=== PATIENT | female | born 1960 | race Caucasian/White ===

== ENCOUNTER 2017-04-18 10:52 | Inpatient (IN) ==
--- NOTE | 2017-04-18 11:11 | Emergency Department Note ---
Disposition Clinical Impression: Septic shock, CAP (community acquired pneumonia), Lactic acidosis Disposition: Admitted As Inpatient Condition: Fair Referrals: Neelam Zhao MD [Primary Care Provider] - Forms: ED Satisfaction Letter Time of Disposition: 14:08 SOB HPI - General Chief Complaint: ED Shortness of Breath/Dyspnea Stated Complaint: ZAIRE Time Seen by Provider: 04/18/17 10:55 Source: patient Mode of arrival: ambulatory Limitations: no limitations Nursing Notes Reviewed: Yes Vital Signs Reviewed: Yes - History of Present Illness Patient presents to the ED with the chief complaint of shortness of breath. Patient reports symptoms onset 2 days ago. She has a history of emphysema and asthma, but is only on nightly oxygen. She reports for the last 2 days, she has required oxygen. Much full-time. She went to urgent care last night and had a chest x-ray that showed bronchitis so she was placed on steroids and given a few breathing treatments. She states that has not seemed to help. She woke up this morning feeling more short of breath usual and could not catch her breath. She has been coughing but is not coughing anything up. No fever. No chest pain, but does have chest tightness. No abdominal pain. She has been nauseated but no vomiting or diarrhea. No rash. No headache or neck stiffness. - Related Data Home Medications Medication Instructions Recorded Confirmed Albuterol Sulfate [Proair 2 puff IH Q4HR PRN 04/07/15 11/10/15 Respiclick] Amlodipine [Norvasc] 10 mg PO DAILY 04/07/15 11/10/15 Aripiprazole [Abilify] 5 mg PO DAILY 04/07/15 11/10/15 Atorvastatin [Lipitor] 10 mg PO HS 04/07/15 11/10/15 Budesonide/Formoterol 160/4.5 2 puff IH BIDR 04/07/15 11/10/15 [Symbicort] Hydrochlorothiazide [Microzide] 12.5 mg PO DAILY 04/07/15 11/10/15 Ipratropium [ATROVENT Inhaler] 1 puff IH DAILY 04/07/15 11/10/15 LevETIRAcetam [Keppra] 1,000 mg PO BID 04/07/15 11/10/15 Liraglutide [Victoza 2-Bryson] 1.2 mg SQ DAILY 04/07/15 11/10/15 Metformin [Glucophage] 1,000 mg PO BID 04/07/15 11/10/15 Metoclopramide [Reglan] 25 mg PO BID 04/07/15 11/10/15 Modafinil [Provigil] 400 mg PO DAILY 04/07/15 11/10/15 Omeprazole [PriLOSEC] 40 mg PO BID 04/07/15 11/10/15 Ondansetron ODT [Zofran ODT] 8 mg SL TID PRN 04/07/15 11/10/15 Potassium Chloride 20 meq PO BID 04/07/15 11/10/15 Sucralfate [Carafate] 1 gm PO BID 04/07/15 11/10/15 Tizanidine HCl [Zanaflex] 4 mg PO Q8HR 04/07/15 11/10/15 Venlafaxine HCl [Effexor Xr] 75 mg PO DAILY 04/07/15 11/10/15 GI Cocktail [Gi Cocktail] 5 ml PO BID 05/09/15 11/10/15 Ibuprofen [Motrin] 800 mg PO Q8HR 05/09/15 11/10/15 Linaclotide [Linzess] 145 mcg PO DAILY 05/09/15 11/10/15 Meloxicam [Mobic] 15 mg PO DAILY 05/09/15 11/10/15 Promethazine [Phenergan] 25 mg PO Q8HR 05/09/15 11/10/15 Simethicone [Bicarsim] 180 mg PO BID 05/09/15 11/10/15 Escitalopram [Lexapro] 15 mg PO DAILY 11/10/15 11/10/15 Fluticasone Propionate Nasal 1 spr NS DAILY PRN 11/10/15 11/10/15 [Flonase] Insulin ASPART [NovoLOG] 0 unit SQ TIDWM 11/10/15 11/10/15 LORazepam [Ativan] 0.5 mg PO QID 11/10/15 11/10/15 Lisinopril [Zestril] 5 mg PO DAILY 11/10/15 11/10/15 PredniSONE [Deltasone] 20 mg PO BID 11/10/15 11/10/15 glipiZIDE [Glucotrol] 5 mg PO 0800 11/10/15 11/10/15 Previous Rx's Medication Instructions Recorded Loratadine [Claritin] 10 mg PO DAILY #30 tablet 01/13/15 Ipratropium/Albuterol Neb [Duoneb] 3 ml IH Q8HR PRN #1 vial.neb 04/07/15 OxyCODONE/APAP 5/325 [Percocet 1 each PO Q6HR PRN #30 tablet 05/09/15 5/325 MG] Acyclovir [Zovirax] 400 mg PO 5XD #25 tablet 11/16/15 Acetaminophen w/Cod 300-30 mg 1 each PO Q6HR PRN #10 tablet 11/22/15 [Tylenol w/Codeine #3] Ibuprofen [Motrin] 800 mg PO Q8HR PRN #30 tablet 11/22/15 Azithromycin [Azithromycin 6-Tab 250 mg PO DAILY #6 tab 01/16/16 Pack] Guaifenesin/Codeine Phosphate 5 ml PO Q4-6H PRN #80 ml 01/16/16 [Guaifenesin-Codeine Syrup] predniSONE [Prednisone] 40 mg PO DAILY #10 tablet 01/16/16 predniSONE [PredniSONE] 40 mg PO DAILY #5 tablet 04/17/16 Benzonatate [Tessalon] 200 mg PO TID PRN #20 capsule 05/05/16 Doxycycline 100 mg PO BID #14 capsule 05/05/16 HYDROcodone BIT/Homatropine 1 mg PO Q6HR PRN #4 tablet 05/05/16 [Hycodan] predniSONE [PredniSONE] 5 mg PO DAILY 6 Days tablet 05/05/16 Acetaminophen w/Cod 300-30 mg 1 each PO Q8HR PRN #8 tablet 06/12/16 [Tylenol w/Codeine #3] cephALEXin [Keflex] 500 mg PO QID #28 capsule 06/12/16 Acetaminophen w/Cod 300-30 mg 1 each PO Q6HR PRN #10 tablet 07/23/16 [Tylenol w/Codeine #3] Amoxicillin 875 mg PO BID #20 tablet 07/23/16 Diclofenac Potassium 50 mg PO TID PRN #20 tablet 07/23/16 Azithromycin [Azithromycin 6-Tab 250 mg PO PER PKG DI #6 tab 09/19/16 Pack] HYDROcodone BIT/Homatropine LQ 5 mg PO Q6-8H PRN #90 syrup 09/19/16 [Hycodan Syrup] methylPREDNISolone [Medrol] 4 mg PO TAPER #21 tablet 09/19/16 Naproxen [Naprosyn] 500 mg PO BID PRN #20 tablet 10/31/16 Cyclobenzaprine [Flexeril] 10 mg PO TID #15 tablet 02/06/17 HYDROcodone/Acet 5/325 mg [[place] 1 tab PO Q6H PRN #8 tab 02/06/17 5-325 mg] methylPREDNISolone [Medrol] 4 mg PO TAPER #21 tablet 02/06/17 Amoxicillin 875 mg PO BID #20 tablet 02/16/17 Naproxen [Naprosyn] 500 mg PO BID #20 tablet 02/16/17 GuaiFENesin/Codeine [Robitussin 5 ml PO Q6HR PRN #120 liquid 04/17/17 w/Codeine] cephALEXin [Keflex] 500 mg PO QID #40 capsule 04/17/17 predniSONE [PredniSONE] 60 mg PO DAILY 5 Days tablet 04/17/17 Allergies Allergy/AdvReac Type Severity Reaction Status Date / Time docetaxel [From Taxotere] Allergy Anaphylaxis Verified 04/07/15 03:46 Paroxetine [From Paxil] Allergy Itching Verified 04/07/15 03:46 trazodone AdvReac Vomiting Verified 04/07/15 03:46 All systems ED: reviewed and negative except as stated. Constitutional: Denies: fever Cardiovascular: Reports: chest pain, dyspnea on exertion. Denies: edema Respiratory: Reports: cough, dyspnea. Denies: wheezes, sputum production Gastrointestinal: Reports: nausea. Denies: abdominal pain Musculoskeletal: Denies: back pain Neurological: Denies: headache Past Medical History - Past Medical History Attestation: Yes The following information was validated with the patient. Source: patient Medical history: Reports: arthritis, COPD, diabetes, hypertension, seizures Surgical history: Reports: other Psychiatric history: Reports: bipolar, depression, other - Social History Smoking Status: Current every day smoker Smokeless Tobacco Status: No Alcohol use: Reports: none Drug use: Reports: none Physical Exam - General Limitations: no limitations General appearance: alert, in no apparent distress - Head Head exam: atraumatic, normocephalic, normal inspection - Eye Eye exam: Present: normal appearance, PERRL, EOMI - ENT ENT exam: normal exam, normal oropharynx, mucous membranes moist - Neck Neck exam: Present: normal inspection, full ROM, trachea midline - Chest Chest inspection: Present: normal inspection, symmetric chest wall rise - Respiratory Respiratory exam: Present: normal lung sounds bilaterally. Absent: respiratory distress, wheezes - Cardiovascular Cardiovascular exam: Present: tachycardia, normal heart sounds - Abdominal Exam Abdominal exam: Present: soft, Non-Tender. Absent: tenderness, distention, guarding, rebound, rigidity - Extremities Exam Extremities exam: Present: full ROM, pedal edema. Absent: normal inspection, tenderness - Expanded Lower Extremity Exam Hip/Pelvis exam: Present: pelvis stable Neurovascular/Tendon exam: Present: normal capillary refill - Neurological Exam Neurological exam: Present: alert, oriented X3 - Psychiatric Psychiatric exam: Present: normal affect, normal mood - Skin Skin exam: Present: warm, dry, intact, normal color Course Course Narrative: Patient presenting with shortness of breath and cough. Had an x-ray yesterday was treated for bronchitis with steroids. Presenting now for worsening symptoms. Concern over pneumonia versus PE. We will CTA chest labs ordered - Reevaluation(s) Reevaluation #1: Patient has a lactic acid greater than 10, and a leukocytosis of 21,000 complicated by steroid use, but CT of the chest was negative for PE and did show multifocal pneumonia. She does meet sepsis criteria. We will administer a 30 mL/kg fluid bolus and start broad-spectrum antibiotics. Cultures will be ordered. Patient will need to be admitted. This is discussed with her and she is agreeable with plan Reevaluation #2: Spoke with the hospitalist who recommended speaking with the ocular care technician on- call. We spoke with him and he recommended placing a central line prior to admission and obtaining a respiratory infection panel. Also recommended electrical treating with Tamiflu. If this is an influenza-like illness. Patient responded very well to the fluid bolus and her lactic acid is trending down. I do not think that central venous access is indicated at this time. If she does need is a pressor support. We are able to run Levophed peripherally for up to 24 hours. This was discussed with the admitting hospitalist, and she recommended to not place a central line and to admit the patient to the stepdown unit. This is reasonable. The patient actually looks very well. There also seems to be a component of congestive heart failure with an elevated BNP and potential pulmonary edema on chest x-ray from yesterday. Also recommend echocardiogram and close respiratory status monitoring due to her large volume of fluid resuscitation to be given. Vital Signs Temperature 98.5 F 04/18/17 10:53 Pulse Rate 108 04/18/17 10:53 Respiratory Rate 24 04/18/17 10:53 Blood Pressure 89/56 04/18/17 10:53 O2 Sat by Pulse Oximetry 85 04/18/17 10:53 Temperature 98.5 F 04/18/17 10:53 Pulse Rate 99 04/18/17 13:08 Respiratory Rate 22 04/18/17 13:08 Blood Pressure 126/77 04/18/17 13:08 O2 Sat by Pulse Oximetry 93 04/18/17 13:08 Oxygen Delivery Oxygen Delivery Nasal Cannula Shortness of Breath/Dyspnea - Medical Records Medical records reviewed: Yes I reviewed the patient's medical records. - Lab Data Lab results reviewed: Yes I reviewed the patient's lab results. Result diagrams: 04/18/17 11:10 04/18/17 11:10 Lab Results 04/18/17 04/18/17 04/18/17 Range/Units 11:10 11:10 11:10 WBC 21.5 H (4.3-11.1) K/mcL RBC 3.49 L (3.82-4.97) M/mcL Hgb 9.2 L (11.5-15.4) g/dL Hct 28.7 L (35.3-44.9) % MCV 82.2 L (83.0-100.0) fL MCH 26.4 L (28.0-33.3) pg MCHC 32.1 (31.6-35.5) g/dL RDW 16.5 H (11.5-14.5) % Plt Count 394 (140-400) K/mcL MPV 9.3 L (9.4-12.4) fL Immature Gran % 0.7 (0-4) % Seg Neutrophils % 94.3 % Lymphocytes % 2.3 % Monocytes % 2.7 % Eosinophils % 0.0 % Basophils % 0.0 % Neutrophils # 20.3 H (1.6-8.9) K/mcL Lymphocytes # 0.5 L (0.6-4.6) K/mcL Monocytes # 0.6 (0.0-1.3) K/mcL Eosinophils # 0.0 (0.0-0.6) K/mcL Basophils # 0.0 (0.0-0.2) K/mcL PT (9.4-12.1) Seconds INR APTT (26.0-36.0) Seconds Sodium 131 L (136-145) mEq/L Potassium 3.1 L (3.5-5.1) mEq/L Chloride 96 L (98-107) mEq/L Carbon Dioxide 15 L (23-29) mEq/L BUN 18 (6-20) mg/dL Creatinine 1.12 (0.60-1.20) mg/dL Est GFR ( Amer) > 60 (> 60) Est GFR (Non-Af Amer) 50 L (> 60) BUN/Creatinine Ratio 16 (6-26) Glucose 486 H (70-105) mg/dL Calculated Osmolality 295 (280-300) Lactic Acid > 10.0 H* (0.5-2.2) mmol/L Calcium 9.1 (8.6-10.3) mg/dL Troponin I (< 0.04) ng/mL B-Natriuretic Peptide (Less than 100) pg/mL Urine Color (Yellow) Urine Clarity (Clear) Urine pH (5.0-8.0) pH Units Ur Specific [place] (1.010-1.025) Urine Protein (Neg-Trace) mg/dL Urine Glucose (UA) (Normal) mg/dL Urine Ketones (Negative) mg/dL Urine Blood (Negative) Urine Nitrite (Negative) Urine Bilirubin (Negative) Urine Urobilinogen (Normal) mg/dL Ur Leukocyte Esterase (Negative) Urine Microscopic RBC (0-3) per hpf Urine Microscopic WBC (0-3) per hpf Ur Squamous Epith Cells (None-Few) per lpf Urine Bacteria (None-Few) per hpf Hyaline Casts (None-Few) per lpf Ur Culture Indicated? (NO) 04/18/17 04/18/17 04/18/17 Range/Units 11:10 11:10 11:10 WBC (4.3-11.1) K/mcL RBC (3.82-4.97) M/mcL Hgb (11.5-15.4) g/dL Hct (35.3-44.9) % MCV (83.0-100.0) fL MCH (28.0-33.3) pg MCHC (31.6-35.5) g/dL RDW (11.5-14.5) % Plt Count (140-400) K/mcL MPV (9.4-12.4) fL Immature Gran % (0-4) % Seg Neutrophils % % Lymphocytes % % Monocytes % % Eosinophils % % Basophils % % Neutrophils # (1.6-8.9) K/mcL Lymphocytes # (0.6-4.6) K/mcL Monocytes # (0.0-1.3) K/mcL Eosinophils # (0.0-0.6) K/mcL Basophils # (0.0-0.2) K/mcL PT 11.3 (9.4-12.1) Seconds INR 1.1 APTT 29.0 (26.0-36.0) Seconds Sodium (136-145) mEq/L Potassium (3.5-5.1) mEq/L Chloride (98-107) mEq/L Carbon Dioxide (23-29) mEq/L BUN (6-20) mg/dL Creatinine (0.60-1.20) mg/dL Est GFR ( Amer) (> 60) Est GFR (Non-Af Amer) (> 60) BUN/Creatinine Ratio (6-26) Glucose (70-105) mg/dL Calculated Osmolality (280-300) Lactic Acid (0.5-2.2) mmol/L Calcium (8.6-10.3) mg/dL Troponin I < 0.03 (< 0.04) ng/mL B-Natriuretic Peptide 235 H (Less than 100) pg/mL Urine Color (Yellow) Urine Clarity (Clear) Urine pH (5.0-8.0) pH Units Ur Specific [place] (1.010-1.025) Urine Protein (Neg-Trace) mg/dL Urine Glucose (UA) (Normal) mg/dL Urine Ketones (Negative) mg/dL Urine Blood (Negative) Urine Nitrite (Negative) Urine Bilirubin (Negative) Urine Urobilinogen (Normal) mg/dL Ur Leukocyte Esterase (Negative) Urine Microscopic RBC (0-3) per hpf Urine Microscopic WBC (0-3) per hpf Ur Squamous Epith Cells (None-Few) per lpf Urine Bacteria (None-Few) per hpf Hyaline Casts (None-Few) per lpf Ur Culture Indicated? (NO) 04/18/17 04/18/17 Range/Units 12:54 13:33 WBC (4.3-11.1) K/mcL RBC (3.82-4.97) M/mcL Hgb (11.5-15.4) g/dL Hct (35.3-44.9) % MCV (83.0-100.0) fL MCH (28.0-33.3) pg MCHC (31.6-35.5) g/dL RDW (11.5-14.5) % Plt Count (140-400) K/mcL MPV (9.4-12.4) fL Immature Gran % (0-4) % Seg Neutrophils % % Lymphocytes % % Monocytes % % Eosinophils % % Basophils % % Neutrophils # (1.6-8.9) K/mcL Lymphocytes # (0.6-4.6) K/mcL Monocytes # (0.0-1.3) K/mcL Eosinophils # (0.0-0.6) K/mcL Basophils # (0.0-0.2) K/mcL PT (9.4-12.1) Seconds INR APTT (26.0-36.0) Seconds Sodium (136-145) mEq/L Potassium (3.5-5.1) mEq/L Chloride (98-107) mEq/L Carbon Dioxide (23-29) mEq/L BUN (6-20) mg/dL Creatinine (0.60-1.20) mg/dL Est GFR ( Amer) (> 60) Est GFR (Non-Af Amer) (> 60) BUN/Creatinine Ratio (6-26) Glucose (70-105) mg/dL Calculated Osmolality (280-300) Lactic Acid 7.8 H* (0.5-2.2) mmol/L Calcium (8.6-10.3) mg/dL Troponin I (< 0.04) ng/mL B-Natriuretic Peptide (Less than 100) pg/mL Urine Color Yellow (Yellow) Urine Clarity Clear (Clear) Urine pH 6.0 (5.0-8.0) pH Units Ur Specific [place] > 1.030 H (1.010-1.025) Urine Protein Trace (Neg-Trace) mg/dL Urine Glucose (UA) >=1000 H (Normal) mg/dL Urine Ketones Negative (Negative) mg/dL Urine Blood Negative (Negative) Urine Nitrite Negative (Negative) Urine Bilirubin Negative (Negative) Urine Urobilinogen Normal (Normal) mg/dL Ur Leukocyte Esterase Negative (Negative) Urine Microscopic RBC 0-3 (0-3) per hpf Urine Microscopic WBC 0-3 (0-3) per hpf Ur Squamous Epith Cells Few (None-Few) per lpf Urine Bacteria None Seen (None-Few) per hpf Hyaline Casts None Seen (None-Few) per lpf Ur Culture Indicated? NO (NO) - Radiology Data Radiology results reviewed: Yes I reviewed the patient's radiology results. - EKG Data EKG attestation: Yes I reviewed and interpreted this EKG. EKG results narrative: Sinus rhythm, rate 99, OH interval 148, QRS 98, QTC 443, borderline left axis deviation, no acute ischemic changes. Critical Care Time Critical Care Time: Yes Total Critical Care Time: 35 Attestation: Total care time 35 minutes managing patient septic shock. Attestation Statement - Attestation Attestation: Patient was seen with resident physician. I reviewed the history, physical, assessment and plan, and agree with the findings. I also personally evaluated this patient and had [id number] time with this patient. A sexual female presents emergency Department chief complaint shortness of breath. Patient was seen several days ago and started on steroids for bronchitis area and she had a chest x-ray done which. We did not show pneumonia. It is unclear if she has been on antibiotics in the last week or so. She denies fevers or chills. She says she is on home O2 during the day as needed and 4 L at night. On examination mild hypotension, and mild hypoxia. ENT is unremarkable. Heart regular rhythm and rate. Lungs clear left crackles right. Abdomen soft and nontender. Extremities unremarkable. Neurologically intact. ED course with the minimal lung findings, we will do a CT scan of the chest determine she has pneumonia or PE. She is not have a lot of PE risk factors is no long car trips and no asymmetric swelling of the legs. EKG showed no acute ischemic changes. We will also check of the lab tests for abnormalities. Patient had significant abnormalities including initial lactic acid level of 10. A CT scan was positive for pneumonia. And with initial vital signs tachycardic and hypotensive patient clinically had septic shock. She responded well to fluid management blood pressure coming up but then later coming down towards the end of her stay. I spoke with the diabetes solutions specialist who did agree to accept her to the ICU wanting me to contact the hospitalist to arrange for admission. He suggested a viral panel and a central line as well. I spoke with the hospitalist who would be doing the admission and came and evaluated the patient. They felt comfortable putting the patient in the stepdown unit, and said that they wanted to try fluid resuscitation prior to placing a central line or starting pressors. Patient appeared well considering the significant abnormalities in her lab work, and I was comfortable with this disposition and plan. We will order the viral panel as well. In start antibiotics. Medical care time 35 minutes. Agree with the resident physician assessment and plan.
[2017-04-18 11:28] LABS: Hematocrit 28.7 % (35.3-44.9); Hemoglobin 9.2 g/dL (11.5-15.4); Immature Granulocytes % 0.7 % (0-4); Lymphocytes # 0.5 K/mcL (0.6-4.6); Lymphocytes % 2.3 %; Mean Corpuscular HGB Conc 32.1 g/dL (31.6-35.5); Mean Corpuscular Hemoglobin 26.4 pg (28.0-33.3); Mean Corpuscular Volume 82.2 fL (83.0-100.0); Mean Platelet Volume 9.3 fL (9.4-12.4); Monocytes # 0.6 K/mcL (0.0-1.3); Monocytes % 2.7 %; Neutrophils # 20.3 K/mcL (1.6-8.9); Platelet Count 394 K/mcL (140-400); Red Blood Count 3.49 M/mcL (3.82-4.97); Red Cell Distribution Width 16.5 % (11.5-14.5); Segmented Neutrophils % 94.3 %
[2017-04-18 11:33] LABS: INR 1.1; Prothrombin Time 11.3 Seconds (9.4-12.1)
[2017-04-18 11:47] LABS: BUN/Creatinine Ratio 16 (6-26); Blood Urea Nitrogen 18 mg/dL (6-20); Calcium 9.1 mg/dL (8.6-10.3); Carbon Dioxide 15 mEq/L (23-29); Chloride 96 mEq/L (98-107); Glucose 486 mg/dL (70-105); Osmolality,Calculated 295 (280-300); Potassium 3.1 mEq/L (3.5-5.1); Sodium 131 mEq/L (136-145); eGFR For African Americans > 60 (> 60); eGFR For Non-African Americans 50 (> 60)
[2017-04-18] MEDS ORDERED: Levofloxacin 750 MG/150 ML 750 MG/150 ML BAG IVPB ONE (11:49)
[2017-04-18] MEDS ORDERED: Piperacillin/Tazobactam 3.375 GM/200 ML BAG IVPB ONE (11:50)
[2017-04-18] MEDS ORDERED: Piperacillin/Tazobactam 3.375 GM in Water for inj. (sterile) 20 ML IVP ONE (11:59)
[2017-04-18] MEDS: 0.9 % Sodium Chloride 1,000 ML IVC SCH ×3 (12:56→16:33)
[2017-04-18 13:52] LABS: Bilirubin,Urine Negative (Negative); Blood,Urine Negative (Negative); Clarity,Urine Clear (Clear); Color,Urine Yellow (Yellow); Glucose,Urine (UA) >=1000 mg/dL (Normal); Ketones,Urine Negative (Negative); Leukocyte Esterase,Urine Negative (Negative); Nitrite,Urine Negative (Negative); Protein,Urine Trace mg/dL (Neg-Trace); Specific Gravity,Urine > 1.030 (1.010-1.025); Urobilinogen,Urine Normal (Normal)
[2017-04-18 13:54] LABS: Bacteria,Urine None Seen per hpf (None-Few); Hyaline Casts,Urine None Seen per lpf (None-Few); RBC,Urine 0-3 per hpf (0-3); Squamous Epithelial Cell,Urine Few per lpf (None-Few); WBC,Urine 0-3 per hpf (0-3)
[2017-04-18] MEDS ORDERED: *HR* Dextrose 50 % in Water (Syg) 50 ML SYRINGE IVP PRN ×2 (15:04→16:28)
[2017-04-18] MEDS ORDERED: D5% in 0.45% NACL w KCl 20 MEQ/1,000 ML MLS IVC PRN (15:04)
[2017-04-18] MEDS ORDERED: D5% in 0.45% NACL 1,000 ML IVC PRN (15:04)
[2017-04-18 15:51] LABS: ABG Base Excess -5 mEq/L (-2 to 3); ABG HCO3 19 mEq/L (21-27); ABG Oxygen Saturation 95 % (95-98); ABG PCO2 31 mmHg (35-45); ABG PH 7.39 pH Units (7.32-7.45); ABG PO2 74 mmHg (85-104); ABG TCO2 20 mEq/L (20-26)
--- NOTE | 2017-04-18 15:53 | Internal Med History&Physical ---
<Ronald Gomez J - Last Filed: 04/18/17 15:44> Date of Encounter: 04/18/17 Time of Encounter: 15:44 Assessment and Plan (1) Septic shock Current visit: Yes Status: Acute Patient presents with septic shock secondary to pneumonia. Reporting two-day history of increasing dyspnea, cough. CT of chest shows multifocal pneumonia. Patient additionally has leukocytosis and lactic acidosis. She also has a dx of DKA. She is still in respitatory distress with kuussmaul respirations, but maintain 02 saturations on high flow nasal canula at 6LPM. She received a 2L fluid bolus in the ED and is receiving 0.9 with 40meq K bolus per DKA protocol now. Obtain ABG now. Start emperic ATB therapy now with Vancomycin and zosyn Rapid flu and respiratory PCR now Blood cultures x2 sputum cultures now UA now recheck lactate Continue respiratory support with high flow NC; maintain spo2 greater than 92% BMP q4hrs (2) Pneumonia, organism unspecified Current visit: Yes Status: Acute Presents today with a multifocal pneumonia, leukocytosis, and septic shock. She is dyspneic, tachypneic with Kussmaul respirations on high flow oxygen at 6 L. See plan above. (3) DKA (diabetic ketoacidoses) Current visit: Yes Status: Acute Patient was sent to the ED today with shortness of breath 2 days. Diagnosis of pneumonia and septic shock. The patient is also in diabetic ketoacidosis. presenting with polyuria, polydipsia and nausea. Anion gap acidosis of 22. Presenting, respirations, hypoxia, lactic acidosis, hypokalemia potassium 3.1 and hyperglycemia with serum blood glucose of 486 Starting insulin gtt now d/t DKA, however IV insulin bolus at this time due to hypokalemia I have discussed with the patient that she will likely need CVC access. surgery was called for placement but the patient refused I will project architect her oral potassium 40meq x1 dose now as well as the 40 meq through her IVF bolus per DKA protocol She is also receiving 20meq IV K rider BMP Q4hrs to further monitor electrolytes Continuous tele, spo2 monitoring CBCD in the am obtain urinalysis to assess for ketones and additional source of infection Qualifiers: Diabetes mellitus type: other specified (including [place]) Diabetes mellitus complication detail: without coma Qualified Code(s): E13.10 - Other specified diabetes mellitus with ketoacidosis without coma (4) Lactic acidosis Current visit: Yes Status: Acute In the setting of DKA and sepsis secondary to pneumonia. Continue to monitor. Implementing sepsis protocol. See plan above (5) Diabetes mellitus Current visit: Yes Status: Acute see plan above Qualifiers: Diabetes mellitus type: type 2 Diabetes mellitus complication status: with kidney complications Diabetes mellitus complication detail: with chronic kidney disease Diabetes mellitus ferry terminal agent insulin use: with ferry terminal agent use Chronic kidney disease stage: stage 3 (moderate) Qualified Code(s): E11.22 - Type 2 diabetes mellitus with diabetic chronic kidney disease; N18.3 - Chronic kidney disease, stage 3 (moderate); Z79.4 - long term care phlebotomist (current) use of insulin (6) Acute and chronic respiratory failure with hypoxia Current visit: Yes Status: Acute see plan above (7) DVT prophylaxis Current visit: Yes Status: Acute Heparin 5000 units SC BID Internal Medicine - H&P: HPI Chief complaint: Dyspnea, fatigue, x2 days Admitted From: Home Plans for Post Hospital Care: Home History of present illness: Ms. Youssef is a 57 year old female with a PMH of arthritis, COPD, DM, HTN, and seizures. She presents to [facility] today with a 2-day h/o dyspnea, cough, fatigue and weakness. She reports that she went to urgent care yesterday and was diagnosed with Bronchitis and sent home with steroids. She presents today with worsening shortness of breath reporting that I have been unable to catch my breath today. The patient reports that she wears 4 L nasal cannula at home but only at night, however for the last 2 days she has been requiring nasal cannula at 4 L all day long. Additionally, she arrives with hypoxia with an SPO2 of 85% . Workup in the ED revealed leukocytosis, lactic acidosis, CTA of chest shows multifocal pneumonia. Upon my assessment the patient is in respiratory distress with Kussmaul respirations. Further review of labs reveals that the patient is in diabetic ketoacidosis with an anion gap of 22, hypokalemia with K of 3.1, lactic acidosis and a serum glucose of 46. We will further pursue workup with urinalysis to check for urine ketones. Additionally, we will also place CVC access. Past Med Surg Social Fam HX - Past Medical History Medical history: arthritis, COPD, diabetes, hypertension, seizures Psychiatric history: bipolar, depression, other - Past Surgical History Surgical History: other - Social History Smoking Status: Current every day smoker Smokeless Tobacco Status: No Alcohol use: none Drug use: none - Family History Mother Hx Family Cardiac Disorders: Yes (HTN) Hx Family Endocrine Disorder: Yes (DIABETES) Internal Medicine - H&P: Meds Loratadine [Claritin] 10 mg PO DAILY #30 tablet 01/13/15 [Rx] Albuterol Sulfate [Proair Respiclick] 2 puff IH Q4HR PRN 04/07/15 [History] Amlodipine [Norvasc] 10 mg PO DAILY 04/07/15 [History] Aripiprazole [Abilify] 7.5 mg PO DAILY 04/07/15 [History] Atorvastatin [Lipitor] 10 mg PO HS 04/07/15 [History] Budesonide/Formoterol 160/4.5 [Symbicort] 2 puff IH BIDR 04/07/15 [History] Hydrochlorothiazide [Microzide] 12.5 mg PO DAILY 04/07/15 [History] Ipratropium [ATROVENT Inhaler] 1 puff IH DAILY 04/07/15 [History] Ipratropium/Albuterol Neb [Duoneb] 3 ml IH Q8HR PRN #1 vial.neb 04/07/15 [Rx] LevETIRAcetam [Keppra] 1,000 mg PO BID 04/07/15 [History] Metformin [Glucophage] 1,000 mg PO BID 04/07/15 [History] Metoclopramide [Reglan] 25 mg PO BID 04/07/15 [History] Modafinil [Provigil] 400 mg PO DAILY 04/07/15 [History] Ondansetron ODT [Zofran ODT] 8 mg SL TID PRN 04/07/15 [History] Potassium Chloride 20 meq PO BID 04/07/15 [History] Sucralfate [Carafate] 1 gm PO BID 04/07/15 [History] Tizanidine HCl [Zanaflex] 4 mg PO Q8HR 04/07/15 [History] Meloxicam [Mobic] 15 mg PO DAILY 05/09/15 [History] Promethazine [Phenergan] 25 mg PO Q8HR 05/09/15 [History] Simethicone [Bicarsim] 180 mg PO BID 05/09/15 [History] Escitalopram [Lexapro] 10 mg PO DAILY 11/10/15 [History] Fluticasone Propionate Nasal [Flonase] 50 mcg NS DAILY PRN 11/10/15 [History] Insulin ASPART [NovoLOG] 2 - 10 unit SQ TIDWM 11/10/15 [History] LORazepam [Ativan] 0.5 mg PO TID PRN 11/10/15 [History] Lisinopril [Zestril] 5 mg PO DAILY 11/10/15 [History] glipiZIDE [Glucotrol] 10 mg PO QAM 11/10/15 [History] Naproxen [Naprosyn] 500 mg PO BID #20 tablet 02/16/17 [Rx] ALPRAZolam [Xanax 1 MG Tablet] 1 mg PO HS 04/18/17 [History] Exenatide Microspheres [Bydureon Pen] 2 mg SQ TH 04/18/17 [History] Insulin Glargine [Lantus] 16 units SQ QAM 04/18/17 [History] Pregabalin [Lyrica] 50 mg PO TID 04/18/17 [History] Roflumilast [Daliresp] 500 mcg PO DAILY 04/18/17 [History] glipiZIDE [Glucotrol] 5 mg PO QPM 04/18/17 [History] 3 Allergy/AdvReac Type Severity Reaction Status Date / Time docetaxel [From Taxotere] Allergy Anaphylaxis Verified 04/07/15 03:46 Paroxetine [From Paxil] Allergy Itching Verified 04/07/15 03:46 trazodone AdvReac Vomiting Verified 04/07/15 03:46 All Systems PM: A 10-system review of systems was performed and is negative for pertinent findings except as documented above in the HPI. Review of systems: REVIEW OF SYSTEMS GENERAL: Negative for any nausea, vomiting, fevers, chills, or weight loss. NEUROLOGIC: Negative for any blurry vision, blind spots, double vision, facial asymmetry, dysphagia, dysarthria, hemiparesis, hemisensory deficits, vertigo, ataxia. HEENT: Negative for any head trauma, neck trauma, neck stiffness, photophobia, phonophobia, sinusitis, rhinitis. CARDIAC: Negative for any chest pain, dyspnea on exertion, paroxysmal nocturnal dyspnea, peripheral edema. Positive for feeling tachycardic and palpitations PULMONARY: Positive for progressing dyspnea, cough for the last 2 days GASTROINTESTINAL: Negative for any abdominal pain, nausea, vomiting, bright red blood per rectum, melena. GENITOURINARY: Negative for any dysuria, hematuria, incontinence. Positive for polyuria and polydipsia INTEGUMENTARY: Negative for any rashes, cuts, insect bites. RHEUMATOLOGIC: Negative for any joint pains, photosensitive rashes, history of vasculitis or kidney problems. HEMATOLOGIC: Negative for any abnormal bruising, frequent infections or bleeding. - Constitutional Vitals: Temp Pulse Resp BP Pulse Ox 98.5 F 100 22 94/59 89 04/18/17 10:53 04/18/17 14:19 04/18/17 14:19 04/18/17 14:19 04/18/17 14:19 General appearance: Present: A&O X 3, answers questions appropriately Exam: PHYSICAL EXAMINATION: GENERAL: The patient is a well-developed, female in moderate respiratory distress distress. she is alert and oriented x3. VITAL SIGNS: Heart rate of 100, respiratory rate of 22 at 90% on high flow nasal cannula 6 L, blood pressure 94/59 HEENT: Head is normocephalic and atraumatic. Extraocular muscles are intact. Pupils are equal, round, and reactive to light and accommodation. Nares appeared normal. Mouth is well hydrated and without lesions. Mucous membranes are moist. Posterior pharynx clear of any exudate or lesions. NECK: Supple. No carotid bruits. No lymphadenopathy or thyromegaly. LUNGS: Clear to auscultation rhonchi bilateral posterior lobes. No accessory muscle usage, tachypneic with Cozaar respirations HEART: Tachycardic, S1, S2 with without murmur, rubs or gallops. ABDOMEN: Soft, nontender, and nondistended. Positive bowel sounds. No hepatosplenomegaly was noted. EXTREMITIES: Without any cyanosis, clubbing, rash, lesions or edema. NEUROLOGIC: Cranial nerves II through XII are grossly intact. PSYCHIATRIC: Flat affect, but denies suicidal or homicidal ideations. SKIN: No ulceration or induration present. Internal Med - H&P Results - Labs CBC & Chem 7: 04/18/17 11:10 04/18/17 11:10 - Diagnostic Studies CT scan - chest Status: image reviewed by me Additional comments: 1. No evidence for acute pulmonary embolism. 2. Discrete and confluent small and large ground-glass densities throughout the lungs with similar but more pronounced finding noted on the previous exam. Differential would include recurrent multifocal pneumonia or chronic conditions such as hypersensitivity pneumonitis, organizing pneumonia or alveolar proteinosis. <JeanayeKelly Lotus - Last Filed: 04/19/17 11:31> Date of Encounter: 04/19/17 Internal Medicine - H&P: HPI History of present illness: Ms. Youssef is a 57 year old female All Systems PM: A 10-system review of systems was performed and is negative for pertinent findings except as documented above in the HPI. - Constitutional Vitals: Temp Pulse Resp BP Pulse Ox 97.3 F L 107 26 93/63 69 04/19/17 07:34 04/19/17 10:00 04/19/17 10:00 04/19/17 10:00 04/19/17 10:00 Internal Med - H&P Results - Labs CBC & Chem 7: 04/19/17 09:35 04/19/17 07:22 Labs: Short CBC 04/19/17 Range/Units 09:35 WBC 20.8 H (4.3-11.1) K/mcL Hgb 8.8 L (11.5-15.4) g/dL Hct 28.8 L (35.3-44.9) % Plt Count 417 H (140-400) K/mcL Neutrophils # 19.4 H (1.6-8.9) K/mcL BMP 04/18/17 04/19/17 16:19 07:22 Sodium 130 L 133 L Potassium 3.1 L 4.7 D Chloride 98 103 Carbon Dioxide 21 L 26 BUN 13 17 Creatinine 0.88 1.09 Glucose 275 H 252 H Calcium 9.0 8.2 L Urine 04/18/17 Range/Units 18:15 Urine Color Yellow (Yellow) Urine Clarity Clear (Clear) Urine pH 6.0 (5.0-8.0) pH Units Ur Specific [place] 1.022 (1.010-1.025) Urine Protein Trace (Neg-Trace) mg/dL Urine Glucose (UA) >=1000 H (Normal) mg/dL - ABG Interpretation ABG results: 04/18/17 04/19/17 04/19/17 15:44 02:23 06:15 ABG pH 7.39 7.42 7.36 ABG pCO2 31 L 38 42 ABG pO2 74 L 54 L 74 L ABG HCO3 19 L 25 24 ABG Total CO2 20 26 25 ABG O2 Saturation 95 89 L 94 L ABG Base Excess -5 L 1 -2 04/19/17 04/19/17 10:02 10:46 ABG pH 7.22 L D 7.20 L* ABG pCO2 57 H 61 H ABG pO2 46 L* 67 L ABG HCO3 23 24 ABG Total CO2 25 26 ABG O2 Saturation 72 L 87 L ABG Base Excess -5 L -4 L - Impressions ITS Impressions Chest X-Ray 04/19/17 00:49 IMPRESSION: Dense airspace opacification diffusely in the lungs which may suggest ARDS. Multifocal pneumonia considered less likely. D/ / Leonard Mccrary MD / Leonard Mccrary MD Interpreting Provider: Leonard Mccrary MD Chest X-Ray 04/19/17 05:26 IMPRESSION: Diffuse consolidated opacity within each lung worrisome for severe diffuse bilateral pneumonias. Severe alveolar pulmonary edema could have the same appearance. Normal heart size. No evident pleural effusion. Appropriate positioning of the tubes. D/ / Freeman Stanton MD / Freeman Stanton MD Interpreting Provider: Freeman Stanton MD X-Ray 04/19/17 06:03 IMPRESSION: Tip of the OG in the upper body of the stomach. Proximal side hole near the GE junction. Advancing the NG at least 5 cm would result in better positioning. No acute abnormality identified. D/ / Freeman Stanton MD / Freeman Stanton MD Interpreting Provider: Freeman Stanton MD - Attending Attestation I personally and independently interviewed and examined the patient, and I reviewed the patient's medical records. I am in agreement with BILLING TYPIST assessment and proposed treatment plan. I discussed my findings and recommendation with the patient and answer all questions. The patient's medical records were edited to accurately reflect this encounter.
[2017-04-18 15:59] LABS: Adenovirus Not Detected (Not Detect); Bordetella Pertussis Not Detected (Not Detect); Chlamydophila pneumoniae Not Detected (Not Detect); Coronavirus 229E Not Detected (Not Detect); Coronavirus HKU1 Not Detected (Not Detect); Coronavirus NL63 Not Detected (Not Detect); Coronavirus OC43 Not Detected (Not Detect); Human Metapneumovirus Not Detected (Not Detect); Human Rhinovirus/Enterovirus Not Detected (Not Detect); Influenza A Subtype 2009 H1 Not Detected (Not Detect); Influenza A Untypeable Not Detected (Not Detect); Influenza B Not Detected (Not Detect); Mycoplasma pneumoniae Not Detected (Not Detect); Parainfluenza Virus 1 Not Detected (Not Detect); Parainfluenza Virus 2 Not Detected (Not Detect); Parainfluenza Virus 3 Not Detected (Not Detect); Parainfluenza Virus 4 Not Detected (Not Detect); Respiratory Syncytial Virus Not Detected (Not Detect)
[2017-04-18] MEDS ORDERED: Vancomycin 1,250 MG in D5% in Water 250 ML IVPB SCH ×2 (16:00→17:00)
[2017-04-18] MEDS: 0.9 % Sodium Chloride w KCl 20 MEQ/1,000 ML MLS IVC SCH (16:19)
[2017-04-18] MEDS ORDERED: Insulin Human Regular 100 UNIT in 0.9 % Sodium Chloride 100 ML IVC SCH (16:30)
[2017-04-18 16:35] LABS: BUN/Creatinine Ratio 15 (6-26); Blood Urea Nitrogen 13 mg/dL (6-20); Carbon Dioxide 21 mEq/L (23-29); Chloride 98 mEq/L (98-107); Glucose 275 mg/dL (70-105); Osmolality,Calculated 280 (280-300); Potassium 3.1 mEq/L (3.5-5.1); Sodium 130 mEq/L (136-145); eGFR For African Americans > 60 (> 60); eGFR For Non-African Americans > 60 (> 60)
[2017-04-18 16:37] LABS: 2009 H1N1 PCR NOT DETECTED (Not Detect); Influenza A PCR Negative (Negative); Influenza B PCR Negative (Negative)
[2017-04-18] MEDS: Vancomycin 1,250 MG in D5% in Water 250 ML IVPB SCH (17:10)
[2017-04-18 18:31] LABS: Bilirubin,Urine Negative (Negative); Blood,Urine Negative (Negative); Clarity,Urine Clear (Clear); Color,Urine Yellow (Yellow); Glucose,Urine (UA) >=1000 mg/dL (Normal); Ketones,Urine Negative (Negative); Leukocyte Esterase,Urine Negative (Negative); Nitrite,Urine Negative (Negative); Protein,Urine Trace mg/dL (Neg-Trace); Specific Gravity,Urine 1.022 (1.010-1.025); Urobilinogen,Urine Normal (Normal)
[2017-04-18 18:34] LABS: Bacteria,Urine None Seen per hpf (None-Few); Hyaline Casts,Urine None Seen per lpf (None-Few); RBC,Urine 0-3 per hpf (0-3); Squamous Epithelial Cell,Urine Moderate per lpf (None-Few); WBC,Urine 0-3 per hpf (0-3)
[2017-04-18] MEDS: Piperacillin/Tazobactam 3.375 GM/200 ML BAG IVPB SCH (18:38)
--- NOTE | 2017-04-18 18:48 | Event Note ---
<Ronald Gomez J - Last Filed: 04/18/17 18:46> Date of Encounter: 04/18/17 Time of Encounter: 18:46 anion gap is now 11. I will discontinue the insulin gtt now and resume SC SSIC with AC/HS accucheck. <Kelly Conklin - Last Filed: 05/15/17 09:38> Date of Encounter: 05/15/17 I personally and independently interviewed and examined the patient with [employer], and I reviewed the patient's medical record with her. I am in agreement with the assessment and proposed treatment plan. I discussed my findings and recommendation with the patient and answer all questions. The patient's medical records were edited to accurately reflect this encounter.
[2017-04-18] MEDS ORDERED: *HR* LORazepam 0.5 MG TABLET PO PRN (20:34)
[2017-04-18] MEDS ORDERED: Fluticasone Propionate Nasal 50 MCG/SPRAY BOTTLE NS PRN (20:34)
[2017-04-18] MEDS ORDERED: *HR* LORazepam 2 MG/ML VIAL IVP ONE (20:55)
[2017-04-18] MEDS ORDERED: ALPRAZolam 1 MG TABLET PO SCH (21:00)
[2017-04-18] MEDS ORDERED: levETIRAcetam 250 MG TABLET PO SCH (21:00)
[2017-04-18] MEDS ORDERED: Insulin LISPRO 300 UNITS/3 ML VIAL SQ SCH (21:00)
[2017-04-18] MEDS ORDERED: *HR* LORazepam 2 MG/ML VIAL ONE (21:03)
[2017-04-18] MEDS: Pregabalin 50 MG CAPSULE PO SCH (21:57)
[2017-04-18] MEDS: tiZANidine 4 MG TABLET PO SCH (21:58)
[2017-04-19] MEDS: 0.9 % Sodium Chloride 1,000 ML IVC SCH ×5 (01:10→10:35)
[2017-04-19] MEDS: Simethicone 80 MG TAB.CHEW PO SCH ×2 (01:28→07:27)
[2017-04-19 02:37] LABS: ABG Base Excess 1 mEq/L (-2 to 3); ABG HCO3 25 mEq/L (21-27); ABG Oxygen Saturation 89 % (95-98); ABG PCO2 38 mmHg (35-45); ABG PH 7.42 pH Units (7.32-7.45); ABG PO2 54 mmHg (85-104); ABG TCO2 26 mEq/L (20-26); Blood Gas Modality BIVENT
[2017-04-19] MEDS: Piperacillin/Tazobactam 3.375 GM/200 ML BAG IVPB SCH (03:09)
[2017-04-19] MEDS: tiZANidine 4 MG TABLET PO SCH (04:52)
[2017-04-19] MEDS ORDERED: Lacri-Lube 3.5 GM TUBE BOTH EYES PRN (05:26)
[2017-04-19] MEDS: FentaNYL (PF) 1,000 MCG in 0.9 % Sodium Chloride 80 ML IVC SCH ×2 (05:29→07:43)
[2017-04-19] MEDS ORDERED: methylPREDNISolone 125 MG/2 ML VIAL IVP SCH (06:00)
--- NOTE | 2017-04-19 06:09 | Event Note ---
Date of Encounter: 04/19/17 Time of Encounter: 06:06 Called by RN overnight due to patient's agitation, tachycardia and tachypnea. Patient was admitted earlier this evening, with suspected DKA, septic shock from Pneumonia, respiratory failure; has been on IV antibiotics, hydration and NIPPV support; patient got up to use bedside commode and felt short of breath and noted to have hypoxia, tachynea and tachycardia. Seen and examined at bedside. Patient awake and alert but in mild to moderate distress and agitation; Chest- S1, S2 heard, RRR, tachycardia; lungs with coarse breath sounds B/L HR noted to be in 160s and RR in 40s; given a dose of IV Ativan after which she slept and her vitals somewhat improved. However she continued to have episodes of diaphoresis, HR stayed in 120-130s, required 100% FiO2 on BiPAP; Chest XRay ordered- concerning for ARDS with B/L fluffy opacities EKG shows narrow complex regular tachycardia ABG shows hypoxemia Discussed benefits and risks of ET intubation due to suspected ARDS and ongoing hypoxemia and tachycardia; she was reluctant initially but later agreed to proceed; Transferred to ICU and underwent ET intubation by RT, details per RN notes. Continue IV antibiotics, steroids, ventilatory support; care to be taken over by Professor Of Art History;
[2017-04-19 06:17] LABS: ABG Base Excess -2 mEq/L (-2 to 3); ABG HCO3 24 mEq/L (21-27); ABG Oxygen Saturation 94 % (95-98); ABG PCO2 42 mmHg (35-45); ABG PH 7.36 pH Units (7.32-7.45); ABG PO2 74 mmHg (85-104); ABG TCO2 25 mEq/L (20-26); Blood Gas Modality ASSIST CONTROL; Blood Gas PEEP 18 cm H2O; Blood Gas Respiration Rate 24; Blood Gas VT 380 cc
[2017-04-19] MEDS ORDERED: Pantoprazole 40 MG VIAL IVP SCH (06:30)
[2017-04-19] MEDS: Vancomycin 1,250 MG in D5% in Water 250 ML IVPB SCH (06:36)
[2017-04-19] MEDS: 0.9 % Sodium Chloride w KCl 20 MEQ/1,000 ML MLS IVC SCH (06:56)
--- NOTE | 2017-04-19 07:05 | Pulmonology Consult Note ---
<Beltran Marquez - Last Filed: 04/19/17 10:59> Date of Encounter: 04/19/17 Time of Encounter: 07:49 Assessment and Plan (1) Septic shock Status: Acute Pt met criteria for spetic shock based on LA >10, tachycardia, WBC 21.5, RR, Hypotension Likely 2/2 to PNA Patient started on Vanc and Zosyn CXR: "Dense airspace opacification diffusely in the lungs which may suggest ARDS. Multifocal pneumonia considered less likely." CT chest: "Discrete and confluent small and large ground-glass densities throughout the lungs with similar but more pronounced finding noted on the previous exam. Differential would include recurrent multifocal pneumonia or chronic conditions such as hypersensitivity pneumonitis, organizing pneumonia or alveolar proteinosis." Resp panel negative Bcx and sputum cx pending Solumedro 125mg Q8H Plan: Start A line, Start CVC Start Levophed drip continue abx, start Azithromycin Continue steroids COntinue to monitor Transfer to [place] for higher level of care, and family preference (2) Acute and chronic respiratory failure with hypoxia Status: Acute Likely secondary to COPD exacerbation and PNA possible ARDS Pt on home oxygen 4L at night Patient required mechanical intubation on sedation: propfol, versed, fentanyl Plan: Continue mechanical ventilation continue sedation Add NMB(atricurium) continue abx, start Azithromycin Continue steroids COntinue to monitor Transfer to [place] for higher level of care, and family preference (3) Pneumonia, organism unspecified Status: Acute WBC 21.5 on admission CXR: "Dense airspace opacification diffusely in the lungs which may suggest ARDS. Multifocal pneumonia considered less likely." CT chest: "Discrete and confluent small and large ground-glass densities throughout the lungs with similar but more pronounced finding noted on the previous exam. 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 HHS Insulin drip initiated and subsequently stopped once gap closed Plan: q4 accuchecks High dose sliding scale Qualifiers: Diabetes mellitus type: type 2 Diabetes mellitus complication status: with kidney complications Diabetes mellitus complication detail: with chronic kidney disease Diabetes mellitus fdc insulin use: with fdc use Chronic kidney disease stage: stage 3 (moderate) Qualified Code(s): E11.22 - Type 2 diabetes mellitus with diabetic chronic kidney disease; N18.3 - Chronic kidney disease, stage 3 (moderate); Z79.4 - intermediate card tender (current) use of insulin (7) DVT prophylaxis Status: Acute SQ Heparin 5,000 Q12H on PPI for GI ppx History of Present Illness Consult date: 04/19/17 Requesting physician: Huseyin Mcclendon Reason for consult: other (Intensive Care management- ARDS) Chief complaint: Acute on chronic respiratory failure History of present illness: Ms. Youssef is a 57 year old female with a PMH of arthritis, COPD, DM, HTN, and seizures. She presented to [facility] with dyspnea, increased oxygen use.Patient dx with bronchitis at urgent care. Patient was found to be in septic shock on admission and in DKA vs. HHS. Patient required intubation and mechanical ventitlation and placement of a cnetral line and pressors. Patient's family requesting transfer to [place]. Past Med Surg Social Fam HX - Past Medical History Medical history: arthritis, COPD, diabetes, hypertension, seizures Psychiatric history: bipolar, depression, other - Past Surgical History Surgical History: other - Social History Smoking Status: Current every day smoker Packs per day: 1/2 pack a day Smokeless Tobacco Status: No Alcohol use: none Drug use: none - Family History Mother Living Status: Still Living Hx Family Cardiac Disorders: Yes (HTN) Hx Family Respiratory Disorders: Yes Hx Family Cancer: Yes Hx Family Endocrine Disorder: Yes (DIABETES) Medications and Allergies Loratadine [Claritin] 10 mg PO DAILY #30 tablet 01/13/15 [Rx] Albuterol Sulfate [Proair Respiclick] 2 puff IH Q4HR PRN 04/07/15 [History] Amlodipine [Norvasc] 10 mg PO DAILY 04/07/15 [History] Aripiprazole [Abilify] 7.5 mg PO DAILY 04/07/15 [History] Atorvastatin [Lipitor] 10 mg PO HS 04/07/15 [History] Budesonide/Formoterol 160/4.5 [Symbicort] 2 puff IH BIDR 04/07/15 [History] Hydrochlorothiazide [Microzide] 12.5 mg PO DAILY 04/07/15 [History] Ipratropium [ATROVENT Inhaler] 1 puff IH DAILY 04/07/15 [History] Ipratropium/Albuterol Neb [Duoneb] 3 ml IH Q8HR PRN #1 vial.neb 04/07/15 [Rx] LevETIRAcetam [Keppra] 1,000 mg PO BID 04/07/15 [History] Metformin [Glucophage] 1,000 mg PO BID 04/07/15 [History] Metoclopramide [Reglan] 25 mg PO BID 04/07/15 [History] Modafinil [Provigil] 400 mg PO DAILY 04/07/15 [History] Ondansetron ODT [Zofran ODT] 8 mg SL TID PRN 04/07/15 [History] Potassium Chloride 20 meq PO BID 04/07/15 [History] Sucralfate [Carafate] 1 gm PO BID 04/07/15 [History] Tizanidine HCl [Zanaflex] 4 mg PO Q8HR 04/07/15 [History] Meloxicam [Mobic] 15 mg PO DAILY 05/09/15 [History] Promethazine [Phenergan] 25 mg PO Q8HR 05/09/15 [History] Simethicone [Bicarsim] 180 mg PO BID 05/09/15 [History] Escitalopram [Lexapro] 10 mg PO DAILY 11/10/15 [History] Fluticasone Propionate Nasal [Flonase] 50 mcg NS DAILY PRN 07/23/16 [History] Insulin ASPART [NovoLOG] 2 - 10 unit SQ TIDWM 11/10/15 [History] LORazepam [Ativan] 0.5 mg PO TID PRN 11/10/15 [History] Lisinopril [Zestril] 5 mg PO DAILY 11/10/15 [History] glipiZIDE [Glucotrol] 10 mg PO QAM 11/10/15 [History] Naproxen [Naprosyn] 500 mg PO BID #20 tablet 02/16/17 [Rx] ALPRAZolam [Xanax 1 MG Tablet] 1 mg PO HS 04/18/17 [History] Exenatide Microspheres [Bydureon Pen] 2 mg SQ TH 04/18/17 [History] Insulin Glargine [Lantus] 16 units SQ QAM 04/18/17 [History] Pregabalin [Lyrica] 50 mg PO TID 04/18/17 [History] Roflumilast [Daliresp] 500 mcg PO DAILY 04/18/17 [History] glipiZIDE [Glucotrol] 5 mg PO QPM 04/18/17 [History] 3 Allergy/AdvReac Type Severity Reaction Status Date / Time docetaxel [From Taxotere] Allergy Anaphylaxis Verified 04/07/15 03:46 Paroxetine [From Paxil] Allergy Itching Verified 04/07/15 03:46 trazodone AdvReac Vomiting Verified 04/07/15 03:46 ROS unobtainable: due to endotracheal tube, due to mental status All Systems: A 10-system review of systems was performed and is negative for pertinent findings except as documented above in the HPI. Physical Examination Vital Signs: Vital Signs, Last 4 Hours Temp Pulse Resp BP Pulse Ox 04/19/17 07:00 116 26 82/66 76 04/19/17 06:00 122 24 83/48 87 04/19/17 05:36 129 04/19/17 04:32 98.5 F 112 27 106/81 94 General appearance: other (sedated and parylayzed) Eyes: nonicteric ENT: oropharynx moist Neck: supple Effort: mildly labored Auscultation: bilateral: rhonchi Cardiovascular: other (tachycardia) Gastrointestinal: normoactive bowel sounds, soft Integumentary: normal unable to assess due to mental status Ventilator Settings Ventilator Settings: Ventilator Settings, Last 8 Hours Ventilator Mode A/C Ventilator Mode A/C Ventilator Mode A/C Ventilator Tidal Volume 380 Setting Ventilator Tidal Volume 380 Setting Ventilator Tidal Volume 380 Setting Ventilator Respiratory Rate 24 Setting Ventilator Respiratory Rate 24 Setting Ventilator Respiratory Rate 24 Setting Actual Respiratory Rate 26 Actual Respiratory Rate 24 Positive End Expiratory 18 Pressure Positive End Expiratory 18 Pressure Positive End Expiratory 18 Pressure Peak Inspiratory Airway 39 Pressure Peak Inspiratory Airway 33 Pressure Results - Laboratory Findings CBC and BMP: 04/19/17 09:35 04/19/17 07:22 ABG ABG pH 7.36 pH Units (7.32-7.45) 04/19/17 06:15 ABG pCO2 42 mmHg (35-45) 04/19/17 06:15 ABG pO2 74 mmHg (85-104) L 04/19/17 06:15 ABG O2 Saturation 94 % (95-98) L 04/19/17 06:15 PT/INR, D-dimer PT 11.3 Seconds (9.4-12.1) 04/18/17 11:10 Abnormal lab findings: Abnormal lab results WBC 21.5 K/mcL (4.3-11.1) H 04/18/17 11:10 RBC 3.49 M/mcL (3.82-4.97) L 04/18/17 11:10 Hgb 9.2 g/dL (11.5-15.4) L 04/18/17 11:10 Hct 28.7 % (35.3-44.9) L 04/18/17 11:10 MCV 82.2 fL (83.0-100.0) L 04/18/17 11:10 MCH 26.4 pg (28.0-33.3) L 04/18/17 11:10 RDW 16.5 % (11.5-14.5) H 04/18/17 11:10 MPV 9.3 fL (9.4-12.4) L 04/18/17 11:10 Neutrophils # 20.3 K/mcL (1.6-8.9) H 04/18/17 11:10 Lymphocytes # 0.5 K/mcL (0.6-4.6) L 04/18/17 11:10 ABG pO2 74 mmHg (85-104) L 04/19/17 06:15 ABG O2 Saturation 94 % (95-98) L 04/19/17 06:15 Sodium 130 mEq/L (136-145) L 04/18/17 16:19 Potassium 3.1 mEq/L (3.5-5.1) L 04/18/17 16:19 Carbon Dioxide 21 mEq/L (23-29) L 04/18/17 16:19 Glucose 275 mg/dL (70-105) H 04/18/17 16:19 POC Glucose 228 (58-89) H 04/19/17 04:51 Lactic Acid 5.4 mmol/L (0.5-2.2) H* 04/18/17 16:19 B-Natriuretic Peptide 235 pg/mL (Less than 100) H 04/18/17 11:10 Urine Glucose (UA) >=1000 mg/dL (Normal) H 04/18/17 18:15 Ur Squamous Epith Cells Moderate per lpf (None-Few) H 04/18/17 18:15 - Clinical Findings Intake & Output: Intake & Output 04/18/17 04/18/17 04/19/17 15:59 23:59 07:59 Intake Total 1220 / 1220 577 / 577 Output Total 1600 / 1600 1000 / 1000 Balance -380 / -380 -423 / -423 Weight 87.9 kg Consult Discharge Plan - Plan Referrals: Neelam Zhao MD [Primary Care Provider] - <Butch Soto W - Last Filed: 04/19/17 12:00> Date of Encounter: 04/19/17 All Systems: A 10-system review of systems was performed and is negative for pertinent findings except as documented above in the HPI. Physical Examination Vital Signs: Vital Signs, Last 4 Hours Pulse Resp BP Pulse Ox 04/19/17 10:00 107 26 93/63 69 04/19/17 09:38 30 66 04/19/17 09:00 108 27 84/47 64 04/19/17 08:00 120 Ventilator Settings Ventilator Settings: Ventilator Settings, Last 8 Hours Ventilator Mode A/C Ventilator Mode A/C Ventilator Mode A/C Ventilator Mode A/C Ventilator Mode A/C Ventilator Mode A/C Ventilator Mode A/C Ventilator Mode A/C Ventilator Mode A/C Ventilator Mode A/C Ventilator Tidal Volume 380 Setting Ventilator Tidal Volume 380 Setting Ventilator Tidal Volume 380 Setting Ventilator Tidal Volume 380 Setting Ventilator Tidal Volume 380 Setting Ventilator Tidal Volume 380 Setting Ventilator Tidal Volume 380 Setting Ventilator Tidal Volume 380 Setting Ventilator Tidal Volume 380 Setting Ventilator Tidal Volume 380 Setting Ventilator Respiratory Rate 22 Setting Ventilator Respiratory Rate 22 Setting Ventilator Respiratory Rate 24 Setting Ventilator Respiratory Rate 24 Setting Ventilator Respiratory Rate 24 Setting Ventilator Respiratory Rate 24 Setting Ventilator Respiratory Rate 24 Setting Ventilator Respiratory Rate 24 Setting Ventilator Respiratory Rate 24 Setting Ventilator Respiratory Rate 24 Setting Actual Respiratory Rate 26 Actual Respiratory Rate 30 Actual Respiratory Rate 27 Actual Respiratory Rate 26 Actual Respiratory Rate 26 Actual Respiratory Rate 24 Actual Respiratory Rate 24 Positive End Expiratory 18 Pressure Positive End Expiratory 18 Pressure Positive End Expiratory 18 Pressure Positive End Expiratory 18 Pressure Positive End Expiratory 18 Pressure Positive End Expiratory 18 Pressure Positive End Expiratory 18 Pressure Positive End Expiratory 18 Pressure Positive End Expiratory 18 Pressure Positive End Expiratory 18 Pressure Peak Inspiratory Airway 43 Pressure Peak Inspiratory Airway 43 Pressure Peak Inspiratory Airway 43 Pressure Peak Inspiratory Airway 49 Pressure Peak Inspiratory Airway 39 Pressure Peak Inspiratory Airway 33 Pressure Peak Inspiratory Airway 28 Pressure Results - Laboratory Findings CBC and BMP: 04/19/17 09:35 04/19/17 07:22 ABG ABG pH 7.20 pH Units (7.32-7.45) L* 04/19/17 10:46 ABG pCO2 61 mmHg (35-45) H 04/19/17 10:46 ABG pO2 67 mmHg (85-104) L 04/19/17 10:46 ABG O2 Saturation 87 % (95-98) L 04/19/17 10:46 PT/INR, D-dimer PT 14.4 Seconds (9.4-12.1) H 04/19/17 09:35 Abnormal lab findings: Abnormal lab results WBC 20.8 K/mcL (4.3-11.1) H 04/19/17 09:35 RBC 3.42 M/mcL (3.82-4.97) L 04/19/17 09:35 Hgb 8.8 g/dL (11.5-15.4) L 04/19/17 09:35 Hct 28.8 % (35.3-44.9) L 04/19/17 09:35 MCH 25.7 pg (28.0-33.3) L 04/19/17 09:35 MCHC 30.6 g/dL (31.6-35.5) L 04/19/17 09:35 RDW 17.2 % (11.5-14.5) H 04/19/17 09:35 Plt Count 417 K/mcL (140-400) H 04/19/17 09:35 MPV 9.3 fL (9.4-12.4) L 04/19/17 09:35 Neutrophils # 19.4 K/mcL (1.6-8.9) H 04/19/17 09:35 PT 14.4 Seconds (9.4-12.1) H 04/19/17 09:35 ABG pH 7.20 pH Units (7.32-7.45) L* 04/19/17 10:46 ABG pCO2 61 mmHg (35-45) H 04/19/17 10:46 ABG pO2 67 mmHg (85-104) L 04/19/17 10:46 ABG O2 Saturation 87 % (95-98) L 04/19/17 10:46 ABG Base Excess -4 mEq/L (-2 to 3) L 04/19/17 10:46 Sodium 133 mEq/L (136-145) L 04/19/17 07:22 Est GFR (Non-Af Amer) 52 (> 60) L 04/19/17 07:22 Glucose 252 mg/dL (70-105) H 04/19/17 07:22 POC Glucose 270 (58-89) H 04/19/17 07:18 Hemoglobin A1c 7.1 % (-5.6) H 04/19/17 07:22 Lactic Acid 3.1 mmol/L (0.5-2.2) H 04/19/17 09:35 Calcium 8.2 mg/dL (8.6-10.3) L 04/19/17 07:22 Magnesium 1.5 mg/dL (1.6-2.6) L 04/19/17 07:22 B-Natriuretic Peptide 235 pg/mL (Less than 100) H 04/18/17 11:10 Urine Glucose (UA) >=1000 mg/dL (Normal) H 04/18/17 18:15 Ur Squamous Epith Cells Moderate per lpf (None-Few) H 04/18/17 18:15 - Clinical Findings Intake & Output: Intake & Output 04/18/17 04/19/17 04/19/17 23:59 07:59 15:59 Intake Total 1220 / 1220 803 / 803 1654 / 1654 Output Total 1600 / 1600 1000 / 1000 Balance -380 / -380 -197 / -197 165 / 1654 Weight 87.9 kg 87 kg - Attending Attestation I examined this patient and my medical decision-making was reviewed with the Resident Physician. I agree with the documented findings, disposition and treatment plan as described except to the extent set forth below. We independently had [id number] contact with the patient I spent 60min of Critical Care time with this patient. It involved decision making of high complexity to assess, manipulate, and support vital organ system failure and/or to prevent further life threatening deterioration of the patient' s condition. The time involved in the performance of separately reportable procedures was not counted toward critical care time. Patient seen and examined at bedside Labs, radiology, chart personally reviewed. Management was reviewed during multidisciplinary critical care rounds. 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 Plan for prone positioning of patient however the daughter requested transfer to referral Center and the EMS was unable to transfer patient in prone position and so pronating was deferred. Patient is undergoing low tidal volume ventilatory strategy for ARDS peak pressures have been high as 40-45 however after neuromuscular blockade the improved to 35. She is currently 100% FiO2 and 18 of PEEP. High likelihood of progression to need for salvage therapy such as ECMO. Bronchoscopy deferred because of severity of hypoxemia and amount as PEEP presently requiring however cultures from the sputum and blood have been obtained along with viral panel which is negative for influenza there is no her clinical evidence of pulmonary hemorrhage . Intubation was noted to be traumatic. Empiric steroids have been given for severe pneumonia/early ARDS Cards: vasodilatory shock on vasopressors with goal map 65 continue to monitor urine output she is already received volume resuscitation FEN-GI: nothing by mouth for now PPI prophylaxis given Renal: [place] s/t hypotension. Acceptable UOP at present ID: suspect it is septic shock secondary to pneumonia cultures been obtained repeat lactate is trending down evidence of improving and her can tissue hypoperfusion . She is on broad-spectrum antimicrobials occluding thank Zosyn and azithromycin was plan for de-escalation Heme/Onc: DVT prophylaxis given EndoShe has evidence of hyperglycemia which is likely steroid-induced being covered with insulin at present but we will increase the sliding scale coverage and may need insulin infusion MSK: Skin Care per routine ICU Nursing Protocol to prevent ulcers. Lines: All lines examined without evidence of infection : Dispo: Transfer to [facility] for further evaluation CODE:I spoke initially on phone and then in person with the patient's daughter Brooke and explained that she has life-threatening hypoxemic respiratory failure requiring salvage rescue measures including neuromuscular blockade and prone positioning. She has many visit her mother needed referral to [facility] I said it is very likely that she may continue to decline and need transfer at which point the patient's daughter said that she wanted the patient transferred at this time I said there is risk involved in transferring patient including worsening shock respiratory failure and along the way she says she understood the risks and her mother transferred patient was accepted to [facility] and was sent via ground transportation because of inability to currently use med a flight services because of inclement weather. Last blood gas prior to discharge from [facility] was 7.20/61/66 in keeping with borderline acceptable acidemia/gas exchange for ARDS mngt/
[2017-04-19] MEDS ORDERED: *HR* Heparin 5,000 UNIT/ML VIAL SQ SCH (07:15)
[2017-04-19] MEDS: Pregabalin 50 MG CAPSULE PO SCH (07:27)
[2017-04-19] MEDS ORDERED: Insulin LISPRO 300 UNITS/3 ML VIAL SQ SCH ×5 (07:30→21:00)
[2017-04-19] MEDS ORDERED: 0.9 % Sodium Chloride 500 ML ONE (07:30)
[2017-04-19] MEDS ORDERED: Norepinephrine 4 MG in D5% in Water 250 ML IVC SCH (07:45)
[2017-04-19] MEDS ORDERED: Atracurium 250 MG in 0.9 % Sodium Chloride 225 ML IVC SCH (07:45)
[2017-04-19] MEDS ORDERED: Lacri-Lube 3.5 GM TUBE BOTH EYES SCH (08:00)
[2017-04-19] MEDS ORDERED: Azithromycin 500 MG in D5% in Water 250 ML IVPB SCH (08:00)
[2017-04-19 08:10] LABS: BUN/Creatinine Ratio 16 (6-26); Blood Urea Nitrogen 17 mg/dL (6-20); Calcium 8.2 mg/dL (8.6-10.3); Carbon Dioxide 26 mEq/L (23-29); Chloride 103 mEq/L (98-107); Glucose 252 mg/dL (70-105); Magnesium 1.5 mg/dL (1.6-2.6); Osmolality,Calculated 286 (280-300); Phosphorous 4.1 mg/dL (2.7-4.5); Potassium 4.7 mEq/L (3.5-5.1); Sodium 133 mEq/L (136-145); eGFR For African Americans > 60 (> 60); eGFR For Non-African Americans 52 (> 60)
[2017-04-19 08:20] LABS: Hemoglobin A1C 7.1 %
[2017-04-19] MEDS ORDERED: Loratadine 10 MG TABLET PO SCH (09:00)
[2017-04-19] MEDS ORDERED: levETIRAcetam 500 MG/5 ML UDC GTUBE SCH (09:00)
[2017-04-19] MEDS ORDERED: ARIPiprazole 5 MG TABLET PO SCH (09:00)
[2017-04-19] MEDS ORDERED: hydroCHLOROthiazide 25 MG TABLET PO SCH (09:00)
[2017-04-19] MEDS ORDERED: Roflumilast [Daliresp] 500 MCG PO SCH (09:00)
[2017-04-19] MEDS ORDERED: amLODIPine 5 MG TABLET PO SCH (09:00)
[2017-04-19] MEDS ORDERED: Chlorhexidine Rinse 15 ML MOUTHWASH MM SCH (09:00)
[2017-04-19 09:48] LABS: Basophils % 0.2 %; Hematocrit 28.8 % (35.3-44.9); Hemoglobin 8.8 g/dL (11.5-15.4); Immature Granulocytes % 1.1 % (0-4); Lymphocytes # 0.8 K/mcL (0.6-4.6); Lymphocytes % 3.8 %; Mean Corpuscular HGB Conc 30.6 g/dL (31.6-35.5); Mean Corpuscular Hemoglobin 25.7 pg (28.0-33.3); Mean Corpuscular Volume 84.2 fL (83.0-100.0); Mean Platelet Volume 9.3 fL (9.4-12.4); Monocytes # 0.4 K/mcL (0.0-1.3); Monocytes % 1.7 %; Neutrophils # 19.4 K/mcL (1.6-8.9); Platelet Count 417 K/mcL (140-400); Red Blood Count 3.42 M/mcL (3.82-4.97); Red Cell Distribution Width 17.2 % (11.5-14.5); Segmented Neutrophils % 93.2 %
[2017-04-19 09:53] LABS: INR 1.3; Prothrombin Time 14.4 Seconds (9.4-12.1)
--- NOTE | 2017-04-19 09:54 | Procedure Note ---
Date of procedure: 04/19/17 Pre-op diagnosis: Respiratory failure with Shock Post-op diagnosis: same Procedure: Left Femoral Arterial Line Placemen Right Femoral CVC placement Anesthesia: local Was there an certified nursing assistant present: No Estimated blood loss (cc): 10 (cc) Specimen: none sent Condition: critical Disposition: ICU Procedures: Internal Med - Arterial Line Consent Obtained: verbal consent (daughter) Time out performed: Yes Size (Gauge): 20 Technique used: guide wire technique Post-Procedure: line sutured into place Patient tolerated procedure: well Site: left, femoral Additional comments: Procedure was done under ultrasound guidance Initial left radial artery was attempted to be cannulated but was unsuccessful after one attempt the procedure from that location was aborted and the left femoral area was draped in the sterile usual fashion as above - Central Line Placement Right Femoral Consent Obtained: verbal consent (from viv ) Time out performed: Yes Patient placed on monitor/pulse ox: Yes prep: mask, gown, gloves, other Central line prep: Povidone-Iodine 1%, Chlorhexidine scrub, sterile drapes applied, other Local anesthesia used: Lidocaine 1% Amount of anesthesia used (mls): 5 Central line lumen inserted: triple Post Procedure: sutured in place, good blood return, all ports aspirated, flushed, capped, sterile dressing applied, dark venous blood, biodisk applied Patient tolerated procedure: well, no complications Complications: none Additional comments: The procedure was done under ultrasound guidance
[2017-04-19 10:07] LABS: ABG Base Excess -5 mEq/L (-2 to 3); ABG HCO3 23 mEq/L (21-27); ABG Oxygen Saturation 72 % (95-98); ABG PCO2 57 mmHg (35-45); ABG PH 7.22 pH Units (7.32-7.45); ABG PO2 46 mmHg (85-104); ABG TCO2 25 mEq/L (20-26); Blood Gas Modality ASSIST CONTROL; Blood Gas PEEP 18 cm H2O
[2017-04-19 10:10] VITALS: BP 93/63
[2017-04-19 10:51] LABS: ABG Base Excess -4 mEq/L (-2 to 3); ABG HCO3 24 mEq/L (21-27); ABG Oxygen Saturation 87 % (95-98); ABG PCO2 61 mmHg (35-45); ABG PO2 67 mmHg (85-104); ABG TCO2 26 mEq/L (20-26); Blood Gas Modality ASSIST CONTROL; Blood Gas PEEP 18 cm H2O; Blood Gas Respiration Rate 22; Blood Gas VT 380 cc
[2017-04-19] MEDS ORDERED: *HR* Succinylcholine 200 MG/10 ML VIAL IVP ONE (11:10)
[2017-04-19] MEDS ORDERED: *HR* Midazolam HCl 5 MG/5 ML VIAL IVP ONE (11:10)
[2017-04-19] MEDS ORDERED: Aminoglycoside Consult 1 EACH MC ONE (11:10)
[2017-04-19] MEDS ORDERED: *HR* Midazolam HCl 2 MG/2 ML VIAL IV ONE (11:10)
--- NOTE | 2017-04-21 15:52 | Electrocardiograph Report ---
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
--- NOTE | 2017-04-21 16:05 | Electrocardiograph Report ---
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
== END 2017-04-19 11:11 | disposition other institution (70) | DRG 720 ==
LOC: EMEROO 10:52 → 2NNU 14:13 → ICNU 04-19 04:28
PROVIDERS: ADMIT Internal Medicine Nephrology; ATTEND Internal Medicine

== ENCOUNTER 2018-01-29 12:44 | Inpatient (IN) ==
[2018-01-29] MEDS ORDERED: Azithromycin 500 MG in D5% in Water 250 ML IVPB ONE (13:02)
[2018-01-29] MEDS ORDERED: cefTRIAXone 1,000 MG in Water for inj. (sterile) 20 ML 10 ML IVP ONE (13:02)
--- NOTE | 2018-01-29 13:06 | Emergency Department Note ---
Disposition Clinical Impression: Septicemia due to Streptococcus pneumonia Disposition: Still a Patient General Adult HPI - General Chief complaint: ED Shortness of Breath/Dyspnea Stated complaint: ZAIRE Time Seen by Provider: 01/29/18 12:53 Source: patient Limitations: no limitations - History of Present Illness HPI Narrative: ED attending attestation note: I examined this patient and my medical decision-making was reviewed with the emergency medicine resident Denny Campos. I agree with the documented findings , disposition and treatment plan as described except to the extent set forth below. Briefly: 57-year-old female brought in from the waiting room for difficulty in breathing. Sepsis screen positive with a MAXIMUM TEMPERATURE of 103 heart rate of 130s. Patient's lungs sound some rhonchorous. History of pneumonias in the past. Sepsis protocol initiated. Patient will be getting IV fluids antibiotics screening labs chest x-ray oxygen. Steroids. Providing 45 minutes of critical care service for this patient. Disposition pending Pain Scale: 0 - Related Data Home Medications Medication Instructions Recorded Confirmed Albuterol Sulfate [Proair 2 puff IH Q4HR PRN 04/07/15 04/18/17 Respiclick] Amlodipine [Norvasc] 10 mg PO DAILY 04/07/15 04/18/17 Aripiprazole [Abilify] 7.5 mg PO DAILY 04/07/15 04/18/17 Atorvastatin [Lipitor] 10 mg PO HS 04/07/15 04/18/17 Budesonide/Formoterol 160/4.5 2 puff IH BIDR 04/07/15 04/18/17 [Symbicort] Hydrochlorothiazide [Microzide] 12.5 mg PO DAILY 04/07/15 04/18/17 Ipratropium [ATROVENT Inhaler] 1 puff IH DAILY 04/07/15 04/18/17 LevETIRAcetam [Keppra] 1,000 mg PO BID 04/07/15 04/18/17 Metformin [Glucophage] 1,000 mg PO BID 04/07/15 04/18/17 Metoclopramide [Reglan] 25 mg PO BID 04/07/15 04/18/17 Modafinil [Provigil] 400 mg PO DAILY 04/07/15 04/18/17 Ondansetron ODT [Zofran ODT] 8 mg SL TID PRN 04/07/15 04/18/17 Potassium Chloride 20 meq PO BID 04/07/15 04/18/17 Sucralfate [Carafate] 1 gm PO BID 04/07/15 04/18/17 Tizanidine HCl [Zanaflex] 4 mg PO Q8HR 04/07/15 04/18/17 Meloxicam [Mobic] 15 mg PO DAILY 05/09/15 04/18/17 Promethazine [Phenergan] 25 mg PO Q8HR 05/09/15 04/18/17 Simethicone [Bicarsim] 180 mg PO BID 05/09/15 04/18/17 Escitalopram [Lexapro] 10 mg PO DAILY 11/10/15 04/18/17 Fluticasone Propionate Nasal 50 mcg NS DAILY PRN 11/10/15 04/18/17 [Flonase] Insulin ASPART [NovoLOG] 2 - 10 unit SQ TIDWM 11/10/15 04/18/17 LORazepam [Ativan] 0.5 mg PO TID PRN 11/10/15 04/18/17 Lisinopril [Zestril] 5 mg PO DAILY 11/10/15 04/18/17 glipiZIDE [Glucotrol] 10 mg PO QAM 11/10/15 04/18/17 ALPRAZolam [Xanax 1 MG Tablet] 1 mg PO HS 04/18/17 04/18/17 Exenatide Microspheres [Bydureon 2 mg SQ TH 04/18/17 04/18/17 Pen] Insulin Glargine [Lantus] 16 units SQ QAM 04/18/17 04/18/17 Pregabalin [Lyrica] 50 mg PO TID 04/18/17 04/18/17 Roflumilast [Daliresp] 500 mcg PO DAILY 04/18/17 04/18/17 glipiZIDE [Glucotrol] 5 mg PO QPM 04/18/17 04/18/17 Tylenol 01/03/18 Previous Rx's Medication Instructions Recorded Loratadine [Claritin] 10 mg PO DAILY #30 tablet 01/13/15 Ipratropium/Albuterol Neb [Duoneb] 3 ml IH Q8HR PRN #1 vial.neb 04/07/15 Naproxen [Naprosyn] 500 mg PO BID #20 tablet 02/16/17 Naproxen 500 mg PO BID 10 Days #20 tablet 09/14/17 Diclofenac Potassium 50 mg PO TID PRN #20 tablet 01/03/18 Albuterol Sulfate [Albuterol 2 puff IH QID #1 inhaler 01/21/18 Inhaler] Benzonatate [Tessalon] 200 mg PO TID PRN #20 capsule 01/21/18 Doxycycline 100 mg PO BID #14 capsule 01/21/18 Ibuprofen [Motrin] 600 mg PO Q6HR PRN #20 tab 01/21/18 predniSONE [PredniSONE] 20 mg PO BID #10 tablet 01/21/18 Allergies Allergy/AdvReac Type Severity Reaction Status Date / Time docetaxel [From Taxotere] Allergy Anaphylaxis Verified 01/21/18 08:57 Paroxetine [From Paxil] Allergy Itching Verified 01/21/18 08:57 trazodone AdvReac Vomiting Verified 01/21/18 08:57 Past Medical History - Past Medical History Medical history: Reports: COPD, diabetes, hypertension, other Surgical history: Reports: other Psychiatric history: Reports: bipolar, depression, other 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 - Social History Smoking Status: Current every day smoker Smokeless Tobacco Status: No Alcohol use: Reports: none Drug use: Reports: none Physical Exam - General Limitations: no limitations General appearance: alert, in no apparent distress Course Vital Signs Temperature 103 F H 01/29/18 12:51 Pulse Rate 134 01/29/18 12:51 Respiratory Rate 18 01/29/18 12:51 Blood Pressure 131/78 01/29/18 12:51 O2 Sat by Pulse Oximetry 85 01/29/18 12:51 Temperature 103 F H 01/29/18 12:51 Pulse Rate 134 01/29/18 12:51 Respiratory Rate 18 01/29/18 12:51 Blood Pressure 131/78 01/29/18 12:51 O2 Sat by Pulse Oximetry 85 01/29/18 12:51 Oxygen Delivery Oxygen Delivery Nasal Cannula
--- NOTE | 2018-01-29 13:07 | Emergency Department Note ---
Disposition Clinical Impression: Sepsis Qualifiers: Sepsis type: sepsis due to unspecified organism Qualified Code(s): A41.9 - Sepsis, unspecified organism Pneumonia Qualifiers: Pneumonia type: due to unspecified organism Laterality: right Lung location: upper lobe of lung Qualified Code(s): J18.1 - Lobar pneumonia, unspecified organism Disposition: Admitted As Inpatient Condition: Serious Referrals: Neelam Zhao MD [Primary Care Provider] - Forms: ED Satisfaction Letter Time of Disposition: 14:17 SOB HPI - General Chief Complaint: ED Shortness of Breath/Dyspnea Stated Complaint: ZAIRE Time Seen by Provider: 01/29/18 12:53 Source: patient Mode of arrival: wheelchair Limitations: no limitations Nursing Notes Reviewed: Yes Vital Signs Reviewed: Yes - History of Present Illness 57-year-old female with history of COPD and chronic respiratory failure seconda ry to COPD arrives to the emergency department with complaint of difficulty breathing, increased O2 demand as well as fevers and chills at home. Patient states past couple days she is expressing worsening symptoms. She has increased her O2 used to where she is on 4 L [id number] where she normally does not wear oxygen [id number]. The patient has had previous sepsis secondary to pneumonia in the past. The patient has been intubated in the past for this. The patient admits to fevers, chills, cough, sputum production. The patient denies any abdominal pain, nausea, vomiting, dysuria. The patient denies any other complaints at this time. She is lucid and answering questions. She is short of breath on evaluation when she is ambulating. The patient is very warm to touch. She is noted to be febrile upon arrival to the emergency department with a temperature 103 degrees Fahrenheit as well as tachycardic in the 130s. She is not noted to be hypotensive at this time. Sepsis alert was called and the sepsis protocol was begun. - Related Data Home Medications Medication Instructions Recorded Confirmed Albuterol Sulfate [Proair 2 puff IH Q4HR PRN 04/07/15 04/18/17 Respiclick] Amlodipine [Norvasc] 10 mg PO DAILY 04/07/15 04/18/17 Aripiprazole [Abilify] 7.5 mg PO DAILY 04/07/15 04/18/17 Atorvastatin [Lipitor] 10 mg PO HS 04/07/15 04/18/17 Budesonide/Formoterol 160/4.5 2 puff IH BIDR 04/07/15 04/18/17 [Symbicort] Hydrochlorothiazide [Microzide] 12.5 mg PO DAILY 04/07/15 04/18/17 Ipratropium [ATROVENT Inhaler] 1 puff IH DAILY 04/07/15 04/18/17 LevETIRAcetam [Keppra] 1,000 mg PO BID 04/07/15 04/18/17 Metformin [Glucophage] 1,000 mg PO BID 04/07/15 04/18/17 Metoclopramide [Reglan] 25 mg PO BID 04/07/15 04/18/17 Modafinil [Provigil] 400 mg PO DAILY 04/07/15 04/18/17 Ondansetron ODT [Zofran ODT] 8 mg SL TID PRN 04/07/15 04/18/17 Potassium Chloride 20 meq PO BID 04/07/15 04/18/17 Sucralfate [Carafate] 1 gm PO BID 04/07/15 04/18/17 Tizanidine HCl [Zanaflex] 4 mg PO Q8HR 04/07/15 04/18/17 Meloxicam [Mobic] 15 mg PO DAILY 05/09/15 04/18/17 Promethazine [Phenergan] 25 mg PO Q8HR 05/09/15 04/18/17 Escitalopram [Lexapro] 10 mg PO DAILY 11/10/15 04/18/17 Fluticasone Propionate Nasal 50 mcg NS DAILY PRN 11/10/15 04/18/17 [Flonase] Insulin ASPART [NovoLOG] 2 - 10 unit SQ TIDWM 11/10/15 04/18/17 LORazepam [Ativan] 0.5 mg PO TID PRN 11/10/15 04/18/17 Lisinopril [Zestril] 5 mg PO DAILY 11/10/15 04/18/17 glipiZIDE [Glucotrol] 10 mg PO QAM 11/10/15 04/18/17 ALPRAZolam [Xanax 1 MG Tablet] 1 mg PO HS 04/18/17 04/18/17 Exenatide Microspheres [Bydureon 2 mg SQ TH 04/18/17 04/18/17 Pen] Insulin Glargine [Lantus] 16 units SQ QAM 04/18/17 04/18/17 Pregabalin [Lyrica] 50 mg PO TID 04/18/17 04/18/17 Roflumilast [Daliresp] 500 mcg PO DAILY 04/18/17 04/18/17 glipiZIDE [Glucotrol] 5 mg PO QPM 04/18/17 04/18/17 Previous Rx's Medication Instructions Recorded Loratadine [Claritin] 10 mg PO DAILY #30 tablet 01/13/15 Ipratropium/Albuterol Neb [Duoneb] 3 ml IH Q8HR PRN #1 vial.neb 04/07/15 Naproxen 500 mg PO BID 10 Days #20 tablet 09/14/17 Diclofenac Potassium 50 mg PO TID PRN #20 tablet 01/03/18 Albuterol Sulfate [Albuterol 2 puff IH QID #1 inhaler 01/21/18 Inhaler] Ibuprofen [Motrin] 600 mg PO Q6HR PRN #20 tab 01/21/18 Allergies Allergy/AdvReac Type Severity Reaction Status Date / Time docetaxel [From Taxotere] Allergy Anaphylaxis Verified 01/21/18 08:57 Paroxetine [From Paxil] Allergy Itching Verified 01/21/18 08:57 trazodone AdvReac Vomiting Verified 01/21/18 08:57 All systems ED: reviewed and negative except as stated. Constitutional: Reports: fever, chills, weakness Eyes: Denies: vision change ENT ED: Denies: dysphagia Cardiovascular: Reports: dyspnea on exertion. Denies: chest pain, edema, syncope Respiratory: Reports: cough, dyspnea, sputum production. Denies: wheezes, hemoptysis Gastrointestinal: Denies: abdominal pain, nausea, vomiting, diarrhea, constipation, hematemesis, melena, hematochezia Genitourinary: Denies: urgency, dysuria Musculoskeletal: Reports: myalgia. Denies: back pain, neck pain Integumentary: Denies: rash Neurological: Reports: weakness. Denies: headache, numbness, confusion Past Medical History - Past Medical History Attestation: Yes The following information was validated with the patient. 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 - Social History Smoking Status: Current every day smoker Smokeless Tobacco Status: No Alcohol use: Reports: none Drug use: Reports: none Physical Exam - General Limitations: no limitations General appearance: alert, in distress (Mild respiratory) - Head Head exam: atraumatic, normocephalic, normal inspection - Eye Eye exam: Present: normal appearance, PERRL, EOMI - ENT ENT exam: normal exam, normal oropharynx, mucous membranes moist - Neck Neck exam: Present: normal inspection, full ROM, trachea midline - Chest Chest inspection: Present: normal inspection, symmetric chest wall rise - Respiratory Respiratory exam: Present: respiratory distress (Mild). Absent: wheezes - Cardiovascular Cardiovascular exam: Present: normal rhythm, tachycardia, normal heart sounds - Abdominal Exam Abdominal exam: Present: soft, Non-Tender. Absent: tenderness, distention, guarding, rebound, rigidity - Extremities Exam Extremities exam: Present: normal inspection, full ROM. Absent: tenderness, pedal edema - Neurological Exam Neurological exam: Present: alert, oriented X3, CN II-XII intact - Skin Skin exam: Present: warm, dry, intact, normal color Course Vital Signs Temperature 103 F H 01/29/18 12:51 Pulse Rate 134 01/29/18 12:51 Respiratory Rate 18 01/29/18 12:51 Blood Pressure 131/78 01/29/18 12:51 O2 Sat by Pulse Oximetry 85 01/29/18 12:51 Temperature 102.6 F H 01/29/18 13:58 Pulse Rate 123 01/29/18 13:58 Respiratory Rate 23 01/29/18 13:58 Blood Pressure 118/59 01/29/18 13:58 O2 Sat by Pulse Oximetry 94 01/29/18 13:58 Oxygen Delivery Oxygen Delivery Nasal Cannula Shortness of Breath/Dyspnea - [facility] Narrative Medical decision making narrative: Patient's workup in the emergency department demonstrates findings concerning f or sepsis. The patient has a right lower lobe pneumonia. She was given azithromycin and Rocephin here in the emergency department. She was given a 30 mL/kg bolus of normal saline fluid. Patient's labwork reveals a leukocytosis. The patient is on 5 L nasal cannula. She will be admitted to the hospital at this time with concern for sepsis. The patient's blood pressures remain stable. Her heart rate is beginning to respond to the IV fluids and has continued to decline since being in the 130s upon presentation. The patient is otherwise resting comfortably in the room at this time. She denies any other complaints. We will admit the patient to the hospitalist, accepted by Dr. Bahena. - Lab Data Lab results reviewed: Yes I reviewed the patient's lab results. Result diagrams: 01/29/18 13:02 01/29/18 13:02 Lab Results 01/29/18 01/29/18 01/29/18 Range/Units 13:02 13:02 13:02 WBC 23.9 H (4.3-11.1) K/mcL RBC 4.29 (3.82-4.97) M/mcL Hgb 9.6 L (11.5-15.4) g/dL Hct 30.9 L (35.3-44.9) % MCV 72.0 L (83.0-100.0) fL MCH 22.4 L (28.0-33.3) pg MCHC 31.1 L (31.6-35.5) g/dL RDW 19.1 H (11.5-14.5) % Plt Count 474 H (140-400) K/mcL MPV 8.7 L (9.4-12.4) fL Immature Gran % 0.6 (0-4) % Seg Neutrophils % 85.9 % Lymphocytes % 9.4 % Monocytes % 3.8 % Eosinophils % 0.0 % Basophils % 0.3 % Neutrophils # 20.5 H (1.6-8.9) K/mcL Lymphocytes # 2.2 (0.6-4.6) K/mcL Monocytes # 0.9 (0.0-1.3) K/mcL Eosinophils # 0.0 (0.0-0.6) K/mcL Basophils # 0.1 (0.0-0.2) K/mcL PT 12.1 (9.4-12.1) Seconds INR 1.1 APTT 31.0 (26.0-36.0) Seconds Sodium 129 L (136-145) mEq/L Potassium 3.9 (3.5-5.1) mEq/L Chloride 95 L (98-107) mEq/L Carbon Dioxide 24 (23-29) mEq/L BUN 8 (6-20) mg/dL Creatinine 0.70 (0.60-1.20) mg/dL Est GFR ( Amer) > 60 (> 60) Est GFR (Non-Af Amer) > 60 (> 60) BUN/Creatinine Ratio 11 (6-26) Glucose 160 H (70-105) mg/dL Calculated Osmolality 270 L (280-300) Lactic Acid (0.5-2.2) mmol/L Calcium 9.2 (8.6-10.3) mg/dL Magnesium 1.6 (1.6-2.6) mg/dL Total Bilirubin 0.5 (0.3-1.0) mg/dL Direct Bilirubin 0.1 (0.0-0.2) mg/dL Indirect Bilirubin 0.4 (0.0-1.2) mg/dL AST 17 (13-39) Units/L ALT 21 (7-52) Units/L Alkaline Phosphatase 150 H (34-104) Units/L Troponin I 0.03 (< 0.04) ng/mL Serum Total Protein 7.3 (6.4-8.9) g/dL Albumin 4.0 (3.5-5.7) g/dL Globulin 3.3 (2.4-3.5) g/dL Albumin/Globulin Ratio 1.2 (1.1-2.2) Urine Color (Yellow) Urine Clarity (Clear) Urine pH (5.0-8.0) pH Units Ur Specific Howell (1.010-1.025) Urine Protein (Neg-Trace) mg/dL Urine Glucose (UA) (Normal) mg/dL Urine Ketones (Negative) mg/dL Urine Blood (Negative) Urine Nitrite (Negative) Urine Bilirubin (Negative) Urine Urobilinogen (Normal) mg/dL Ur Leukocyte Esterase (Negative) Urine Microscopic RBC (0-3) per hpf Urine Microscopic WBC (0-3) per hpf Ur Squamous Epith Cells (None-Few) per lpf Urine Bacteria (None-Few) per hpf Hyaline Casts (None-Few) per lpf Ur Culture Indicated? (NO) 01/29/18 01/29/18 Range/Units 13:08 13:56 WBC (4.3-11.1) K/mcL RBC (3.82-4.97) M/mcL Hgb (11.5-15.4) g/dL Hct (35.3-44.9) % MCV (83.0-100.0) fL MCH (28.0-33.3) pg MCHC (31.6-35.5) g/dL RDW (11.5-14.5) % Plt Count (140-400) K/mcL MPV (9.4-12.4) fL Immature Gran % (0-4) % Seg Neutrophils % % Lymphocytes % % Monocytes % % Eosinophils % % Basophils % % Neutrophils # (1.6-8.9) K/mcL Lymphocytes # (0.6-4.6) K/mcL Monocytes # (0.0-1.3) K/mcL Eosinophils # (0.0-0.6) K/mcL Basophils # (0.0-0.2) K/mcL PT (9.4-12.1) Seconds INR APTT (26.0-36.0) Seconds Sodium (136-145) mEq/L Potassium (3.5-5.1) mEq/L Chloride (98-107) mEq/L Carbon Dioxide (23-29) mEq/L BUN (6-20) mg/dL Creatinine (0.60-1.20) mg/dL Est GFR ( Amer) (> 60) Est GFR (Non-Af Amer) (> 60) BUN/Creatinine Ratio (6-26) Glucose (70-105) mg/dL Calculated Osmolality (280-300) Lactic Acid 3.3 H (0.5-2.2) mmol/L Calcium (8.6-10.3) mg/dL Magnesium (1.6-2.6) mg/dL Total Bilirubin (0.3-1.0) mg/dL Direct Bilirubin (0.0-0.2) mg/dL Indirect Bilirubin (0.0-1.2) mg/dL AST (13-39) Units/L ALT (7-52) Units/L Alkaline Phosphatase (34-104) Units/L Troponin I (< 0.04) ng/mL Serum Total Protein (6.4-8.9) g/dL Albumin (3.5-5.7) g/dL Globulin (2.4-3.5) g/dL Albumin/Globulin Ratio (1.1-2.2) Urine Color Yellow (Yellow) Urine Clarity Clear (Clear) Urine pH 7.5 (5.0-8.0) pH Units Ur Specific Howell 1.013 (1.010-1.025) Urine Protein Trace (Neg-Trace) mg/dL Urine Glucose (UA) Normal (Normal) mg/dL Urine Ketones Negative (Negative) mg/dL Urine Blood Negative (Negative) Urine Nitrite Negative (Negative) Urine Bilirubin Negative (Negative) Urine Urobilinogen Normal (Normal) mg/dL Ur Leukocyte Esterase Negative (Negative) Urine Microscopic RBC 0-3 (0-3) per hpf Urine Microscopic WBC 0-3 (0-3) per hpf Ur Squamous Epith Cells Many H (None-Few) per lpf Urine Bacteria None Seen (None-Few) per hpf Hyaline Casts None Seen (None-Few) per lpf Ur Culture Indicated? NO (NO) - Radiology Data Radiology results reviewed: Yes I reviewed the patient's radiology results. Chest X-Ray 01/29/18 13:03 IMPRESSION: New right lung pneumonia. Radiographic follow-up to document resolution is recommended. D/ / Quan Modi MD / Quan Modi MD Interpreting Provider: Quan Modi MD - EKG Data EKG attestation: Yes I reviewed and interpreted this EKG. EKG results narrative: Heart rate 128 beats for minute. Sinus tachycardia. No ST elevation or ST depression noted. No EKG changes with the exception of sinus tachycardia. No a cute changes otherwise.
--- NOTE | 2018-01-29 13:14 | Emergency Department Note ---
Disposition Clinical Impression: Septicemia due to Streptococcus pneumonia Disposition: Still a Patient Forms: ED Satisfaction Letter SOB HPI - General Chief Complaint: ED Shortness of Breath/Dyspnea Stated Complaint: ZAIRE Time Seen by Provider: 01/29/18 12:53 Source: patient Mode of arrival: ambulatory Limitations: no limitations Nursing Notes Reviewed: Yes Vital Signs Reviewed: Yes - History of Present Illness 57 y/o F with history of COPD and previous intubation secondary to PNA last in April 2017 presents with complaints of difficulty breathing, fevers and cough for 2 weeks and increased supplemental O2 need at home for the last day. Patient states that she has been attempting to treat her symptoms at home with her normal nebulizer treatments but has not had any relief. She feels identical symptoms to the previous 4 times she has had exacerbation of her baseline COPD symptoms all secondary to PNA. Each of the previous 4 times she has required intubation and ICU admission. She normally does not have to use supplemental O2 at home at all times but today she has required 4L via NC at home along with no relief of SOB with nebulizer treatments which prompted her visit to the ED. She notes some mild nausea, congestion and generalized GONZALEZ but denies vomiting, chest pain, abd pain, diarrhea, urinary changes, hematuria, hematochezia, hemoptysis, swelling or dizziness. Of note, patient's eeg tech is Dr. Lopes. - Related Data Home Medications Medication Instructions Recorded Confirmed Albuterol Sulfate [Proair 2 puff IH Q4HR PRN 04/07/15 04/18/17 Respiclick] Amlodipine [Norvasc] 10 mg PO DAILY 04/07/15 04/18/17 Aripiprazole [Abilify] 7.5 mg PO DAILY 04/07/15 04/18/17 Atorvastatin [Lipitor] 10 mg PO HS 04/07/15 04/18/17 Budesonide/Formoterol 160/4.5 2 puff IH BIDR 04/07/15 04/18/17 [Symbicort] Hydrochlorothiazide [Microzide] 12.5 mg PO DAILY 04/07/15 04/18/17 Ipratropium [ATROVENT Inhaler] 1 puff IH DAILY 04/07/15 04/18/17 LevETIRAcetam [Keppra] 1,000 mg PO BID 04/07/15 04/18/17 Metformin [Glucophage] 1,000 mg PO BID 04/07/15 04/18/17 Metoclopramide [Reglan] 25 mg PO BID 04/07/15 04/18/17 Modafinil [Provigil] 400 mg PO DAILY 04/07/15 04/18/17 Ondansetron ODT [Zofran ODT] 8 mg SL TID PRN 04/07/15 04/18/17 Potassium Chloride 20 meq PO BID 04/07/15 04/18/17 Sucralfate [Carafate] 1 gm PO BID 04/07/15 04/18/17 Tizanidine HCl [Zanaflex] 4 mg PO Q8HR 04/07/15 04/18/17 Meloxicam [Mobic] 15 mg PO DAILY 05/09/15 04/18/17 Promethazine [Phenergan] 25 mg PO Q8HR 05/09/15 04/18/17 Simethicone [Bicarsim] 180 mg PO BID 05/09/15 04/18/17 Escitalopram [Lexapro] 10 mg PO DAILY 11/10/15 04/18/17 Fluticasone Propionate Nasal 50 mcg NS DAILY PRN 11/10/15 04/18/17 [Flonase] Insulin ASPART [NovoLOG] 2 - 10 unit SQ TIDWM 11/10/15 04/18/17 LORazepam [Ativan] 0.5 mg PO TID PRN 11/10/15 04/18/17 Lisinopril [Zestril] 5 mg PO DAILY 11/10/15 04/18/17 glipiZIDE [Glucotrol] 10 mg PO QAM 11/10/15 04/18/17 ALPRAZolam [Xanax 1 MG Tablet] 1 mg PO HS 04/18/17 04/18/17 Exenatide Microspheres [Bydureon 2 mg SQ TH 04/18/17 04/18/17 Pen] Insulin Glargine [Lantus] 16 units SQ QAM 04/18/17 04/18/17 Pregabalin [Lyrica] 50 mg PO TID 04/18/17 04/18/17 Roflumilast [Daliresp] 500 mcg PO DAILY 04/18/17 04/18/17 glipiZIDE [Glucotrol] 5 mg PO QPM 04/18/17 04/18/17 Tylenol 01/03/18 Previous Rx's Medication Instructions Recorded Loratadine [Claritin] 10 mg PO DAILY #30 tablet 01/13/15 Ipratropium/Albuterol Neb [Duoneb] 3 ml IH Q8HR PRN #1 vial.neb 04/07/15 Naproxen [Naprosyn] 500 mg PO BID #20 tablet 02/16/17 Naproxen 500 mg PO BID 10 Days #20 tablet 09/14/17 Diclofenac Potassium 50 mg PO TID PRN #20 tablet 01/03/18 Albuterol Sulfate [Albuterol 2 puff IH QID #1 inhaler 01/21/18 Inhaler] Benzonatate [Tessalon] 200 mg PO TID PRN #20 capsule 01/21/18 Doxycycline 100 mg PO BID #14 capsule 01/21/18 Ibuprofen [Motrin] 600 mg PO Q6HR PRN #20 tab 01/21/18 predniSONE [PredniSONE] 20 mg PO BID #10 tablet 01/21/18 Allergies Allergy/AdvReac Type Severity Reaction Status Date / Time docetaxel [From Taxotere] Allergy Anaphylaxis Verified 01/21/18 08:57 Paroxetine [From Paxil] Allergy Itching Verified 01/21/18 08:57 trazodone AdvReac Vomiting Verified 01/21/18 08:57 Constitutional: Reports: fever, chills. Denies: weakness Eyes: Denies: vision change ENT ED: Reports: congestion. Denies: throat pain, epistaxis, dysphagia Cardiovascular: Denies: chest pain, palpitations, edema, syncope Respiratory: Reports: cough, dyspnea (requiring 4L supplemental O2 at home). Denies: hemoptysis Gastrointestinal: Reports: nausea. Denies: abdominal pain, vomiting, diarrhea, hematemesis, hematochezia Genitourinary: Denies: urgency, dysuria, hematuria, discharge Musculoskeletal: Denies: back pain, neck pain, joint swelling Integumentary: Denies: rash, abrasion, lesions Neurological: Reports: headache. 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 Absent: scleral icterus - ENT ENT exam: normal exam, normal oropharynx, mucous membranes moist - Neck Neck exam: Present: normal inspection, full ROM, trachea midline - Chest Chest inspection: Present: normal inspection, symmetric chest wall rise - Respiratory Respiratory exam: Present: respiratory distress, wheezes (throughout), accessory muscle use, prolonged expiratory phase - Cardiovascular Cardiovascular exam: Present: normal rhythm, tachycardia, normal heart sounds - Abdominal Exam Abdominal exam: Present: soft, Non-Tender - Extremities Exam Extremities exam: Present: normal inspection - Neurological Exam Neurological exam: Present: alert, oriented X3 - Psychiatric Psychiatric exam: Present: normal affect, normal mood - Skin Skin exam: Present: warm, dry, intact, normal color Course Vital Signs Temperature 103 F H 01/29/18 12:51 Pulse Rate 134 01/29/18 12:51 Respiratory Rate 18 01/29/18 12:51 Blood Pressure 131/78 01/29/18 12:51 O2 Sat by Pulse Oximetry 85 01/29/18 12:51 Temperature 103 F H 01/29/18 12:51 Pulse Rate 134 01/29/18 12:51 Respiratory Rate 18 01/29/18 12:51 Blood Pressure 131/78 01/29/18 12:51 O2 Sat by Pulse Oximetry 85 01/29/18 12:51 Oxygen Delivery Oxygen Delivery Nasal Cannula
[2018-01-29] MEDS: 0.9 % Sodium Chloride 1,000 ML IVC SCH ×4 (13:17→21:15)
[2018-01-29 13:23] LABS: Basophils # 0.1 K/mcL (0.0-0.2); Basophils % 0.3 %; Hematocrit 30.9 % (35.3-44.9); Hemoglobin 9.6 g/dL (11.5-15.4); Immature Granulocytes % 0.6 % (0-4); Lymphocytes # 2.2 K/mcL (0.6-4.6); Lymphocytes % 9.4 %; Mean Corpuscular HGB Conc 31.1 g/dL (31.6-35.5); Mean Corpuscular Hemoglobin 22.4 pg (28.0-33.3); Mean Platelet Volume 8.7 fL (9.4-12.4); Monocytes # 0.9 K/mcL (0.0-1.3); Monocytes % 3.8 %; Neutrophils # 20.5 K/mcL (1.6-8.9); Platelet Count 474 K/mcL (140-400); Red Blood Count 4.29 M/mcL (3.82-4.97); Red Cell Distribution Width 19.1 % (11.5-14.5); Segmented Neutrophils % 85.9 %
[2018-01-29 13:45] LABS: Alanine Aminotransferase 21 Units/L (7-52); Albumin/Globulin Ratio 1.2 (1.1-2.2); Alkaline Phosphatase 150 Units/L (34-104); Aspartate Amino Transferase 17 Units/L (13-39); BUN/Creatinine Ratio 11 (6-26); Bilirubin,Direct 0.1 mg/dL (0.0-0.2); Bilirubin,Indirect 0.4 mg/dL (0.0-1.2); Bilirubin,Total 0.5 mg/dL (0.3-1.0); Blood Urea Nitrogen 8 mg/dL (6-20); Calcium 9.2 mg/dL (8.6-10.3); Carbon Dioxide 24 mEq/L (23-29); Chloride 95 mEq/L (98-107); Globulin 3.3 g/dL (2.4-3.5); Glucose 160 mg/dL (70-105); Magnesium 1.6 mg/dL (1.6-2.6); Osmolality,Calculated 270 (280-300); Potassium 3.9 mEq/L (3.5-5.1); Sodium 129 mEq/L (136-145); Total Protein 7.3 g/dL (6.4-8.9); Troponin I 0.03 ng/mL (< 0.04); eGFR For Non-African Americans > 60 (> 60)
[2018-01-29 13:55] LABS: INR 1.1; Prothrombin Time 12.1 Seconds (9.4-12.1)
[2018-01-29 14:10] LABS: Bilirubin,Urine Negative (Negative); Blood,Urine Negative (Negative); Clarity,Urine Clear (Clear); Color,Urine Yellow (Yellow); Glucose,Urine (UA) Normal (Normal); Ketones,Urine Negative (Negative); Leukocyte Esterase,Urine Negative (Negative); Nitrite,Urine Negative (Negative); PH,Urine 7.5 pH Units (5.0-8.0); Protein,Urine Trace mg/dL (Neg-Trace); Specific Gravity,Urine 1.013 (1.010-1.025); Urobilinogen,Urine Normal (Normal)
[2018-01-29 14:12] LABS: Bacteria,Urine None Seen per hpf (None-Few); Hyaline Casts,Urine None Seen per lpf (None-Few); RBC,Urine 0-3 per hpf (0-3); Squamous Epithelial Cell,Urine Many per lpf (None-Few); WBC,Urine 0-3 per hpf (0-3)
[2018-01-29] MEDS ORDERED: methylPREDNISolone 125 MG/2 ML VIAL IVP ONE (15:36)
[2018-01-29] MEDS: Ipratropium/Albuterol Neb 3 ML IH SCH ×2 (16:42→19:40)
[2018-01-29] MEDS ORDERED: 0.9 % Sodium Chloride 1,000 ML IVC SCH (19:00)
[2018-01-29] MEDS: Acetaminophen 325 MG TABLET PO PRN (21:14)
--- NOTE | 2018-01-29 21:20 | Internal Med History&Physical ---
Date of Encounter: 01/29/18 Time of Encounter: 19:00 Internal Medicine - H&P: HPI Chief complaint: Fever; difficulty breathing Admitted From: Home Plans for Post Hospital Care: Home History of present illness: The patient is a 57-year-old woman. She has had advanced COPD; uses oxygen continuously at 4 L/min nasal cannula. It was about 2 weeks ago, when she developed symptoms suggesting upper respiratory tract infection (nasal congestion with sore throat and coughing). Then, she developed progressing difficulty breathing with worsening of her coughing and wheezing. It was about 1 week ago, when she was evaluated at an urgent care center. She was put on doxycycline and prednisone (20 mg by mouth twice a day). She uses nebulizer treatments at home. Eventually, she developed fever and chills in the last couple days preceding this admission. She describes her breathing as bad. However, I see her using 4 L/min nasal cannula oxygen. Pulse ox is 95%. This patient was hospitalized here for pneumonia/sepsis at the end of March 2017. She does have advanced COPD; oxygen dependent. Additionally, she has been treated for type 2 diabetes mellitus, hypertension, hyperlipidemia, GERD, some kind of arthritis and some kind of psychosis (likely bipolar disorder). She may have quite a bit of anxiety. REVIEW OF SYSTEMS: All 14 organ systems were reviewed by me with the patient. Positive and pertinent negative findings are listed above. The rest of organ systems is negative. PHYSICAL EXAM: Skin: Free of rash and discoloration. Eyes: Sclera is white. There is no discharge from eyes. ENMT: Oral/pharyngeal mucosa is normal in appearance. There is no discharge from nose or ears. Respiratory: Normal breath sounds with no crackles and wheezes bilaterally. CV: Heart is regular with no gallop or murmur. GI: Abdomen is flat and soft with no palpable mass or visceromegaly. : There is no tenderness in patient's flanks bilaterally. Neuro exam: He has good strength in upper and lower extremities. He has normal eye movements. Psychiatric: He has normal affect. His thought process is appropriate to the situation. ADDITIONAL DATA: Chest x-ray done in the emergency room shows new right lung pneumonia. Her WBC is 23.9 thousand; was 13.6 thousand in January 2017. It is associated with hemoglobin of 9.6. The patient does have underlying mild anemia with average hemoglobin around 10-11. Her sodium and potassium are normal. Creatinine is 0.70. Random glucose is 160. Her bicarb is 24. UA shows normal findings. Her lactic acid was initially 3.3; decreased to 2.0 after 6+ hours of treatments. A/P: Right-sided pneumonia. Possible exacerbation of COPD. Sepsis. The patient is started on IV Rocephin/IV Zithromax. I added IV Solu-Medrol and nebulizer treatments with DuoNeb. We will titrate her oxygen trying to keep pulse ox between 90 and 95. Type 2 diabetes mellitus. I will switch her from oral metformin to low dose Levemir and when necessary Humalog. Her other problems are mentioned by me above. They seem to be stable/under control. We will continue previous our treatments. Past Med Surg Social Fam HX - Past Medical History Medical history: COPD, diabetes, hypertension, pulmonary embolus, other Additional medical history: chronic hypoxia. chronic respirtory failure Psychiatric history: bipolar, depression, other - Past Surgical History Surgical History: breast surgery, cholecystectomy, other Additional surgical history: right side masestomy - Social History Smoking Status: Current every day smoker Packs per day: 1 Smokeless Tobacco Status: No Alcohol use: none Drug use: none - Family History Mother Age: 76 Living Status: Still Living Hx Family Cardiac Disorders: Yes (HTN) Hx Family Respiratory Disorders: Yes Hx Family Cancer: Yes (Lung ca, breast cancer) Hx Family Endocrine Disorder: Yes (DIABETES) Internal Medicine - H&P: Meds Loratadine [Claritin] 10 mg PO DAILY #30 tablet 01/13/15 [Rx] Albuterol Sulfate [Proair Respiclick] 2 puff IH Q4HR PRN 04/07/15 [History] Amlodipine [Norvasc] 10 mg PO DAILY 04/07/15 [History] Aripiprazole [Abilify] 7.5 mg PO DAILY 04/07/15 [History] Atorvastatin [Lipitor] 10 mg PO HS 04/07/15 [History] Ipratropium/Albuterol Neb [Duoneb] 3 ml IH Q8HR PRN #1 vial.neb 04/07/15 [Rx] LevETIRAcetam [Keppra] 1,000 mg PO BID 04/07/15 [History] Metformin [Glucophage] 1,000 mg PO BID 04/07/15 [History] Metoclopramide [Reglan] 25 mg PO BID 04/07/15 [History] Modafinil [Provigil] 400 mg PO DAILY 04/07/15 [History] Ondansetron ODT [Zofran ODT] 8 mg SL TID PRN 04/07/15 [History] Potassium Chloride 20 meq PO BID 04/07/15 [History] Sucralfate [Carafate] 1 gm PO BID 04/07/15 [History] Tizanidine HCl [Zanaflex] 4 mg PO Q8HR 04/07/15 [History] Meloxicam [Mobic] 15 mg PO DAILY 05/09/15 [History] Promethazine [Phenergan] 25 mg PO Q8HR 05/09/15 [History] Escitalopram [Lexapro] 10 mg PO DAILY 11/10/15 [History] Fluticasone Propionate Nasal [Flonase] 50 mcg NS DAILY PRN 11/10/15 [History] LORazepam [Ativan] 0.5 mg PO TID PRN 11/10/15 [History] ALPRAZolam [Xanax 1 MG Tablet] 1 mg PO HS 04/18/17 [History] Exenatide Microspheres [Bydureon Pen] 2 mg SQ TH 04/18/17 [History] Pregabalin [Lyrica] 50 mg PO TID 04/18/17 [History] Roflumilast [Daliresp] 500 mcg PO DAILY 04/18/17 [History] Ibuprofen [Motrin] 600 mg PO Q6HR PRN #20 tab 01/21/18 [Rx] Brexpiprazole [Rexulti] 0.5 mg PO DAILY 01/29/18 [History] BuPROPion XL (24 HR) [Wellbutrin XL] 300 mg PO DAILY 01/29/18 [History] Esomeprazole Magnesium [Nexium] 40 mg PO DAILY 01/29/18 [History] Mometasone/Formoterol [Dulera 200 Mcg/5 Mcg Inhaler] 2 puff IH BID 01/29/18 [ History] Montelukast [Singulair] 10 mg PO DAILY 01/29/18 [History] Ranitidine HCl [Acid Metallurgical Engineering Technician] 150 mg PO BID 01/29/18 [History] Topiramate [Topamax] 50 mg PO BID 01/29/18 [History] 3 Allergy/AdvReac Type Severity Reaction Status Date / Time docetaxel [From Taxotere] Allergy Anaphylaxis Verified 01/21/18 08:57 Paroxetine [From Paxil] Allergy Itching Verified 01/21/18 08:57 trazodone AdvReac Vomiting Verified 01/21/18 08:57 - Constitutional Vitals: Temp Pulse Resp BP Pulse Ox 100.0 F H 112 20 104/67 94 01/29/18 18:05 01/29/18 18:05 01/29/18 19:40 01/29/18 18:05 01/29/18 19:40 General appearance: Present: A&O X 3, no acute distress, answers questions appropriately Exam: xx Internal Med - H&P Results - Labs CBC & Chem 7: 01/29/18 13:02 01/29/18 13:02 - Time Spent With Patient Total time spent is greater than 50% in coordination of care (as documented) at patient's floor/unit and/or counseling patient: - VTE Deep Vein Thrombosis/Pulmonary Embolism Present on Admission: No
[2018-01-29] MEDS ORDERED: Ibuprofen 600 MG TABLET PO PRN (21:23)
[2018-01-29] MEDS ORDERED: Ondansetron ODT 4 MG TAB.RAPDIS SL PRN (21:23)
[2018-01-29] MEDS ORDERED: Fluticasone Propionate Nasal 50 MCG/SPRAY BOTTLE NS PRN (21:23)
[2018-01-29] MEDS ORDERED: Dextrose Gel 15 GM/37.5 ML TUBE PO PRN ×2 (21:34)
[2018-01-29] MEDS ORDERED: *HR* Dextrose 50 % in Water (Syg) 50 ML SYRINGE IVP PRN (21:34)
[2018-01-29] MEDS ORDERED: D5% in Water 1,000 ML IVC PRN (21:34)
[2018-01-29] MEDS: ALPRAZolam 1 MG TABLET PO SCH (23:03)
[2018-01-29] MEDS: Insulin LISPRO 300 UNITS/3 ML VIAL SQ SCH (23:04)
[2018-01-29] MEDS: Insulin DETEMIR 100 UNIT/ML X5UNITS SQ SCH (23:04)
[2018-01-30 00:13] LABS: Adenovirus Not Detected (Not Detect); Bordetella Pertussis Not Detected (Not Detect); Chlamydophila pneumoniae Not Detected (Not Detect); Coronavirus 229E Not Detected (Not Detect); Coronavirus HKU1 Not Detected (Not Detect); Coronavirus NL63 Not Detected (Not Detect); Coronavirus OC43 Not Detected (Not Detect); Human Metapneumovirus Not Detected (Not Detect); Human Rhinovirus/Enterovirus Not Detected (Not Detect); Influenza A Subtype 2009 H1 Not Detected (Not Detect); Influenza A Untypeable Not Detected (Not Detect); Influenza B Not Detected (Not Detect); Mycoplasma pneumoniae Not Detected (Not Detect); Parainfluenza Virus 1 Not Detected (Not Detect); Parainfluenza Virus 2 Not Detected (Not Detect); Parainfluenza Virus 3 Not Detected (Not Detect); Parainfluenza Virus 4 Not Detected (Not Detect); Respiratory Syncytial Virus Not Detected (Not Detect)
[2018-01-30] MEDS: MethylPREDNISolone 40 MG/ML VIAL IVP SCH ×3 (00:15→14:56)
[2018-01-30] MEDS: tiZANidine 4 MG TABLET PO SCH ×4 (00:15→23:30)
[2018-01-30] MEDS: Ipratropium/Albuterol Neb 3 ML IH SCH ×6 (00:21→20:25)
[2018-01-30] MEDS: *HR* Heparin 5,000 UNIT/ML VIAL SQ SCH ×4 (04:57→21:14)
[2018-01-30 05:12] LABS: Basophils % 0.1 %; Hematocrit 29.1 % (35.3-44.9); Hemoglobin 8.8 g/dL (11.5-15.4); Immature Granulocytes % 0.8 % (0-4); Lymphocytes # 0.7 K/mcL (0.6-4.6); Lymphocytes % 4.5 %; Mean Corpuscular HGB Conc 30.2 g/dL (31.6-35.5); Mean Corpuscular Hemoglobin 22.2 pg (28.0-33.3); Mean Corpuscular Volume 73.3 fL (83.0-100.0); Mean Platelet Volume 8.9 fL (9.4-12.4); Monocytes # 0.2 K/mcL (0.0-1.3); Neutrophils # 15.2 K/mcL (1.6-8.9); Platelet Count 443 K/mcL (140-400); Red Blood Count 3.97 M/mcL (3.82-4.97); Red Cell Distribution Width 18.6 % (11.5-14.5); Segmented Neutrophils % 93.6 %
[2018-01-30 05:31] LABS: BUN/Creatinine Ratio 18 (6-26); Blood Urea Nitrogen 9 mg/dL (6-20); Calcium 8.7 mg/dL (8.6-10.3); Carbon Dioxide 21 mEq/L (23-29); Chloride 106 mEq/L (98-107); Glucose 247 mg/dL (70-105); Osmolality,Calculated 285 (280-300); Potassium 3.5 mEq/L (3.5-5.1); Sodium 134 mEq/L (136-145); eGFR For Non-African Americans > 60 (> 60)
[2018-01-30] MEDS: cefTRIAXone 2,000 MG in Water for inj. (sterile) 20 ML 20 ML IVP SCH ×2 (06:33→17:32)
[2018-01-30] MEDS: Insulin LISPRO 300 UNITS/3 ML VIAL SQ SCH ×4 (08:54→21:15)
[2018-01-30] MEDS: Topiramate 100 MG TABLET PO SCH ×2 (08:58→21:14)
[2018-01-30] MEDS: levETIRAcetam 250 MG TABLET PO SCH ×2 (08:59→21:14)
[2018-01-30] MEDS: Loratadine 10 MG TABLET PO SCH (09:02)
[2018-01-30] MEDS: BuPROPion XL (24 HR) 150 MG TABLET PO SCH (09:02)
[2018-01-30] MEDS: ARIPiprazole 5 MG TABLET PO SCH (09:03)
[2018-01-30] MEDS: Famotidine 20 MG TABLET PO SCH ×2 (09:04→21:14)
[2018-01-30] MEDS: Pregabalin 50 MG CAPSULE PO SCH ×3 (09:04→21:14)
[2018-01-30] MEDS: 0.9 % Sodium Chloride 1,000 ML IVC SCH (10:17)
[2018-01-30] MEDS ORDERED: Azithromycin 500 MG in D5% in Water 250 ML IVPB SCH (13:00)
[2018-01-30] MEDS ORDERED: D5% in Water 250 ML ONE (13:24)
[2018-01-30] MEDS: Acetaminophen 325 MG TABLET PO PRN (14:17)
[2018-01-30] MEDS ORDERED: Ketorolac 30 MG/ML VIAL IVP ONE (17:21)
[2018-01-30] MEDS: (Brexpiprazole [Rexulti] 0.5 MG) PO SCH (17:31)
[2018-01-30] MEDS: *HR* LORazepam 0.5 MG TABLET PO PRN (19:54)
[2018-01-30] MEDS: Insulin DETEMIR 100 UNIT/ML X5UNITS SQ SCH (21:22)
[2018-01-30] MEDS ORDERED: Budesonide/Formoterol 160/4.5 1 PUFF INH IH SCH (22:00)
[2018-01-30] MEDS: ALPRAZolam 1 MG TABLET PO SCH (22:29)
--- NOTE | 2018-01-30 22:56 | Internal Med Progress Note ---
Hospitalist Progress Note - Encounter Date of Encounter: 01/30/18 Time of Encounter: 19:00 - Subjective Interval History: SUBJECTIVE: The patient feels good. She denies resting dyspnea; using supplemental oxygen at 4 L/min (her baseline). She does have mild cough but not wheezing. Denies chest pain. Denies abdominal pain, nausea and vomiting. She makes good amounts of urine. OBJECTIVE: Skin: Free of rash and discoloration. ENMT: Oral/pharyngeal mucosa is normal in appearance. Eyes: Sclera is white. There is no discharge from eyes. Respiratory: Normal breath sounds; no crackles or wheezes. CV: Heart is regular; no gallop or murmur. GI: Abdomen is soft and not tender. There is no palpable mass or visceromegaly. Neuro: There is no focal deficits. ADDITIONAL DATA: Her WBC is 16.2 thousand; 23.9 thousand yesterday. Hemoglobin is 8.8; 9.6 yesterday (dropped due to IV fluids she received recently). Potassium is 3.9; 3.9 yesterday. Creatinine is 0.50. ASSESSMENT AND PLAN: Community-acquired pneumonia with sepsis. Definitely better. Her sepsis is subsiding. Lactic acid is normal and again. Will continue treatment with IV Rocephin/IV Zithromax. She is on IV Solu-Medrol. We will substitute it with by mouth prednisone. Will make her breathing treatments 4 times a day instead of every 4 hours. He does have COPD/chronic hypoxic respiratory failure. We will continue supplemental oxygen and nebulizer treatments with DuoNeb. Type 2 diabetes mellitus. Was on metformin at home. Currently, she uses insulin Levemir and when necessary insulin Humalog. DISPOSITION: She will be here for at least a few more days. - Exam Vitals: Temp Pulse Resp BP Pulse Ox 98.1 F 116 26 126/80 92 01/30/18 19:29 01/30/18 19:29 01/30/18 20:26 01/30/18 19:29 01/30/18 20:26 Exam: xx - Assessment and Plan (1) Community acquired pneumonia Current Visit: No Status: Acute (2) Sepsis Current Visit: Yes Status: Acute (3) COPD (chronic obstructive pulmonary disease) Current Visit: Yes Status: Chronic (4) Chronic respiratory failure with hypoxia Current Visit: Yes Status: Chronic (5) T2DM (type 2 diabetes mellitus) Current Visit: Yes Status: Acute - Time Spent with Patient Total time spent is greater than 50% in coordination of care (as documented) at patient's floor/unit and/or counseling patient: 25 - 35 minutes Plan of Care Discussed with: patient Internal Medicine: Result - Labs CBC & Chem 7: 01/30/18 04:42 01/30/18 04:42 Labs: Short CBC 01/30/18 Range/Units 04:42 WBC 16.2 H (4.3-11.1) K/mcL Hgb 8.8 L (11.5-15.4) g/dL Hct 29.1 L (35.3-44.9) % Plt Count 443 H (140-400) K/mcL Neutrophils # 15.2 H (1.6-8.9) K/mcL BMP 01/30/18 04:42 Sodium 134 L Potassium 3.5 Chloride 106 Carbon Dioxide 21 L BUN 9 Creatinine 0.50 L Glucose 247 H Calcium 8.7 - ABG Interpretation ABG results: PT/INR, D-dimer PT 12.1 Seconds (9.4-12.1) 01/29/18 13:02 - VTE Deep Vein Thrombosis/Pulmonary Embolism Present on Admission: No Consult Discharge Plan - Plan Referrals: Neelam Zhao MD [Primary Care Provider] - (1) Community acquired pneumonia Qualifiers: Laterality: right Lung location: lower lobe of lung Qualified Code(s): J18.1 - Lobar pneumonia, unspecified organism (2) Sepsis Qualifiers: Sepsis type: sepsis due to unspecified organism Qualified Code(s): A41.9 - Sepsis, unspecified organism (3) COPD (chronic obstructive pulmonary disease) Qualifiers: COPD type: unspecified COPD Qualified Code(s): J44.9 - Chronic obstructive pulmonary disease, unspecified (5) T2DM (type 2 diabetes mellitus) Qualifiers: Diabetes mellitus mcfp insulin use: without mcfp use Diabetes mellitus complication status: without complication Qualified Code(s): E11.9 - Type 2 diabetes mellitus without complications
[2018-01-30] MEDS ORDERED: Ipratropium/Albuterol Neb 3 ML IH PRN (23:08)
[2018-01-30] MEDS ORDERED: traMADol 50 MG TABLET PO ONE (23:15)
[2018-01-30 23:33] LABS: Hematocrit 29.9 % (35.3-44.9); Hemoglobin 8.8 g/dL (11.5-15.4)
[2018-01-31] MEDS ORDERED: 0.9 % Sodium Chloride 500 ML IVC ONE (00:16)
[2018-01-31] MEDS: *HR* LORazepam 0.5 MG TABLET PO PRN (02:24)
[2018-01-31] MEDS ORDERED: methylPREDNISolone 125 MG/2 ML VIAL IVP ONE (02:40)
[2018-01-31] MEDS ORDERED: methylPREDNISolone 125 MG/2 ML VIAL ONE (02:42)
[2018-01-31] MEDS ORDERED: Furosemide 40 MG/4 ML VIAL IVP ONE ×2 (02:56→14:00)
[2018-01-31] MEDS ORDERED: Furosemide 40 MG/4 ML VIAL ONE (02:57)
[2018-01-31] MEDS ORDERED: Heparin 25,000 UNIT/500 ML D5W 25,000 UNIT/500 ML BAG IVC SCH (03:00)
[2018-01-31] MEDS: Ipratropium/Albuterol Neb 3 ML IH SCH ×4 (03:09→22:19)
[2018-01-31 03:11] LABS: ABG Base Excess -5 mEq/L (-2 to 3); ABG HCO3 20 mEq/L (21-27); ABG Oxygen Saturation 95 % (95-98); ABG PCO2 32 mmHg (35-45); ABG PH 7.39 pH Units (7.32-7.45); ABG PO2 75 mmHg (85-104); ABG TCO2 21 mEq/L (20-26); Blood Gas Modality NIV; Blood Gas PEEP 5 cm H2O
[2018-01-31] MEDS ORDERED: *HR* Morphine 2 MG/ML SYRINGE IVP ONE (03:13)
[2018-01-31] MEDS ORDERED: Nitroglycerin 1 INCH/GM PACKET TP ONE (03:14)
[2018-01-31] MEDS ORDERED: Nitroglycerin 1 INCH/GM PACKET ONE (03:16)
[2018-01-31 03:27] LABS: Basophils % 0.1 %; Monocytes % 2.1 %
[2018-01-31 03:28] LABS: Hematocrit 29.4 % (35.3-44.9); Hemoglobin 8.7 g/dL (11.5-15.4); Immature Granulocytes % 1.4 % (0-4); Lymphocytes # 1.6 K/mcL (0.6-4.6); Lymphocytes % 5.9 %; Mean Corpuscular HGB Conc 29.6 g/dL (31.6-35.5); Mean Corpuscular Hemoglobin 22.1 pg (28.0-33.3); Mean Corpuscular Volume 74.6 fL (83.0-100.0); Mean Platelet Volume 8.9 fL (9.4-12.4); Monocytes # 0.6 K/mcL (0.0-1.3); Neutrophils # 24.6 K/mcL (1.6-8.9); Platelet Count 474 K/mcL (140-400); Red Blood Count 3.94 M/mcL (3.82-4.97); Red Cell Distribution Width 19.7 % (11.5-14.5); Segmented Neutrophils % 90.5 %
[2018-01-31 03:43] LABS: Platelet Estimate Increased (Normal)
[2018-01-31 03:44] LABS: Anisocytosis 1+ (Not Present); Hypochromasia Present (Not Present)
[2018-01-31 03:48] LABS: Alanine Aminotransferase 14 Units/L (7-52); Albumin 3.5 g/dL (3.5-5.7); Albumin/Globulin Ratio 1.1 (1.1-2.2); Alkaline Phosphatase 113 Units/L (34-104); Aspartate Amino Transferase 29 Units/L (13-39); BUN/Creatinine Ratio 21 (6-26); Bilirubin,Total 0.3 mg/dL (0.3-1.0); Blood Urea Nitrogen 13 mg/dL (6-20); Calcium 9.2 mg/dL (8.6-10.3); Carbon Dioxide 21 mEq/L (23-29); Chloride 109 mEq/L (98-107); Globulin 3.2 g/dL (2.4-3.5); Glucose 147 mg/dL (70-105); Osmolality,Calculated 291 (280-300); Potassium 4.2 mEq/L (3.5-5.1); Sodium 139 mEq/L (136-145); Total Protein 6.7 g/dL (6.4-8.9); eGFR For Non-African Americans > 60 (> 60)
[2018-01-31 03:49] LABS: Troponin I 0.03 ng/mL (< 0.04)
--- NOTE | 2018-01-31 04:03 | Pulmonology Consult Note ---
<Jaspreet Haney - Last Filed: 01/31/18 05:05> Date of Encounter: 01/31/18 Time of Encounter: 03:57 Assessment and Plan (1) Acute respiratory failure with hypoxia Current Visit: Yes Status: Acute Secondary to multifocal pneumonia in the setting of COPD exacerbation Patient requiring increased oxygen supplementation, currently BiPAP dependent with FiO2 of 70 Chest x-ray shows bilateral pulmonary opacities worsened when compared to admission ABG pH 7.39, PCO2 32, PO2 75 PaO2/FiO2 ratio 107 Plan: Continue BiPAP support, IV steroids, IV antibiotics. (2) Sepsis Current Visit: Yes Status: Acute Patient was febrile, tachypneic, tachycardic, leukocytosis Initial lactic acid was 2.3 and improved to 2.0 but now is increased to 2.7 WBC count initially was 23, improved to 16 and now is 27 Etiology worsening pneumonia Blood pressure stable 119/72 Due to patient's persistent respiratory status, we will not give patient additional IV fluids as to prevent pulmonary edema Qualifiers: Sepsis type: sepsis due to unspecified organism Qualified Code(s): A41.9 - Sepsis, unspecified organism (3) Multifocal pneumonia Current Visit: Yes Status: Acute Patient was initially started on azithromycin and ceftriaxone however due to worsening respiratory status we will broaden coverage and transition to vancomycin and Zosyn. Continue scheduled DuoNeb's. Blood cultures collected on 01/29/18 currently negative Respiratory infectious panel negative (4) COPD exacerbation Current Visit: Yes Status: Acute Secondary to pneumonia Patient on IV antibiotics, IV steroids, scheduled DuoNeb's (5) History of hyperlipidemia Current Visit: Yes Status: Acute Controlled continue home medication. (6) T2DM (type 2 diabetes mellitus) Current Visit: Yes Status: Acute Patient has history of type 2 diabetes mellitus insulin-dependent Continue sliding scale insulin and basal Levemir Currently nothing by mouth secondary to being on BiPAP. Qualifiers: Diabetes mellitus long term acute care registered nurse insulin use: without long term acute care registered nurse use Diabetes mellitus complication status: without complication Qualified Code(s): E11.9 - Type 2 diabetes mellitus without complications (7) History of bipolar disorder Current Visit: Yes Status: Acute Controlled. Continue rexulti (8) History of depression Current Visit: Yes Status: Acute Controlled Continue Wellbutrin (9) Anxiety Current Visit: Yes Status: Acute Patient has significant anxiety secondary to her respiratory distress She is currently on her home dose of Xanax as well as when necessary Ativan. History of Present Illness Consult date: 01/31/18 Reason for consult: dyspnea Chief complaint: sob History of present illness: 57-year-old female presents with chief complaint of shortness of breath on 01/29 the patient has a history of COPD and is on 4 L oxygen at home. Before admission patient had fevers, chills, sputum production, cough. She was found to be febrile at a temperature of 103, tachycardic. Patient was found to be in sepsis secondary to right lung pneumonia and started on azithromycin and Ceftriaxone. As per EMR Patient Has History of Pneumonia and Has Been Intubated in the past during March 2017. Per Documentation in the Next 24 Hours after Admission Patient's Dyspnea Improved and her oxygen requirements went back to her baseline of 4 L. However overnight patient started to become more tachypneic and had increased work of breathing. Overnight hospitalist was contacted. Repeat chest x-ray showed worsening pneumonia and patient not had bilateral pulmonary opacities. Patient was on BiPAP with FiO2 of 70%, rate in the 50s with a tidal volume around 700 mL. She was given Nitropaste, IV Lasix, IV steroids, morphine and the risk concern for deteriorating respiratory status and patient was moved to ICU. Past Med Surg Social Fam HX - Past Medical History Medical history: COPD, diabetes, hypertension, pulmonary embolus, other Additional medical history: chronic hypoxia. chronic respirtory failure Psychiatric history: bipolar, depression, other - Past Surgical History Surgical History: breast surgery, cholecystectomy, other Additional surgical history: right side masestomy - Social History Smoking Status: Current every day smoker Packs per day: 1 Smokeless Tobacco Status: No Alcohol use: none Drug use: none - Family History Mother Age: 76 Living Status: Still Living Hx Family Cardiac Disorders: Yes (HTN) Hx Family Respiratory Disorders: Yes Hx Family Cancer: Yes (Lung ca, breast cancer) Hx Family Endocrine Disorder: Yes (DIABETES) Medications and Allergies Loratadine [Claritin] 10 mg PO DAILY #30 tablet 01/13/15 [Rx] Albuterol Sulfate [Proair Respiclick] 2 puff IH Q4HR PRN 04/07/15 [History] Amlodipine [Norvasc] 10 mg PO DAILY 04/07/15 [History] Aripiprazole [Abilify] 7.5 mg PO DAILY 04/07/15 [History] Atorvastatin [Lipitor] 10 mg PO HS 04/07/15 [History] Ipratropium/Albuterol Neb [Duoneb] 3 ml IH Q8HR PRN #1 vial.neb 04/07/15 [Rx] LevETIRAcetam [Keppra] 1,000 mg PO BID 04/07/15 [History] Metformin [Glucophage] 1,000 mg PO BID 04/07/15 [History] Metoclopramide [Reglan] 25 mg PO BID 04/07/15 [History] Modafinil [Provigil] 400 mg PO DAILY 04/07/15 [History] Ondansetron ODT [Zofran ODT] 8 mg SL TID PRN 04/07/15 [History] Potassium Chloride 20 meq PO BID 04/07/15 [History] Sucralfate [Carafate] 1 gm PO BID 04/07/15 [History] Tizanidine HCl [Zanaflex] 4 mg PO Q8HR 04/07/15 [History] Meloxicam [Mobic] 15 mg PO DAILY 05/09/15 [History] Promethazine [Phenergan] 25 mg PO Q8HR 05/09/15 [History] Escitalopram [Lexapro] 10 mg PO DAILY 11/10/15 [History] Fluticasone Propionate Nasal [Flonase] 50 mcg NS DAILY PRN 11/10/15 [History] LORazepam [Ativan] 0.5 mg PO TID PRN 11/10/15 [History] ALPRAZolam [Xanax 1 MG Tablet] 1 mg PO HS 04/18/17 [History] Exenatide Microspheres [Bydureon Pen] 2 mg SQ TH 04/18/17 [History] Pregabalin [Lyrica] 50 mg PO TID 04/18/17 [History] Roflumilast [Daliresp] 500 mcg PO DAILY 04/18/17 [History] Ibuprofen [Motrin] 600 mg PO Q6HR PRN #20 tab 01/21/18 [Rx] Brexpiprazole [Rexulti] 0.5 mg PO DAILY 01/29/18 [History] BuPROPion XL (24 HR) [Wellbutrin XL] 300 mg PO DAILY 01/29/18 [History] Esomeprazole Magnesium [Nexium] 40 mg PO DAILY 01/29/18 [History] Mometasone/Formoterol [Dulera 200 Mcg/5 Mcg Inhaler] 2 puff IH BID 01/29/18 [ History] Montelukast [Singulair] 10 mg PO DAILY 01/29/18 [History] Ranitidine HCl [Acid Case Management Assistant] 150 mg PO BID 01/29/18 [History] Topiramate [Topamax] 50 mg PO BID 01/29/18 [History] 3 Allergy/AdvReac Type Severity Reaction Status Date / Time docetaxel [From Taxotere] Allergy Anaphylaxis Verified 01/21/18 08:57 Paroxetine [From Paxil] Allergy Itching Verified 01/21/18 08:57 trazodone AdvReac Vomiting Verified 01/21/18 08:57 ROS unobtainable: other (Unable to obtain as patient was very dyspneic on BiPAP) All Systems: The remainder of the systems were reviewed and are negative Physical Examination Vital Signs: Vital Signs, Last 4 Hours Resp BP Pulse Ox 01/31/18 03:09 45 117/78 94 01/31/18 00:47 34 117/78 93 General appearance: appears uncomfortable Eyes: nonicteric ENT: oropharynx moist Mallampati (class): 3 Neck: no lymphadenopathy, no JVD Effort: very labored Inspection: normal Auscultation: bilateral: rhonchi Cardiovascular: other (Sinus tachycardia without murmur) Gastrointestinal: normoactive bowel sounds, soft, non-tender, non-distended Integumentary: normal Extremities: no cyanosis, no edema, no clubbing, pink and warm Musculoskeletal: no deformities normal mental status, non-focal exam, pupils equal and round, CN II-XII normal mood appropriate, affect normal Results - Laboratory Findings CBC and BMP: 01/31/18 03:14 01/31/18 03:14 ABG ABG pH 7.39 pH Units (7.32-7.45) 01/31/18 03:06 ABG pCO2 32 mmHg (35-45) L 01/31/18 03:06 ABG pO2 75 mmHg (85-104) L 01/31/18 03:06 ABG O2 Saturation 95 % (95-98) 01/31/18 03:06 PT/INR, D-dimer PT 12.1 Seconds (9.4-12.1) 01/29/18 13:02 Abnormal lab findings: Abnormal lab results WBC 27.2 K/mcL (4.3-11.1) H D 01/31/18 03:14 Hgb 8.7 g/dL (11.5-15.4) L 01/31/18 03:14 Hct 29.4 % (35.3-44.9) L 01/31/18 03:14 MCV 74.6 fL (83.0-100.0) L 01/31/18 03:14 MCH 22.1 pg (28.0-33.3) L 01/31/18 03:14 MCHC 29.6 g/dL (31.6-35.5) L 01/31/18 03:14 RDW 19.7 % (11.5-14.5) H 01/31/18 03:14 Plt Count 474 K/mcL (140-400) H 01/31/18 03:14 MPV 8.9 fL (9.4-12.4) L 01/31/18 03:14 Neutrophils # 24.6 K/mcL (1.6-8.9) H 01/31/18 03:14 Platelet Estimate Increased (Normal) H 01/31/18 03:14 Hypochromasia Present (Not Present) A 01/31/18 03:14 Anisocytosis 1+ (Not Present) A 01/31/18 03:14 ABG pCO2 32 mmHg (35-45) L 01/31/18 03:06 ABG pO2 75 mmHg (85-104) L 01/31/18 03:06 ABG HCO3 20 mEq/L (21-27) L 01/31/18 03:06 ABG Base Excess -5 mEq/L (-2 to 3) L 01/31/18 03:06 Chloride 109 mEq/L (98-107) H 01/31/18 03:14 Carbon Dioxide 21 mEq/L (23-29) L 01/31/18 03:14 Glucose 147 mg/dL (70-105) H 01/31/18 03:14 POC Glucose 334 mg/dL (70-99) H 01/30/18 15:51 Lactic Acid 2.7 mmol/L (0.5-2.2) H 01/31/18 03:14 Alkaline Phosphatase 113 Units/L (34-104) H 01/31/18 03:14 Ur Squamous Epith Cells Many per lpf (None-Few) H 01/29/18 13:56 - Clinical Findings Intake & Output: Intake & Output 01/30/18 01/30/18 01/31/18 15:59 23:59 07:59 Intake Total 300 / 300 20 / 20 500 / 500 Output Total 500 / 500 0 / 0 Balance -200 / -200 20 / 20 500 / 500 Consult Discharge Plan - Plan Referrals: Neelam Zhao MD [Primary Care Provider] - <Butch Soto W - Last Filed: 01/31/18 14:02> Date of Encounter: 01/31/18 All Systems: The remainder of the systems were reviewed and are negative Physical Examination Vital Signs: Vital Signs, Last 4 Hours Temp Pulse Resp BP Pulse Ox 01/31/18 13:00 102 33 110/66 93 01/31/18 12:00 98.7 F 93 32 134/89 99 01/31/18 11:00 99 35 131/88 94 Results - Laboratory Findings CBC and BMP: 01/31/18 11:18 01/31/18 12:53 ABG ABG pH 7.39 pH Units (7.32-7.45) 01/31/18 03:06 ABG pCO2 32 mmHg (35-45) L 01/31/18 03:06 ABG pO2 75 mmHg (85-104) L 01/31/18 03:06 ABG O2 Saturation 95 % (95-98) 01/31/18 03:06 PT/INR, D-dimer PT 12.1 Seconds (9.4-12.1) 01/29/18 13:02 Abnormal lab findings: Abnormal lab results WBC 27.2 K/mcL (4.3-11.1) H D 01/31/18 03:14 Hgb 8.1 g/dL (11.5-15.4) L 01/31/18 11:18 Hct 26.5 % (35.3-44.9) L 01/31/18 11:18 MCV 74.6 fL (83.0-100.0) L 01/31/18 03:14 MCH 22.1 pg (28.0-33.3) L 01/31/18 03:14 MCHC 29.6 g/dL (31.6-35.5) L 01/31/18 03:14 RDW 19.7 % (11.5-14.5) H 01/31/18 03:14 Plt Count 474 K/mcL (140-400) H 01/31/18 03:14 MPV 8.9 fL (9.4-12.4) L 01/31/18 03:14 Neutrophils # 24.6 K/mcL (1.6-8.9) H 01/31/18 03:14 Platelet Estimate Increased (Normal) H 01/31/18 03:14 Hypochromasia Present (Not Present) A 01/31/18 03:14 Anisocytosis 1+ (Not Present) A 01/31/18 03:14 ABG pCO2 32 mmHg (35-45) L 01/31/18 03:06 ABG pO2 75 mmHg (85-104) L 01/31/18 03:06 ABG HCO3 20 mEq/L (21-27) L 01/31/18 03:06 ABG Base Excess -5 mEq/L (-2 to 3) L 01/31/18 03:06 Creatinine 0.58 mg/dL (0.60-1.20) L 01/31/18 12:53 BUN/Creatinine Ratio 29 (6-26) H 01/31/18 12:53 Glucose 200 mg/dL (70-105) H 01/31/18 12:53 POC Glucose 334 mg/dL (70-99) H 01/30/18 15:51 Alkaline Phosphatase 113 Units/L (34-104) H 01/31/18 03:14 B-Natriuretic Peptide 194 pg/mL (Less than 100) H 01/31/18 12:53 Ur Squamous Epith Cells Many per lpf (None-Few) H 01/29/18 13:56 - Clinical Findings Intake & Output: Intake & Output 01/30/18 01/31/18 01/31/18 23:59 07:59 15:59 Intake Total 1000 / 1000 Output Total 0 / 0 1300 / 1300 1400 / 1400 Balance -300 / -300 -1400 / -1400 Weight 85.8 kg - Attending Attestation I examined this patient and my medical decision-making was reviewed with the Resident Physician. I agree with the documented findings, disposition and treatment plan as described except to the extent set forth below. We independently had [id number] contact with the patient Patient seen and examined at bedside Labs, radiology, chart personally reviewed. Management was reviewed during multidisciplinary critical care rounds. INSPECTOR TOYS: Awake and alert no focal deficit; I suspect anxiety is contributing to her respiratory insufficiency and will control with benzodiazepines and morphine Pulm: Acute hypoxic respiratory failure secondary to pneumonia and suspected ARDS versus hydrostatic pulmonary edema from heart failure diuresis tolerated start steroids for early ARDS/severe pneumonia and continue bronchodilators hisk risk for requiring intubation she is currently tolerating BiPAP Cards: Suspected cardiogenic pulmonary edema continue diuresis as tolerated by blood pressure and renal function GI: Continue to monitor Nutrition: Nothing by mouth for now Renal: UOP Monitored, Cont to Trend sCr and monitor Electrolytes. ID: Continue treatment for pneumonia antibiotics have been broadened with planned to de-escalate based upon cultures and clinical course Heme/Onc: DVT prophylaxis given Endo: Glucose Monitored Integ/MSK: Skin Care per routine ICU Nursing Protocol to prevent ulcers. Lines: All lines examined without evidence of infection : Dispo: Monitor in ICU as patient has high risk of decompensation CODE: Full
[2018-01-31] MEDS ORDERED: *HR* LORazepam 2 MG/ML VIAL ONE ×2 (04:09→09:38)
[2018-01-31] MEDS ORDERED: *HR* LORazepam 2 MG/ML VIAL IVP ONE (04:23)
[2018-01-31] MEDS ORDERED: MethylPREDNISolone 40 MG/ML VIAL IVP SCH ×2 (06:00→07:08)
[2018-01-31 06:18] LABS: Hematocrit 28.7 % (35.3-44.9); Hemoglobin 8.8 g/dL (11.5-15.4)
[2018-01-31] MEDS ORDERED: *HR* Morphine 2 MG/ML SYRINGE IVP PRN (07:00)
[2018-01-31] MEDS ORDERED: Aminoglycoside Consult 1 EACH MC ONE (07:27)
[2018-01-31] MEDS ORDERED: predniSONE 20 MG TABLET PO SCH (09:00)
[2018-01-31] MEDS: levETIRAcetam 250 MG TABLET PO SCH ×2 (09:11→20:54)
[2018-01-31] MEDS: Pregabalin 50 MG CAPSULE PO SCH ×3 (09:20→20:53)
[2018-01-31] MEDS: ARIPiprazole 5 MG TABLET PO SCH (09:21)
[2018-01-31] MEDS: BuPROPion XL (24 HR) 150 MG TABLET PO SCH (09:21)
[2018-01-31] MEDS: Loratadine 10 MG TABLET PO SCH (09:21)
[2018-01-31] MEDS: Topiramate 100 MG TABLET PO SCH ×2 (09:21→20:53)
[2018-01-31] MEDS: Famotidine 20 MG TABLET PO SCH ×2 (09:21→20:54)
[2018-01-31] MEDS: Piperacillin/Tazobactam 3.375 GM in 0.9 % Sodium Chloride Mini Bag 100 ML IVPB SCH ×3 (09:22→23:37)
[2018-01-31] MEDS: tiZANidine 4 MG TABLET PO SCH ×3 (09:22→23:39)
[2018-01-31] MEDS: *HR* LORazepam 2 MG/ML VIAL IVP PRN (09:38)
[2018-01-31] MEDS: Insulin LISPRO 300 UNITS/3 ML VIAL SQ SCH ×4 (09:48→20:52)
[2018-01-31] MEDS: (Brexpiprazole [Rexulti] 0.5 MG) PO SCH (10:02)
[2018-01-31 11:49] LABS: Hematocrit 26.5 % (35.3-44.9); Hemoglobin 8.1 g/dL (11.5-15.4)
[2018-01-31 13:23] LABS: BUN/Creatinine Ratio 29 (6-26); Blood Urea Nitrogen 17 mg/dL (6-20); Carbon Dioxide 23 mEq/L (23-29); Chloride 107 mEq/L (98-107); Glucose 200 mg/dL (70-105); Osmolality,Calculated 291 (280-300); Potassium 4.1 mEq/L (3.5-5.1); Sodium 137 mEq/L (136-145); eGFR For Non-African Americans > 60 (> 60)
[2018-01-31] MEDS: *HR* Morphine 2 MG/ML SYRINGE IVP PRN (14:13)
[2018-01-31] MEDS: methylPREDNISolone 125 MG/2 ML VIAL IVP SCH (18:31)
[2018-01-31] MEDS ORDERED: Prochlorperazine 10 MG/2 ML VIAL IVP ONE (18:51)
[2018-01-31] MEDS: Insulin DETEMIR 100 UNIT/ML X5UNITS SQ SCH (20:52)
[2018-01-31] MEDS: ALPRAZolam 1 MG TABLET PO SCH (20:54)
[2018-02-01] MEDS: Ipratropium/Albuterol Neb 3 ML IH SCH ×4 (04:36→22:13)
[2018-02-01] MEDS: *HR* Morphine 2 MG/ML SYRINGE IVP PRN (04:51)
[2018-02-01] MEDS: methylPREDNISolone 125 MG/2 ML VIAL IVP SCH ×2 (04:55→17:41)
[2018-02-01 05:02] LABS: Basophils % 0.1 %; Hemoglobin 8.2 g/dL (11.5-15.4); Immature Granulocytes % 1.1 % (0-4); Lymphocytes # 1.7 K/mcL (0.6-4.6); Lymphocytes % 10.8 %; Mean Corpuscular HGB Conc 30.4 g/dL (31.6-35.5); Mean Corpuscular Hemoglobin 22.2 pg (28.0-33.3); Mean Corpuscular Volume 73.2 fL (83.0-100.0); Mean Platelet Volume 8.9 fL (9.4-12.4); Monocytes # 0.6 K/mcL (0.0-1.3); Monocytes % 3.6 %; Neutrophils # 13.2 K/mcL (1.6-8.9); Platelet Count 441 K/mcL (140-400); Red Blood Count 3.69 M/mcL (3.82-4.97); Red Cell Distribution Width 19.8 % (11.5-14.5); Segmented Neutrophils % 84.4 %
[2018-02-01 05:22] LABS: BUN/Creatinine Ratio 34 (6-26); Blood Urea Nitrogen 22 mg/dL (6-20); Calcium 9.3 mg/dL (8.6-10.3); Carbon Dioxide 24 mEq/L (23-29); Chloride 105 mEq/L (98-107); Glucose 185 mg/dL (70-105); Osmolality,Calculated 288 (280-300); Sodium 135 mEq/L (136-145); eGFR For Non-African Americans > 60 (> 60)
--- NOTE | 2018-02-01 09:17 | Pulmonology Progress Note ---
<Slim Ken R - Last Filed: 02/01/18 13:16> Date of Encounter: 02/01/18 Time of Encounter: 07:40 Assessment and Plan (1) Acute respiratory failure with hypoxia Current Visit: Yes Status: Acute Patient was initially admitted on 01/29/2018 for pneumonia and COPD exacerbation. She is a history of COPD and requires home oxygen supplementation at baseline. Patient was brought to the ICU on 01/31 for worsening respiratory status. She did require increasing amounts of oxygen supplementation and BiPAP therapy. Chest x-ray at that time did show worsening bilateral pulmonary opacity Patient remained on BiPAP overnight, she was able to be weaned to high flow oxygen nasal cannula this morning. Continue oxygen supplementation as necessary, BiPAP is available for respiratory support if needed. Continue steroids, antibiotics, breathing treatments for pneumonia and COPD exacerbation. Out of bed to chair today, consult physical therapy for mobilization. (2) Sepsis Current Visit: Yes Status: Acute Improvement in WBC today to 15.7. Patient remains tachycardic in the low 100s. Tachypnea overnight, resolving upon evaluation of patient at the bedside. Afebrile and stable blood pressure. Etiology is likely pneumonia. Continue antibiotics Respiratory panel and blood cultures were negative growth to date. Qualifiers: Sepsis type: sepsis due to unspecified organism Qualified Code(s): A41.9 - Sepsis, unspecified organism (3) Multifocal pneumonia Current Visit: Yes Status: Acute Bilateral pulmonary opacities evident on radiograph. Patient was started on azithromycin and ceftriaxone admission, coverage was broadened to vancomycin and Zosyn yesterday. MRSA nasal swab negative, will discontinue vancomycin Continue Zosyn and de-escalate as appropriate (4) COPD exacerbation Current Visit: Yes Status: Acute COPD requiring oxygen supplementation at baseline. Exacerbation in the setting of pneumonia. Continue treatment as above with antibiotics, steroids, and breathing treatments. Oxygen supplementation as necessary. (5) T2DM (type 2 diabetes mellitus) Current Visit: Yes Status: Acute Type II [id number] diabetic. Patient does take metformin daily. Patient was started on basal bolus regimen with Levemir and medium sliding scale insulin. POC glucose checks in the high 100s and low 200s in the setting of steroids for COPD exacerbation Patient has resumed eating, we will initiate diabetic diet. Follow blood glucose checks and adjust insulin as necessary, may require going to twice a day Levemir dosing and/or high sliding scale. Qualifiers: Diabetes mellitus fci insulin use: without terminal manager use Diabetes mellitus complication status: without complication Qualified Code(s): E11.9 - Type 2 diabetes mellitus without complications (6) History of hyperlipidemia Current Visit: Yes Status: Acute Continue home medications (7) History of anxiety Current Visit: Yes Status: Acute History of anxiety secondary to COPD and respiratory distress. At present patient does demonstrate mild anxiety. We will continue home dosing of Xanax with Ativan available as needed. (8) History of bipolar disorder Current Visit: Yes Status: Acute Continue home Rexulti (9) History of depression Current Visit: Yes Status: Acute Continue on Wellbutrin (10) DVT prophylaxis Current Visit: Yes Status: Acute Heparin 5000 units SQ TID Hemoglobin stable in 8-9 range, will initiate heparin therapy and observed for evidence of bleeding or worsening anemia. Subjective Principal diagnosis: Respiratory failure Interval history: No acute events overnight. Patient reports improvement in shortness of breath. Tolerating oxygen by high flow nasal cannula. Patient denies difficulty eating or swallowing. Objective PUL Vital signs: Last Vital Signs Temp 98.8 F 02/01/18 08:20 Pulse 111 02/01/18 08:00 Resp 39 02/01/18 08:00 BP 156/99 02/01/18 08:00 Pulse Ox 93 02/01/18 08:00 General appearance: no acute distress Eyes: nonicteric ENT: oropharynx moist Neck: supple Effort: mildly labored Auscultation: bilateral: rales (Bilateral lung bases) Cardiovascular: regular rate and rhythm, other (Tachycardic) Gastrointestinal: normoactive bowel sounds, soft, non-distended Integumentary: normal Extremities: no cyanosis, no edema, no clubbing, pink and warm Musculoskeletal: no deformities Gait: normal posture normal mental status, non-focal exam, CN II-XII normal mood appropriate Results - Laboratory Findings CBC and BMP: 02/01/18 04:41 02/01/18 04:41 ABG ABG pH 7.39 pH Units (7.32-7.45) 01/31/18 03:06 ABG pCO2 32 mmHg (35-45) L 01/31/18 03:06 ABG pO2 75 mmHg (85-104) L 01/31/18 03:06 ABG O2 Saturation 95 % (95-98) 01/31/18 03:06 PT/INR, D-dimer PT 12.1 Seconds (9.4-12.1) 01/29/18 13:02 Abnormal lab findings: Abnormal lab results WBC 15.7 K/mcL (4.3-11.1) H 02/01/18 04:41 RBC 3.69 M/mcL (3.82-4.97) L 02/01/18 04:41 Hgb 8.2 g/dL (11.5-15.4) L 02/01/18 04:41 Hct 27.0 % (35.3-44.9) L 02/01/18 04:41 MCV 73.2 fL (83.0-100.0) L 02/01/18 04:41 MCH 22.2 pg (28.0-33.3) L 02/01/18 04:41 MCHC 30.4 g/dL (31.6-35.5) L 02/01/18 04:41 RDW 19.8 % (11.5-14.5) H 02/01/18 04:41 Plt Count 441 K/mcL (140-400) H 02/01/18 04:41 MPV 8.9 fL (9.4-12.4) L 02/01/18 04:41 Neutrophils # 13.2 K/mcL (1.6-8.9) H 02/01/18 04:41 Platelet Estimate Increased (Normal) H 01/31/18 03:14 Hypochromasia Present (Not Present) A 01/31/18 03:14 Anisocytosis 1+ (Not Present) A 01/31/18 03:14 ABG pCO2 32 mmHg (35-45) L 01/31/18 03:06 ABG pO2 75 mmHg (85-104) L 01/31/18 03:06 ABG HCO3 20 mEq/L (21-27) L 01/31/18 03:06 ABG Base Excess -5 mEq/L (-2 to 3) L 01/31/18 03:06 Sodium 135 mEq/L (136-145) L 02/01/18 04:41 BUN 22 mg/dL (6-20) H 02/01/18 04:41 BUN/Creatinine Ratio 34 (6-26) H 02/01/18 04:41 Glucose 185 mg/dL (70-105) H 02/01/18 04:41 POC Glucose 266 mg/dL (70-99) H 01/31/18 20:18 Alkaline Phosphatase 113 Units/L (34-104) H 01/31/18 03:14 B-Natriuretic Peptide 194 pg/mL (Less than 100) H 01/31/18 12:53 Ur Squamous Epith Cells Many per lpf (None-Few) H 01/29/18 13:56 - Microbiology Findings Microbiology Findings: Microbiology, Last 48 Hours 01/31/18 15:27 Legionella Antigen - Final Urine,Catheterized Streptococcus pneumoniae Antigen (M - Final - Clinical Findings Intake & Output: Intake & Output 01/31/18 02/01/18 02/01/18 23:59 07:59 15:59 Intake Total 590 / 590 350 / 350 Output Total 2400 / 2400 225 / 225 450 / 450 Balance -1810 / -1810 125 / 125 -450 / -450 Weight 84.8 kg - VTE Deep Vein Thrombosis/Pulmonary Embolism Present on Admission: No Consult Discharge Plan - Plan Referrals: Neelam Zhao MD [Primary Care Provider] - <Mukesh Rodriguez - Last Filed: 02/01/18 16:26> Date of Encounter: 02/01/18 Objective PUL Vital signs: Last Vital Signs Temp 98.8 F 02/01/18 08:20 Pulse 105 02/01/18 10:00 Resp 37 02/01/18 10:00 BP 132/83 02/01/18 10:00 Pulse Ox 93 02/01/18 10:00 Results - Laboratory Findings CBC and BMP: 02/01/18 04:41 02/01/18 04:41 ABG ABG pH 7.39 pH Units (7.32-7.45) 01/31/18 03:06 ABG pCO2 32 mmHg (35-45) L 01/31/18 03:06 ABG pO2 75 mmHg (85-104) L 01/31/18 03:06 ABG O2 Saturation 95 % (95-98) 01/31/18 03:06 PT/INR, D-dimer PT 12.1 Seconds (9.4-12.1) 01/29/18 13:02 Abnormal lab findings: Abnormal lab results WBC 15.7 K/mcL (4.3-11.1) H 02/01/18 04:41 RBC 3.69 M/mcL (3.82-4.97) L 02/01/18 04:41 Hgb 8.2 g/dL (11.5-15.4) L 02/01/18 04:41 Hct 27.0 % (35.3-44.9) L 02/01/18 04:41 MCV 73.2 fL (83.0-100.0) L 02/01/18 04:41 MCH 22.2 pg (28.0-33.3) L 02/01/18 04:41 MCHC 30.4 g/dL (31.6-35.5) L 02/01/18 04:41 RDW 19.8 % (11.5-14.5) H 02/01/18 04:41 Plt Count 441 K/mcL (140-400) H 02/01/18 04:41 MPV 8.9 fL (9.4-12.4) L 02/01/18 04:41 Neutrophils # 13.2 K/mcL (1.6-8.9) H 02/01/18 04:41 Platelet Estimate Increased (Normal) H 01/31/18 03:14 Hypochromasia Present (Not Present) A 01/31/18 03:14 Anisocytosis 1+ (Not Present) A 01/31/18 03:14 ABG pCO2 32 mmHg (35-45) L 01/31/18 03:06 ABG pO2 75 mmHg (85-104) L 01/31/18 03:06 ABG HCO3 20 mEq/L (21-27) L 01/31/18 03:06 ABG Base Excess -5 mEq/L (-2 to 3) L 01/31/18 03:06 Sodium 135 mEq/L (136-145) L 02/01/18 04:41 BUN 22 mg/dL (6-20) H 02/01/18 04:41 BUN/Creatinine Ratio 34 (6-26) H 02/01/18 04:41 Glucose 185 mg/dL (70-105) H 02/01/18 04:41 POC Glucose 266 mg/dL (70-99) H 01/31/18 20:18 Alkaline Phosphatase 113 Units/L (34-104) H 01/31/18 03:14 B-Natriuretic Peptide 194 pg/mL (Less than 100) H 01/31/18 12:53 Ur Squamous Epith Cells Many per lpf (None-Few) H 01/29/18 13:56 - Microbiology Findings Microbiology Findings: Microbiology, Last 48 Hours 01/31/18 15:27 Legionella Antigen - Final Urine,Catheterized Streptococcus pneumoniae Antigen (M - Final - Clinical Findings Intake & Output: Intake & Output 01/31/18 02/01/18 02/01/18 23:59 07:59 15:59 Intake Total 590 / 590 350 / 350 Output Total 2400 / 2400 225 / 225 450 / 450 Balance -1810 / -1810 125 / 125 -450 / -450 Weight 84.8 kg - Attending Attestation I examined this patient and my medical decision-making was reviewed with the Resident Physician. I agree with the documented findings, disposition and treatment plan as described except to the extent set forth below. Patient seen and examined. Labs, radiology, chart personally reviewed. Agree with resident's history and physical, assessment, plan with following comments: [place]: Patient follows commands, Pulmonary: Acceptable oxygenation and ventilation and on NIV. Patient transition to high flow and get her out of bed and diuresis. Patient on steroid and bronchodilators. Patient has significant history of lung disease. The patient in ICU today since she has significant history of lung disease and she has a tendency of rapid deterioration in the past. Cardiovascular: stable GI: Nutrition per dietary and GI prophylaxis per routine Heme: DVT prophylaxis per routine. Need DVT prophylaxis ID: Continue antibiotics and plan to de-escalation Renal; urine out put and renal funtion reviewed Endorcine: blood glucose is monitored. Lines: all lines checked and no evidence of infections Skin: skin care to prevent pressure ulcers per nursing routine care
[2018-02-01] MEDS: Piperacillin/Tazobactam 3.375 GM in 0.9 % Sodium Chloride Mini Bag 100 ML IVPB SCH ×3 (09:26→23:07)
[2018-02-01] MEDS: *HR* LORazepam 2 MG/ML VIAL IVP PRN (09:26)
[2018-02-01] MEDS: levETIRAcetam 250 MG TABLET PO SCH ×2 (09:27→20:25)
[2018-02-01] MEDS: ARIPiprazole 5 MG TABLET PO SCH (09:27)
[2018-02-01] MEDS: tiZANidine 4 MG TABLET PO SCH ×3 (09:28→23:07)
[2018-02-01] MEDS: Famotidine 20 MG TABLET PO SCH (09:28)
[2018-02-01] MEDS: Topiramate 100 MG TABLET PO SCH ×2 (09:28→20:25)
[2018-02-01] MEDS: Loratadine 10 MG TABLET PO SCH (09:28)
[2018-02-01] MEDS: Pregabalin 50 MG CAPSULE PO SCH ×3 (09:28→20:25)
[2018-02-01] MEDS: BuPROPion XL (24 HR) 150 MG TABLET PO SCH (09:29)
[2018-02-01] MEDS: Insulin LISPRO 300 UNITS/3 ML VIAL SQ SCH ×4 (09:29→20:26)
[2018-02-01] MEDS ORDERED: Furosemide 40 MG/4 ML VIAL IVP ONE (09:44)
[2018-02-01] MEDS: (Brexpiprazole [Rexulti] 0.5 MG) PO SCH (10:04)
--- NOTE | 2018-02-01 11:13 | Electrocardiograph Report ---
[place] [id number] Test Date: 2018-01-31 Pat Name: Courtney Youssef Department: 111 Room: 11 Gender: F [employer] President: : 1960 Requested By: Abbie Enriquez Order Number: [id number] Reading MD: Laurie Kulkarni Measurements Intervals [place] Rate: 117 P: 48 CO: 161 QRS: 8 QRSD: 89 T: 34 QT: 303 QTc: 373 Interpretive Statements SINUS TACHYCARDIA ABNORMAL RHYTHM ECG Electronically Signed On 02-01-2018 11:11:04 EDT by Laurie Kulkarni
[2018-02-01] MEDS ORDERED: Insulin DETEMIR 100 UNIT/ML X5UNITS SQ ONE (12:03)
[2018-02-01] MEDS: *HR* OxyCODONE/APAP 5/325 TABLET PO PRN (12:08)
[2018-02-01] MEDS: *HR* Heparin 5,000 UNIT/ML VIAL SQ SCH ×2 (13:18→20:24)
[2018-02-01] MEDS: Acetaminophen 325 MG TABLET PO PRN (19:47)
[2018-02-01] MEDS: ALPRAZolam 1 MG TABLET PO SCH (20:24)
[2018-02-01] MEDS: Insulin DETEMIR 100 UNIT/ML X5UNITS SQ SCH (20:24)
[2018-02-02] MEDS: *HR* OxyCODONE/APAP 5/325 TABLET PO PRN ×4 (02:38→21:19)
[2018-02-02 03:42] LABS: Basophils % 0.1 %; Hematocrit 28.3 % (35.3-44.9); Hemoglobin 8.5 g/dL (11.5-15.4); Immature Granulocytes % 0.9 % (0-4); Lymphocytes # 2.4 K/mcL (0.6-4.6); Mean Corpuscular Volume 73.3 fL (83.0-100.0); Mean Platelet Volume 8.7 fL (9.4-12.4); Monocytes # 0.3 K/mcL (0.0-1.3); Monocytes % 1.6 %; Neutrophils # 12.4 K/mcL (1.6-8.9); Platelet Count 466 K/mcL (140-400); Red Blood Count 3.86 M/mcL (3.82-4.97); Red Cell Distribution Width 19.4 % (11.5-14.5); Segmented Neutrophils % 81.4 %
[2018-02-02] MEDS: Ipratropium/Albuterol Neb 3 ML IH SCH ×4 (04:00→22:27)
[2018-02-02 04:03] LABS: BUN/Creatinine Ratio 35 (6-26); Blood Urea Nitrogen 23 mg/dL (6-20); Calcium 9.2 mg/dL (8.6-10.3); Carbon Dioxide 23 mEq/L (23-29); Chloride 104 mEq/L (98-107); Glucose 170 mg/dL (70-105); Magnesium 1.8 mg/dL (1.6-2.6); Osmolality,Calculated 288 (280-300); Phosphorous 4.1 mg/dL (2.7-4.5); Sodium 135 mEq/L (136-145); eGFR For Non-African Americans > 60 (> 60)
[2018-02-02] MEDS: *HR* Heparin 5,000 UNIT/ML VIAL SQ SCH ×3 (05:37→21:19)
[2018-02-02] MEDS: methylPREDNISolone 125 MG/2 ML VIAL IVP SCH ×2 (05:37→18:10)
[2018-02-02] MEDS: Insulin LISPRO 300 UNITS/3 ML VIAL SQ SCH ×4 (08:01→22:12)
[2018-02-02] MEDS: ARIPiprazole 5 MG TABLET PO SCH (08:02)
[2018-02-02] MEDS: Piperacillin/Tazobactam 3.375 GM in 0.9 % Sodium Chloride Mini Bag 100 ML IVPB SCH ×2 (08:02→18:11)
[2018-02-02] MEDS: Loratadine 10 MG TABLET PO SCH (08:03)
[2018-02-02] MEDS: BuPROPion XL (24 HR) 150 MG TABLET PO SCH (08:03)
[2018-02-02] MEDS: levETIRAcetam 250 MG TABLET PO SCH ×2 (08:03→21:20)
[2018-02-02] MEDS: Pregabalin 50 MG CAPSULE PO SCH ×3 (08:04→21:19)
[2018-02-02] MEDS: tiZANidine 4 MG TABLET PO SCH ×2 (08:04→18:10)
[2018-02-02] MEDS: Topiramate 100 MG TABLET PO SCH ×2 (08:04→21:18)
[2018-02-02] MEDS: Acetaminophen 325 MG TABLET PO PRN (12:54)
--- NOTE | 2018-02-02 13:37 | Pulmonology Progress Note ---
<Mukesh Rodriguez M - Last Filed: 02/02/18 15:42> Date of Encounter: 02/02/18 Objective PUL Vital signs: Last Vital Signs Temp 98.4 F 02/02/18 15:10 Pulse 96 02/02/18 15:10 Resp 21 02/02/18 15:10 BP 119/73 02/02/18 15:10 Pulse Ox 94 02/02/18 15:10 Results - Laboratory Findings CBC and BMP: 02/02/18 03:28 02/02/18 03:28 ABG ABG pH 7.39 pH Units (7.32-7.45) 01/31/18 03:06 ABG pCO2 32 mmHg (35-45) L 01/31/18 03:06 ABG pO2 75 mmHg (85-104) L 01/31/18 03:06 ABG O2 Saturation 95 % (95-98) 01/31/18 03:06 PT/INR, D-dimer PT 12.1 Seconds (9.4-12.1) 01/29/18 13:02 Abnormal lab findings: Abnormal lab results WBC 15.2 K/mcL (4.3-11.1) H 02/02/18 03:28 Hgb 8.5 g/dL (11.5-15.4) L 02/02/18 03:28 Hct 28.3 % (35.3-44.9) L 02/02/18 03:28 MCV 73.3 fL (83.0-100.0) L 02/02/18 03:28 MCH 22.0 pg (28.0-33.3) L 02/02/18 03:28 MCHC 30.0 g/dL (31.6-35.5) L 02/02/18 03:28 RDW 19.4 % (11.5-14.5) H 02/02/18 03:28 Plt Count 466 K/mcL (140-400) H 02/02/18 03:28 MPV 8.7 fL (9.4-12.4) L 02/02/18 03:28 Neutrophils # 12.4 K/mcL (1.6-8.9) H 02/02/18 03:28 Platelet Estimate Increased (Normal) H 01/31/18 03:14 Hypochromasia Present (Not Present) A 01/31/18 03:14 Anisocytosis 1+ (Not Present) A 01/31/18 03:14 ABG pCO2 32 mmHg (35-45) L 01/31/18 03:06 ABG pO2 75 mmHg (85-104) L 01/31/18 03:06 ABG HCO3 20 mEq/L (21-27) L 01/31/18 03:06 ABG Base Excess -5 mEq/L (-2 to 3) L 01/31/18 03:06 Sodium 135 mEq/L (136-145) L 02/02/18 03:28 BUN 23 mg/dL (6-20) H 02/02/18 03:28 BUN/Creatinine Ratio 35 (6-26) H 02/02/18 03:28 Glucose 170 mg/dL (70-105) H 02/02/18 03:28 POC Glucose 213 mg/dL (70-99) H 02/01/18 20:24 Alkaline Phosphatase 113 Units/L (34-104) H 01/31/18 03:14 B-Natriuretic Peptide 194 pg/mL (Less than 100) H 01/31/18 12:53 Ur Squamous Epith Cells Many per lpf (None-Few) H 01/29/18 13:56 - Microbiology Findings Microbiology Findings: Microbiology, Last 48 Hours 01/31/18 15:27 Legionella Antigen - Final Urine,Catheterized Streptococcus pneumoniae Antigen (M - Final - Clinical Findings Intake & Output: Intake & Output 02/01/18 02/02/18 02/02/18 23:59 07:59 15:59 Intake Total 100 / 100 100 / 100 360 / 360 Output Total 1600 / 1600 775 / 775 625 / 625 Balance -1500 / -1500 -675 / -675 -265 / -265 Weight 82.7 kg Consult Discharge Plan - Plan Referrals: Neelam Zhao MD [Primary Care Provider] - - Attending Attestation I examined this patient and my medical decision-making was reviewed with the Resident Physician. I agree with the documented findings, disposition and treatment plan as described except to the extent set forth below. Patient seen and examined. Labs, radiology, chart personally reviewed. 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 Patient has significant pulmonary history and for that reason pulmonary service will continue follow-up. Hopefully systemic steroid can be tapered off starting tomorrow to oral. Continue bronchodilators. Cardiovascular: stable GI: Nutrition per dietary and GI prophylaxis per routine Heme: DVT prophylaxis per routine ID: Continue antibiotics and plan to de-escalation Renal; urine out put and renal funtion reviewed Endorcine: blood glucose is monitored Lines: all lines checked and no evidence of infections Skin: skin care to prevent pressure ulcers per nursing routine care Patient was transferred to the floor because hemodynamically stable and sent treatment can be done and the floor. <Clay Mauricio S - Last Filed: 02/02/18 23:02> Date of Encounter: 02/02/18 Time of Encounter: 07:45 Assessment and Plan (1) Sepsis Current Visit: Yes Status: Acute Likely 2/2 pneumonia No significant change in WBC 15.7 > 15.1 today HR 89 today Afebrile overnight BP 114/80 today Continue Zosyn (day 3) Discontinued vancomycin due to negative MRSA swab Respiratory panel negative Blood cultures - no growth to date Qualifiers: Sepsis type: sepsis due to unspecified organism Qualified Code(s): A41.9 - Sepsis, unspecified organism (2) Acute respiratory failure with hypoxia Current Visit: Yes Status: Acute 2/2 pneumonia and COPD exacerbation Patient uses 4 liters home oxygen Continue BIPAP at night Patient on high flow oxygen during day, try to wean to home dose, keep sats around 92% Continue duonebs Continue zosyn Continue prednisone (3) Multifocal pneumonia Current Visit: Yes Status: Acute Patient given ceftriaxone and azithromycin initially, transitioned to zosyn and vancomycin Vancomycin discontinued after negative MRSA swab Continue zosyn (day 3) (4) T2DM (type 2 diabetes mellitus) Current Visit: Yes Status: Acute Glucose 170 Continue medium dose sliding scale insulin Continue insulin levemir 22 units at night Qualifiers: Diabetes mellitus care home insulin use: without care home use Diabetes mellitus complication status: without complication Qualified Code(s): E11.9 - Type 2 diabetes mellitus without complications (5) COPD exacerbation Current Visit: Yes Status: Acute Patient uses 4L home O2 Patient transitioned to high flow oxygen during the day Contnue BIPAP at night Discontinued methylprednisolone Started prednisone 40 mg PO for 3 days (6) History of anxiety Current Visit: Yes Status: Acute Patient has some anxiety 2/2 COPD and respiratory distress Continue home xanax Continue Ativan PRN (7) History of hyperlipidemia Current Visit: Yes Status: Acute Continue home atorvastatin (8) History of bipolar disorder Current Visit: Yes Status: Acute Continue home Rexulti (9) History of depression Current Visit: Yes Status: Acute Continue Wellbutrin (10) DVT prophylaxis Current Visit: Yes Status: Acute Subcutaneous heparin Subjective Principal diagnosis: Respiratory failure Interval history: Patient resting well on high flow oxygen. No acute events overnight. No complaints this morning. She reports improvement in her shortness of breath today. She denies chest pain, fevers/chills. Objective PUL Vital signs: Last Vital Signs Temp 99.1 F 02/02/18 12:00 Pulse 112 02/02/18 12:00 Resp 32 02/02/18 12:00 BP 103/75 02/02/18 12:00 Pulse Ox 94 02/02/18 12:00 General appearance: no acute distress Eyes: nonicteric Effort: normal Auscultation: bilateral: wheezes Cardiovascular: regular rate and rhythm Gastrointestinal: soft, non-tender Integumentary: normal Extremities: no cyanosis, no edema, pink and warm, pulses normal Musculoskeletal: no deformities normal mental status mood appropriate, affect normal Results - Laboratory Findings CBC and BMP: 02/02/18 03:28 02/02/18 03:28 ABG ABG pH 7.39 pH Units (7.32-7.45) 01/31/18 03:06 ABG pCO2 32 mmHg (35-45) L 01/31/18 03:06 ABG pO2 75 mmHg (85-104) L 01/31/18 03:06 ABG O2 Saturation 95 % (95-98) 01/31/18 03:06 PT/INR, D-dimer PT 12.1 Seconds (9.4-12.1) 01/29/18 13:02 Abnormal lab findings: Abnormal lab results WBC 15.2 K/mcL (4.3-11.1) H 02/02/18 03:28 Hgb 8.5 g/dL (11.5-15.4) L 02/02/18 03:28 Hct 28.3 % (35.3-44.9) L 02/02/18 03:28 MCV 73.3 fL (83.0-100.0) L 02/02/18 03:28 MCH 22.0 pg (28.0-33.3) L 02/02/18 03:28 MCHC 30.0 g/dL (31.6-35.5) L 02/02/18 03:28 RDW 19.4 % (11.5-14.5) H 02/02/18 03:28 Plt Count 466 K/mcL (140-400) H 02/02/18 03:28 MPV 8.7 fL (9.4-12.4) L 02/02/18 03:28 Neutrophils # 12.4 K/mcL (1.6-8.9) H 02/02/18 03:28 Platelet Estimate Increased (Normal) H 01/31/18 03:14 Hypochromasia Present (Not Present) A 01/31/18 03:14 Anisocytosis 1+ (Not Present) A 01/31/18 03:14 ABG pCO2 32 mmHg (35-45) L 01/31/18 03:06 ABG pO2 75 mmHg (85-104) L 01/31/18 03:06 ABG HCO3 20 mEq/L (21-27) L 01/31/18 03:06 ABG Base Excess -5 mEq/L (-2 to 3) L 01/31/18 03:06 Sodium 135 mEq/L (136-145) L 02/02/18 03:28 BUN 23 mg/dL (6-20) H 02/02/18 03:28 BUN/Creatinine Ratio 35 (6-26) H 02/02/18 03:28 Glucose 170 mg/dL (70-105) H 02/02/18 03:28 POC Glucose 213 mg/dL (70-99) H 02/01/18 20:24 Alkaline Phosphatase 113 Units/L (34-104) H 01/31/18 03:14 B-Natriuretic Peptide 194 pg/mL (Less than 100) H 01/31/18 12:53 Ur Squamous Epith Cells Many per lpf (None-Few) H 01/29/18 13:56 - Microbiology Findings Microbiology Findings: Microbiology, Last 48 Hours 01/31/18 15:27 Legionella Antigen - Final Urine,Catheterized Streptococcus pneumoniae Antigen (M - Final - Clinical Findings Intake & Output: Intake & Output 02/01/18 02/02/18 02/02/18 23:59 07:59 15:59 Intake Total 100 / 100 100 / 100 360 / 360 Output Total 1600 / 1600 775 / 775 625 / 625 Balance -1500 / -1500 -675 / -675 -265 / -265 Weight 82.7 kg - VTE Deep Vein Thrombosis/Pulmonary Embolism Present on Admission: No
[2018-02-02] MEDS: *HR* LORazepam 0.5 MG TABLET PO PRN (14:36)
[2018-02-02] MEDS: ALPRAZolam 1 MG TABLET PO SCH (21:19)
[2018-02-02] MEDS: Insulin DETEMIR 100 UNIT/ML X5UNITS SQ SCH (21:38)
[2018-02-02] MEDS: Budesonide/Formoterol 160/4.5 1 PUFF INH IH SCH (22:27)
[2018-02-03] MEDS: *HR* LORazepam 0.5 MG TABLET PO PRN ×3 (00:52→23:26)
[2018-02-03] MEDS: tiZANidine 4 MG TABLET PO SCH ×4 (00:52→23:26)
[2018-02-03] MEDS: Piperacillin/Tazobactam 3.375 GM in 0.9 % Sodium Chloride Mini Bag 100 ML IVPB SCH ×2 (00:52→07:41)
[2018-02-03] MEDS: Ipratropium/Albuterol Neb 3 ML IH SCH ×4 (04:04→22:11)
[2018-02-03] MEDS: *HR* Heparin 5,000 UNIT/ML VIAL SQ SCH ×3 (05:59→20:07)
[2018-02-03] MEDS: *HR* OxyCODONE/APAP 5/325 TABLET PO PRN (07:41)
[2018-02-03] MEDS: Insulin LISPRO 300 UNITS/3 ML VIAL SQ SCH ×4 (07:42→20:16)
[2018-02-03] MEDS: BuPROPion XL (24 HR) 150 MG TABLET PO SCH (09:00)
[2018-02-03] MEDS: Loratadine 10 MG TABLET PO SCH (09:00)
[2018-02-03] MEDS ORDERED: predniSONE 20 MG TABLET PO SCH (09:00)
[2018-02-03] MEDS: levETIRAcetam 250 MG TABLET PO SCH ×2 (09:01→19:44)
[2018-02-03] MEDS: ARIPiprazole 5 MG TABLET PO SCH (09:01)
[2018-02-03] MEDS: Pregabalin 50 MG CAPSULE PO SCH ×3 (09:01→19:46)
[2018-02-03] MEDS: Topiramate 100 MG TABLET PO SCH ×2 (09:02→19:45)
--- NOTE | 2018-02-03 09:35 | Pulmonology Progress Note ---
<Rakan Rondon - Last Filed: 02/03/18 17:53> Date of Encounter: 02/03/18 Time of Encounter: 09:30 Assessment and Plan (1) Acute and chronic respiratory failure with hypoxia Current Visit: No Status: Acute - likely due to sepsis from multifocal pneumonia. She also has a history of COPD and takes dulera and duonebs at home. -currently patient is on BiPAP at night on high flow oxygen the morning. Satting at 94%. - Medication management plan as below. BNP and Echo pending to rule in/out any worsening heart function. (2) Sepsis Current Visit: Yes Status: Acute -Likely due to her recent episode of pneumonia. WBC 15.2, HR: 89, RR : 20 -Most recent chest x-ray (01/31) showed bilateral pulmonary opacities appearing worse since prior exam - On physical exam she has bilateral wheezes.Her white blood count has been trending down. 16.2 -> 27.2 -> 15.7 -> 15.2 - Initially the thought processes was community acquired pneumonia and patient was initially on Z-Bryson and Rocephin, but was transitioned to vancomycin and Zosyn because of chest x-ray showed worsening multifocal pneumonia.. Her MRSA swab was negative and vancomycin has been discontinued. Patient continues to finish her 7 day course of Zosyn. -she has been transitioned from Solu-Medrol to by mouth prednisone. She continues to be in BiPAP at night and switched to [place] high flow oxygen the morning Qualifiers: Sepsis type: sepsis due to unspecified organism Qualified Code(s): A41.9 - Sepsis, unspecified organism (3) Pneumonia Current Visit: Yes Status: Acute - plan as above for treatment of multifocal pneumonia. Patient is on day 4 of Zosyn -Continue to monitor. Qualifiers: Pneumonia type: due to unspecified organism Laterality: right Lung location: upper lobe of lung Qualified Code(s): J18.1 - Lobar pneumonia, unspecified organism (4) COPD exacerbation Current Visit: Yes Status: Acute -COPD exacerbation in setting of pneumonia. Patient is a 4L of home oxygen takes dulera and DuoNeb for her COPD control. -Patient continues to be on antibiotics (day 4 of Zosyn), transitioned from Solu -Medrol to by mouth steroids. DuoNeb's PRN -titrate oxygen for sPO2 > 89%. Recommended incentive spirometry to restore the V/Q mismatch secondary to atelectasis. Subjective Principal diagnosis: Respiratory failure Interval history: Ms. Youssef is a 57-year-old pleasant female with a past medical history of COPD, chronic respiratory failure secondary to COPD, pneumonia, was admitted to the hospital on January 29 with concerns for shortness of breath was found to have pneumonia. Paitent endorses she is on Dulera and duonebs for her COPD. Hima this time she had bronchitits and wrnt to the [facility] on jan 21 and was prescribed doxycycline butt he symptoms did not resolve. Patient was on Z pack and Rocephin initially for 2 days, however was transitioned to more broad coverage because of worsening bilateral opacities with concerns for multifocal pneumonia or pulmonary edema. Currently patient is on BiPAP at night and a high flow nasal cannula in the morning. Her Vancomycin has been discontinued because of MRSA swab being negative, she continues to be on Zosyn for a total of 7 day coverage. She is currently satting at 91% on [place] high flow oxygen. Objective PUL Vital signs: Last Vital Signs Temp 98.1 F 02/03/18 05:00 Pulse 89 02/03/18 07:20 Resp 20 02/03/18 07:20 BP 139/85 02/03/18 07:20 Pulse Ox 94 02/03/18 07:20 General appearance: no acute distress Effort: normal Auscultation: bilateral: wheezes Cardiovascular: regular rate and rhythm Gastrointestinal: normoactive bowel sounds, soft, non-tender Results - Laboratory Findings CBC and BMP: 02/02/18 03:28 02/02/18 03:28 ABG ABG pH 7.39 pH Units (7.32-7.45) 01/31/18 03:06 ABG pCO2 32 mmHg (35-45) L 01/31/18 03:06 ABG pO2 75 mmHg (85-104) L 01/31/18 03:06 ABG O2 Saturation 95 % (95-98) 01/31/18 03:06 PT/INR, D-dimer PT 12.1 Seconds (9.4-12.1) 01/29/18 13:02 Abnormal lab findings: Abnormal lab results WBC 15.2 K/mcL (4.3-11.1) H 02/02/18 03:28 Hgb 8.5 g/dL (11.5-15.4) L 02/02/18 03:28 Hct 28.3 % (35.3-44.9) L 02/02/18 03:28 MCV 73.3 fL (83.0-100.0) L 02/02/18 03:28 MCH 22.0 pg (28.0-33.3) L 02/02/18 03:28 MCHC 30.0 g/dL (31.6-35.5) L 02/02/18 03:28 RDW 19.4 % (11.5-14.5) H 02/02/18 03:28 Plt Count 466 K/mcL (140-400) H 02/02/18 03:28 MPV 8.7 fL (9.4-12.4) L 02/02/18 03:28 Neutrophils # 12.4 K/mcL (1.6-8.9) H 02/02/18 03:28 Platelet Estimate Increased (Normal) H 01/31/18 03:14 Hypochromasia Present (Not Present) A 01/31/18 03:14 Anisocytosis 1+ (Not Present) A 01/31/18 03:14 ABG pCO2 32 mmHg (35-45) L 01/31/18 03:06 ABG pO2 75 mmHg (85-104) L 01/31/18 03:06 ABG HCO3 20 mEq/L (21-27) L 01/31/18 03:06 ABG Base Excess -5 mEq/L (-2 to 3) L 01/31/18 03:06 Sodium 135 mEq/L (136-145) L 02/02/18 03:28 BUN 23 mg/dL (6-20) H 02/02/18 03:28 BUN/Creatinine Ratio 35 (6-26) H 02/02/18 03:28 Glucose 170 mg/dL (70-105) H 02/02/18 03:28 POC Glucose 116 mg/dL (70-99) H 02/03/18 07:22 Alkaline Phosphatase 113 Units/L (34-104) H 01/31/18 03:14 B-Natriuretic Peptide 194 pg/mL (Less than 100) H 01/31/18 12:53 Ur Squamous Epith Cells Many per lpf (None-Few) H 01/29/18 13:56 - Clinical Findings Intake & Output: Intake & Output 02/02/18 02/03/18 02/03/18 23:59 07:59 15:59 Intake Total 100 / 100 340 / 340 120 / 120 Output Total 0 / 0 500 / 500 Balance 100 / 100 -160 / -160 120 / 120 Weight 81.7 kg - VTE Deep Vein Thrombosis/Pulmonary Embolism Present on Admission: No Consult Discharge Plan - Plan Referrals: Neelma Zhao MD [Primary Care Provider] - <Jhony Bryant - Last Filed: 02/03/18 21:45> Date of Encounter: 02/03/18 Objective PUL Vital signs: Last Vital Signs Temp 99.0 F 02/03/18 19:49 Pulse 100 02/03/18 19:49 Resp 20 02/03/18 19:49 BP 149/92 02/03/18 19:49 Pulse Ox 93 02/03/18 19:49 Results - Laboratory Findings CBC and BMP: 02/02/18 03:28 02/02/18 03:28 ABG ABG pH 7.39 pH Units (7.32-7.45) 01/31/18 03:06 ABG pCO2 32 mmHg (35-45) L 01/31/18 03:06 ABG pO2 75 mmHg (85-104) L 01/31/18 03:06 ABG O2 Saturation 95 % (95-98) 01/31/18 03:06 PT/INR, D-dimer PT 12.1 Seconds (9.4-12.1) 01/29/18 13:02 Abnormal lab findings: Abnormal lab results WBC 15.2 K/mcL (4.3-11.1) H 02/02/18 03:28 Hgb 8.5 g/dL (11.5-15.4) L 02/02/18 03:28 Hct 28.3 % (35.3-44.9) L 02/02/18 03:28 MCV 73.3 fL (83.0-100.0) L 02/02/18 03:28 MCH 22.0 pg (28.0-33.3) L 02/02/18 03:28 MCHC 30.0 g/dL (31.6-35.5) L 02/02/18 03:28 RDW 19.4 % (11.5-14.5) H 02/02/18 03:28 Plt Count 466 K/mcL (140-400) H 02/02/18 03:28 MPV 8.7 fL (9.4-12.4) L 02/02/18 03:28 Neutrophils # 12.4 K/mcL (1.6-8.9) H 02/02/18 03:28 Platelet Estimate Increased (Normal) H 01/31/18 03:14 Hypochromasia Present (Not Present) A 01/31/18 03:14 Anisocytosis 1+ (Not Present) A 01/31/18 03:14 ABG pCO2 32 mmHg (35-45) L 01/31/18 03:06 ABG pO2 75 mmHg (85-104) L 01/31/18 03:06 ABG HCO3 20 mEq/L (21-27) L 01/31/18 03:06 ABG Base Excess -5 mEq/L (-2 to 3) L 01/31/18 03:06 Sodium 135 mEq/L (136-145) L 02/02/18 03:28 BUN 23 mg/dL (6-20) H 02/02/18 03:28 BUN/Creatinine Ratio 35 (6-26) H 02/02/18 03:28 Glucose 170 mg/dL (70-105) H 02/02/18 03:28 POC Glucose 236 mg/dL (70-99) H 02/03/18 16:51 Alkaline Phosphatase 113 Units/L (34-104) H 01/31/18 03:14 Ur Squamous Epith Cells Many per lpf (None-Few) H 01/29/18 13:56 - Clinical Findings Intake & Output: Intake & Output 02/03/18 02/03/18 02/03/18 07:59 15:59 23:59 Intake Total 340 / 340 360 / 360 240 / 240 Output Total 500 / 500 1200 / 1200 Balance -160 / -160 360 / 360 -960 / -960 Weight 81.7 kg - Attending Attestation I saw and evaluated this patient and my medical decision-making was reviewed with the Resident Physician. I agree with the documented findings, disposition and treatment plan as described except to the extent set forth below. We independently had [id number] contact with the patient Patient seen and examined at bedside Labs, radiology, chart personally reviewed. Patient was admitted ICU with acute hypoxic respiratory failure complicated multifocal pneumonia and COPD exacerbation patient recovered well now she is in medical telemetry patient is on high flow nasal cannula 50% saturating well patient might have a component of hydrostatic edema will get an echo and get a BNP . BNP is high patient will benefit from diuresis. To continue bronchodilators steroids and antibiotics.
[2018-02-03] MEDS: Budesonide/Formoterol 160/4.5 1 PUFF INH IH SCH ×2 (10:33→22:11)
--- NOTE | 2018-02-03 14:28 | Internal Med Progress Note ---
Hospitalist Progress Note - Encounter Date of Encounter: 02/03/18 Time of Encounter: 14:26 - Subjective Interval History: Pt denies CP. Denies fever, chills, N/V or diarrhea. Requesting increase in anxiety medication from 0.5 mg to 1mg. - Exam Vitals: Temp Pulse Resp BP Pulse Ox 98.1 F 103 20 105/66 96 02/03/18 05:00 02/03/18 10:52 02/03/18 10:52 02/03/18 10:52 02/03/18 10:52 Exam: xx - Assessment and Plan (1) Community acquired pneumonia Current Visit: No Status: Acute Assessment and Plan: Patient given ceftriaxone and azithromycin initially, transitioned to zosyn and vancomycin Vancomycin discontinued after negative MRSA swab Continue zosyn per pulmonology recommendation (2) Acute and chronic respiratory failure with hypoxia Current Visit: No Status: Acute Assessment and Plan: 2/2 pneumonia and COPD exacerbation Patient uses 4 liters home oxygen. Continue BiPAP at night. Patient on high flow oxygen during day, try to wean to home dose, keep sats around 92% Continue Duonebs, Continue Zosyn Continue prednisone (3) Sepsis Current Visit: Yes Status: Acute Assessment and Plan: Patient was febrile, tachypneic, tachycardic, and leukocytosis. Initial lactic acid was 2.3 and improved to 0.8. WBC count initially was 23, improved to 15.2 Etiology worsening pneumonia Blood pressure stable 119/72 Due to patient's persistent respiratory status, pt was not given additional IV fluids as to prevent pulmonary edema. Pt was transferred to the floor 02/03/2018 (4) COPD (chronic obstructive pulmonary disease) Current Visit: Yes Status: Chronic Assessment and Plan: Patient uses 4L home O2 Patient transitioned to high flow oxygen during the day Continue BIPAP at night Discontinued methylprednisolone Started prednisone 40 mg PO for 3 days (5) Chronic respiratory failure with hypoxia Current Visit: Yes Status: Chronic Assessment and Plan: on oxygen (6) T2DM (type 2 diabetes mellitus) Current Visit: Yes Status: Acute Assessment and Plan: Glucose 170 Continue medium dose sliding scale insulin Continue insulin levemire 22 units at night DVT Prophylaxis: Heparin - Summary of Assessment and Plan Summary of Assessment and Plan: The patient is a 57-year-old woman. She has had advanced COPD; uses oxygen continuously at 4 L/min nasal cannula. It was about 2 weeks ago, when she developed symptoms suggesting upper respiratory tract infection (nasal congestion with sore throat and coughing). Then, she developed progressing difficulty breathing with worsening of her coughing and wheezing. It was about 1 week ago, when she was evaluated at an urgent care center. She was put on doxycycline and prednisone (20 mg by mouth twice a day). She uses nebulizer treatments at home. Eventually, she developed fever and chills in the last couple days preceding this admission. She describes her breathing as bad. However, I see her using 4 L/min nasal cannula oxygen. Pulse ox is 95%. This patient was hospitalized here for pneumonia/sepsis at the end of March 2017. She does have advanced COPD; oxygen dependent. Additionally, she has been treated for type 2 diabetes mellitus, hypertension, hyperlipidemia, GERD, some kind of arthritis and some kind of psychosis (likely bipolar disorder). She may have quite a bit of anxiety. - Time Spent with Patient Total time spent is greater than 50% in coordination of care (as documented) at patient's floor/unit and/or counseling patient: less than 15 minutes Plan of Care Discussed with: patient Internal Medicine: Result - Labs CBC & Chem 7: 02/02/18 03:28 02/02/18 03:28 - ABG Interpretation ABG results: ABG ABG pH 7.39 pH Units (7.32-7.45) 01/31/18 03:06 ABG pCO2 32 mmHg (35-45) L 01/31/18 03:06 ABG pO2 75 mmHg (85-104) L 01/31/18 03:06 ABG O2 Saturation 95 % (95-98) 01/31/18 03:06 PT/INR, D-dimer PT 12.1 Seconds (9.4-12.1) 01/29/18 13:02 - VTE Deep Vein Thrombosis/Pulmonary Embolism Present on Admission: No Consult Discharge Plan - Plan Referrals: Neelam Zhao MD [Primary Care Provider] - (1) Community acquired pneumonia Qualifiers: Laterality: right Lung location: lower lobe of lung Qualified Code(s): J18.1 - Lobar pneumonia, unspecified organism (3) Sepsis Qualifiers: Sepsis type: sepsis due to unspecified organism Qualified Code(s): A41.9 - Sepsis, unspecified organism (4) COPD (chronic obstructive pulmonary disease) Qualifiers: COPD type: unspecified COPD Qualified Code(s): J44.9 - Chronic obstructive pulmonary disease, unspecified (6) T2DM (type 2 diabetes mellitus) Qualifiers: Diabetes mellitus half-way 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
[2018-02-03] MEDS: *HR* LORazepam 2 MG/ML VIAL IVP PRN (15:30)
[2018-02-03] MEDS: ALPRAZolam 1 MG TABLET PO SCH (19:46)
[2018-02-03] MEDS ORDERED: Piperacillin/Tazobactam 3.375 GM in 0.9 % Sodium Chloride Mini Bag 100 ML IVPB SCH (20:00)
[2018-02-03] MEDS: Insulin DETEMIR 100 UNIT/ML X5UNITS SQ SCH (20:09)
[2018-02-03] MEDS: Acetaminophen 325 MG TABLET PO PRN (23:25)
[2018-02-04 11:42] LABS: Hematocrit 32.8 % (35.3-44.9); Hemoglobin 9.9 g/dL (11.5-15.4); Immature Platelets 2.7 % (1.1-6.1); Mean Corpuscular HGB Conc 30.2 g/dL (31.6-35.5); Mean Corpuscular Hemoglobin 22.2 pg (28.0-33.3); Mean Corpuscular Volume 73.5 fL (83.0-100.0); Mean Platelet Volume 9.3 fL (9.4-12.4); Platelet Count 602 K/mcL (140-400); Red Blood Count 4.46 M/mcL (3.82-4.97); Red Cell Distribution Width 20.1 % (11.5-14.5)
[2018-02-04 11:48] LABS: BUN/Creatinine Ratio 30 (6-26); Blood Urea Nitrogen 19 mg/dL (6-20); Calcium 9.2 mg/dL (8.6-10.3); Carbon Dioxide 22 mEq/L (23-29); Chloride 104 mEq/L (98-107); Glucose 101 mg/dL (70-105); Osmolality,Calculated 282 (280-300); Potassium 3.8 mEq/L (3.5-5.1); Sodium 135 mEq/L (136-145); eGFR For Non-African Americans > 60 (> 60)
[2018-02-04] MEDS ORDERED: Acetaminophen 325 MG TABLET PO PRN (11:58)
[2018-02-04] MEDS ORDERED: D5% in Water 1,000 ML IVC PRN (11:58)
[2018-02-04] MEDS ORDERED: Fluticasone Propionate Nasal 50 MCG/SPRAY BOTTLE NS PRN (11:58)
[2018-02-04] MEDS ORDERED: Ipratropium/Albuterol Neb 3 ML IH PRN (11:58)
[2018-02-04] MEDS ORDERED: Dextrose Gel 15 GM/37.5 ML TUBE PO PRN ×2 (11:58)
[2018-02-04] MEDS ORDERED: Ondansetron ODT 4 MG TAB.RAPDIS SL PRN (11:58)
[2018-02-04] MEDS ORDERED: *HR* Dextrose 50 % in Water (Syg) 50 ML SYRINGE IVP PRN (11:58)
[2018-02-04] MEDS ORDERED: Topiramate 100 MG TABLET PO ONE (12:17)
[2018-02-04] MEDS ORDERED: BuPROPion XL (24 HR) 150 MG TABLET PO ONE (12:17)
[2018-02-04] MEDS ORDERED: *HR* LORazepam 0.5 MG TABLET PO ONE (12:17)
[2018-02-04] MEDS ORDERED: 0.9 % Sodium Chloride (Mini-Bag +) 100 ML IVBAG IVC ONE (12:17)
[2018-02-04] MEDS ORDERED: ARIPiprazole 5 MG TABLET PO ONE (12:17)
[2018-02-04] MEDS ORDERED: Pregabalin 50 MG CAPSULE PO ONE (12:17)
[2018-02-04] MEDS ORDERED: *HR* Heparin 5,000 UNIT/ML VIAL IVP ONE (12:17)
[2018-02-04] MEDS ORDERED: Piperacillin/Tazobactam 3.375 GM VIAL IVPB ONE (12:17)
[2018-02-04] MEDS ORDERED: Loratadine 10 MG TABLET PO ONE (12:17)
[2018-02-04] MEDS ORDERED: tiZANidine 4 MG TABLET PO ONE (12:17)
[2018-02-04] MEDS ORDERED: Ipratropium/Albuterol Neb 3 ML IH ONE ×2 (12:17)
[2018-02-04] MEDS ORDERED: levETIRAcetam 250 MG TABLET PO ONE (12:17)
[2018-02-04] MEDS ORDERED: *HR* OxyCODONE/APAP 5/325 TABLET PO ONE ×2 (12:17→20:51)
[2018-02-04] MEDS ORDERED: predniSONE 20 MG TABLET PO ONE (12:17)
[2018-02-04 13:10] LABS: Eosinophils # 0.2 K/mcL (0.0-0.6); Lymphocytes # 5.8 K/mcL (0.6-4.6); Monocytes # 0.5 K/mcL (0.0-1.3); Neutrophils # 9.7 K/mcL (1.6-8.9); Toxic Granulation Present (Not Present)
[2018-02-04 13:11] LABS: Large Platelets Present (Not Present); Platelet Estimate Increased (Normal)
[2018-02-04] MEDS: *HR* Heparin 5,000 UNIT/ML VIAL SQ SCH ×2 (13:23→20:43)
[2018-02-04] MEDS: tiZANidine 4 MG TABLET PO SCH (15:25)
[2018-02-04] MEDS: Pregabalin 50 MG CAPSULE PO SCH ×2 (15:25→20:42)
[2018-02-04] MEDS: *HR* LORazepam 0.5 MG TABLET PO PRN (15:25)
[2018-02-04] MEDS: Ipratropium/Albuterol Neb 3 ML IH SCH ×3 (16:10→21:37)
--- NOTE | 2018-02-04 16:11 | Internal Med Progress Note ---
Hospitalist Progress Note - Encounter Date of Encounter: 02/04/18 Time of Encounter: 16:10 - Subjective Interval History: Note patient was seen around 9:30 but EMR [employer] was down. Note is late entry. Patient this morning states she still has SOB with exertion but she feels improved overall. Denies fevers/chills, n/v, chest pain/ - Exam Vitals: Temp Pulse Resp BP Pulse Ox 99.0 F 89 20 114/75 100 02/03/18 19:49 02/04/18 01:21 02/04/18 01:21 02/04/18 01:21 02/04/18 01:21 Exam: xx - Assessment and Plan (1) Acute and chronic respiratory failure with hypoxia Current Visit: No Status: Acute Assessment and Plan: 2/2 pneumonia and COPD exacerbation Patient uses 4 liters home oxygen. Continue BiPAP at night. Patient on high flow oxygen during day, try to wean to home dose, keep sats around 92% Continue Duonebs, Continue Zosyn Day #5 of 7 Continue prednisone (2) Community acquired pneumonia Current Visit: No Status: Acute Assessment and Plan: Patient given ceftriaxone and azithromycin initially, transitioned to zosyn and vancomycin Vancomycin discontinued after negative MRSA swab Continue zosyn per pulmonology recommendation, today is Day #5 (3) Sepsis Current Visit: Yes Status: Acute Assessment and Plan: Patient was febrile, tachypneic, tachycardic, and leukocytosis. Initial lactic acid was 2.3 and improved to 0.8. WBC count initially was 23, improved to 15.2 Today WBC increased to 16.2. Will recheck in AM possibly was due to steroid dose/med changes Etiology worsening pneumonia Hemodynamically stable Due to patient's persistent respiratory status, pt was not given additional IV fluids as to prevent pulmonary edema. Pt was transferred to the floor 02/03/2018 Subjectively she is improving. (4) COPD (chronic obstructive pulmonary disease) Current Visit: Yes Status: Chronic Assessment and Plan: Patient uses 4L home O2 Patient transitioned to high flow oxygen during the day Continue BIPAP at night Discontinued methylprednisolone Started prednisone 40 mg PO for 3 days (5) Chronic respiratory failure with hypoxia Current Visit: Yes Status: Chronic Assessment and Plan: on oxygen (6) T2DM (type 2 diabetes mellitus) Current Visit: Yes Status: Acute Assessment and Plan: Glucose 170 Continue medium dose sliding scale insulin Continue insulin levemire 22 units at night DVT Prophylaxis: Heparin - Summary of Assessment and Plan Summary of Assessment and Plan: The patient is a 57-year-old woman. She has had advanced COPD; uses oxygen continuously at 4 L/min nasal cannula. It was about 2 weeks ago, when she developed symptoms suggesting upper respiratory tract infection (nasal congestion with sore throat and coughing). Then, she developed progressing difficulty breathing with worsening of her coughing and wheezing. It was about 1 week ago, when she was evaluated at an urgent care center. She was put on doxycycline and prednisone (20 mg by mouth twice a day). She uses nebulizer treatments at home. Eventually, she developed fever and chills in the last couple days preceding this admission. She describes her breathing as bad. However, I see her using 4 L/min nasal cannula oxygen. Pulse ox is 95%. This patient was hospitalized here for pneumonia/sepsis at the end of March 2017. She does have advanced COPD; oxygen dependent. Additionally, she has been treated for type 2 diabetes mellitus, hypertension, hyperlipidemia, GERD, some kind of arthritis and some kind of psychosis (likely bipolar disorder). She may have quite a bit of anxiety. - Time Spent with Patient Total time spent is greater than 50% in coordination of care (as documented) at patient's floor/unit and/or counseling patient: Internal Medicine: Result - Labs CBC & Chem 7: 02/04/18 05:21 02/04/18 05:21 Labs: Short CBC 02/04/18 Range/Units 05:21 WBC 16.2 H (4.3-11.1) K/mcL Hgb 9.9 L (11.5-15.4) g/dL Hct 32.8 L (35.3-44.9) % Plt Count 602 H (140-400) K/mcL Neutrophils # 9.7 H (1.6-8.9) K/mcL BMP 02/04/18 05:21 Sodium 135 L Potassium 3.8 Chloride 104 Carbon Dioxide 22 L BUN 19 Creatinine 0.64 Glucose 101 Calcium 9.2 - ABG Interpretation ABG results: ABG ABG pH 7.39 pH Units (7.32-7.45) 01/31/18 03:06 ABG pCO2 32 mmHg (35-45) L 01/31/18 03:06 ABG pO2 75 mmHg (85-104) L 01/31/18 03:06 ABG O2 Saturation 95 % (95-98) 01/31/18 03:06 PT/INR, D-dimer PT 12.1 Seconds (9.4-12.1) 01/29/18 13:02 - Impressions Impressions Echocardiogram 02/03/18 17:29 Impressions: LVEF 55%. Mild left ventricular diastolic dysfunction. Normal right ventricular structure and function. No significant valvular dysfunction. - VTE Deep Vein Thrombosis/Pulmonary Embolism Present on Admission: No Consult Discharge Plan - Plan Referrals: Neelam Zhao MD [Primary Care Provider] - (2) Community acquired pneumonia Qualifiers: Laterality: right Lung location: lower lobe of lung Qualified Code(s): J18.1 - Lobar pneumonia, unspecified organism (3) Sepsis Qualifiers: Sepsis type: sepsis due to unspecified organism Qualified Code(s): A41.9 - Sepsis, unspecified organism (4) COPD (chronic obstructive pulmonary disease) Qualifiers: COPD type: unspecified COPD Qualified Code(s): J44.9 - Chronic obstructive pulmonary disease, unspecified (6) T2DM (type 2 diabetes mellitus) Qualifiers: Diabetes mellitus terminal carman insulin use: without fpc use Diabetes mellitus complication status: without complication Qualified Code(s): E11.9 - Type 2 diabetes mellitus without complications
[2018-02-04] MEDS: Insulin LISPRO 300 UNITS/3 ML VIAL SQ SCH ×2 (17:37→20:45)
[2018-02-04] MEDS: Piperacillin/Tazobactam 3.375 GM in 0.9 % Sodium Chloride Mini Bag 100 ML IVPB SCH (17:39)
--- NOTE | 2018-02-04 18:31 | Event Note ---
Date of Encounter: 02/04/18 Time of Encounter: 07:30 Was seen and examined at the bedside patient has acute on chronic hypoxic respiratory failure is getting better to sent home on prolonged steroid taper at least for 3 weeks. sent home on nebulizer short-acting bronchodilators, Spiriva. will need outpatient polysomnogram. To follow-up in outpatient pulmonology in 4-6 weeks. We will sign off wheeze call with questions.
[2018-02-04] MEDS: Budesonide/Formoterol 160/4.5 1 PUFF INH IH SCH ×2 (20:33→21:37)
[2018-02-04] MEDS: Topiramate 100 MG TABLET PO SCH (20:41)
[2018-02-04] MEDS: levETIRAcetam 250 MG TABLET PO SCH (20:42)
[2018-02-04] MEDS: ALPRAZolam 1 MG TABLET PO SCH (20:44)
[2018-02-04] MEDS: Insulin DETEMIR 100 UNIT/ML X5UNITS SQ SCH (20:44)
[2018-02-05] MEDS: tiZANidine 4 MG TABLET PO SCH ×4 (00:30→23:24)
[2018-02-05] MEDS: Piperacillin/Tazobactam 3.375 GM in 0.9 % Sodium Chloride Mini Bag 100 ML IVPB SCH ×4 (00:31→23:23)
[2018-02-05] MEDS: Ipratropium/Albuterol Neb 3 ML IH SCH ×4 (03:45→22:17)
[2018-02-05 04:34] LABS: Hematocrit 30.4 % (35.3-44.9); Hemoglobin 9.2 g/dL (11.5-15.4); Mean Corpuscular HGB Conc 30.3 g/dL (31.6-35.5); Mean Corpuscular Hemoglobin 22.3 pg (28.0-33.3); Mean Corpuscular Volume 73.6 fL (83.0-100.0); Monocytes # 0.3 K/mcL (0.0-1.3); Platelet Count 486 K/mcL (140-400); Red Blood Count 4.13 M/mcL (3.82-4.97); Red Cell Distribution Width 19.5 % (11.5-14.5)
[2018-02-05 04:50] LABS: BUN/Creatinine Ratio 34 (6-26); Blood Urea Nitrogen 20 mg/dL (6-20); Calcium 8.6 mg/dL (8.6-10.3); Carbon Dioxide 22 mEq/L (23-29); Chloride 105 mEq/L (98-107); Glucose 111 mg/dL (70-105); Osmolality,Calculated 285 (280-300); Potassium 3.8 mEq/L (3.5-5.1); Sodium 136 mEq/L (136-145); eGFR For Non-African Americans > 60 (> 60)
[2018-02-05] MEDS: *HR* LORazepam 0.5 MG TABLET PO PRN ×2 (05:29→15:22)
[2018-02-05] MEDS: *HR* Heparin 5,000 UNIT/ML VIAL SQ SCH ×3 (05:30→23:24)
[2018-02-05 06:18] LABS: Anisocytosis 2+ (Not Present); Eosinophils # 0.3 K/mcL (0.0-0.6); Large Platelets Present (Not Present); Lymphocytes # 4.8 K/mcL (0.6-4.6); Microcytosis Present (Not Present); Neutrophils # 7.4 K/mcL (1.6-8.9); Platelet Estimate Increased (Normal); Polychromasia 1+ (Not Present)
[2018-02-05] MEDS: Insulin LISPRO 300 UNITS/3 ML VIAL SQ SCH ×4 (08:47→20:26)
[2018-02-05] MEDS: ARIPiprazole 5 MG TABLET PO SCH (08:54)
[2018-02-05] MEDS: Loratadine 10 MG TABLET PO SCH (08:57)
[2018-02-05] MEDS: Pregabalin 50 MG CAPSULE PO SCH ×3 (08:58→20:02)
[2018-02-05] MEDS: Topiramate 100 MG TABLET PO SCH ×2 (08:59→20:03)
[2018-02-05] MEDS ORDERED: predniSONE 20 MG TABLET PO SCH (09:00)
[2018-02-05] MEDS: BuPROPion XL (24 HR) 150 MG TABLET PO SCH (09:03)
[2018-02-05] MEDS: levETIRAcetam 250 MG TABLET PO SCH ×2 (09:04→20:02)
--- NOTE | 2018-02-05 09:50 | Internal Med Progress Note ---
Hospitalist Progress Note - Encounter Date of Encounter: 02/05/18 Time of Encounter: 10:08 - Subjective Interval History: Patient was seen and examined at bedside. She reports that her respiratory status is continuing to improve but does feel little out of breath on exertion. Denies fever, chills, nausea, vomiting, chest pain, palpitations. No events overnight Pain is controlled - Exam Vitals: Temp Pulse Resp BP Pulse Ox 98.2 F 84 18 123/76 96 02/05/18 06:45 02/05/18 06:45 02/05/18 06:45 02/05/18 06:45 02/05/18 06:45 Exam: General: Patient is alert, oriented, no acute distress, obese, speaks in full sentences Head: atraumatic, normocephalic, Eye: normal appearance, PERRL, no scleral icterus, no conjunctival injection ENT: mucous membranes moist, normal external ear exam Neck: normal inspection, trachea midline, full ROM, no carotid bruits Chest: normal inspection, symmetric chest rise Respiratory: Decreased breath sounds secondary to body habitus, Good respiratory effort. Bilateral breath sounds are clear without wheezing, occasional crackles in the posterior lung field Cardiovascular: Distant heart sounds secondary to body habitus, Regular rate and rhythm. s1 and s2 No clicks, rubs, gallops, or murmors. Abdomen: Bowel sounds present normoactive x-4 quadrants. Abdomen is soft, nondistended. no Epigastric tenderness. No guarding or rebound. No organomegaly noted, obese musculoskeletal: Spontaneously moving all extremities. no edema, no calf tenderness Skin: warm, dry, intact. Neuro: Alert and oriented x4. Sensation light touch intact. Cranial nerves 2- 12 is intact. Not aphasic, gait is steady, rapid hand movements intact, [id number] intact, Psych: Patient's affect is normal - Assessment and Plan (1) Acute and chronic respiratory failure with hypoxia Current Visit: No Status: Acute Assessment and Plan: 2/2 pneumonia and COPD exacerbation- improved Continue BiPAP at night. currently saturating well on NC does have home oxygen and cpap at home Continue Duonebs, Continue Zosyn Day #6 of 7 on prednisone po continue to tapered off (2) Community acquired pneumonia Current Visit: No Status: Acute Assessment and Plan: Patient given ceftriaxone and azithromycin initially, transitioned to zosyn and vancomycin Vancomycin discontinued after negative MRSA swab Continue zosyn per pulmonology recommendation, today is Day #6 of 7 (3) Sepsis Current Visit: Yes Status: Acute Assessment and Plan: Patient was febrile, tachypneic, tachycardic, and leukocytosis.- resolving Initial lactic acid was 2.3 and improved to 0.8. WBC count initially was 23, continues to trend down secondary to CAp and COPD exacerbation Hemodynamically stable Pt was transferred under floor care 02/03/2018 (4) COPD (chronic obstructive pulmonary disease) Current Visit: Yes Status: Chronic Assessment and Plan: Patient uses 4L home O2 tolerating oxygen via NC Continue BIPAP at night Discontinued methylprednisolone Started prednisone taper (5) Chronic respiratory failure with hypoxia Current Visit: Yes Status: Chronic Assessment and Plan: on oxygen/ CPAP at home (6) T2DM (type 2 diabetes mellitus) Current Visit: Yes Status: Acute Assessment and Plan: Glucose 170 Continue medium dose sliding scale insulin Continue insulin levemire 22 units at night (7) DVT prophylaxis Current Visit: Yes Status: Acute Assessment and Plan: heparin sc - Time Spent with Patient Total time spent is greater than 50% in coordination of care (as documented) at patient's floor/unit and/or counseling patient: Internal Medicine: Result - Labs CBC & Chem 7: 02/05/18 04:13 02/05/18 04:13 Labs: Short CBC 02/04/18 02/05/18 Range/Units 05:21 04:13 WBC 16.2 H 13.2 H (4.3-11.1) K/mcL Hgb 9.9 L 9.2 L (11.5-15.4) g/dL Hct 32.8 L 30.4 L (35.3-44.9) % Plt Count 602 H 486 H (140-400) K/mcL Neutrophils # 9.7 H 7.4 (1.6-8.9) K/mcL BMP 02/04/18 02/05/18 05:21 04:13 Sodium 135 L 136 Potassium 3.8 3.8 Chloride 104 105 Carbon Dioxide 22 L 22 L BUN 19 20 Creatinine 0.64 0.59 L Glucose 101 111 H Calcium 9.2 8.6 - ABG Interpretation ABG results: ABG ABG pH 7.39 pH Units (7.32-7.45) 01/31/18 03:06 ABG pCO2 32 mmHg (35-45) L 01/31/18 03:06 ABG pO2 75 mmHg (85-104) L 01/31/18 03:06 ABG O2 Saturation 95 % (95-98) 01/31/18 03:06 PT/INR, D-dimer PT 12.1 Seconds (9.4-12.1) 01/29/18 13:02 - Impressions Impressions Echocardiogram 02/03/18 17:29 Impressions: LVEF 55%. Mild left ventricular diastolic dysfunction. Normal right ventricular structure and function. No significant valvular dysfunction. - VTE Deep Vein Thrombosis/Pulmonary Embolism Present on Admission: No Consult Discharge Plan - Plan Referrals: Neelam Zhao MD [Primary Care Provider] - 02/12/18 10:30 am (2) Community acquired pneumonia Qualifiers: Laterality: right Lung location: lower lobe of lung Qualified Code(s): J18.1 - Lobar pneumonia, unspecified organism (3) Sepsis Qualifiers: Sepsis type: sepsis due to unspecified organism Qualified Code(s): A41.9 - Sepsis, unspecified organism (4) COPD (chronic obstructive pulmonary disease) Qualifiers: COPD type: unspecified COPD Qualified Code(s): J44.9 - Chronic obstructive pulmonary disease, unspecified (6) T2DM (type 2 diabetes mellitus) Qualifiers: Diabetes mellitus termination clerk insulin use: without termination clerk use Diabetes mellitus complication status: without complication Qualified Code(s): E11.9 - Type 2 diabetes mellitus without complications
[2018-02-05] MEDS: Budesonide/Formoterol 160/4.5 1 PUFF INH IH SCH ×2 (10:45→22:17)
[2018-02-05] MEDS ORDERED: Acetaminophen/Butalbital/CaffeineTABLET PO STA (15:57)
[2018-02-05] MEDS: ALPRAZolam 1 MG TABLET PO SCH (20:02)
[2018-02-05] MEDS: Insulin DETEMIR 100 UNIT/ML X5UNITS SQ SCH (20:28)
[2018-02-06 03:51] LABS: Hematocrit 29.8 % (35.3-44.9); Hemoglobin 9.1 g/dL (11.5-15.4); Mean Corpuscular HGB Conc 30.5 g/dL (31.6-35.5); Mean Corpuscular Hemoglobin 22.2 pg (28.0-33.3); Mean Corpuscular Volume 72.7 fL (83.0-100.0); Mean Platelet Volume 9.2 fL (9.4-12.4); Platelet Count 528 K/mcL (140-400); Red Cell Distribution Width 19.7 % (11.5-14.5)
[2018-02-06 04:10] LABS: BUN/Creatinine Ratio 23 (6-26); Blood Urea Nitrogen 15 mg/dL (6-20); Calcium 9.2 mg/dL (8.6-10.3); Carbon Dioxide 23 mEq/L (23-29); Chloride 103 mEq/L (98-107); Glucose 195 mg/dL (70-105); Osmolality,Calculated 284 (280-300); Potassium 3.4 mEq/L (3.5-5.1); Sodium 134 mEq/L (136-145); eGFR For Non-African Americans > 60 (> 60)
[2018-02-06] MEDS: Ipratropium/Albuterol Neb 3 ML IH SCH ×4 (04:54→23:05)
[2018-02-06] MEDS: *HR* Heparin 5,000 UNIT/ML VIAL SQ SCH ×3 (05:18→23:11)
[2018-02-06] MEDS: *HR* LORazepam 0.5 MG TABLET PO PRN ×2 (05:18→17:31)
[2018-02-06] MEDS: Insulin LISPRO 300 UNITS/3 ML VIAL SQ SCH ×4 (08:23→19:51)
[2018-02-06] MEDS: tiZANidine 4 MG TABLET PO SCH ×3 (08:25→23:11)
[2018-02-06] MEDS: Piperacillin/Tazobactam 3.375 GM in 0.9 % Sodium Chloride Mini Bag 100 ML IVPB SCH ×3 (08:25→23:10)
[2018-02-06] MEDS: ARIPiprazole 5 MG TABLET PO SCH (08:26)
[2018-02-06] MEDS: levETIRAcetam 250 MG TABLET PO SCH ×2 (08:27→19:44)
[2018-02-06] MEDS: Loratadine 10 MG TABLET PO SCH (08:27)
[2018-02-06] MEDS: Pregabalin 50 MG CAPSULE PO SCH ×3 (08:27→19:45)
[2018-02-06] MEDS: predniSONE 20 MG TABLET PO SCH (08:28)
[2018-02-06] MEDS: Topiramate 100 MG TABLET PO SCH ×2 (08:29→19:45)
[2018-02-06] MEDS: BuPROPion XL (24 HR) 150 MG TABLET PO SCH (08:29)
[2018-02-06] MEDS: Budesonide/Formoterol 160/4.5 1 PUFF INH IH SCH ×2 (10:34→23:04)
--- NOTE | 2018-02-06 10:34 | Internal Med Progress Note ---
Hospitalist Progress Note - Encounter Date of Encounter: 02/06/18 Time of Encounter: 08:15 - Subjective Interval History: Patient was seen and examined at bedside. She reports that her respiratory status is continuing to improve but does feel little out of breath on exertion. was encouraged to get up from the bed and ambulate with assistance Denies fever, chills, nausea, vomiting, chest pain, palpitations. No events overnight Pain is controlled - Exam Vitals: Temp Pulse Resp BP Pulse Ox 97.8 F 97 20 136/80 96 02/06/18 07:32 02/06/18 07:32 02/06/18 07:32 02/06/18 07:32 02/06/18 07:32 Exam: General: Patient is alert, oriented, no acute distress, obese, speaks in full sentences Head: atraumatic, normocephalic, Eye: normal appearance, PERRL, no scleral icterus, no conjunctival injection ENT: mucous membranes moist, normal external ear exam Neck: normal inspection, trachea midline, full ROM, no carotid bruits Chest: normal inspection, symmetric chest rise Respiratory: Decreased breath sounds secondary to body habitus, Good respiratory effort. Bilateral breath sounds are clear without wheezing, occasional crackles in the posterior lung field Cardiovascular: Distant heart sounds secondary to body habitus, Regular rate and rhythm. s1 and s2 No clicks, rubs, gallops, or murmors. Abdomen: Bowel sounds present normoactive x-4 quadrants. Abdomen is soft, nondistended. no Epigastric tenderness. No guarding or rebound. No organomegaly noted, obese musculoskeletal: Spontaneously moving all extremities. no edema, no calf tenderness Skin: warm, dry, intact. Neuro: Alert and oriented x4. Sensation light touch intact. Cranial nerves 2- 12 is intact. Not aphasic, gait is steady, rapid hand movements intact, [id number] intact, Psych: Patient's affect is normal - Assessment and Plan (1) Acute and chronic respiratory failure with hypoxia Current Visit: No Status: Acute Assessment and Plan: 2/2 pneumonia and COPD exacerbation- improved Continue BiPAP at night. currently saturating well on NC does have home oxygen and cpap at home Continue Duonebs, Continue Zosyn Day #7 of 7 on prednisone po continue to tapered off (2) Community acquired pneumonia Current Visit: No Status: Acute Assessment and Plan: Patient given ceftriaxone and azithromycin initially, transitioned to zosyn and vancomycin Vancomycin discontinued after negative MRSA swab Continue zosyn per pulmonology recommendation, today is Day #7 of 7 (3) Sepsis Current Visit: Yes Status: Acute Assessment and Plan: Patient was febrile, tachypneic, tachycardic, and leukocytosis.- resolving Initial lactic acid was 2.3 and improved to 0.8. WBC count initially was 23, continues to trend down secondary to CAp and COPD exacerbation Hemodynamically stable Pt was transferred under floor care 02/03/2018 (4) COPD (chronic obstructive pulmonary disease) Current Visit: Yes Status: Chronic Assessment and Plan: Patient uses 4L home O2 tolerating oxygen via NC Continue BIPAP at night Discontinued methylprednisolone Started prednisone taper (5) Chronic respiratory failure with hypoxia Current Visit: Yes Status: Chronic Assessment and Plan: on oxygen/ CPAP at home (6) T2DM (type 2 diabetes mellitus) Current Visit: Yes Status: Acute Assessment and Plan: Glucose 170 Continue medium dose sliding scale insulin Continue insulin levemire 22 units at night (7) DVT prophylaxis Current Visit: Yes Status: Acute Assessment and Plan: heparin sc - Time Spent with Patient Total time spent is greater than 50% in coordination of care (as documented) at patient's floor/unit and/or counseling patient: Internal Medicine: Result - Labs CBC & Chem 7: 02/06/18 03:12 02/06/18 03:12 Labs: Short CBC 02/06/18 Range/Units 03:12 WBC 14.6 H (4.3-11.1) K/mcL Hgb 9.1 L (11.5-15.4) g/dL Hct 29.8 L (35.3-44.9) % Plt Count 528 H (140-400) K/mcL BMP 02/06/18 03:12 Sodium 134 L Potassium 3.4 L Chloride 103 Carbon Dioxide 23 BUN 15 Creatinine 0.66 Glucose 195 H Calcium 9.2 - ABG Interpretation ABG results: ABG ABG pH 7.39 pH Units (7.32-7.45) 01/31/18 03:06 ABG pCO2 32 mmHg (35-45) L 01/31/18 03:06 ABG pO2 75 mmHg (85-104) L 01/31/18 03:06 ABG O2 Saturation 95 % (95-98) 01/31/18 03:06 PT/INR, D-dimer PT 12.1 Seconds (9.4-12.1) 01/29/18 13:02 - VTE Deep Vein Thrombosis/Pulmonary Embolism Present on Admission: No Consult Discharge Plan - Plan Referrals: Neelam Zhao MD [Primary Care Provider] - 02/12/18 10:30 am (2) Community acquired pneumonia Qualifiers: Laterality: right Lung location: lower lobe of lung Qualified Code(s): J18.1 - Lobar pneumonia, unspecified organism (3) Sepsis Qualifiers: Sepsis type: sepsis due to unspecified organism Qualified Code(s): A41.9 - Sepsis, unspecified organism (4) COPD (chronic obstructive pulmonary disease) Qualifiers: COPD type: unspecified COPD Qualified Code(s): J44.9 - Chronic obstructive pulmonary disease, unspecified (6) T2DM (type 2 diabetes mellitus) Qualifiers: Diabetes mellitus computer terminal operator insulin use: without skilled nursing use Diabetes mellitus complication status: without complication Qualified Code(s): E11.9 - Type 2 diabetes mellitus without complications
[2018-02-06] MEDS ORDERED: Acetaminophen/Butalbital/CaffeineTABLET PO PRN (12:28)
[2018-02-06] MEDS: ALPRAZolam 1 MG TABLET PO SCH (19:45)
[2018-02-06] MEDS: Insulin DETEMIR 100 UNIT/ML X5UNITS SQ SCH (19:54)
--- NOTE | 2018-02-06 20:40 | Electrocardiograph Report ---
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
[2018-02-07] MEDS: *HR* Heparin 5,000 UNIT/ML VIAL SQ SCH (04:33)
[2018-02-07] MEDS: Ipratropium/Albuterol Neb 3 ML IH SCH ×2 (05:01→09:41)
[2018-02-07 07:12] VITALS: BP 111/77
[2018-02-07 07:57] LABS: Hematocrit 32.2 % (35.3-44.9); Hemoglobin 9.6 g/dL (11.5-15.4); Mean Corpuscular HGB Conc 29.8 g/dL (31.6-35.5); Mean Corpuscular Hemoglobin 21.8 pg (28.0-33.3); Mean Corpuscular Volume 73.2 fL (83.0-100.0); Mean Platelet Volume 9.2 fL (9.4-12.4); Platelet Count 560 K/mcL (140-400); Red Cell Distribution Width 19.4 % (11.5-14.5)
[2018-02-07 08:08] LABS: BUN/Creatinine Ratio 27 (6-26); Blood Urea Nitrogen 17 mg/dL (6-20); Calcium 9.4 mg/dL (8.6-10.3); Carbon Dioxide 24 mEq/L (23-29); Chloride 104 mEq/L (98-107); Glucose 111 mg/dL (70-105); Osmolality,Calculated 282 (280-300); Potassium 3.8 mEq/L (3.5-5.1); Sodium 135 mEq/L (136-145); eGFR For Non-African Americans > 60 (> 60)
[2018-02-07] MEDS: Insulin LISPRO 300 UNITS/3 ML VIAL SQ SCH (08:28)
[2018-02-07] MEDS: levETIRAcetam 250 MG TABLET PO SCH (08:38)
[2018-02-07] MEDS: ARIPiprazole 5 MG TABLET PO SCH (08:38)
--- NOTE | 2018-02-07 08:38 | Discharge Summary ---
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 follow up blood glucose and adjust insulin Date of Encounter: 02/07/18 Time of Encounter: 08:29 - Discharge Diagnosis (1) Acute and chronic respiratory failure with hypoxia Priority: Primary Status: Acute (2) Community acquired pneumonia Priority: Secondary Status: Acute Qualifiers: Laterality: right Lung location: lower lobe of lung Qualified Code(s): J18.1 - Lobar pneumonia, unspecified organism (3) Sepsis Priority: Secondary Status: Acute Qualifiers: Sepsis type: sepsis due to unspecified organism Qualified Code(s): A41.9 - Sepsis, unspecified organism (4) COPD (chronic obstructive pulmonary disease) Priority: Secondary Status: Chronic Qualifiers: COPD type: unspecified COPD Qualified Code(s): J44.9 - Chronic obstructive pulmonary disease, unspecified (5) Chronic respiratory failure with hypoxia Priority: Secondary Status: Chronic (6) T2DM (type 2 diabetes mellitus) Priority: Secondary Status: Acute Qualifiers: Diabetes mellitus fci insulin use: without fci use Diabetes mellitus complication status: without complication Qualified Code(s): E11.9 - Type 2 diabetes mellitus without complications (7) DVT prophylaxis Priority: Secondary Status: Acute Hospital course: Ms. Youssef is a 57 year old female with history of COPD on home oxygen, previously intubated, diabetes previous pulmonary embolus not on anticoagulation currently presented to the emergency department on 01/29 with shortness of breath. In addition to shortness of breath she complained of fever, chills, sputum production and cough. She was found to be febrile with temperature of 103 and tachycardic. She was admitted for sepsis secondary to right lung pneumonia and was started on azithromycin and ceftriaxone and was admitted to medical floor for management of the above complaint. However overnight patient started to become more tachypneic and had increased work of breathing. Overnight hospitalist was contacted. Repeat chest x-ray showed worsening pneumonia and patient not had bilateral pulmonary opacities. Patient was on BiPAP with FiO2 of 70%, rate in the 50s with a tidal volume around 700 mL in addition to steroids and IV Lasix and was transferred to the medical ICU for further management. Pulmonology was consulted antibiotics were broadened to vancomycin and Zosyn. MRSA nasal swab performed and was negative so vancomycin was discontinued and Zosyn continued. Respiratory status continued to improve she was weaned off BiPAP and was placed on high flow nasal cannula which was weaned to her home dose of 4 L nasal cannula in addition to BiPAP at night's. Zosyn was continued and she finished treatment for 7 days while hospitalized. IV steroids were changed to oral prednisone and she was sent home with Rx to finish a 21 day taper as per cardiology recommendations. my first encounter with the patient was on 02/05. I have reviewed the chart and as per previous documentation she if her respiratory status was at baseline she could be discharged once she has finsihed IV abx. IV abx finished on 02/06/18. respiratory status at baseline. She was counseled extensively on the importance of being compliant with her oxygen, inhalers, and BiPAP. She receives oxygen and BiPAP from [facility]. Home health aide referral was made. To follow-up in outpatient pulmonology in 4-6 weeks. will need sleep study For PCP to follow blood glucose and adjust diabetic medications accordingly. Glucometer was provided and patient is to keep the glucose log and take to PCP as she is on steroids. amlodipine discontinued as blood pressure was controlled with out antihypertensives while hospitalized to be resumed as per PCP discretion She was counseled extensively on diet nutrition and weight loss. she was counseled on smoking cessation influenza vaccination was offered for patient TTE: Impressions: LVEF 55%. Mild left ventricular diastolic dysfunction. Normal right ventricular structure and function. No significant valvular dysfunction. Discharge discussed with: patient, nurse, social work, case management, hospice consultant - Time Spent with Patient Total time spent providing and/or coordinating discharge services: Greater than 30 minutes (40) - Discharge Medications Prescriptions: Albuterol Sulfate [Proair Respiclick] 2 puff IH Q4HR PRN #1 aer.pow.ba PRN Reason: Shortness Of Breath Alcohol Antiseptic Pads [Alcohol Pads] 1 each TP BID #100 med..pad Blood-Glucose Meter, Drum-Type [Accu-Chek] 1 each MC BID #1 kit Lancets/Blood Glucose Strips [Fora [id number] Strp-Lnct] 1 each MC BID #1 combo..pkg Mometasone/Formoterol [Dulera 200 Mcg/5 Mcg Inhaler] 2 puff IH BID #1 hfa.aer.ad predniSONE [PredniSONE] 10 mg PO DAILY #32 tablet Home Medications: Loratadine [Claritin] 10 mg PO DAILY #30 tablet 01/13/15 [Rx] Aripiprazole [Abilify] 7.5 mg PO DAILY 04/07/15 [History] Atorvastatin [Lipitor] 10 mg PO HS 04/07/15 [History] Ipratropium/Albuterol Neb [Duoneb] 3 ml IH Q8HR PRN #1 vial.neb 04/07/15 [Rx] LevETIRAcetam [Keppra] 1,000 mg PO BID 04/07/15 [History] Metformin [Glucophage] 1,000 mg PO BID 04/07/15 [History] Metoclopramide [Reglan] 10 mg PO BID 04/07/15 [History] Modafinil [Provigil] 400 mg PO DAILY 04/07/15 [History] Ondansetron ODT [Zofran ODT] 8 mg SL TID PRN 04/07/15 [History] Potassium Chloride 20 meq PO BID 04/07/15 [History] Sucralfate [Carafate] 1 gm PO BID 04/07/15 [History] Tizanidine HCl [Zanaflex] 4 mg PO Q8HR 04/07/15 [History] Meloxicam [Mobic] 15 mg PO DAILY 05/09/15 [History] Promethazine [Phenergan] 25 mg PO Q8HR 05/09/15 [History] Escitalopram [Lexapro] 10 mg PO DAILY 11/10/15 [History] Fluticasone Propionate Nasal [Flonase] 50 mcg NS DAILY PRN 11/10/15 [History] LORazepam [Ativan] 0.5 mg PO TID PRN 11/10/15 [History] ALPRAZolam [Xanax 1 MG Tablet] 1 mg PO HS 04/18/17 [History] Exenatide Microspheres [Bydureon Pen] 2 mg SQ TH 04/18/17 [History] Pregabalin [Lyrica] 50 mg PO TID 04/18/17 [History] Roflumilast [Daliresp] 500 mcg PO DAILY 04/18/17 [History] Brexpiprazole [Rexulti] 0.5 mg PO DAILY 01/29/18 [History] BuPROPion XL (24 HR) [Wellbutrin Xl] 300 mg PO DAILY 01/29/18 [History] Esomeprazole Magnesium [Nexium] 40 mg PO DAILY 01/29/18 [History] Montelukast [Singulair] 10 mg PO DAILY 01/29/18 [History] Ranitidine HCl [Acid Pta] 150 mg PO BID 01/29/18 [History] Topiramate [Topamax] 50 mg PO BID 01/29/18 [History] Albuterol Sulfate [Proair Respiclick] 2 puff IH Q4HR PRN #1 aer.pow.ba 02/07/18 [Rx] Alcohol Antiseptic Pads [Alcohol Pads] 1 each TP BID #100 med..pad 02/07/18 [Rx] Blood-Glucose Meter, Drum-Type [Accu-Chek] 1 each MC BID #1 kit 02/07/18 [Rx] Lancets/Blood Glucose Strips [Fora [id number] Strp-Lnct] 1 each MC BID #1 combo..pkg 02/07/18 [Rx] Mometasone/Formoterol [Dulera 200 Mcg/5 Mcg Inhaler] 2 puff IH BID #1 hfa.aer.ad 02/07/18 [Rx] predniSONE [PredniSONE] 10 mg PO DAILY #32 tablet 02/07/18 [Rx] Allergies/Adverse Reactions: Allergy/AdvReac Type Severity Reaction Status Date / Time docetaxel [From Taxotere] Allergy Anaphylaxis Verified 01/21/18 08:57 Paroxetine [From Paxil] Allergy Itching Verified 01/21/18 08:57 trazodone AdvReac Vomiting Verified 01/21/18 08:57 Date of admission: 01/29/18 15:14 Primary care physician: Neelam Zhao MD Consults: 01/31/18 03:58 Consult to Critical Care [CONS] Routine Consulting Provider: [facility] [place] Reason for Consult: worsening respiratory failure, multifocal pna Call Completed: Yes 02/01/18 12:19 Consult to Physical Therapy [CONS] Routine Comment: Evaluate, develop and implement POC Reason for Consult: Mobilization and discharge planning Does patient have active BEDREST order?: No Is patient medically & hemodynamically stable?: No - Constitutional Vitals: Temp Pulse Resp BP Pulse Ox 98.6 F 90 16 111/77 99 02/07/18 07:05 02/07/18 07:05 02/07/18 07:05 02/07/18 07:05 02/07/18 07:05 General appearance: Present: A&O X 3, no acute distress, answers questions appropriately Exam: General: Patient is alert, oriented, no acute distress, obese, speaks in full sentences Head: atraumatic, normocephalic, Eye: normal appearance, PERRL, no scleral icterus, no conjunctival injection ENT: mucous membranes moist, normal external ear exam Neck: normal inspection, trachea midline, full ROM, no carotid bruits Chest: normal inspection, symmetric chest rise Respiratory: Decreased breath sounds secondary to body habitus, Good respiratory effort. Bilateral breath sounds are clear without wheezing, occasional crackles in the posterior lung field- improved Cardiovascular: Distant heart sounds secondary to body habitus, Regular rate and rhythm. s1 and s2 No clicks, rubs, gallops, or murmors. Abdomen: Bowel sounds present normoactive x-4 quadrants. Abdomen is soft, nondistended. no Epigastric tenderness. No guarding or rebound. No organomegaly noted, obese musculoskeletal: Spontaneously moving all extremities. no edema, no calf tenderness Skin: warm, dry, intact. Neuro: Alert and oriented x4. Sensation light touch intact. Cranial nerves 2- 12 is intact. Not aphasic, gait is steady, rapid hand movements intact, [id number] intact, Psych: Patient's affect is normal - Patient Status Disposition: Home Health Service Condition: Serious - Discharge Instructions Follow Up With: Neelam Zhao MD [Primary Care Provider] - 02/12/18 10:30 am Mukesh Rodriguez MD [Partnered Physician] - - Diet and Activity Activity: as per physical therapy, increase activity as tolerated, wear oxygen at all times, other (bipap at nights ) Diet: diabetic diet - VTE Deep Vein Thrombosis/Pulmonary Embolism Present on Admission: No
[2018-02-07] MEDS: Loratadine 10 MG TABLET PO SCH (08:39)
[2018-02-07] MEDS: Pregabalin 50 MG CAPSULE PO SCH (08:39)
[2018-02-07] MEDS: Topiramate 100 MG TABLET PO SCH (08:39)
[2018-02-07] MEDS: BuPROPion XL (24 HR) 150 MG TABLET PO SCH (08:40)
[2018-02-07] MEDS: tiZANidine 4 MG TABLET PO SCH (08:40)
[2018-02-07] MEDS: *HR* LORazepam 0.5 MG TABLET PO PRN (08:49)
[2018-02-07] MEDS: predniSONE 20 MG TABLET PO SCH (08:49)
--- NOTE | 2018-02-07 09:04 | Physician Discharge Referral ---
Home Health/Hosp Referral Info Transfer to: Home Health Provider in Charge Post Discharge: PCP - Diagnosis (1) Acute and chronic respiratory failure with hypoxia Priority: Primary Status: Acute (2) Community acquired pneumonia Status: Acute (3) Sepsis Status: Acute (4) COPD (chronic obstructive pulmonary disease) Status: Chronic (5) Chronic respiratory failure with hypoxia Status: Chronic (6) T2DM (type 2 diabetes mellitus) Status: Acute (7) DVT prophylaxis Status: Acute - Respiratory Orders Oxygen / L per min (4), Other (bipap) Smoking Cessation: Smoking cessation has been advised. For more information, call the [place] Tobacco Quit Line at 8-069-CDPD-NOW. - Activity Activity Orders: Ambulate - Services Needed Following services are medically necessary services: Home Health Aide - Transfer Medications Prescriptions: Albuterol Sulfate [Proair Respiclick] 2 puff IH Q4HR PRN #1 aer.pow.ba PRN Reason: Shortness Of Breath Alcohol Antiseptic Pads [Alcohol Pads] 1 each TP BID #100 med..pad Blood-Glucose Meter, Drum-Type [Accu-Chek] 1 each MC BID #1 kit Lancets/Blood Glucose Strips [Fora [id number] Strp-Lnct] 1 each MC BID #1 combo..pkg Mometasone/Formoterol [Dulera 200 Mcg/5 Mcg Inhaler] 2 puff IH BID #1 hfa.aer.ad predniSONE [PredniSONE] 10 mg PO DAILY #32 tablet Home Medications: Loratadine [Claritin] 10 mg PO DAILY #30 tablet 01/13/15 [Rx] Aripiprazole [Abilify] 7.5 mg PO DAILY 04/07/15 [History] Atorvastatin [Lipitor] 10 mg PO HS 04/07/15 [History] Ipratropium/Albuterol Neb [Duoneb] 3 ml IH Q8HR PRN #1 vial.neb 04/07/15 [Rx] LevETIRAcetam [Keppra] 1,000 mg PO BID 04/07/15 [History] Metformin [Glucophage] 1,000 mg PO BID 04/07/15 [History] Metoclopramide [Reglan] 10 mg PO BID 04/07/15 [History] Modafinil [Provigil] 400 mg PO DAILY 04/07/15 [History] Ondansetron ODT [Zofran ODT] 8 mg SL TID PRN 04/07/15 [History] Potassium Chloride 20 meq PO BID 04/07/15 [History] Sucralfate [Carafate] 1 gm PO BID 04/07/15 [History] Tizanidine HCl [Zanaflex] 4 mg PO Q8HR 04/07/15 [History] Meloxicam [Mobic] 15 mg PO DAILY 05/09/15 [History] Promethazine [Phenergan] 25 mg PO Q8HR 05/09/15 [History] Escitalopram [Lexapro] 10 mg PO DAILY 11/10/15 [History] Fluticasone Propionate Nasal [Flonase] 50 mcg NS DAILY PRN 11/10/15 [History] LORazepam [Ativan] 0.5 mg PO TID PRN 11/10/15 [History] ALPRAZolam [Xanax 1 MG Tablet] 1 mg PO HS 04/18/17 [History] Exenatide Microspheres [Bydureon Pen] 2 mg SQ TH 04/18/17 [History] Pregabalin [Lyrica] 50 mg PO TID 04/18/17 [History] Roflumilast [Daliresp] 500 mcg PO DAILY 04/18/17 [History] Brexpiprazole [Rexulti] 0.5 mg PO DAILY 01/29/18 [History] BuPROPion XL (24 HR) [Wellbutrin Xl] 300 mg PO DAILY 01/29/18 [History] Esomeprazole Magnesium [Nexium] 40 mg PO DAILY 01/29/18 [History] Montelukast [Singulair] 10 mg PO DAILY 01/29/18 [History] Ranitidine HCl [Acid Event Marketing Intern] 150 mg PO BID 01/29/18 [History] Topiramate [Topamax] 50 mg PO BID 01/29/18 [History] Albuterol Sulfate [Proair Respiclick] 2 puff IH Q4HR PRN #1 aer.pow.ba 02/07/18 [Rx] Alcohol Antiseptic Pads [Alcohol Pads] 1 each TP BID #100 med..pad 02/07/18 [Rx] Blood-Glucose Meter, Drum-Type [Accu-Chek] 1 each MC BID #1 kit 02/07/18 [Rx] Lancets/Blood Glucose Strips [Fora [id number] Strp-Lnct] 1 each BID #1 combo..pkg 02/07/18 [Rx] Mometasone/Formoterol [Dulera 200 Mcg/5 Mcg Inhaler] 2 puff IH BID #1 hfa.aer.ad 02/07/18 [Rx] predniSONE [PredniSONE] 10 mg PO DAILY #32 tablet 02/07/18 [Rx] Allergies/Adverse Reactions: Allergy/AdvReac Type Severity Reaction Status Date / Time docetaxel [From Taxotere] Allergy Anaphylaxis Verified 01/21/18 08:57 Paroxetine [From Paxil] Allergy Itching Verified 01/21/18 08:57 trazodone AdvReac Vomiting Verified 01/21/18 08:57 Certification: Further, I certify that my clinical findings support that this patient is homebound (i.e. absences from home require considerable and taxing effort and are for medical reasons or [employer] services or infrequently or short duration when for other reasons) because: Homebound Reason: Patient requires assistance of a person or device to safely leave home Attestation: My signature below is to certify that this patient is under my care and that I, or nurse practitioner, or a physician's teaching assistant working with me, has a [id number] encounter with this patient.
[2018-02-07] MEDS: Budesonide/Formoterol 160/4.5 1 PUFF INH IH SCH (09:41)
[2018-02-08] MEDS ORDERED: predniSONE 20 MG TABLET PO SCH (09:00)
== END 2018-02-07 12:18 | disposition home or self-care (01) | DRG 871 ==
LOC: EMEROOARM 12:44 → SUATTDRO 15:14 → 2NENU 15:14 → ICNU 01-31 04:05 → 2NENU 02-02 13:40
PROVIDERS: ADMIT Internal Medicine; ATTEND Internal Medicine

== ENCOUNTER 2019-08-20 10:25 | Inpatient (IN) ==
[2019-08-20] MEDS ORDERED: methylPREDNISolone 125 MG/2 ML VIAL IVP ONE (10:43)
[2019-08-20] MEDS ORDERED: Ipratropium/Albuterol Neb 3 ML IH ONE (10:43)
[2019-08-20] MEDS ORDERED: *HR* LORazepam 2 MG/ML VIAL IVP ONE (11:03)
[2019-08-20 11:13] LABS: Hemoglobin 7.7 g/dL (11.5-15.4); Monocytes % 5.7 %; Segmented Neutrophils % 67.1 %
[2019-08-20 11:14] LABS: Basophils # 0.1 K/mcL (0.0-0.2); Basophils % 0.5 %; Eosinophils % 0.1 %; Hematocrit 26.1 % (35.3-44.9); Immature Granulocytes % 0.7 % (0-4); Lymphocytes # 3.9 K/mcL (0.6-4.6); Lymphocytes % 25.9 %; Mean Corpuscular HGB Conc 29.5 g/dL (31.6-35.5); Mean Corpuscular Hemoglobin 22.4 pg (28.0-33.3); Mean Corpuscular Volume 76.1 fL (83.0-100.0); Monocytes # 0.9 K/mcL (0.0-1.3); Neutrophils # 10.1 K/mcL (1.6-8.9); Platelet Count 439 K/mcL (140-400); Red Blood Count 3.43 M/mcL (3.82-4.97); Red Cell Distribution Width 17.5 % (11.5-14.5)
[2019-08-20 11:18] LABS: Bilirubin,Urine Negative (Negative); Blood,Urine Negative (Negative); Clarity,Urine Clear (Clear); Color,Urine Yellow (Yellow); Glucose,Urine (UA) >=1000 mg/dL (Normal); Ketones,Urine Negative (Negative); Leukocyte Esterase,Urine Negative (Negative); Nitrite,Urine Negative (Negative); Protein,Urine 30 mg/dL (Neg-Trace); Specific Gravity,Urine 1.026 (1.010-1.025); Urobilinogen,Urine Normal (Normal)
[2019-08-20 11:20] LABS: Bacteria,Urine None Seen per hpf (None-Few); Hyaline Casts,Urine None Seen per lpf (None-Few); RBC,Urine 0-3 per hpf (0-3); Squamous Epithelial Cell,Urine Many per lpf (None-Few); WBC,Urine 0-3 per hpf (0-3)
[2019-08-20] MEDS: 0.9 % Sodium Chloride 1,000 ML IVC SCH ×6 (11:21→23:52)
[2019-08-20 11:29] LABS: Activated Partial Thrombo Time 30.6 Seconds (26.0-36.0); INR 0.9; Prothrombin Time 10.6 Seconds (9.4-12.1)
[2019-08-20 11:34] LABS: Anisocytosis 1+ (Not Present); Hypochromasia Present (Not Present); Platelet Estimate Normal (Normal)
[2019-08-20 11:37] LABS: Alanine Aminotransferase 27 Units/L (7-52); Albumin/Globulin Ratio 1.3 (1.1-2.2); Alkaline Phosphatase 145 Units/L (34-104); Aspartate Amino Transferase 20 Units/L (13-39); BUN/Creatinine Ratio 17 (6-26); Bilirubin,Indirect 0.2 mg/dL (0.0-1.0); Bilirubin,Total 0.2 mg/dL (0.3-1.0); Blood Urea Nitrogen 16 mg/dL (6-20); Calcium 8.5 mg/dL (8.6-10.3); Carbon Dioxide 17 mEq/L (23-29); Chloride 98 mEq/L (98-107); Globulin 3.1 g/dL (2.4-3.5); Glucose 309 mg/dL (70-105); Magnesium 1.2 mg/dL (1.6-2.6); Osmolality,Calculated 283 (280-300); Phosphorous 3.4 mg/dL (2.7-4.5); Sodium 130 mEq/L (136-145); Total Protein 7.1 g/dL (6.4-8.9); Troponin I < 0.03 ng/mL (< 0.04); eGFR For African Americans > 60 (> 60); eGFR For Non-African Americans > 60 (> 60)
[2019-08-20] MEDS ORDERED: Azithromycin 250 MG TABLET PO ONE (11:48)
[2019-08-20] MEDS ORDERED: Ondansetron 4 MG/2 ML VIAL IVP PRN (11:54)
[2019-08-20] MEDS ORDERED: Naloxone 0.4 MG/ML INJ IVP PRN (11:54)
[2019-08-20] MEDS ORDERED: D5% in Water 1,000 ML IVC PRN (11:57)
[2019-08-20] MEDS ORDERED: Dextrose Gel 15 GM/37.5 ML TUBE PO PRN ×2 (11:57)
[2019-08-20] MEDS ORDERED: *HR* Dextrose 50 % in Water (Syg) 50 ML SYRINGE IVP PRN (11:57)
[2019-08-20] MEDS ORDERED: Isovue-370 500 ML BOTTLE IVP ONE (11:57)
[2019-08-20] MEDS ORDERED: Ringers Solution, Lactated 1,000 ML IVC SCH (12:00)
[2019-08-20] MEDS ORDERED: 0.9 % Sodium Chloride 1,000 ML IVC SCH (12:15)
[2019-08-20 12:16] LABS: ABG Base Excess -5 mEq/L (-2 to 3); ABG HCO3 21 mEq/L (21-27); ABG Oxygen Saturation 94 % (95-98); ABG PCO2 40 mmHg (35-45); ABG PH 7.33 pH Units (7.32-7.45); ABG PO2 74 mmHg (85-104); ABG TCO2 22 mEq/L (20-26)
[2019-08-20] MEDS: Insulin LISPRO 300 UNITS/3 ML VIAL SQ SCH ×3 (14:32→23:57)
[2019-08-20] MEDS: *HR* Heparin 5,000 UNIT/ML VIAL SQ SCH ×2 (16:05→20:29)
[2019-08-20] MEDS: Piperacillin/Tazobactam 3.375 GM in 0.9 % Sodium Chloride Mini Bag 100 ML IVPB SCH ×2 (16:05→23:52)
[2019-08-20] MEDS: ALPRAZolam 1 MG TABLET PO SCH (20:31)
[2019-08-20] MEDS: Acetaminophen 325 MG TABLET PO PRN (20:31)
[2019-08-21 01:17] LABS: Basophils % 0.3 %; Hematocrit 26.4 % (35.3-44.9); Hemoglobin 7.7 g/dL (11.5-15.4); Immature Granulocytes % 0.7 % (0-4); Lymphocytes # 1.5 K/mcL (0.6-4.6); Lymphocytes % 13.5 %; Mean Corpuscular HGB Conc 29.2 g/dL (31.6-35.5); Mean Corpuscular Hemoglobin 21.5 pg (28.0-33.3); Mean Corpuscular Volume 73.7 fL (83.0-100.0); Mean Platelet Volume 8.9 fL (9.4-12.4); Monocytes # 0.6 K/mcL (0.0-1.3); Monocytes % 5.7 %; Neutrophils # 8.7 K/mcL (1.6-8.9); Platelet Count 418 K/mcL (140-400); Red Blood Count 3.58 M/mcL (3.82-4.97); Red Cell Distribution Width 17.3 % (11.5-14.5); Segmented Neutrophils % 79.8 %; White Blood Count 10.9 K/mcL (4.3-11.1)
[2019-08-21 01:38] LABS: BUN/Creatinine Ratio 17 (6-26); Blood Urea Nitrogen 10 mg/dL (6-20); Calcium 8.6 mg/dL (8.6-10.3); Carbon Dioxide 19 mEq/L (23-29); Chloride 104 mEq/L (98-107); Glucose 195 mg/dL (70-105); Lactate Dehydrogenase 179 Units/L (140-271); Magnesium 1.6 mg/dL (1.6-2.6); Osmolality,Calculated 286 (280-300); Phosphorous 2.2 mg/dL (2.7-4.5); Potassium 3.8 mEq/L (3.5-5.1); Sodium 136 mEq/L (136-145); eGFR For African Americans > 60 (> 60); eGFR For Non-African Americans > 60 (> 60)
[2019-08-21 01:40] LABS: Troponin I < 0.03 ng/mL (< 0.04)
[2019-08-21] MEDS: 0.9 % Sodium Chloride 1,000 ML IVC SCH ×4 (01:54→18:22)
[2019-08-21 01:56] LABS: Ferritin 9 ng/mL (10-120)
[2019-08-21] MEDS: *HR* Heparin 5,000 UNIT/ML VIAL SQ SCH ×3 (06:32→20:40)
[2019-08-21] MEDS: Insulin LISPRO 300 UNITS/3 ML VIAL SQ SCH ×3 (06:47→17:54)
[2019-08-21] MEDS: Acetaminophen 325 MG TABLET PO PRN ×3 (06:48→22:03)
[2019-08-21] MEDS ORDERED: ARIPiprazole 5 MG TABLET PO SCH (09:00)
[2019-08-21] MEDS: Azithromycin 500 MG in 0.9 % Sodium Chloride 250 ML IVPB SCH (09:08)
[2019-08-21] MEDS: BuPROPion XL (24 HR) 150 MG TABLET PO SCH (09:08)
[2019-08-21] MEDS: Piperacillin/Tazobactam 3.375 GM in 0.9 % Sodium Chloride Mini Bag 100 ML IVPB SCH ×3 (10:41→23:43)
[2019-08-21] MEDS ORDERED: BUPROPION HCL 300 MG PO SCH (11:00)
[2019-08-21] MEDS ORDERED: NON-FORMULARY MEDICATION 1 EACH EACH (Roflumilast [Daliresp] 500 MCG) PO SCH (11:00)
[2019-08-21] MEDS: ARIPiprazole 10 MG TABLET PO SCH (12:21)
[2019-08-21] MEDS: Topiramate 100 MG TABLET PO SCH ×2 (12:21→20:41)
[2019-08-21] MEDS: modafiniL 100 MG TABLET PO SCH (13:37)
[2019-08-21] MEDS: Iron Sucrose Complex 200 MG in 0.9 % Sodium Chloride 100 ML IVPB SCH (14:45)
[2019-08-21] MEDS: ALPRAZolam 1 MG TABLET PO SCH (20:41)
[2019-08-21] MEDS ORDERED: amLODIPine 5 MG TABLET PO ONE (21:15)
[2019-08-22] MEDS: Insulin LISPRO 300 UNITS/3 ML VIAL SQ SCH ×4 (00:27→16:50)
[2019-08-22] MEDS: Acetaminophen/Butalbital/CaffeineTABLET PO PRN ×3 (02:23→21:24)
[2019-08-22 02:46] LABS: Hematocrit 28.4 % (35.3-44.9); Hemoglobin 8.4 g/dL (11.5-15.4); Mean Corpuscular HGB Conc 29.6 g/dL (31.6-35.5); Mean Corpuscular Hemoglobin 22.3 pg (28.0-33.3); Mean Corpuscular Volume 75.3 fL (83.0-100.0); Mean Platelet Volume 8.9 fL (9.4-12.4); Platelet Count 435 K/mcL (140-400); Red Blood Count 3.77 M/mcL (3.82-4.97); Red Cell Distribution Width 17.9 % (11.5-14.5); White Blood Count 11.1 K/mcL (4.3-11.1)
[2019-08-22 03:06] LABS: BUN/Creatinine Ratio 15 (6-26); Blood Urea Nitrogen 10 mg/dL (6-20); Calcium 8.8 mg/dL (8.6-10.3); Carbon Dioxide 22 mEq/L (23-29); Chloride 104 mEq/L (98-107); Glucose 177 mg/dL (70-105); Osmolality,Calculated 277 (280-300); Potassium 3.6 mEq/L (3.5-5.1); Sodium 132 mEq/L (136-145); eGFR For African Americans > 60 (> 60); eGFR For Non-African Americans > 60 (> 60)
[2019-08-22] MEDS: *HR* Heparin 5,000 UNIT/ML VIAL SQ SCH ×2 (05:24→14:26)
[2019-08-22] MEDS: Azithromycin 500 MG in 0.9 % Sodium Chloride 250 ML IVPB SCH (08:07)
[2019-08-22] MEDS: ARIPiprazole 10 MG TABLET PO SCH (08:08)
[2019-08-22] MEDS: BuPROPion XL (24 HR) 150 MG TABLET PO SCH (08:09)
[2019-08-22] MEDS: Topiramate 100 MG TABLET PO SCH ×2 (08:10→21:03)
[2019-08-22] MEDS: modafiniL 100 MG TABLET PO SCH (08:17)
[2019-08-22] MEDS ORDERED: amLODIPine 5 MG TABLET PO SCH (09:00)
[2019-08-22] MEDS ORDERED: 0.9 % Sodium Chloride 1,000 ML IVC SCH (10:00)
[2019-08-22] MEDS: Piperacillin/Tazobactam 3.375 GM in 0.9 % Sodium Chloride Mini Bag 100 ML IVPB SCH ×2 (10:08→16:14)
[2019-08-22] MEDS: Iron Sucrose Complex 200 MG in 0.9 % Sodium Chloride 100 ML IVPB SCH (14:23)
[2019-08-22 15:30] LABS: Estimated Average Glucose 171 mg/dl
[2019-08-22] MEDS ORDERED: *HR* Enoxaparin 40 MG/0.4 ML SYRINGE SQ SCH (21:00)
[2019-08-22] MEDS ORDERED: Insulin LISPRO 300 UNITS/3 ML VIAL SQ SCH (21:00)
[2019-08-22] MEDS: ALPRAZolam 1 MG TABLET PO SCH (21:03)
[2019-08-23] MEDS: Piperacillin/Tazobactam 3.375 GM in 0.9 % Sodium Chloride Mini Bag 100 ML IVPB SCH (00:28)
[2019-08-23] MEDS ORDERED: Dextrose Gel 15 GM/37.5 ML TUBE PO PRN ×2 (01:31)
[2019-08-23] MEDS ORDERED: Acetaminophen/Butalbital/CaffeineTABLET PO PRN (01:31)
[2019-08-23] MEDS ORDERED: Naloxone 0.4 MG/ML INJ IVP PRN (01:31)
[2019-08-23] MEDS ORDERED: Ondansetron 4 MG/2 ML VIAL IVP PRN (01:31)
[2019-08-23] MEDS ORDERED: D5% in Water 1,000 ML IVC PRN (01:31)
[2019-08-23] MEDS ORDERED: *HR* Dextrose 50 % in Water (Syg) 50 ML SYRINGE IVP PRN (01:31)
[2019-08-23 05:21] LABS: Hematocrit 28.6 % (35.3-44.9); Hemoglobin 8.7 g/dL (11.5-15.4); Mean Corpuscular HGB Conc 30.4 g/dL (31.6-35.5); Mean Corpuscular Hemoglobin 22.5 pg (28.0-33.3); Mean Corpuscular Volume 74.1 fL (83.0-100.0); Mean Platelet Volume 10.1 fL (9.4-12.4); Nucleated Red Blood Cells 0.2 /100 WBC (0); Platelet Count 375 K/mcL (140-400); Red Blood Count 3.86 M/mcL (3.82-4.97)
[2019-08-23 05:38] LABS: Alanine Aminotransferase 31 Units/L (7-52); Albumin 3.7 g/dL (3.5-5.7); Albumin/Globulin Ratio 1.1 (1.1-2.2); Alkaline Phosphatase 105 Units/L (34-104); Aspartate Amino Transferase 20 Units/L (13-39); BUN/Creatinine Ratio 23 (6-26); Bilirubin,Total 0.3 mg/dL (0.3-1.0); Blood Urea Nitrogen 14 mg/dL (6-20); Calcium 8.9 mg/dL (8.6-10.3); Carbon Dioxide 19 mEq/L (23-29); Chloride 105 mEq/L (98-107); Globulin 3.3 g/dL (2.4-3.5); Glucose 160 mg/dL (70-105); Osmolality,Calculated 284 (280-300); Potassium 3.9 mEq/L (3.5-5.1); Sodium 135 mEq/L (136-145); eGFR For African Americans > 60 (> 60); eGFR For Non-African Americans > 60 (> 60)
[2019-08-23 05:54] LABS: Eosinophils # 1.8 K/mcL (0.0-0.6); Lymphocytes # 2.2 K/mcL (0.6-4.6); Monocytes # 0.9 K/mcL (0.0-1.3); Neutrophils # 6.2 K/mcL (1.6-8.9)
[2019-08-23 05:55] LABS: Anisocytosis 1+ (Not Present); Platelet Estimate Normal (Normal)
[2019-08-23] MEDS ORDERED: Piperacillin/Tazobactam 3.375 GM in 0.9 % Sodium Chloride Mini Bag 100 ML IVPB SCH (08:00)
[2019-08-23] MEDS ORDERED: modafiniL 100 MG TABLET PO SCH (08:00)
[2019-08-23] MEDS: Insulin LISPRO 300 UNITS/3 ML VIAL SQ SCH ×2 (08:16→12:16)
[2019-08-23] MEDS ORDERED: Azithromycin 250 MG TABLET PO SCH ×2 (09:00)
[2019-08-23] MEDS ORDERED: ARIPiprazole 10 MG TABLET PO SCH (09:00)
[2019-08-23] MEDS ORDERED: Topiramate 100 MG TABLET PO SCH (09:00)
[2019-08-23] MEDS ORDERED: Iron Sucrose Complex 200 MG in 0.9 % Sodium Chloride 100 ML IVPB SCH (09:00)
[2019-08-23] MEDS ORDERED: amLODIPine 5 MG TABLET PO SCH (09:00)
[2019-08-23] MEDS ORDERED: BuPROPion XL (24 HR) 150 MG TABLET PO SCH ×2 (09:00)
[2019-08-23 11:17] VITALS: BP 143/84
[2019-08-23] MEDS ORDERED: *HR* Enoxaparin 40 MG/0.4 ML SYRINGE SQ SCH (21:00)
[2019-08-23] MEDS ORDERED: ALPRAZolam 1 MG TABLET PO SCH (21:00)
[2019-08-23] MEDS ORDERED: Insulin LISPRO 300 UNITS/3 ML VIAL SQ SCH (21:00)
== END 2019-08-23 13:08 | disposition home or self-care (01) | DRG 190 ==
LOC: 2NENU 10:25 → EMEROOARM 10:25 → SUATTDRO 12:06 → 2NENU 13:55 → 3ANU 08-23 01:04
PROVIDERS: ADMIT Internal Medicine; ATTEND Internal Medicine

== ENCOUNTER 2019-11-06 07:41 | Inpatient (IN) ==
[2019-11-06] MEDS ORDERED: methylPREDNISolone 125 MG/2 ML VIAL IVP ONE (08:03)
[2019-11-06] MEDS ORDERED: Ipratropium/Albuterol Neb 3 ML IH ONE (08:03)
[2019-11-06 08:19] LABS: Basophils % 0.3 %; Hematocrit 31.6 % (35.3-44.9); Immature Granulocytes % 0.3 % (0-4); Lymphocytes # 2.3 K/mcL (0.6-4.6); Lymphocytes % 14.9 %; Mean Corpuscular HGB Conc 31.6 g/dL (31.6-35.5); Mean Corpuscular Hemoglobin 28.4 pg (28.0-33.3); Mean Corpuscular Volume 89.8 fL (83.0-100.0); Mean Platelet Volume 9.8 fL (9.4-12.4); Monocytes # 0.3 K/mcL (0.0-1.3); Monocytes % 2.1 %; Neutrophils # 12.7 K/mcL (1.6-8.9); Platelet Count 289 K/mcL (140-400); Red Blood Count 3.52 M/mcL (3.82-4.97); Red Cell Distribution Width 16.2 % (11.5-14.5); Segmented Neutrophils % 82.4 %
[2019-11-06 08:20] LABS: VBG HCO3 24 mEq/L (21-27); VBG PCO2 52 mmHg (41-51); VBG PH 7.26 pH Units (7.32-7.42); VBG PO2 60 mmHg (25-50)
[2019-11-06 08:22] LABS: Basophils # 0.1 K/mcL (0.0-0.2); White Blood Count 15.4 K/mcL (4.3-11.1)
[2019-11-06 08:36] LABS: Prothrombin Time 11.1 Seconds (9.4-12.1)
[2019-11-06 08:38] LABS: Activated Partial Thrombo Time 32.7 Seconds (26.0-36.0)
[2019-11-06 08:47] LABS: Alanine Aminotransferase 26 Units/L (7-52); Albumin 3.7 g/dL (3.5-5.7); Albumin/Globulin Ratio 1.2 (1.1-2.2); Alkaline Phosphatase 132 Units/L (34-104); Aspartate Amino Transferase 22 Units/L (13-39); BUN/Creatinine Ratio 14 (6-26); Bilirubin,Direct 0.1 mg/dL (0.0-0.2); Bilirubin,Indirect 0.1 mg/dL (0.0-1.0); Bilirubin,Total 0.2 mg/dL (0.3-1.0); Blood Urea Nitrogen 14 mg/dL (6-20); Calcium 9.6 mg/dL (8.6-10.3); Carbon Dioxide 23 mEq/L (23-29); Chloride 102 mEq/L (98-107); Globulin 3.1 g/dL (2.4-3.5); Glucose 331 mg/dL (70-105); Osmolality,Calculated 289 (280-300); Potassium 3.8 mEq/L (3.5-5.1); Sodium 133 mEq/L (136-145); Total Protein 6.8 g/dL (6.4-8.9); Troponin I < 0.03 ng/mL (< 0.04); eGFR For African Americans > 60 (> 60); eGFR For Non-African Americans 58 (> 60)
[2019-11-06] MEDS ORDERED: 0.9 % Sodium Chloride 1,000 ML IVC ONE (09:45)
[2019-11-06 10:15] LABS: Adenovirus Not Detected (Not Detect); Bordetella Pertussis Not Detected (Not Detect); Chlamydophila pneumoniae Not Detected (Not Detect); Coronavirus 229E Not Detected (Not Detect); Coronavirus HKU1 Not Detected (Not Detect); Coronavirus NL63 Not Detected (Not Detect); Coronavirus OC43 Not Detected (Not Detect); Human Metapneumovirus Not Detected (Not Detect); Human Rhinovirus/Enterovirus Not Detected (Not Detect); Influenza A Subtype 2009 H1 Not Detected (Not Detect); Influenza B Not Detected (Not Detect); Mycoplasma pneumoniae Not Detected (Not Detect); Parainfluenza Virus 1 Not Detected (Not Detect); Parainfluenza Virus 2 Not Detected (Not Detect); Parainfluenza Virus 3 Not Detected (Not Detect); Parainfluenza Virus 4 Not Detected (Not Detect); Respiratory Syncytial Virus Not Detected (Not Detect)
[2019-11-06 10:16] LABS: SARS-CoV-2 Not Detected (Not Detect)
[2019-11-06] MEDS ORDERED: Furosemide 40 MG/4 ML VIAL IVP ONE (10:44)
[2019-11-06] MEDS ORDERED: *HR* Promethazine 25 MG/ML VIAL IVP PRN (10:54)
[2019-11-06] MEDS ORDERED: cefTRIAXone 1,000 MG in Water for inj. (sterile) 10 ML IVP ONE (10:54)
[2019-11-06] MEDS ORDERED: Azithromycin 500 MG in 0.9 % Sodium Chloride 250 ML IVPB ONE (10:54)
[2019-11-06] MEDS ORDERED: Water for inj. (sterile) 20 ML IV ONE (11:43)
[2019-11-06] MEDS: Ipratropium/Albuterol Neb 3 ML IH SCH ×4 (11:45→23:28)
[2019-11-06] MEDS: cefTRIAXone 2,000 MG in Water for inj. (sterile) 20 ML IVP SCH (11:45)
[2019-11-06] MEDS ORDERED: Dextrose Gel 15 GM/37.5 ML TUBE PO PRN ×2 (11:56)
[2019-11-06] MEDS ORDERED: Insulin DETEMIR 100 UNIT/ML X5UNITS SQ ONE (14:00)
[2019-11-06] MEDS ORDERED: MethylPREDNISolone 40 MG/ML VIAL ONE (14:57)
[2019-11-06 15:02] LABS: VBG HCO3 25 mEq/L (21-27); VBG PCO2 41 mmHg (41-51); VBG PH 7.39 pH Units (7.32-7.42); VBG PO2 177 mmHg (25-50)
[2019-11-06] MEDS: MethylPREDNISolone 40 MG/ML VIAL IVP SCH (15:45)
[2019-11-06] MEDS: Insulin LISPRO 300 UNITS/3 ML VIAL SQ SCH ×2 (15:46→20:09)
[2019-11-06] MEDS: Azithromycin 500 MG in 0.9 % Sodium Chloride 250 ML IVPB SCH (20:07)
[2019-11-07 01:55] LABS: Hematocrit 30.8 % (35.3-44.9); Mean Corpuscular HGB Conc 32.5 g/dL (31.6-35.5); Mean Corpuscular Hemoglobin 27.9 pg (28.0-33.3); Mean Corpuscular Volume 85.8 fL (83.0-100.0); Mean Platelet Volume 9.5 fL (9.4-12.4); Platelet Count 288 K/mcL (140-400); Red Blood Count 3.59 M/mcL (3.82-4.97); Red Cell Distribution Width 15.9 % (11.5-14.5); White Blood Count 11.4 K/mcL (4.3-11.1)
[2019-11-07 02:17] LABS: BUN/Creatinine Ratio 22 (6-26); Blood Urea Nitrogen 14 mg/dL (6-20); Calcium 9.1 mg/dL (8.6-10.3); Carbon Dioxide 25 mEq/L (23-29); Chloride 105 mEq/L (98-107); Glucose 148 mg/dL (70-105); Magnesium 1.5 mg/dL (1.6-2.6); Osmolality,Calculated 289 (280-300); Potassium 3.7 mEq/L (3.5-5.1); Sodium 138 mEq/L (136-145); eGFR For African Americans > 60 (> 60); eGFR For Non-African Americans > 60 (> 60)
[2019-11-07] MEDS: Ipratropium/Albuterol Neb 3 ML IH SCH ×6 (03:43→23:40)
[2019-11-07] MEDS ORDERED: Magnesium Sulfate 1 GM/102 ML PIGGYBACK IVPB ONE (03:56)
[2019-11-07] MEDS: MethylPREDNISolone 40 MG/ML VIAL IVP SCH ×2 (05:18→17:18)
[2019-11-07] MEDS: *HR* Enoxaparin 40 MG/0.4 ML SYRINGE SQ SCH (05:18)
[2019-11-07] MEDS: Insulin LISPRO 300 UNITS/3 ML VIAL SQ SCH ×4 (07:54→20:30)
[2019-11-07] MEDS ORDERED: Insulin DETEMIR 100 UNIT/ML X5UNITS SQ SCH ×3 (09:00→21:00)
[2019-11-07] MEDS ORDERED: Azithromycin 500 MG in 0.9 % Sodium Chloride 250 ML IVPB SCH (09:00)
[2019-11-07] MEDS ORDERED: Insulin DETEMIR 100 UNIT/ML X5UNITS SQ ONE (10:38)
[2019-11-07] MEDS: Acetaminophen/Butalbital/CaffeineTABLET PO PRN ×2 (12:12→20:14)
[2019-11-07] MEDS: cefTRIAXone 2,000 MG in Water for inj. (sterile) 20 ML IVP SCH (12:13)
[2019-11-07] MEDS: Pregabalin 50 MG CAPSULE PO SCH ×2 (17:19→20:13)
[2019-11-07] MEDS: Topiramate 100 MG TABLET PO SCH (20:07)
[2019-11-07] MEDS: Azithromycin 500 MG in 0.9 % Sodium Chloride 250 ML IVPB SCH (20:08)
[2019-11-08 01:28] LABS: Hematocrit 33.7 % (35.3-44.9); Hemoglobin 10.4 g/dL (11.5-15.4); Mean Corpuscular HGB Conc 30.9 g/dL (31.6-35.5); Mean Corpuscular Hemoglobin 27.2 pg (28.0-33.3); Mean Platelet Volume 9.1 fL (9.4-12.4); Platelet Count 333 K/mcL (140-400); Red Blood Count 3.83 M/mcL (3.82-4.97); Red Cell Distribution Width 15.9 % (11.5-14.5); White Blood Count 12.7 K/mcL (4.3-11.1)
[2019-11-08 01:50] LABS: BUN/Creatinine Ratio 23 (6-26); Blood Urea Nitrogen 16 mg/dL (6-20); Calcium 8.9 mg/dL (8.6-10.3); Carbon Dioxide 24 mEq/L (23-29); Chloride 103 mEq/L (98-107); Glucose 260 mg/dL (70-105); Osmolality,Calculated 290 (280-300); Potassium 4.2 mEq/L (3.5-5.1); Sodium 135 mEq/L (136-145); eGFR For African Americans > 60 (> 60); eGFR For Non-African Americans > 60 (> 60)
[2019-11-08] MEDS: Ipratropium/Albuterol Neb 3 ML IH SCH ×5 (04:27→16:15)
[2019-11-08] MEDS: MethylPREDNISolone 40 MG/ML VIAL IVP SCH (06:29)
[2019-11-08] MEDS: *HR* Enoxaparin 40 MG/0.4 ML SYRINGE SQ SCH (06:29)
[2019-11-08] MEDS: Topiramate 100 MG TABLET PO SCH (07:51)
[2019-11-08] MEDS: Pregabalin 50 MG CAPSULE PO SCH (07:52)
[2019-11-08] MEDS: Insulin LISPRO 300 UNITS/3 ML VIAL SQ SCH ×3 (07:53→17:09)
[2019-11-08] MEDS ORDERED: modafiniL 100 MG TABLET PO SCH (08:00)
[2019-11-08] MEDS ORDERED: amLODIPine 5 MG TABLET PO SCH (09:00)
[2019-11-08] MEDS ORDERED: BuPROPion XL (24 HR) 150 MG TABLET PO SCH (09:00)
[2019-11-08] MEDS ORDERED: ARIPiprazole 10 MG TABLET PO SCH (09:00)
[2019-11-08] MEDS ORDERED: BUPROPION HCL 300 MG PO SCH (09:00)
[2019-11-08] MEDS ORDERED: Isovue-370 500 ML BOTTLE IVP ONE (10:18)
[2019-11-08] MEDS: cefTRIAXone 2,000 MG in Water for inj. (sterile) 20 ML IVP SCH (12:17)
[2019-11-08] MEDS: Acetaminophen/Butalbital/CaffeineTABLET PO PRN (12:18)
[2019-11-08] MEDS ORDERED: tiZANidine 4 MG TABLET PO PRN (16:24)
[2019-11-08 16:35] VITALS: BP 172/96
== END 2019-11-08 17:50 | disposition home or self-care (01) | DRG 871 ==
LOC: 2NNU 07:41 → EMEROOARM 07:41 → SUATTDRO 11:45 → 2NNU 12:58
PROVIDERS: ADMIT Internal Medicine; ATTEND Internal Medicine

== ENCOUNTER 2019-11-15 21:31 | Inpatient (IN) ==
[2019-11-15 22:26] LABS: Acetaminophen < 10 mcg/mL (10-20); Alanine Aminotransferase 37 Units/L (7-52); Albumin/Globulin Ratio 1.3 (1.1-2.2); Alkaline Phosphatase 94 Units/L (34-104); Aspartate Amino Transferase 20 Units/L (13-39); Bilirubin,Indirect 0.2 mg/dL (0.0-1.0); Bilirubin,Total 0.2 mg/dL (0.3-1.0); Salicylate < 2.5 mg/dL (15.0-30.0)
[2019-11-15 22:33] LABS: BUN/Creatinine Ratio 16 (6-26); Blood Urea Nitrogen 12 mg/dL (6-20); Calcium 9.3 mg/dL (8.6-10.3); Carbon Dioxide 24 mEq/L (23-29); Chloride 108 mEq/L (98-107); Glucose 124 mg/dL (70-105); Magnesium 1.9 mg/dL (1.6-2.6); Osmolality,Calculated 293 (280-300); Potassium 3.9 mEq/L (3.5-5.1); Sodium 141 mEq/L (136-145); eGFR For African Americans > 60 (> 60); eGFR For Non-African Americans > 60 (> 60)
[2019-11-15 22:38] LABS: Basophils # 0.1 K/mcL (0.0-0.2); Basophils % 0.5 %; Hematocrit 38.8 % (35.3-44.9); Hemoglobin 11.9 g/dL (11.5-15.4); Immature Granulocytes % 0.9 % (0-4); Lymphocytes # 5.1 K/mcL (0.6-4.6); Lymphocytes % 30.2 %; Mean Corpuscular HGB Conc 30.7 g/dL (31.6-35.5); Mean Corpuscular Hemoglobin 27.7 pg (28.0-33.3); Mean Corpuscular Volume 90.2 fL (83.0-100.0); Mean Platelet Volume 9.9 fL (9.4-12.4); Monocytes # 0.7 K/mcL (0.0-1.3); Monocytes % 4.4 %; Neutrophils # 10.8 K/mcL (1.6-8.9); Platelet Count 417 K/mcL (140-400); White Blood Count 16.9 K/mcL (4.3-11.1)
[2019-11-15 23:13] LABS: Prothrombin Time 11.2 Seconds (9.4-12.1)
[2019-11-15 23:15] LABS: Activated Partial Thrombo Time 34.8 Seconds (26.0-36.0)
[2019-11-15 23:17] LABS: Platelet Estimate Increased (Normal); Reactive Lymphocytes Present (Not Present); Toxic Granulation Present (Not Present)
[2019-11-16 00:46] LABS: Amphetamine Screen,Urine Negative ng/mL (Cutoff=1000); Barbiturate Screen,Urine Negative ng/mL (Cutoff=200); Benzodiazepines Screen,Urine Negative ng/mL (Cutoff=200); Cannabinoid Screen,Urine Negative ng/mL (Cutoff = 50); Cocaine Screen,Urine Negative ng/mL (Cutoff= 300); Opiate Screen,Urine Negative ng/mL (Cutoff=300); Phencyclidine Screen,Urine Negative ng/mL (Cutoff=25)
[2019-11-16 00:56] LABS: Bilirubin,Urine Negative (Negative); Blood,Urine Negative (Negative); Clarity,Urine Clear (Clear); Color,Urine Light-Yellow (Yellow); Glucose,Urine (UA) Normal (Normal); Ketones,Urine Negative (Negative); Leukocyte Esterase,Urine Moderate (Negative); Mucus,Urine Few per lpf (None-Few); Nitrite,Urine Negative (Negative); Protein,Urine Negative (Neg-Trace); RBC,Urine 0-3 per hpf (0-3); Specific Gravity,Urine 1.017 (1.010-1.025); Squamous Epithelial Cell,Urine Few per hpf (None-Few); Urobilinogen,Urine Normal (Normal)
[2019-11-16] MEDS ORDERED: Naloxone 0.4 MG/ML INJ IVP PRN (03:27)
[2019-11-16] MEDS ORDERED: 0.9 % Sodium Chloride 1,000 ML IVC SCH (03:30)
[2019-11-16 05:24] LABS: Basophils # 0.1 K/mcL (0.0-0.2); Basophils % 0.7 %; Eosinophils % 0.1 %; Hematocrit 39.3 % (35.3-44.9); Hemoglobin 11.8 g/dL (11.5-15.4); Immature Granulocytes % 0.9 % (0-4); Lymphocytes % 35.1 %; Mean Corpuscular Hemoglobin 27.3 pg (28.0-33.3); Mean Corpuscular Volume 90.8 fL (83.0-100.0); Mean Platelet Volume 9.2 fL (9.4-12.4); Monocytes # 0.7 K/mcL (0.0-1.3); Monocytes % 4.2 %; Neutrophils # 9.3 K/mcL (1.6-8.9); Platelet Count 382 K/mcL (140-400); Red Blood Count 4.33 M/mcL (3.82-4.97); Red Cell Distribution Width 15.9 % (11.5-14.5); White Blood Count 15.8 K/mcL (4.3-11.1)
[2019-11-16 05:29] LABS: Lymphocytes # 5.6 K/mcL (0.6-4.6)
[2019-11-16 05:42] LABS: Alanine Aminotransferase 33 Units/L (7-52); Albumin 3.9 g/dL (3.5-5.7); Albumin/Globulin Ratio 1.3 (1.1-2.2); Alkaline Phosphatase 104 Units/L (34-104); Aspartate Amino Transferase 19 Units/L (13-39); BUN/Creatinine Ratio 20 (6-26); Bilirubin,Total 0.3 mg/dL (0.3-1.0); Blood Urea Nitrogen 14 mg/dL (6-20); Carbon Dioxide 23 mEq/L (23-29); Chloride 108 mEq/L (98-107); Glucose 130 mg/dL (70-105); Osmolality,Calculated 294 (280-300); Potassium 3.5 mEq/L (3.5-5.1); Sodium 141 mEq/L (136-145); Total Protein 6.9 g/dL (6.4-8.9); eGFR For African Americans > 60 (> 60); eGFR For Non-African Americans > 60 (> 60)
[2019-11-16 05:56] LABS: Platelet Estimate Normal (Normal)
[2019-11-16] MEDS ORDERED: Dextrose Gel 15 GM/37.5 ML TUBE PO PRN ×2 (06:25)
[2019-11-16] MEDS ORDERED: *HR* Dextrose 50 % in Water (Vial) 50 ML VIAL IVP PRN (06:25)
[2019-11-16] MEDS ORDERED: D5% in Water 1,000 ML IVC PRN (06:25)
[2019-11-16] MEDS: cefTRIAXone 1,000 MG in 0.9 % Sodium Chloride Mini Bag 100 ML IVPB SCH (07:01)
[2019-11-16] MEDS: *HR* Heparin 5,000 UNIT/ML VIAL SQ SCH ×3 (07:02→20:26)
[2019-11-16] MEDS: Insulin LISPRO 300 UNITS/3 ML VIAL SQ SCH ×3 (09:49→18:02)
[2019-11-16 10:58] LABS: Creatine Kinase 55 Units/L (30-223)
[2019-11-16] MEDS ORDERED: *HR* Metoprolol 5 MG/5 ML VIAL IVP PRN (11:58)
[2019-11-16 13:22] LABS: Ethanol < 10 mg/dL (Less than 10)
[2019-11-16] MEDS ORDERED: Ondansetron 4 MG/2 ML VIAL IVP ONE (13:46)
[2019-11-16] MEDS: amLODIPine 5 MG TABLET PO SCH (14:02)
[2019-11-16] MEDS: Lactulose Oral Soln 20 GM/30 ML UDC PO SCH (20:26)
[2019-11-16] MEDS: *HR* LORazepam 2 MG/ML VIAL IVP SCH (20:27)
[2019-11-17] MEDS: *HR* LORazepam 2 MG/ML VIAL IVP SCH ×3 (04:07→19:56)
[2019-11-17] MEDS: cefTRIAXone 1,000 MG in 0.9 % Sodium Chloride Mini Bag 100 ML IVPB SCH (05:31)
[2019-11-17] MEDS: *HR* Heparin 5,000 UNIT/ML VIAL SQ SCH ×3 (05:31→21:18)
[2019-11-17 06:48] LABS: Hematocrit 29.8 % (35.3-44.9); Hemoglobin 9.7 g/dL (11.5-15.4); Mean Corpuscular HGB Conc 32.6 g/dL (31.6-35.5); Mean Corpuscular Hemoglobin 29.8 pg (28.0-33.3); Mean Corpuscular Volume 91.7 fL (83.0-100.0); Mean Platelet Volume 9.3 fL (9.4-12.4); Platelet Count 397 K/mcL (140-400); Red Blood Count 3.25 M/mcL (3.82-4.97); White Blood Count 21.6 K/mcL (4.3-11.1)
[2019-11-17 07:08] LABS: BUN/Creatinine Ratio 18 (6-26); Blood Urea Nitrogen 12 mg/dL (6-20); Calcium 8.7 mg/dL (8.6-10.3); Carbon Dioxide 23 mEq/L (23-29); Chloride 105 mEq/L (98-107); Glucose 128 mg/dL (70-105); Osmolality,Calculated 283 (280-300); Potassium 3.6 mEq/L (3.5-5.1); Sodium 136 mEq/L (136-145); eGFR For African Americans > 60 (> 60); eGFR For Non-African Americans > 60 (> 60)
[2019-11-17] MEDS: amLODIPine 5 MG TABLET PO SCH (08:13)
[2019-11-17] MEDS: Lactulose Oral Soln 20 GM/30 ML UDC PO SCH ×2 (08:13→19:56)
[2019-11-17] MEDS: Insulin LISPRO 300 UNITS/3 ML VIAL SQ SCH ×3 (08:14→17:33)
[2019-11-17] MEDS ORDERED: cefTRIAXone 1,000 MG in Water for inj. (sterile) 10 ML IVP ONE (09:39)
[2019-11-17] MEDS ORDERED: Isovue-370 500 ML BOTTLE IVP ONE (11:43)
[2019-11-17] MEDS: Ampicillin/Sulbactam 3,000 MG in 0.9 % Sodium Chloride Mini Bag 100 ML IVPB SCH ×2 (17:32→23:25)
[2019-11-17] MEDS: Doxycycline 100 MG CAPSULE PO SCH ×2 (17:32→19:55)
[2019-11-17] MEDS ORDERED: Doxycycline 100 MG in 0.9 % Sodium Chloride Mini Bag 100 ML IVPB SCH (18:00)
[2019-11-17] MEDS: Budesonide/Formoterol 160/4.5 1 PUFF INH IH SCH (20:14)
[2019-11-17] MEDS ORDERED: Acetaminophen IV 1,000 MG/100 ML BAG IVPB ONE (20:28)
[2019-11-18] MEDS: *HR* LORazepam 2 MG/ML VIAL IVP SCH ×3 (03:30→21:04)
[2019-11-18] MEDS: Ampicillin/Sulbactam 3,000 MG in 0.9 % Sodium Chloride Mini Bag 100 ML IVPB SCH ×3 (05:41→16:39)
[2019-11-18] MEDS: *HR* Heparin 5,000 UNIT/ML VIAL SQ SCH ×3 (05:43→21:05)
[2019-11-18 07:11] LABS: BUN/Creatinine Ratio 25 (6-26); Blood Urea Nitrogen 18 mg/dL (6-20); Calcium 8.5 mg/dL (8.6-10.3); Carbon Dioxide 22 mEq/L (23-29); Chloride 107 mEq/L (98-107); Glucose 160 mg/dL (70-105); Osmolality,Calculated 291 (280-300); Potassium 3.4 mEq/L (3.5-5.1); Sodium 138 mEq/L (136-145); eGFR For African Americans > 60 (> 60); eGFR For Non-African Americans > 60 (> 60)
[2019-11-18] MEDS ORDERED: Potassium Chloride Elixir 20 MEQ/15 ML UDC PO ONE (08:29)
[2019-11-18 08:30] LABS: Basophils # 0.1 K/mcL (0.0-0.2); Basophils % 0.5 %; Eosinophils % 0.1 %; Hematocrit 30.7 % (35.3-44.9); Hemoglobin 10.7 g/dL (11.5-15.4); Immature Granulocytes % 1.6 % (0-4); Lymphocytes # 1.6 K/mcL (0.6-4.6); Lymphocytes % 8.3 %; Mean Corpuscular HGB Conc 34.9 g/dL (31.6-35.5); Mean Corpuscular Hemoglobin 28.6 pg (28.0-33.3); Mean Corpuscular Volume 82.1 fL (83.0-100.0); Mean Platelet Volume 10.1 fL (9.4-12.4); Monocytes # 0.6 K/mcL (0.0-1.3); Monocytes % 2.8 %; Neutrophils # 17.1 K/mcL (1.6-8.9); Platelet Count 389 K/mcL (140-400); Red Blood Count 3.74 M/mcL (3.82-4.97); Red Cell Distribution Width 14.7 % (11.5-14.5); Segmented Neutrophils % 86.7 %; White Blood Count 19.7 K/mcL (4.3-11.1)
[2019-11-18] MEDS: Doxycycline 100 MG CAPSULE PO SCH ×2 (09:06→21:04)
[2019-11-18] MEDS: amLODIPine 5 MG TABLET PO SCH (09:06)
[2019-11-18] MEDS: Lactulose Oral Soln 20 GM/30 ML UDC PO SCH ×2 (09:06→21:04)
[2019-11-18] MEDS: Insulin LISPRO 300 UNITS/3 ML VIAL SQ SCH ×3 (09:07→16:40)
[2019-11-18] MEDS ORDERED: cefTRIAXone 2,000 MG in 0.9 % Sodium Chloride Mini Bag 100 ML IVPB SCH (10:00)
[2019-11-18] MEDS: Budesonide/Formoterol 160/4.5 1 PUFF INH IH SCH ×2 (10:04→19:52)
[2019-11-18] MEDS: Acetaminophen 325 MG TABLET PO PRN ×2 (12:09→21:04)
[2019-11-19] MEDS: Ampicillin/Sulbactam 3,000 MG in 0.9 % Sodium Chloride Mini Bag 100 ML IVPB SCH ×2 (00:35→05:38)
[2019-11-19] MEDS: *HR* LORazepam 2 MG/ML VIAL IVP SCH (03:32)
[2019-11-19] MEDS: Acetaminophen 325 MG TABLET PO PRN (05:38)
[2019-11-19] MEDS: *HR* Heparin 5,000 UNIT/ML VIAL SQ SCH (05:38)
[2019-11-19 05:58] LABS: Basophils # 0.1 K/mcL (0.0-0.2); Basophils % 0.6 %; Eosinophils % 0.1 %; Hematocrit 27.7 % (35.3-44.9); Hemoglobin 9.6 g/dL (11.5-15.4); Immature Granulocytes % 1.4 % (0-4); Lymphocytes # 2.5 K/mcL (0.6-4.6); Mean Corpuscular HGB Conc 34.7 g/dL (31.6-35.5); Mean Corpuscular Hemoglobin 28.5 pg (28.0-33.3); Mean Corpuscular Volume 82.2 fL (83.0-100.0); Mean Platelet Volume 9.7 fL (9.4-12.4); Monocytes # 0.8 K/mcL (0.0-1.3); Monocytes % 5.9 %; Neutrophils # 9.7 K/mcL (1.6-8.9); Nucleated Red Blood Cells 0.2 /100 WBC (0); Platelet Count 367 K/mcL (140-400); Red Blood Count 3.37 M/mcL (3.82-4.97); Red Cell Distribution Width 14.5 % (11.5-14.5); White Blood Count 13.2 K/mcL (4.3-11.1)
[2019-11-19 06:00] LABS: INR 1.1
[2019-11-19 06:02] LABS: Activated Partial Thrombo Time 32.4 Seconds (26.0-36.0)
[2019-11-19 06:25] LABS: BUN/Creatinine Ratio 18 (6-26); Blood Urea Nitrogen 11 mg/dL (6-20); Calcium 8.8 mg/dL (8.6-10.3); Carbon Dioxide 24 mEq/L (23-29); Chloride 104 mEq/L (98-107); Glucose 139 mg/dL (70-105); Osmolality,Calculated 286 (280-300); Potassium 3.4 mEq/L (3.5-5.1); Sodium 137 mEq/L (136-145); eGFR For African Americans > 60 (> 60); eGFR For Non-African Americans > 60 (> 60)
[2019-11-19 06:52] VITALS: BP 123/71
[2019-11-19] MEDS: Budesonide/Formoterol 160/4.5 1 PUFF INH IH SCH (07:42)
[2019-11-19] MEDS: Insulin LISPRO 300 UNITS/3 ML VIAL SQ SCH (07:46)
[2019-11-19] MEDS: Doxycycline 100 MG CAPSULE PO SCH (09:54)
[2019-11-19] MEDS: amLODIPine 5 MG TABLET PO SCH (09:54)
[2019-11-19] MEDS: Lactulose Oral Soln 20 GM/30 ML UDC PO SCH (09:55)
[2019-11-21 10:20] LABS: Serine Protease-3 Antibody 10 AU/mL (0-19)
[2019-11-25 11:35] LABS: Beef IgE 0.17 kU/L (<=0.34); Feather Mix IgE NEGATIVE kU/L (Negative); Phoma betae IgE <0.10 kU/L (<=0.34)
[2019-11-26 17:16] LABS: T. vulgaris 1 Ab Precipitin NONE DETECTED (None Detected)
== END 2019-11-19 13:10 | disposition home or self-care (01) | DRG 871 ==
LOC: 3ANU 21:31 → EMEROOARM 21:31 → SUATTDRO 11-16 01:53 → 3ANU 11-16 02:30
PROVIDERS: ADMIT Student in an Organized Health Care Education/Training Program; ATTEND Student in an Organized Health Care Education/Training Program

== ENCOUNTER 2020-04-19 04:12 | Inpatient (IN) ==
[2020-04-19] MEDS ORDERED: Isovue-370 500 ML BOTTLE IVP ONE (04:23)
[2020-04-19] MEDS ORDERED: methylPREDNISolone 125 MG/2 ML VIAL IVP ONE (04:24)
[2020-04-19] MEDS ORDERED: Ipratropium/Albuterol Neb 3 ML IH ONE (04:24)
[2020-04-19] MEDS ORDERED: 0.9 % Sodium Chloride 1,000 ML IVC ONE ×2 (04:28→06:29)
[2020-04-19 05:13] LABS: Basophils % 0.2 %; Red Cell Distribution Width 13.9 % (11.5-14.5)
[2020-04-19 05:15] LABS: Immature Platelets 6.3 % (1.1-6.1); Lymphocytes % 5.2 %
[2020-04-19 05:19] LABS: Basophils # 0.1 K/mcL (0.0-0.2); Hematocrit 33.5 % (35.3-44.9); Hemoglobin 10.7 g/dL (11.5-15.4); Lymphocytes # 1.4 K/mcL (0.6-4.6); Mean Corpuscular HGB Conc 31.9 g/dL (31.6-35.5); Mean Corpuscular Hemoglobin 28.4 pg (28.0-33.3); Mean Corpuscular Volume 88.9 fL (83.0-100.0); Mean Platelet Volume 10.3 fL (9.4-12.4); Monocytes # 0.7 K/mcL (0.0-1.3); Monocytes % 2.5 %; Neutrophils # 25.1 K/mcL (1.6-8.9); Platelet Count 306 K/mcL (140-400); Red Blood Count 3.77 M/mcL (3.82-4.97); Segmented Neutrophils % 91.1 %; White Blood Count 27.5 K/mcL (4.3-11.1)
[2020-04-19 05:31] LABS: BUN/Creatinine Ratio 27 (6-26); Blood Urea Nitrogen 22 mg/dL (6-20); Calcium 8.8 mg/dL (8.6-10.3); Carbon Dioxide 17 mEq/L (23-29); Chloride 98 mEq/L (98-107); Glucose 342 mg/dL (70-105); Osmolality,Calculated 287 (280-300); Potassium 4.2 mEq/L (3.5-5.1); Sodium 130 mEq/L (136-145); Troponin I < 0.03 ng/mL (< 0.04); eGFR For African Americans > 60 (> 60); eGFR For Non-African Americans > 60 (> 60)
[2020-04-19 05:58] LABS: Platelet Estimate Normal (Normal)
[2020-04-19 06:11] LABS: Adenovirus Not Detected (Not Detect); Bordetella Pertussis Not Detected (Not Detect); Chlamydophila pneumoniae Not Detected (Not Detect); Coronavirus 229E Not Detected (Not Detect); Coronavirus HKU1 Not Detected (Not Detect); Coronavirus NL63 Not Detected (Not Detect); Coronavirus OC43 Not Detected (Not Detect); Human Metapneumovirus Not Detected (Not Detect); Human Rhinovirus/Enterovirus Not Detected (Not Detect); Influenza A Subtype 2009 H1 Not Detected (Not Detect); Influenza B Not Detected (Not Detect); Mycoplasma pneumoniae Not Detected (Not Detect); Parainfluenza Virus 1 Not Detected (Not Detect); Parainfluenza Virus 2 Not Detected (Not Detect); Parainfluenza Virus 3 Not Detected (Not Detect); Parainfluenza Virus 4 Not Detected (Not Detect); Respiratory Syncytial Virus Not Detected (Not Detect); SARS-CoV-2 Not Detected (Not Detect)
[2020-04-19] MEDS: Ipratropium/Albuterol Neb 3 ML IH ONE ×2 (06:28→06:35)
[2020-04-19] MEDS ORDERED: cefTRIAXone 1,000 MG in 0.9 % Sodium Chloride Mini Bag 100 ML IVPB ONE (06:28)
[2020-04-19] MEDS ORDERED: Azithromycin 500 MG in 0.9 % Sodium Chloride 250 ML IVPB ONE (06:28)
[2020-04-19 08:09] LABS: ABG Base Excess -6 mEq/L (-2 to 3); ABG HCO3 20 mEq/L (21-27); ABG Oxygen Saturation 89 % (95-98); ABG PCO2 41 mmHg (35-45); ABG PH 7.29 pH Units (7.32-7.45); ABG PO2 62 mmHg (85-104); ABG TCO2 21 mEq/L (20-26); Blood Gas VT 998 cc
[2020-04-19] MEDS ORDERED: Naloxone 0.4 MG/ML INJ IVP PRN (08:10)
[2020-04-19] MEDS ORDERED: Dextrose Gel 15 GM/37.5 ML TUBE PO PRN ×2 (08:19)
[2020-04-19] MEDS ORDERED: D5% in Water 1,000 ML IVC PRN (08:19)
[2020-04-19] MEDS ORDERED: *HR* Dextrose 50 % in Water (Vial) 50 ML VIAL IVP PRN (08:19)
[2020-04-19] MEDS ORDERED: tiZANidine 4 MG TABLET PO PRN (09:27)
[2020-04-19] MEDS ORDERED: hydrOXYzine pamoate 25 MG CAPSULE PO PRN (09:27)
[2020-04-19] MEDS ORDERED: Ringers Solution, Lactated 1,000 ML IVC SCH (09:30)
[2020-04-19] MEDS ORDERED: amLODIPine 5 MG TABLET PO SCH (09:30)
[2020-04-19] MEDS ORDERED: 0.9 % Sodium Chloride 1,000 ML ONE (10:41)
[2020-04-19] MEDS ORDERED: Furosemide 40 MG/4 ML VIAL ONE (10:55)
[2020-04-19] MEDS ORDERED: Furosemide 40 MG/4 ML VIAL IVP ONE (11:18)
[2020-04-19] MEDS: Budesonide/Formoterol 160/4.5 1 PUFF INH IH SCH ×2 (11:56→20:29)
[2020-04-19] MEDS: Ipratropium 1 PUFF INHALER IH SCH ×3 (11:56→20:29)
[2020-04-19] MEDS: FentaNYL (PF) 1,000 MCG/100 ML IV.SOLN IVC SCH ×3 (13:05→17:20)
[2020-04-19] MEDS ORDERED: Ipratropium/Albuterol Neb 3 ML ONE (13:10)
[2020-04-19] MEDS ORDERED: Midazolam HCl 50 MG/100 ML IV.SOLN IVC SCH (13:30)
[2020-04-19] MEDS ORDERED: Phenylephrine 10 MG in 0.9 % Sodium Chloride 250 ML IVC SCH (13:30)
[2020-04-19] MEDS ORDERED: Cisatracurium 200 MG in 0.9 % Sodium Chloride 180 ML IVC SCH (13:30)
[2020-04-19 14:52] LABS: ABG Base Excess -5 mEq/L (-2 to 3); ABG HCO3 27 mEq/L (21-27); ABG Oxygen Saturation 81 % (95-98); ABG PCO2 87 mmHg (35-45); ABG PO2 63 mmHg (85-104); ABG TCO2 30 mEq/L (20-26); Blood Gas VT 440 cc
[2020-04-19] MEDS: Dexmedetomidine HCl 400 MCG/100 ML MLS IVC SCH ×2 (15:05→18:15)
[2020-04-19] MEDS ORDERED: Artificial Tears SOLN 15 ML BOTTLE BOTH EYES PRN (16:38)
[2020-04-19 16:44] LABS: ABG Base Excess -4 mEq/L (-2 to 3); ABG HCO3 24 mEq/L (21-27); ABG Oxygen Saturation 86 % (95-98); ABG PCO2 58 mmHg (35-45); ABG PH 7.23 pH Units (7.32-7.45); ABG PO2 61 mmHg (85-104); ABG TCO2 26 mEq/L (20-26); Blood Gas VT 430 cc
[2020-04-19] MEDS ORDERED: Vancomycin 1,500 MG/265 ML IV.SOLN IVPB SCH (17:00)
[2020-04-19] MEDS ORDERED: methylPREDNISolone 125 MG/2 ML VIAL IVP SCH (18:00)
[2020-04-19] MEDS ORDERED: Pantoprazole 40 MG VIAL IVP SCH (18:00)
[2020-04-19] MEDS: Insulin LISPRO 300 UNITS/3 ML VIAL SUBQ SCH ×3 (18:10→18:44)
[2020-04-19 18:27] LABS: ABG Base Excess -4 mEq/L (-2 to 3); ABG HCO3 24 mEq/L (21-27); ABG Oxygen Saturation 88 % (95-98); ABG PCO2 57 mmHg (35-45); ABG PH 7.24 pH Units (7.32-7.45); ABG PO2 65 mmHg (85-104); ABG TCO2 26 mEq/L (20-26); Blood Gas VT 400 cc
[2020-04-19] MEDS ORDERED: Phenylephrine 50 MG in 0.9 % Sodium Chloride 250 ML IVC SCH (19:00)
[2020-04-19 19:54] VITALS: BP 90/49
[2020-04-19] MEDS ORDERED: Artificial Tears SOLN 15 ML BOTTLE BOTH EYES SCH (20:00)
[2020-04-19] MEDS ORDERED: *HR* Rocuronium Bromide 100 MG/10 ML VIAL IVP ONE (20:47)
[2020-04-19] MEDS ORDERED: *HR* Rocuronium Bromide 50 MG/5 ML VIAL IVP ONE (20:47)
[2020-04-19] MEDS ORDERED: *HR* Midazolam HCl 5 MG/5 ML VIAL IVP ONE (20:47)
[2020-04-19] MEDS ORDERED: *HR* Etomidate 20 MG/10 ML AMPUL IVP ONE (20:47)
[2020-04-19] MEDS ORDERED: Chlorhexidine Rinse 15 ML MOUTHWASH MM SCH (21:00)
[2020-04-19] MEDS ORDERED: Pregabalin 50 MG CAPSULE PO SCH (21:00)
[2020-04-19] MEDS ORDERED: Topiramate 100 MG TABLET PO SCH (21:00)
[2020-04-19] MEDS ORDERED: Insulin DETEMIR 100 UNIT/ML X5UNITS SUBQ SCH (21:00)
[2020-04-20] MEDS ORDERED: *HR* Enoxaparin 40 MG/0.4 ML SYRINGE SQ SCH (06:00)
[2020-04-20] MEDS ORDERED: Vitamin E 200 UNIT (90MG) CAPSULE PO SCH (09:00)
[2020-04-20] MEDS ORDERED: Azithromycin 500 MG in 0.9 % Sodium Chloride 250 ML IVPB SCH (09:00)
[2020-04-20] MEDS ORDERED: BuPROPion XL (24 HR) 150 MG TABLET PO SCH ×2 (09:00)
[2020-04-20] MEDS ORDERED: cefTRIAXone 1,000 MG in 0.9 % Sodium Chloride Mini Bag 100 ML IVP SCH (09:00)
== END 2020-04-19 20:48 | disposition short-term general hospital (02) ==
LOC: EMEROOARM 04:12 → 2NENU 09:23
PROVIDERS: ADMIT Internal Medicine; ATTEND Internal Medicine

== ENCOUNTER 2020-09-07 13:56 | Inpatient (IN) ==
[2020-09-07] MEDS ORDERED: Isovue-370 500 ML BOTTLE IVP ONE (14:21)
[2020-09-07] MEDS ORDERED: Piperacillin/Tazobactam 3.375 GM in Water for inj. (sterile) 20 ML IVP ONE (14:24)
[2020-09-07] MEDS ORDERED: Ipratropium/Albuterol Neb 3 ML IH ONE (14:25)
[2020-09-07 14:39] LABS: Basophils % 0.2 %; Hematocrit 28.3 % (35.3-44.9); Hemoglobin 8.8 g/dL (11.5-15.4); Immature Granulocytes % 0.6 % (0-4); Lymphocytes % 9.7 %; Mean Corpuscular HGB Conc 31.1 g/dL (31.6-35.5); Mean Corpuscular Hemoglobin 27.1 pg (28.0-33.3); Mean Corpuscular Volume 87.1 fL (83.0-100.0); Mean Platelet Volume 9.6 fL (9.4-12.4); Monocytes # 0.6 K/mcL (0.0-1.3); Monocytes % 2.8 %; Neutrophils # 17.6 K/mcL (1.6-8.9); Platelet Count 273 K/mcL (140-400); Red Blood Count 3.25 M/mcL (3.82-4.97); Red Cell Distribution Width 15.3 % (11.5-14.5); Segmented Neutrophils % 86.7 %; White Blood Count 20.3 K/mcL (4.3-11.1)
[2020-09-07] MEDS ORDERED: Vancomycin 1,500 MG/265 ML IV.SOLN IVPB ONE (15:00)
[2020-09-07 15:01] LABS: Alanine Aminotransferase 30 Units/L (7-52); Albumin 3.7 g/dL (3.5-5.7); Albumin/Globulin Ratio 1.4 (1.1-2.2); Alkaline Phosphatase 95 Units/L (34-104); Aspartate Amino Transferase 32 Units/L (13-39); BUN/Creatinine Ratio 15 (6-26); Bilirubin,Direct 0.1 mg/dL (0.0-0.2); Bilirubin,Indirect 0.1 mg/dL (0.0-1.0); Bilirubin,Total 0.2 mg/dL (0.3-1.0); Blood Urea Nitrogen 11 mg/dL (6-20); Calcium 9.1 mg/dL (8.6-10.3); Carbon Dioxide 20 mEq/L (23-29); Chloride 107 mEq/L (98-107); Globulin 2.7 g/dL (2.4-3.5); Glucose 361 mg/dL (70-105); Osmolality,Calculated 296 (280-300); Potassium 3.8 mEq/L (3.5-5.1); Sodium 136 mEq/L (136-145); Total Protein 6.4 g/dL (6.4-8.9); Troponin I < 0.03 ng/mL (< 0.04); eGFR For African Americans > 60 (> 60); eGFR For Non-African Americans > 60 (> 60)
[2020-09-07 15:41] LABS: Adenovirus Not Detected (Not Detect); Bordetella Pertussis Not Detected (Not Detect); Chlamydophila pneumoniae Not Detected (Not Detect); Coronavirus 229E Not Detected (Not Detect); Coronavirus HKU1 Not Detected (Not Detect); Coronavirus NL63 Not Detected (Not Detect); Coronavirus OC43 Not Detected (Not Detect); Human Metapneumovirus Not Detected (Not Detect); Human Rhinovirus/Enterovirus Not Detected (Not Detect); Influenza A Subtype 2009 H1 Not Detected (Not Detect); Influenza B Not Detected (Not Detect); Mycoplasma pneumoniae Not Detected (Not Detect); Parainfluenza Virus 1 Not Detected (Not Detect); Parainfluenza Virus 2 Not Detected (Not Detect); Parainfluenza Virus 3 Not Detected (Not Detect); Parainfluenza Virus 4 Not Detected (Not Detect); Respiratory Syncytial Virus Not Detected (Not Detect); SARS-CoV-2 Not Detected (Not Detect)
[2020-09-07] MEDS ORDERED: Azithromycin 500 MG in 0.9 % Sodium Chloride 250 ML IVPB ONE (16:02)
[2020-09-07] MEDS ORDERED: Furosemide 40 MG/4 ML VIAL IVP ONE (16:03)
[2020-09-07] MEDS ORDERED: MethylPREDNISolone 40 MG/ML VIAL IVP SCH (16:23)
[2020-09-07] MEDS ORDERED: Naloxone 0.4 MG/ML INJ IVP PRN (16:25)
[2020-09-07] MEDS ORDERED: *HR* Heparin 5,000 UNIT/ML VIAL IVP PRN ×2 (16:59)
[2020-09-07] MEDS ORDERED: *HR* Heparin 5,000 UNIT/ML VIAL IVP ONE (16:59)
[2020-09-07] MEDS ORDERED: Heparin 25,000UNIT/250ML 1/2NS 25,000 UNIT/250 ML IV.SOLN IVC SCH (17:00)
[2020-09-07 17:19] LABS: VBG Base Excess -4 mEq/L; VBG Chloride 107 mEq/L (98-107); VBG Glucose 264 mg/dl (65-95); VBG HCO3 20 mEq/L (21-27); VBG Ionized Calcium 1.22 mmol/L (1.15-1.35); VBG Oxygen Saturation 99 %; VBG PCO2 32 mmHg (41-51); VBG PO2 123 mmHg (25-50); VBG Total CO2 21 mEq/L
[2020-09-07] MEDS ORDERED: 0.9 % Sodium Chloride 1,000 ML IVC ONE (17:26)
[2020-09-07] MEDS: Ipratropium/Albuterol Neb 3 ML IH SCH ×2 (18:17→22:32)
[2020-09-07] MEDS ORDERED: 0.9 % Sodium Chloride 1,000 ML IVC SCH (18:30)
[2020-09-07 19:29] LABS: Hematocrit 30.2 % (35.3-44.9); Hemoglobin 9.4 g/dL (11.5-15.4); Mean Corpuscular HGB Conc 31.1 g/dL (31.6-35.5); Mean Corpuscular Hemoglobin 26.9 pg (28.0-33.3); Mean Corpuscular Volume 86.3 fL (83.0-100.0); Platelet Count 232 K/mcL (140-400); Red Cell Distribution Width 15.3 % (11.5-14.5); White Blood Count 20.8 K/mcL (4.3-11.1)
[2020-09-07 19:37] LABS: Heparin anti-factor XA UFH 0.51 IU/mL (0.30-0.70); INR 1.4; Prothrombin Time 15.7 Seconds (9.4-12.1)
[2020-09-07] MEDS: Cefepime HCl 2,000 MG in Water for inj. (sterile) 20 ML IVP SCH (19:52)
[2020-09-07] MEDS: Heparin 25,000UNIT/250ML 1/2NS 25,000 UNIT/250 ML IV.SOLN IVC SCH (19:59)
[2020-09-07] MEDS: Insulin LISPRO 300 UNITS/3 ML VIAL SUBQ SCH (20:05)
[2020-09-07] MEDS ORDERED: Acetaminophen 325 MG TABLET PO PRN (20:12)
[2020-09-07] MEDS ORDERED: Insulin DETEMIR 100 UNIT/ML X5UNITS SUBQ SCH (21:00)
[2020-09-07] MEDS ORDERED: Insulin LISPRO 300 UNITS/3 ML VIAL SUBQ SCH (21:00)
[2020-09-07] MEDS ORDERED: Ringers Solution, Lactated 1,000 ML IVC ONE (21:03)
[2020-09-07] MEDS ORDERED: Piperacillin/Tazobactam 3.375 GM in 0.9 % Sodium Chloride Mini Bag 100 ML IVPB SCH (22:00)
[2020-09-07] MEDS: Budesonide/Formoterol 160/4.5 1 PUFF INH IH SCH (22:32)
[2020-09-07 23:42] LABS: Bilirubin,Urine Negative (Negative); Blood,Urine Negative (Negative); Clarity,Urine Clear (Clear); Color,Urine Colorless (Yellow); Glucose,Urine (UA) >=1000 mg/dL (Normal); Ketones,Urine Negative (Negative); Leukocyte Esterase,Urine Small (Negative); Nitrite,Urine Negative (Negative); Protein,Urine Trace mg/dL (Neg-Trace); RBC,Urine 0-3 per hpf (0-3); Specific Gravity,Urine 1.014 (1.010-1.025); Urobilinogen,Urine Normal (Normal)
[2020-09-08 02:38] LABS: Basophils % 0.1 %; Hematocrit 28.8 % (35.3-44.9); Hemoglobin 8.9 g/dL (11.5-15.4); Immature Granulocytes % 0.7 % (0-4); Lymphocytes # 0.8 K/mcL (0.6-4.6); Lymphocytes % 4.9 %; Mean Corpuscular HGB Conc 30.9 g/dL (31.6-35.5); Mean Corpuscular Hemoglobin 26.6 pg (28.0-33.3); Mean Corpuscular Volume 86.2 fL (83.0-100.0); Mean Platelet Volume 10.4 fL (9.4-12.4); Monocytes # 0.2 K/mcL (0.0-1.3); Monocytes % 1.2 %; Neutrophils # 15.5 K/mcL (1.6-8.9); Platelet Count 281 K/mcL (140-400); Red Blood Count 3.34 M/mcL (3.82-4.97); Red Cell Distribution Width 15.6 % (11.5-14.5); Segmented Neutrophils % 93.1 %; White Blood Count 16.7 K/mcL (4.3-11.1)
[2020-09-08 02:54] LABS: % Iron Saturation 4 % (15-50); BUN/Creatinine Ratio 13 (6-26); Blood Urea Nitrogen 10 mg/dL (6-20); Calcium 8.4 mg/dL (8.6-10.3); Carbon Dioxide 19 mEq/L (23-29); Chloride 107 mEq/L (98-107); Glucose 331 mg/dL (70-105); Iron 12 mcg/dL (50-170); Osmolality,Calculated 292 (280-300); Potassium 3.9 mEq/L (3.5-5.1); Sodium 135 mEq/L (136-145); Transferrin 224 mg/dL (203-362); eGFR For African Americans > 60 (> 60); eGFR For Non-African Americans > 60 (> 60)
[2020-09-08] MEDS ORDERED: Vancomycin 1,250 MG/262.5 ML IV.SOLN IVPB SCH (03:00)
[2020-09-08 03:12] LABS: Ferritin 64 ng/mL (10-120)
[2020-09-08] MEDS: Ipratropium/Albuterol Neb 3 ML IH SCH ×3 (03:57→15:35)
[2020-09-08] MEDS: MethylPREDNISolone 40 MG/ML VIAL IVP SCH ×3 (04:28→12:14)
[2020-09-08] MEDS: Cefepime HCl 2,000 MG in Water for inj. (sterile) 20 ML IVP SCH (06:15)
[2020-09-08] MEDS ORDERED: Iron Sucrose Complex 400 MG in 0.9 % Sodium Chloride 250 ML IVPB ONE (07:42)
[2020-09-08] MEDS: Budesonide/Formoterol 160/4.5 1 PUFF INH IH SCH (08:03)
[2020-09-08] MEDS ORDERED: Insulin DETEMIR 100 UNIT/ML X5UNITS SUBQ SCH (09:00)
[2020-09-08] MEDS ORDERED: Furosemide 40 MG/4 ML VIAL IVP SCH (09:00)
[2020-09-08] MEDS: Insulin LISPRO 300 UNITS/3 ML VIAL SUBQ SCH (09:24)
[2020-09-08] MEDS ORDERED: Isovue-370 500 ML BOTTLE IVP ONE (09:55)
[2020-09-08] MEDS ORDERED: *HR* LORazepam 2 MG/ML VIAL IVP ONE (10:50)
[2020-09-08] MEDS ORDERED: Haloperidol Lactate 5 MG/ML VIAL IVP ONE ×2 (11:00→11:22)
[2020-09-08] MEDS ORDERED: *HR* Adenosine 6 MG/2 ML VIAL IVP ONE (11:02)
[2020-09-08] MEDS ORDERED: *HR* Adenosine 12 MG/4 ML VIAL IVP ONE (11:05)
[2020-09-08] MEDS ORDERED: *HR* Metoprolol 5 MG/5 ML VIAL IVP ONE ×2 (11:12→11:20)
[2020-09-08] MEDS ORDERED: Morphine Sulfate 2 MG/ML SYRINGE IVP ONE (11:30)
[2020-09-08] MEDS ORDERED: Furosemide 20 MG/2 ML VIAL IVP ONE (11:38)
[2020-09-08] MEDS ORDERED: Furosemide 40 MG/4 ML VIAL IVP ONE (11:38)
[2020-09-08 11:45] LABS: ABG Base Excess -6 mEq/L (-2 to 3); ABG HCO3 20 mEq/L (21-27); ABG Oxygen Saturation 97 % (95-98); ABG PCO2 43 mmHg (35-45); ABG PH 7.28 pH Units (7.32-7.45); ABG PO2 106 mmHg (85-104); ABG TCO2 22 mEq/L (20-26); Blood Gas Modality BiLevel
[2020-09-08] MEDS ORDERED: Insulin LISPRO 300 UNITS/3 ML VIAL SUBQ SCH (12:24)
[2020-09-08] MEDS: Heparin 25,000UNIT/250ML 1/2NS 25,000 UNIT/250 ML IV.SOLN IVC SCH (14:01)
[2020-09-08 15:10] LABS: Hematocrit 29.1 % (35.3-44.9); Hemoglobin 9.2 g/dL (11.5-15.4); Mean Corpuscular HGB Conc 31.6 g/dL (31.6-35.5); Mean Corpuscular Hemoglobin 26.9 pg (28.0-33.3); Mean Corpuscular Volume 85.1 fL (83.0-100.0); Mean Platelet Volume 10.3 fL (9.4-12.4); Platelet Count 301 K/mcL (140-400); Red Blood Count 3.42 M/mcL (3.82-4.97); Red Cell Distribution Width 15.4 % (11.5-14.5); White Blood Count 21.1 K/mcL (4.3-11.1)
[2020-09-08 15:29] LABS: BUN/Creatinine Ratio 17 (6-26); Blood Urea Nitrogen 13 mg/dL (6-20); Calcium 8.7 mg/dL (8.6-10.3); Carbon Dioxide 19 mEq/L (23-29); Chloride 107 mEq/L (98-107); Glucose 274 mg/dL (70-105); Magnesium 1.4 mg/dL (1.6-2.6); Osmolality,Calculated 292 (280-300); Potassium 3.5 mEq/L (3.5-5.1); Sodium 136 mEq/L (136-145); eGFR For African Americans > 60 (> 60); eGFR For Non-African Americans > 60 (> 60)
[2020-09-08] MEDS ORDERED: methylPREDNISolone 125 MG/2 ML VIAL IVP SCH (16:00)
[2020-09-08] MEDS ORDERED: Azithromycin 500 MG in 0.9 % Sodium Chloride 250 ML IVPB SCH (16:00)
[2020-09-08 16:53] LABS: Complement C3 178 mg/dL (87-200)
[2020-09-08 17:32] VITALS: BP 121/84
[2020-09-08] MEDS ORDERED: Doxycycline 100 MG in 0.9 % Sodium Chloride Mini Bag 100 ML IVPB SCH (18:00)
[2020-09-09] MEDS ORDERED: Iron Sucrose Complex 200 MG in 0.9 % Sodium Chloride 100 ML IVPB SCH (09:00)
== END 2020-09-08 17:02 | disposition short-term general hospital (02) | DRG 871 ==
LOC: EMEROOARM 13:56 → 2ANU 17:15 → SUATTDRO 17:15 → 2ANU 18:29 → ICNU 09-08 12:09
PROVIDERS: ADMIT Internal Medicine; ATTEND Internal Medicine

== ENCOUNTER 2020-11-29 10:30 | Inpatient (IN) ==
[2020-11-29] MEDS ORDERED: Azithromycin 500 MG in 0.9 % Sodium Chloride 250 ML IVPB ONE (10:36)
[2020-11-29] MEDS ORDERED: methylPREDNISolone 125 MG/2 ML VIAL IVP ONE (10:36)
[2020-11-29] MEDS ORDERED: cefTRIAXone 1,000 MG in Water for inj. (sterile) 10 ML IVP ONE (10:36)
[2020-11-29] MEDS ORDERED: Ipratropium/Albuterol Neb 3 ML IH ONE (10:36)
[2020-11-29 10:45] LABS: ABG Base Excess -6 mEq/L (-2 to 3); ABG HCO3 20 mEq/L (21-27); ABG Oxygen Saturation 90 % (95-98); ABG PCO2 38 mmHg (35-45); ABG PH 7.33 pH Units (7.32-7.45); ABG PO2 62 mmHg (85-104); ABG TCO2 21 mEq/L (20-26)
[2020-11-29] MEDS ORDERED: Albuterol 2.5 MG/3 ML NEBULIZER ONE (10:45)
[2020-11-29 10:57] LABS: Basophils % 0.2 %; Hematocrit 29.1 % (35.3-44.9); Hemoglobin 9.3 g/dL (11.5-15.4); Immature Granulocytes % 0.6 % (0-4); Lymphocytes # 3.7 K/mcL (0.6-4.6); Lymphocytes % 16.4 %; Mean Corpuscular Hemoglobin 27.8 pg (28.0-33.3); Mean Corpuscular Volume 86.9 fL (83.0-100.0); Mean Platelet Volume 9.4 fL (9.4-12.4); Monocytes # 0.5 K/mcL (0.0-1.3); Monocytes % 2.1 %; Neutrophils # 18.1 K/mcL (1.6-8.9); Platelet Count 387 K/mcL (140-400); Red Blood Count 3.35 M/mcL (3.82-4.97); Segmented Neutrophils % 80.7 %; White Blood Count 22.4 K/mcL (4.3-11.1)
[2020-11-29 11:10] LABS: INR 1.2; Prothrombin Time 13.5 Seconds (9.4-12.1)
[2020-11-29 11:29] LABS: Calcium 9.2 mg/dL (8.6-10.3); Troponin I 0.04 ng/mL (< 0.04)
[2020-11-29] MEDS ORDERED: Ondansetron ODT 4 MG TAB.RAPDIS SL PRN ×2 (14:34→16:46)
[2020-11-29] MEDS ORDERED: Melatonin 3 MG TABLET PO PRN ×2 (14:34→16:46)
[2020-11-29] MEDS ORDERED: Naloxone 0.4 MG/ML INJ IVP PRN ×2 (14:34→16:46)
[2020-11-29] MEDS ORDERED: Dextrose Gel 15 GM/37.5 ML TUBE PO PRN ×4 (14:45→16:46)
[2020-11-29] MEDS ORDERED: Budesonide/Formoterol 160/4.5 1 PUFF INH IH SCH (14:45)
[2020-11-29] MEDS ORDERED: *HR* Dextrose 50 % in Water (Vial) 50 ML VIAL IVP PRN ×2 (14:45→16:46)
[2020-11-29] MEDS ORDERED: D5% in Water 1,000 ML IVC PRN ×2 (14:45→16:46)
[2020-11-29] MEDS ORDERED: 0.9 % Sodium Chloride 1,000 ML IVC SCH (15:00)
[2020-11-29] MEDS ORDERED: Acetaminophen 325 MG TABLET PO PRN (15:16)
[2020-11-29] MEDS ORDERED: Cefepime HCl 1,000 MG in Water for inj. (sterile) 10 ML IVP SCH (16:00)
[2020-11-29] MEDS ORDERED: Insulin LISPRO 300 UNITS/3 ML VIAL SUBQ SCH (16:30)
[2020-11-29] MEDS ORDERED: Albumin 25% 25gram/100mL 25 GM/100 ML IV.SOLN IVPB ONE ×2 (16:41→16:46)
[2020-11-29] MEDS ORDERED: Vancomycin 1,250 MG/262.5 ML IV.SOLN IVPB SCH (17:00)
[2020-11-29] MEDS ORDERED: Ipratropium/Albuterol Neb 3 ML IH SCH (17:00)
[2020-11-29] MEDS ORDERED: MethylPREDNISolone 40 MG/ML VIAL IVP SCH (18:00)
[2020-11-29] MEDS: Ipratropium/Albuterol Neb 3 ML IH SCH ×2 (18:17→22:16)
[2020-11-29] MEDS ORDERED: Insulin LISPRO 300 UNITS/3 ML VIAL SUBQ ONE (18:46)
[2020-11-29] MEDS: MethylPREDNISolone 40 MG/ML VIAL IVP SCH (18:57)
[2020-11-29 19:26] LABS: Bilirubin,Urine Negative (Negative); Blood,Urine Negative (Negative); Clarity,Urine Clear (Clear); Color,Urine Colorless (Yellow); Glucose,Urine (UA) >=1000 mg/dL (Normal); Ketones,Urine Negative (Negative); Leukocyte Esterase,Urine Negative (Negative); Nitrite,Urine Negative (Negative); Protein,Urine Negative (Neg-Trace); RBC,Urine 0-3 per hpf (0-3); Specific Gravity,Urine 1.018 (1.010-1.025); Squamous Epithelial Cell,Urine Few per hpf (None-Few); Urobilinogen,Urine Normal (Normal); WBC,Urine 0-3 per hpf (0-3)
[2020-11-29] MEDS: Insulin DETEMIR 100 UNIT/ML X5UNITS SUBQ SCH (19:56)
[2020-11-29] MEDS: Apixaban 5 MG TABLET PO SCH (19:57)
[2020-11-29] MEDS ORDERED: Insulin DETEMIR 100 UNIT/ML X5UNITS SUBQ SCH (21:00)
[2020-11-29 21:03] LABS: Adenovirus Not Detected (Not Detect); Bordetella Pertussis Not Detected (Not Detect); Chlamydophila pneumoniae Not Detected (Not Detect); Coronavirus 229E Not Detected (Not Detect); Coronavirus HKU1 Not Detected (Not Detect); Coronavirus NL63 Not Detected (Not Detect); Coronavirus OC43 Not Detected (Not Detect); Human Metapneumovirus Not Detected (Not Detect); Human Rhinovirus/Enterovirus Not Detected (Not Detect); Influenza A Subtype 2009 H1 Not Detected (Not Detect); Influenza B Not Detected (Not Detect); Mycoplasma pneumoniae Not Detected (Not Detect); Parainfluenza Virus 1 Not Detected (Not Detect); Parainfluenza Virus 2 Not Detected (Not Detect); Parainfluenza Virus 3 Not Detected (Not Detect); Parainfluenza Virus 4 Not Detected (Not Detect); Respiratory Syncytial Virus Not Detected (Not Detect); SARS-CoV-2 Not Detected (Not Detect)
[2020-11-29] MEDS: Budesonide/Formoterol 160/4.5 1 PUFF INH IH SCH (22:16)
[2020-11-30] MEDS ORDERED: Piperacillin/Tazobactam 3.375 GM in 0.9 % Sodium Chloride Mini Bag 100 ML IVPB SCH
[2020-11-30] MEDS: Piperacillin/Tazobactam 3.375 GM in 0.9 % Sodium Chloride Mini Bag 100 ML IVPB SCH ×3 (01:23→15:41)
[2020-11-30] MEDS: MethylPREDNISolone 40 MG/ML VIAL IVP SCH ×4 (01:23→17:11)
[2020-11-30] MEDS: Ipratropium/Albuterol Neb 3 ML IH SCH ×4 (04:04→21:53)
[2020-11-30 04:10] LABS: BUN/Creatinine Ratio 16 (6-26); Blood Urea Nitrogen 13 mg/dL (6-20); Calcium 9.8 mg/dL (8.6-10.3); Carbon Dioxide 23 mEq/L (23-29); Chloride 104 mEq/L (98-107); Glucose 214 mg/dL (70-105); Magnesium 1.6 mg/dL (1.6-2.6); Osmolality,Calculated 285 (280-300); Sodium 134 mEq/L (136-145); Troponin I 0.03 ng/mL (< 0.04); eGFR For African Americans > 60 (> 60); eGFR For Non-African Americans > 60 (> 60)
[2020-11-30 04:18] LABS: Basophils % 0.1 %; Hematocrit 28.9 % (35.3-44.9); Hemoglobin 9.3 g/dL (11.5-15.4); Immature Granulocytes % 0.4 % (0-4); Lymphocytes # 0.6 K/mcL (0.6-4.6); Lymphocytes % 3.3 %; Mean Corpuscular HGB Conc 32.2 g/dL (31.6-35.5); Mean Corpuscular Hemoglobin 27.3 pg (28.0-33.3); Mean Corpuscular Volume 84.8 fL (83.0-100.0); Mean Platelet Volume 9.4 fL (9.4-12.4); Monocytes # 0.2 K/mcL (0.0-1.3); Monocytes % 1.2 %; Neutrophils # 16.2 K/mcL (1.6-8.9); Platelet Count 366 K/mcL (140-400); Red Blood Count 3.41 M/mcL (3.82-4.97); Red Cell Distribution Width 14.1 % (11.5-14.5); White Blood Count 17.1 K/mcL (4.3-11.1)
[2020-11-30] MEDS ORDERED: *HR* LORazepam 2 MG/ML VIAL IVP ONE (04:52)
[2020-11-30] MEDS ORDERED: Insulin LISPRO 300 UNITS/3 ML VIAL SUBQ SCH (07:30)
[2020-11-30] MEDS ORDERED: Sodium Phosphate 30 MMOL in 0.9 % Sodium Chloride 100 ML IVPB ONE (07:30)
[2020-11-30] MEDS: Apixaban 5 MG TABLET PO SCH ×2 (07:34→20:28)
[2020-11-30] MEDS: Insulin LISPRO 300 UNITS/3 ML VIAL SUBQ SCH ×4 (07:50→20:27)
[2020-11-30] MEDS ORDERED: Albumin 25% 12.5gm/50mL 12.5 GM/50 ML IV.SOLN IVPB ONE (08:17)
[2020-11-30] MEDS ORDERED: Furosemide 40 MG/4 ML VIAL IVP ONE ×2 (08:18→16:49)
[2020-11-30] MEDS ORDERED: Azithromycin 250 MG TABLET PO SCH (09:00)
[2020-11-30] MEDS: Budesonide/Formoterol 160/4.5 1 PUFF INH IH SCH ×2 (10:50→21:53)
[2020-11-30] MEDS: Acetaminophen 325 MG TABLET PO PRN ×2 (11:03→17:12)
[2020-11-30] MEDS: *HR* LORazepam 0.5 MG TABLET PO PRN ×3 (11:31→20:28)
[2020-11-30 17:53] LABS: ABG Base Excess 1 mEq/L (-2 to 3); ABG HCO3 25 mEq/L (21-27); ABG Oxygen Saturation 96 % (95-98); ABG PCO2 37 mmHg (35-45); ABG PH 7.44 pH Units (7.32-7.45); ABG PO2 76 mmHg (85-104); ABG TCO2 26 mEq/L (20-26)
[2020-11-30] MEDS: Insulin DETEMIR 100 UNIT/ML X5UNITS SUBQ SCH (20:28)
[2020-12-01] MEDS: *HR* LORazepam 0.5 MG TABLET PO PRN ×2 (00:27→09:04)
[2020-12-01] MEDS: Piperacillin/Tazobactam 3.375 GM in 0.9 % Sodium Chloride Mini Bag 100 ML IVPB SCH ×3 (00:27→16:12)
[2020-12-01] MEDS: MethylPREDNISolone 40 MG/ML VIAL IVP SCH ×4 (00:28→17:59)
[2020-12-01] MEDS: Insulin LISPRO 300 UNITS/3 ML VIAL SUBQ SCH ×6 (00:36→20:10)
[2020-12-01 03:35] LABS: Hematocrit 28.8 % (35.3-44.9); Hemoglobin 9.4 g/dL (11.5-15.4); Immature Granulocytes % 0.6 % (0-4); Lymphocytes # 0.7 K/mcL (0.6-4.6); Lymphocytes % 4.4 %; Mean Corpuscular HGB Conc 32.6 g/dL (31.6-35.5); Mean Corpuscular Hemoglobin 27.2 pg (28.0-33.3); Mean Corpuscular Volume 83.5 fL (83.0-100.0); Mean Platelet Volume 9.3 fL (9.4-12.4); Monocytes # 0.3 K/mcL (0.0-1.3); Monocytes % 2.1 %; Neutrophils # 13.9 K/mcL (1.6-8.9); Platelet Count 409 K/mcL (140-400); Red Blood Count 3.45 M/mcL (3.82-4.97); Red Cell Distribution Width 14.4 % (11.5-14.5); Segmented Neutrophils % 92.9 %
[2020-12-01 03:51] LABS: BUN/Creatinine Ratio 22 (6-26); Blood Urea Nitrogen 20 mg/dL (6-20); Calcium 9.9 mg/dL (8.6-10.3); Carbon Dioxide 27 mEq/L (23-29); Chloride 101 mEq/L (98-107); Glucose 146 mg/dL (70-105); Osmolality,Calculated 291 (280-300); Potassium 3.4 mEq/L (3.5-5.1); Sodium 138 mEq/L (136-145); eGFR For African Americans > 60 (> 60); eGFR For Non-African Americans > 60 (> 60)
[2020-12-01] MEDS: Ipratropium/Albuterol Neb 3 ML IH SCH ×4 (03:59→22:02)
[2020-12-01] MEDS ORDERED: Furosemide 20 MG/2 ML VIAL IVP ONE (06:27)
[2020-12-01] MEDS: Apixaban 5 MG TABLET PO SCH ×2 (09:04→19:59)
[2020-12-01] MEDS: Acetaminophen 325 MG TABLET PO PRN ×2 (09:04→19:58)
[2020-12-01] MEDS: Budesonide/Formoterol 160/4.5 1 PUFF INH IH SCH ×2 (09:31→22:02)
[2020-12-01] MEDS ORDERED: *HR* LORazepam 2 MG/ML VIAL IVP ONE (11:58)
[2020-12-01] MEDS ORDERED: *HR* LORazepam 2 MG/ML VIAL ONE (11:59)
[2020-12-01] MEDS: Dexmedetomidine HCl 400 MCG/100 ML MLS IVC SCH ×2 (13:02→19:54)
[2020-12-01] MEDS: amLODIPine 5 MG TABLET PO SCH (13:02)
[2020-12-01] MEDS: Insulin DETEMIR 100 UNIT/ML X5UNITS SUBQ SCH (20:07)
[2020-12-01 21:45] LABS: Phosphorous 3.4 mg/dL (2.7-4.5); Potassium 3.4 mEq/L (3.5-5.1)
[2020-12-02] MEDS: Piperacillin/Tazobactam 3.375 GM in 0.9 % Sodium Chloride Mini Bag 100 ML IVPB SCH ×4 (00:02→23:55)
[2020-12-02] MEDS: MethylPREDNISolone 40 MG/ML VIAL IVP SCH ×5 (00:03→23:57)
[2020-12-02] MEDS: Insulin LISPRO 300 UNITS/3 ML VIAL SUBQ SCH ×6 (00:06→19:31)
[2020-12-02 03:41] LABS: Basophils % 0.1 %; Hematocrit 29.7 % (35.3-44.9); Hemoglobin 9.4 g/dL (11.5-15.4); Immature Granulocytes % 1.2 % (0-4); Lymphocytes # 0.8 K/mcL (0.6-4.6); Lymphocytes % 7.3 %; Mean Corpuscular HGB Conc 31.6 g/dL (31.6-35.5); Mean Corpuscular Hemoglobin 26.9 pg (28.0-33.3); Mean Corpuscular Volume 84.9 fL (83.0-100.0); Mean Platelet Volume 9.2 fL (9.4-12.4); Monocytes # 0.3 K/mcL (0.0-1.3); Monocytes % 2.9 %; Neutrophils # 9.5 K/mcL (1.6-8.9); Platelet Count 387 K/mcL (140-400); Red Cell Distribution Width 14.2 % (11.5-14.5); Segmented Neutrophils % 88.5 %; White Blood Count 10.8 K/mcL (4.3-11.1)
[2020-12-02 04:02] LABS: BUN/Creatinine Ratio 37 (6-26); Blood Urea Nitrogen 36 mg/dL (6-20); Calcium 10.1 mg/dL (8.6-10.3); Carbon Dioxide 27 mEq/L (23-29); Chloride 101 mEq/L (98-107); Glucose 164 mg/dL (70-105); Osmolality,Calculated 298 (280-300); Potassium 3.5 mEq/L (3.5-5.1); Sodium 138 mEq/L (136-145); eGFR For African Americans > 60 (> 60); eGFR For Non-African Americans 58 (> 60)
[2020-12-02] MEDS: Ipratropium/Albuterol Neb 3 ML IH SCH ×4 (04:39→22:54)
[2020-12-02] MEDS: Dexmedetomidine HCl 400 MCG/100 ML MLS IVC SCH ×3 (04:51→22:39)
[2020-12-02] MEDS: *HR* LORazepam 0.5 MG TABLET PO PRN ×3 (04:53→16:38)
[2020-12-02] MEDS: Acetaminophen 325 MG TABLET PO PRN ×2 (04:55→16:37)
[2020-12-02] MEDS ORDERED: Furosemide 40 MG/4 ML VIAL IVP ONE (07:49)
[2020-12-02] MEDS: amLODIPine 5 MG TABLET PO SCH (09:01)
[2020-12-02] MEDS: Apixaban 5 MG TABLET PO SCH ×2 (09:01→21:31)
[2020-12-02] MEDS: Budesonide/Formoterol 160/4.5 1 PUFF INH IH SCH ×2 (10:39→22:54)
[2020-12-02] MEDS: Insulin DETEMIR 100 UNIT/ML X5UNITS SUBQ SCH (21:30)
[2020-12-03] MEDS: Insulin LISPRO 300 UNITS/3 ML VIAL SUBQ SCH ×7 (03:20→23:09)
[2020-12-03 03:47] LABS: Basophils % 0.3 %; Hematocrit 29.8 % (35.3-44.9); Hemoglobin 9.8 g/dL (11.5-15.4); Immature Granulocytes % 1.8 % (0-4); Lymphocytes # 0.9 K/mcL (0.6-4.6); Lymphocytes % 9.6 %; Mean Corpuscular HGB Conc 32.9 g/dL (31.6-35.5); Mean Corpuscular Hemoglobin 27.5 pg (28.0-33.3); Mean Corpuscular Volume 83.7 fL (83.0-100.0); Mean Platelet Volume 9.4 fL (9.4-12.4); Monocytes # 0.4 K/mcL (0.0-1.3); Platelet Count 380 K/mcL (140-400); Red Blood Count 3.56 M/mcL (3.82-4.97); Red Cell Distribution Width 13.6 % (11.5-14.5); Segmented Neutrophils % 84.3 %; White Blood Count 9.5 K/mcL (4.3-11.1)
[2020-12-03 04:04] LABS: BUN/Creatinine Ratio 37 (6-26); Blood Urea Nitrogen 29 mg/dL (6-20); Calcium 9.6 mg/dL (8.6-10.3); Carbon Dioxide 27 mEq/L (23-29); Chloride 97 mEq/L (98-107); Glucose 232 mg/dL (70-105); Osmolality,Calculated 291 (280-300); Potassium 3.4 mEq/L (3.5-5.1); Sodium 134 mEq/L (136-145); eGFR For African Americans > 60 (> 60); eGFR For Non-African Americans > 60 (> 60)
[2020-12-03] MEDS: Ipratropium/Albuterol Neb 3 ML IH SCH ×4 (04:09→22:14)
[2020-12-03] MEDS: MethylPREDNISolone 40 MG/ML VIAL IVP SCH ×3 (05:51→17:24)
[2020-12-03] MEDS: Piperacillin/Tazobactam 3.375 GM in 0.9 % Sodium Chloride Mini Bag 100 ML IVPB SCH ×3 (08:35→23:06)
[2020-12-03] MEDS: Apixaban 5 MG TABLET PO SCH ×2 (08:36→20:53)
[2020-12-03] MEDS: amLODIPine 5 MG TABLET PO SCH (08:36)
[2020-12-03] MEDS: *HR* LORazepam 0.5 MG TABLET PO PRN ×2 (08:37→17:24)
[2020-12-03] MEDS: Dexmedetomidine HCl 400 MCG/100 ML MLS IVC SCH ×2 (08:37→16:46)
[2020-12-03] MEDS: Budesonide/Formoterol 160/4.5 1 PUFF INH IH SCH ×2 (10:48→22:15)
[2020-12-03] MEDS: Acetaminophen 325 MG TABLET PO PRN (12:15)
[2020-12-03] MEDS: Topiramate 100 MG TABLET PO SCH ×2 (15:11→20:53)
[2020-12-03] MEDS: QUEtiapine Fumarate 25 MG TABLET PO SCH (20:53)
[2020-12-03] MEDS: Insulin DETEMIR 100 UNIT/ML X5UNITS SUBQ SCH (20:53)
[2020-12-03] MEDS: Doxycycline 100 MG CAPSULE PO SCH (20:53)
[2020-12-04] MEDS: Dexmedetomidine HCl 400 MCG/100 ML MLS IVC SCH ×3 (02:20→20:49)
[2020-12-04 03:38] LABS: Basophils % 0.3 %; Hematocrit 30.3 % (35.3-44.9); Hemoglobin 9.7 g/dL (11.5-15.4); Immature Granulocytes % 2.2 % (0-4); Lymphocytes % 16.8 %; Mean Corpuscular Hemoglobin 27.1 pg (28.0-33.3); Mean Corpuscular Volume 84.6 fL (83.0-100.0); Mean Platelet Volume 9.2 fL (9.4-12.4); Monocytes # 0.4 K/mcL (0.0-1.3); Neutrophils # 9.4 K/mcL (1.6-8.9); Platelet Count 384 K/mcL (140-400); Red Blood Count 3.58 M/mcL (3.82-4.97); Red Cell Distribution Width 13.7 % (11.5-14.5); Segmented Neutrophils % 77.7 %; White Blood Count 12.2 K/mcL (4.3-11.1)
[2020-12-04] MEDS: Insulin LISPRO 300 UNITS/3 ML VIAL SUBQ SCH ×5 (03:44→20:44)
[2020-12-04 03:55] LABS: BUN/Creatinine Ratio 27 (6-26); Blood Urea Nitrogen 21 mg/dL (6-20); Calcium 9.2 mg/dL (8.6-10.3); Carbon Dioxide 26 mEq/L (23-29); Chloride 100 mEq/L (98-107); Glucose 193 mg/dL (70-105); Osmolality,Calculated 286 (280-300); Potassium 3.8 mEq/L (3.5-5.1); Sodium 134 mEq/L (136-145); eGFR For African Americans > 60 (> 60); eGFR For Non-African Americans > 60 (> 60)
[2020-12-04] MEDS: Ipratropium/Albuterol Neb 3 ML IH SCH ×4 (04:21→22:09)
[2020-12-04] MEDS: MethylPREDNISolone 40 MG/ML VIAL IVP SCH ×2 (05:01→16:27)
[2020-12-04] MEDS: Piperacillin/Tazobactam 3.375 GM in 0.9 % Sodium Chloride Mini Bag 100 ML IVPB SCH ×3 (08:32→23:58)
[2020-12-04] MEDS: amLODIPine 5 MG TABLET PO SCH (08:32)
[2020-12-04] MEDS: ARIPiprazole 5 MG TABLET PO SCH (08:32)
[2020-12-04] MEDS: Doxycycline 100 MG CAPSULE PO SCH ×2 (08:32→20:37)
[2020-12-04] MEDS: Apixaban 5 MG TABLET PO SCH ×2 (08:33→20:37)
[2020-12-04] MEDS: *HR* LORazepam 0.5 MG TABLET PO PRN ×2 (08:33→16:27)
[2020-12-04] MEDS: Insulin DETEMIR 100 UNIT/ML X5UNITS SUBQ SCH ×2 (08:33→20:43)
[2020-12-04] MEDS: Topiramate 100 MG TABLET PO SCH ×2 (08:33→20:37)
[2020-12-04] MEDS: Budesonide/Formoterol 160/4.5 1 PUFF INH IH SCH ×2 (09:31→22:09)
[2020-12-04] MEDS ORDERED: Acetaminophen/Butalbital/CaffeineTABLET PO PRN (16:24)
[2020-12-04] MEDS: QUEtiapine Fumarate 25 MG TABLET PO SCH (20:37)
[2020-12-05] MEDS: Insulin LISPRO 300 UNITS/3 ML VIAL SUBQ SCH ×6 (04:03→20:14)
[2020-12-05] MEDS: Ipratropium/Albuterol Neb 3 ML IH SCH ×4 (04:10→23:10)
[2020-12-05 05:34] LABS: Basophils # 0.1 K/mcL (0.0-0.2); Basophils % 0.5 %; Eosinophils # 0.2 K/mcL (0.0-0.6); Hemoglobin 10.1 g/dL (11.5-15.4); Immature Granulocytes % 3.1 % (0-4); Lymphocytes # 2.9 K/mcL (0.6-4.6); Lymphocytes % 20.1 %; Mean Corpuscular HGB Conc 31.6 g/dL (31.6-35.5); Mean Corpuscular Hemoglobin 27.1 pg (28.0-33.3); Mean Corpuscular Volume 85.8 fL (83.0-100.0); Mean Platelet Volume 9.4 fL (9.4-12.4); Monocytes # 0.3 K/mcL (0.0-1.3); Monocytes % 2.1 %; Neutrophils # 10.7 K/mcL (1.6-8.9); Platelet Count 378 K/mcL (140-400); Red Blood Count 3.73 M/mcL (3.82-4.97); Segmented Neutrophils % 73.2 %; White Blood Count 14.6 K/mcL (4.3-11.1)
[2020-12-05] MEDS: MethylPREDNISolone 40 MG/ML VIAL IVP SCH (05:43)
[2020-12-05 05:50] LABS: BUN/Creatinine Ratio 27 (6-26); Blood Urea Nitrogen 20 mg/dL (6-20); Calcium 9.6 mg/dL (8.6-10.3); Carbon Dioxide 24 mEq/L (23-29); Chloride 102 mEq/L (98-107); Glucose 119 mg/dL (70-105); Osmolality,Calculated 282 (280-300); Potassium 3.6 mEq/L (3.5-5.1); Sodium 134 mEq/L (136-145); eGFR For African Americans > 60 (> 60); eGFR For Non-African Americans > 60 (> 60)
[2020-12-05] MEDS: *HR* LORazepam 0.5 MG TABLET PO PRN ×3 (08:54→18:19)
[2020-12-05] MEDS: Topiramate 100 MG TABLET PO SCH ×2 (08:55→20:31)
[2020-12-05] MEDS: amLODIPine 5 MG TABLET PO SCH (08:55)
[2020-12-05] MEDS: Apixaban 5 MG TABLET PO SCH ×2 (08:55→20:30)
[2020-12-05] MEDS: ARIPiprazole 5 MG TABLET PO SCH (08:55)
[2020-12-05] MEDS: Doxycycline 100 MG CAPSULE PO SCH ×2 (08:55→20:30)
[2020-12-05] MEDS: Insulin DETEMIR 100 UNIT/ML X5UNITS SUBQ SCH ×2 (08:56→20:56)
[2020-12-05] MEDS: Piperacillin/Tazobactam 3.375 GM in 0.9 % Sodium Chloride Mini Bag 100 ML IVPB SCH ×3 (08:56→23:28)
[2020-12-05] MEDS ORDERED: Naloxone 0.4 MG/ML INJ IVP PRN (09:20)
[2020-12-05] MEDS ORDERED: *HR* Dextrose 50 % in Water (Vial) 50 ML VIAL IVP PRN (09:20)
[2020-12-05] MEDS ORDERED: Dexmedetomidine HCl 400 MCG/100 ML MLS IVC SCH (09:20)
[2020-12-05] MEDS ORDERED: D5% in Water 1,000 ML IVC PRN (09:20)
[2020-12-05] MEDS ORDERED: Dextrose Gel 15 GM/37.5 ML TUBE PO PRN ×2 (09:20)
[2020-12-05] MEDS: predniSONE 20 MG TABLET PO SCH (10:01)
[2020-12-05] MEDS: Acetaminophen/Butalbital/CaffeineTABLET PO PRN ×2 (10:09→18:19)
[2020-12-05] MEDS: Budesonide/Formoterol 160/4.5 1 PUFF INH IH SCH ×2 (10:30→23:09)
[2020-12-05] MEDS ORDERED: Amiodarone Premix 150 MG/100 ML BAG IVPB ONE (13:01)
[2020-12-05] MEDS: Ringers Solution, Lactated 250 ML IVC PRN ×2 (19:35→20:21)
[2020-12-05] MEDS ORDERED: Ringers Solution, Lactated 250 ML IVC PRN (20:13)
[2020-12-05] MEDS: Famotidine 20 MG TABLET PO SCH (20:30)
[2020-12-05] MEDS: QUEtiapine Fumarate 25 MG TABLET PO SCH (20:30)
[2020-12-05] MEDS: Melatonin 3 MG TABLET PO PRN (20:31)
[2020-12-06] MEDS: Insulin LISPRO 300 UNITS/3 ML VIAL SUBQ SCH ×6 (00:12→21:19)
[2020-12-06] MEDS: Ipratropium/Albuterol Neb 3 ML IH SCH ×4 (04:19→21:29)
[2020-12-06 04:27] LABS: Basophils # 0.2 K/mcL (0.0-0.2); Basophils % 0.7 %; Hematocrit 33.6 % (35.3-44.9); Hemoglobin 10.7 g/dL (11.5-15.4); Immature Granulocytes % 4.7 % (0-4); Lymphocytes # 4.9 K/mcL (0.6-4.6); Lymphocytes % 22.1 %; Mean Corpuscular HGB Conc 31.8 g/dL (31.6-35.5); Mean Corpuscular Hemoglobin 27.4 pg (28.0-33.3); Mean Corpuscular Volume 86.2 fL (83.0-100.0); Mean Platelet Volume 9.9 fL (9.4-12.4); Monocytes # 0.4 K/mcL (0.0-1.3); Monocytes % 1.9 %; Neutrophils # 15.6 K/mcL (1.6-8.9); Platelet Count 406 K/mcL (140-400); Red Cell Distribution Width 14.5 % (11.5-14.5); Segmented Neutrophils % 70.6 %
[2020-12-06 04:29] LABS: White Blood Count 22.1 K/mcL (4.3-11.1)
[2020-12-06 04:42] LABS: BUN/Creatinine Ratio 27 (6-26); Blood Urea Nitrogen 20 mg/dL (6-20); Carbon Dioxide 23 mEq/L (23-29); Chloride 105 mEq/L (98-107); Glucose 100 mg/dL (70-105); Osmolality,Calculated 287 (280-300); Potassium 3.4 mEq/L (3.5-5.1); Sodium 137 mEq/L (136-145); eGFR For African Americans > 60 (> 60); eGFR For Non-African Americans > 60 (> 60)
[2020-12-06] MEDS: *HR* LORazepam 0.5 MG TABLET PO PRN ×2 (08:03→16:27)
[2020-12-06] MEDS: Piperacillin/Tazobactam 3.375 GM in 0.9 % Sodium Chloride Mini Bag 100 ML IVPB SCH (08:03)
[2020-12-06] MEDS: amLODIPine 5 MG TABLET PO SCH (08:04)
[2020-12-06] MEDS: predniSONE 20 MG TABLET PO SCH (08:04)
[2020-12-06] MEDS: Doxycycline 100 MG CAPSULE PO SCH ×2 (08:05→21:20)
[2020-12-06] MEDS: Ondansetron ODT 4 MG TAB.RAPDIS SL PRN (08:05)
[2020-12-06] MEDS: ARIPiprazole 5 MG TABLET PO SCH (08:05)
[2020-12-06] MEDS: Topiramate 100 MG TABLET PO SCH ×2 (08:06→21:20)
[2020-12-06] MEDS: Apixaban 5 MG TABLET PO SCH ×2 (08:06→21:20)
[2020-12-06] MEDS: Insulin DETEMIR 100 UNIT/ML X5UNITS SUBQ SCH ×2 (08:36→21:19)
[2020-12-06] MEDS: Budesonide/Formoterol 160/4.5 1 PUFF INH IH SCH ×2 (11:01→21:29)
[2020-12-06] MEDS: Acetaminophen/Butalbital/CaffeineTABLET PO PRN (16:27)
[2020-12-06] MEDS: Famotidine 20 MG TABLET PO SCH (21:19)
[2020-12-06] MEDS: QUEtiapine Fumarate 25 MG TABLET PO SCH (21:20)
[2020-12-07] MEDS: Insulin LISPRO 300 UNITS/3 ML VIAL SUBQ SCH ×6 (00:29→21:12)
[2020-12-07] MEDS: *HR* LORazepam 0.5 MG TABLET PO PRN ×4 (01:43→20:59)
[2020-12-07] MEDS: Acetaminophen 325 MG TABLET PO PRN (01:43)
[2020-12-07] MEDS: Ipratropium/Albuterol Neb 3 ML IH SCH ×4 (04:00→21:34)
[2020-12-07 06:57] LABS: Hematocrit 35.1 % (35.3-44.9); Hemoglobin 10.9 g/dL (11.5-15.4); Mean Corpuscular HGB Conc 31.1 g/dL (31.6-35.5); Mean Corpuscular Hemoglobin 26.6 pg (28.0-33.3); Mean Corpuscular Volume 85.6 fL (83.0-100.0); Mean Platelet Volume 9.6 fL (9.4-12.4); Platelet Count 461 K/mcL (140-400); Red Cell Distribution Width 14.3 % (11.5-14.5); White Blood Count 20.1 K/mcL (4.3-11.1)
[2020-12-07 07:16] LABS: BUN/Creatinine Ratio 23 (6-26); Blood Urea Nitrogen 15 mg/dL (6-20); Calcium 9.5 mg/dL (8.6-10.3); Carbon Dioxide 24 mEq/L (23-29); Chloride 104 mEq/L (98-107); Glucose 105 mg/dL (70-105); Osmolality,Calculated 281 (280-300); Potassium 3.6 mEq/L (3.5-5.1); Sodium 135 mEq/L (136-145); eGFR For African Americans > 60 (> 60); eGFR For Non-African Americans > 60 (> 60)
[2020-12-07 07:24] LABS: Eosinophils # 0.8 K/mcL (0.0-0.6); Lymphocytes # 6.8 K/mcL (0.6-4.6); Monocytes # 0.8 K/mcL (0.0-1.3); Neutrophils # 11.7 K/mcL (1.6-8.9); Platelet Estimate Normal (Normal)
[2020-12-07 07:25] LABS: Reactive Lymphocytes Present (Not Present)
[2020-12-07] MEDS: Doxycycline 100 MG CAPSULE PO SCH ×2 (07:26→21:00)
[2020-12-07] MEDS: amLODIPine 5 MG TABLET PO SCH (07:26)
[2020-12-07] MEDS: ARIPiprazole 5 MG TABLET PO SCH (07:26)
[2020-12-07] MEDS: Apixaban 5 MG TABLET PO SCH ×2 (07:27→21:00)
[2020-12-07] MEDS: predniSONE 20 MG TABLET PO SCH (07:27)
[2020-12-07] MEDS: Insulin DETEMIR 100 UNIT/ML X5UNITS SUBQ SCH ×2 (07:28→21:12)
[2020-12-07] MEDS: Topiramate 100 MG TABLET PO SCH ×2 (07:39→21:05)
[2020-12-07] MEDS: Budesonide/Formoterol 160/4.5 1 PUFF INH IH SCH ×2 (09:38→21:33)
[2020-12-07] MEDS: Lactobacillus 1 EACH CAP.SPRINK PO SCH (10:29)
[2020-12-07] MEDS: Ondansetron ODT 4 MG TAB.RAPDIS SL PRN (12:47)
[2020-12-07] MEDS: QUEtiapine Fumarate 25 MG TABLET PO SCH (20:59)
[2020-12-07] MEDS: Famotidine 20 MG TABLET PO SCH (21:00)
[2020-12-08] MEDS: Insulin LISPRO 300 UNITS/3 ML VIAL SUBQ SCH ×5 (01:52→22:20)
[2020-12-08] MEDS: Ipratropium/Albuterol Neb 3 ML IH SCH ×4 (03:27→22:55)
[2020-12-08 04:23] LABS: Basophils # 0.1 K/mcL (0.0-0.2); Basophils % 0.5 %; Hematocrit 35.2 % (35.3-44.9); Immature Granulocytes % 4.3 % (0-4); Lymphocytes # 6.1 K/mcL (0.6-4.6); Lymphocytes % 31.9 %; Mean Corpuscular HGB Conc 31.3 g/dL (31.6-35.5); Mean Corpuscular Hemoglobin 26.4 pg (28.0-33.3); Mean Corpuscular Volume 84.4 fL (83.0-100.0); Mean Platelet Volume 9.7 fL (9.4-12.4); Monocytes # 0.5 K/mcL (0.0-1.3); Monocytes % 2.8 %; Neutrophils # 11.5 K/mcL (1.6-8.9); Platelet Count 500 K/mcL (140-400); Red Blood Count 4.17 M/mcL (3.82-4.97); Red Cell Distribution Width 14.2 % (11.5-14.5); Segmented Neutrophils % 60.5 %
[2020-12-08 04:37] LABS: Platelet Estimate Increased (Normal); Reactive Lymphocytes Present (Not Present); Smudge Cells Present (Not Present)
[2020-12-08 04:42] LABS: BUN/Creatinine Ratio 18 (6-26); Blood Urea Nitrogen 13 mg/dL (6-20); Calcium 9.4 mg/dL (8.6-10.3); Carbon Dioxide 23 mEq/L (23-29); Chloride 102 mEq/L (98-107); Glucose 102 mg/dL (70-105); Osmolality,Calculated 280 (280-300); Potassium 3.3 mEq/L (3.5-5.1); Sodium 135 mEq/L (136-145); eGFR For African Americans > 60 (> 60); eGFR For Non-African Americans > 60 (> 60)
[2020-12-08] MEDS ORDERED: Potassium Chloride Elixir 20 MEQ/15 ML UDC PO ONE (07:46)
[2020-12-08] MEDS: Insulin DETEMIR 100 UNIT/ML X5UNITS SUBQ SCH ×2 (09:15→22:20)
[2020-12-08] MEDS: Apixaban 5 MG TABLET PO SCH ×2 (09:16→19:57)
[2020-12-08] MEDS: Topiramate 100 MG TABLET PO SCH ×2 (09:17→19:57)
[2020-12-08] MEDS: amLODIPine 5 MG TABLET PO SCH (09:17)
[2020-12-08] MEDS: Doxycycline 100 MG CAPSULE PO SCH ×2 (09:17→19:57)
[2020-12-08] MEDS: Lactobacillus 1 EACH CAP.SPRINK PO SCH (09:17)
[2020-12-08] MEDS: ARIPiprazole 5 MG TABLET PO SCH (09:17)
[2020-12-08] MEDS: predniSONE 20 MG TABLET PO SCH (09:18)
[2020-12-08] MEDS: Budesonide/Formoterol 160/4.5 1 PUFF INH IH SCH ×2 (11:02→22:55)
[2020-12-08] MEDS: Ondansetron ODT 4 MG TAB.RAPDIS SL PRN (16:28)
[2020-12-08] MEDS: *HR* LORazepam 0.5 MG TABLET PO PRN (17:26)
[2020-12-08] MEDS: QUEtiapine Fumarate 25 MG TABLET PO SCH (19:57)
[2020-12-08] MEDS: Famotidine 20 MG TABLET PO SCH (19:57)
[2020-12-08] MEDS: Melatonin 3 MG TABLET PO PRN (22:21)
[2020-12-08] MEDS: Acetaminophen 325 MG TABLET PO PRN (22:21)
[2020-12-09 02:33] LABS: Basophils # 0.1 K/mcL (0.0-0.2); Basophils % 0.5 %; Hematocrit 33.5 % (35.3-44.9); Hemoglobin 10.6 g/dL (11.5-15.4); Immature Granulocytes % 2.9 % (0-4); Lymphocytes # 4.7 K/mcL (0.6-4.6); Lymphocytes % 27.3 %; Mean Corpuscular HGB Conc 31.6 g/dL (31.6-35.5); Mean Corpuscular Hemoglobin 26.6 pg (28.0-33.3); Mean Corpuscular Volume 84.2 fL (83.0-100.0); Mean Platelet Volume 9.5 fL (9.4-12.4); Monocytes # 0.6 K/mcL (0.0-1.3); Monocytes % 3.6 %; Neutrophils # 11.3 K/mcL (1.6-8.9); Platelet Count 483 K/mcL (140-400); Red Blood Count 3.98 M/mcL (3.82-4.97); Segmented Neutrophils % 65.7 %; White Blood Count 17.2 K/mcL (4.3-11.1)
[2020-12-09 02:55] LABS: BUN/Creatinine Ratio 21 (6-26); Blood Urea Nitrogen 16 mg/dL (6-20); Calcium 9.3 mg/dL (8.6-10.3); Carbon Dioxide 24 mEq/L (23-29); Chloride 104 mEq/L (98-107); Glucose 137 mg/dL (70-105); Osmolality,Calculated 287 (280-300); Potassium 3.7 mEq/L (3.5-5.1); Sodium 137 mEq/L (136-145); eGFR For African Americans > 60 (> 60); eGFR For Non-African Americans > 60 (> 60)
[2020-12-09 03:02] LABS: Hypochromasia Present (Not Present)
[2020-12-09] MEDS: Ipratropium/Albuterol Neb 3 ML IH SCH ×4 (04:00→21:19)
[2020-12-09] MEDS: predniSONE 20 MG TABLET PO SCH (08:44)
[2020-12-09] MEDS: Apixaban 5 MG TABLET PO SCH ×2 (08:44→20:57)
[2020-12-09] MEDS: amLODIPine 5 MG TABLET PO SCH (08:45)
[2020-12-09] MEDS: Topiramate 100 MG TABLET PO SCH ×2 (08:45→20:57)
[2020-12-09] MEDS: ARIPiprazole 5 MG TABLET PO SCH (08:45)
[2020-12-09] MEDS: Lactobacillus 1 EACH CAP.SPRINK PO SCH (08:45)
[2020-12-09] MEDS: Insulin DETEMIR 100 UNIT/ML X5UNITS SUBQ SCH ×2 (08:46→20:58)
[2020-12-09] MEDS: Insulin LISPRO 300 UNITS/3 ML VIAL SUBQ SCH ×4 (08:48→21:00)
[2020-12-09] MEDS: Budesonide/Formoterol 160/4.5 1 PUFF INH IH SCH ×2 (12:05→21:20)
[2020-12-09] MEDS: modafiniL 100 MG TABLET PO SCH (16:03)
[2020-12-09] MEDS: *HR* LORazepam 0.5 MG TABLET PO PRN ×2 (16:03→21:00)
[2020-12-09] MEDS: Sucralfate 1 GM TABLET PO SCH (20:57)
[2020-12-09] MEDS: QUEtiapine Fumarate 25 MG TABLET PO SCH (20:57)
[2020-12-09] MEDS: Famotidine 20 MG TABLET PO SCH (20:57)
[2020-12-09] MEDS: Pregabalin 50 MG CAPSULE PO SCH (20:57)
[2020-12-10] MEDS: Ipratropium/Albuterol Neb 3 ML IH SCH ×4 (03:52→22:32)
[2020-12-10] MEDS ORDERED: Furosemide 40 MG/4 ML VIAL IVP ONE (07:00)
[2020-12-10] MEDS: Insulin LISPRO 300 UNITS/3 ML VIAL SUBQ SCH ×4 (08:01→20:53)
[2020-12-10] MEDS: Acetaminophen/Butalbital/CaffeineTABLET PO PRN (08:09)
[2020-12-10] MEDS: Lactobacillus 1 EACH CAP.SPRINK PO SCH (08:10)
[2020-12-10] MEDS: ARIPiprazole 5 MG TABLET PO SCH (08:10)
[2020-12-10] MEDS: amLODIPine 5 MG TABLET PO SCH (08:10)
[2020-12-10] MEDS: Pregabalin 50 MG CAPSULE PO SCH ×2 (08:11→20:54)
[2020-12-10] MEDS: predniSONE 20 MG TABLET PO SCH (08:11)
[2020-12-10] MEDS: Sucralfate 1 GM TABLET PO SCH ×2 (08:11→20:55)
[2020-12-10] MEDS: Topiramate 100 MG TABLET PO SCH ×2 (08:11→20:54)
[2020-12-10] MEDS: BuPROPion XL (24 HR) 150 MG TABLET PO SCH (08:11)
[2020-12-10] MEDS: Apixaban 5 MG TABLET PO SCH ×2 (08:12→20:54)
[2020-12-10] MEDS: Insulin DETEMIR 100 UNIT/ML X5UNITS SUBQ SCH ×2 (08:13→20:54)
[2020-12-10 08:45] LABS: Hematocrit 35.1 % (35.3-44.9); Hemoglobin 11.2 g/dL (11.5-15.4); Mean Corpuscular HGB Conc 31.9 g/dL (31.6-35.5); Mean Corpuscular Hemoglobin 26.9 pg (28.0-33.3); Mean Corpuscular Volume 84.4 fL (83.0-100.0); Mean Platelet Volume 9.6 fL (9.4-12.4); Platelet Count 555 K/mcL (140-400); Red Blood Count 4.16 M/mcL (3.82-4.97); Red Cell Distribution Width 14.2 % (11.5-14.5); White Blood Count 22.2 K/mcL (4.3-11.1)
[2020-12-10 08:58] LABS: BUN/Creatinine Ratio 22 (6-26); Blood Urea Nitrogen 16 mg/dL (6-20); Carbon Dioxide 28 mEq/L (23-29); Chloride 101 mEq/L (98-107); Glucose 80 mg/dL (70-105); Osmolality,Calculated 280 (280-300); Potassium 3.4 mEq/L (3.5-5.1); Sodium 135 mEq/L (136-145); eGFR For African Americans > 60 (> 60); eGFR For Non-African Americans > 60 (> 60)
[2020-12-10] MEDS: Budesonide/Formoterol 160/4.5 1 PUFF INH IH SCH ×2 (10:55→22:32)
[2020-12-10 11:13] LABS: Calcium 9.6 mg/dL (8.6-10.3)
[2020-12-10] MEDS: modafiniL 100 MG TABLET PO SCH (12:16)
[2020-12-10] MEDS ORDERED: Isovue-370 500 ML BOTTLE IVP ONE (16:04)
[2020-12-10] MEDS ORDERED: Perflutren Lipid Microsphere 1.3 ML in 0.9 % Sodium Chloride 8.7 ML IVP PRN (16:06)
[2020-12-10] MEDS: *HR* LORazepam 0.5 MG TABLET PO PRN ×2 (17:49→22:18)
[2020-12-10] MEDS: Famotidine 20 MG TABLET PO SCH (20:54)
[2020-12-10] MEDS: QUEtiapine Fumarate 25 MG TABLET PO SCH (20:54)
[2020-12-11 02:22] LABS: Basophils # 0.1 K/mcL (0.0-0.2); Basophils % 0.3 %; Hematocrit 33.9 % (35.3-44.9); Hemoglobin 10.7 g/dL (11.5-15.4); Immature Granulocytes % 1.8 % (0-4); Lymphocytes # 5.3 K/mcL (0.6-4.6); Lymphocytes % 24.7 %; Mean Corpuscular HGB Conc 31.6 g/dL (31.6-35.5); Mean Corpuscular Volume 85.4 fL (83.0-100.0); Mean Platelet Volume 9.5 fL (9.4-12.4); Monocytes # 1.2 K/mcL (0.0-1.3); Monocytes % 5.4 %; Neutrophils # 14.6 K/mcL (1.6-8.9); Platelet Count 558 K/mcL (140-400); Red Blood Count 3.97 M/mcL (3.82-4.97); Red Cell Distribution Width 14.1 % (11.5-14.5); Segmented Neutrophils % 67.8 %; White Blood Count 21.5 K/mcL (4.3-11.1)
[2020-12-11 02:42] LABS: BUN/Creatinine Ratio 19 (6-26); Blood Urea Nitrogen 15 mg/dL (6-20); Calcium 9.6 mg/dL (8.6-10.3); Carbon Dioxide 27 mEq/L (23-29); Chloride 100 mEq/L (98-107); Glucose 151 mg/dL (70-105); Osmolality,Calculated 284 (280-300); Potassium 3.5 mEq/L (3.5-5.1); Sodium 135 mEq/L (136-145); eGFR For African Americans > 60 (> 60); eGFR For Non-African Americans > 60 (> 60)
[2020-12-11 03:04] LABS: Hypochromasia Present (Not Present); Platelet Estimate Marked Increase (Normal); Reactive Lymphocytes Present (Not Present)
[2020-12-11 03:05] LABS: Anisocytosis 1+ (Not Present)
[2020-12-11] MEDS: Ipratropium/Albuterol Neb 3 ML IH SCH ×4 (03:50→22:07)
[2020-12-11] MEDS: ARIPiprazole 5 MG TABLET PO SCH (09:24)
[2020-12-11] MEDS: BuPROPion XL (24 HR) 150 MG TABLET PO SCH (09:24)
[2020-12-11] MEDS: Sucralfate 1 GM TABLET PO SCH ×2 (09:25→21:58)
[2020-12-11] MEDS: Topiramate 100 MG TABLET PO SCH ×2 (09:25→21:58)
[2020-12-11] MEDS: predniSONE 20 MG TABLET PO SCH (09:25)
[2020-12-11] MEDS: Pregabalin 50 MG CAPSULE PO SCH ×2 (09:25→21:58)
[2020-12-11] MEDS: Lactobacillus 1 EACH CAP.SPRINK PO SCH (09:25)
[2020-12-11] MEDS: modafiniL 100 MG TABLET PO SCH (09:25)
[2020-12-11] MEDS: Apixaban 5 MG TABLET PO SCH ×2 (09:25→21:58)
[2020-12-11] MEDS: amLODIPine 5 MG TABLET PO SCH (09:25)
[2020-12-11] MEDS: Insulin LISPRO 300 UNITS/3 ML VIAL SUBQ SCH ×4 (09:26→21:58)
[2020-12-11] MEDS: Insulin DETEMIR 100 UNIT/ML X5UNITS SUBQ SCH ×2 (09:26→21:58)
[2020-12-11] MEDS: Budesonide/Formoterol 160/4.5 1 PUFF INH IH SCH ×2 (10:35→22:08)
[2020-12-11] MEDS ORDERED: Furosemide 40 MG/4 ML VIAL IVP ONE (10:36)
[2020-12-11] MEDS ORDERED: Baclofen 10 MG TABLET PO PRN (17:17)
[2020-12-11] MEDS: Acetaminophen 325 MG TABLET PO PRN (18:51)
[2020-12-11] MEDS: Famotidine 20 MG TABLET PO SCH (21:57)
[2020-12-11] MEDS: QUEtiapine Fumarate 25 MG TABLET PO SCH (21:58)
[2020-12-11] MEDS: *HR* LORazepam 0.5 MG TABLET PO PRN (21:58)
[2020-12-12 01:47] LABS: Basophils # 0.1 K/mcL (0.0-0.2); Basophils % 0.5 %; Hematocrit 33.6 % (35.3-44.9); Hemoglobin 10.4 g/dL (11.5-15.4); Immature Granulocytes % 1.7 % (0-4); Lymphocytes # 4.8 K/mcL (0.6-4.6); Lymphocytes % 28.5 %; Mean Corpuscular Hemoglobin 26.3 pg (28.0-33.3); Mean Corpuscular Volume 85.1 fL (83.0-100.0); Mean Platelet Volume 10.2 fL (9.4-12.4); Neutrophils # 10.6 K/mcL (1.6-8.9); Platelet Count 554 K/mcL (140-400); Red Blood Count 3.95 M/mcL (3.82-4.97); Red Cell Distribution Width 14.1 % (11.5-14.5); Segmented Neutrophils % 63.3 %; White Blood Count 16.8 K/mcL (4.3-11.1)
[2020-12-12 02:04] LABS: BUN/Creatinine Ratio 16 (6-26); Blood Urea Nitrogen 18 mg/dL (6-20); Calcium 9.5 mg/dL (8.6-10.3); Carbon Dioxide 26 mEq/L (23-29); Chloride 97 mEq/L (98-107); Glucose 168 mg/dL (70-105); Osmolality,Calculated 288 (280-300); Potassium 3.4 mEq/L (3.5-5.1); Sodium 136 mEq/L (136-145); eGFR For African Americans > 60 (> 60); eGFR For Non-African Americans 50 (> 60)
[2020-12-12 02:11] LABS: Anisocytosis 1+ (Not Present); Platelet Estimate Normal (Normal); Reactive Lymphocytes Present (Not Present)
[2020-12-12] MEDS: Ipratropium/Albuterol Neb 3 ML IH SCH ×3 (03:44→15:16)
[2020-12-12] MEDS: Pregabalin 50 MG CAPSULE PO SCH ×2 (08:29→20:45)
[2020-12-12] MEDS: modafiniL 100 MG TABLET PO SCH (08:30)
[2020-12-12] MEDS: amLODIPine 5 MG TABLET PO SCH (08:30)
[2020-12-12] MEDS: Sucralfate 1 GM TABLET PO SCH ×2 (08:30→20:44)
[2020-12-12] MEDS: ARIPiprazole 5 MG TABLET PO SCH (08:30)
[2020-12-12] MEDS: Topiramate 100 MG TABLET PO SCH ×2 (08:30→20:44)
[2020-12-12] MEDS: Lactobacillus 1 EACH CAP.SPRINK PO SCH (08:30)
[2020-12-12] MEDS: predniSONE 20 MG TABLET PO SCH (08:31)
[2020-12-12] MEDS: BuPROPion XL (24 HR) 150 MG TABLET PO SCH (08:31)
[2020-12-12] MEDS: Apixaban 5 MG TABLET PO SCH ×2 (08:31→20:44)
[2020-12-12] MEDS: Insulin LISPRO 300 UNITS/3 ML VIAL SUBQ SCH ×4 (08:32→21:11)
[2020-12-12] MEDS: Insulin DETEMIR 100 UNIT/ML X5UNITS SUBQ SCH ×2 (08:41→21:11)
[2020-12-12 11:03] LABS: Hematocrit 33.7 % (35.3-44.9); Hemoglobin 10.4 g/dL (11.5-15.4); Mean Corpuscular HGB Conc 30.9 g/dL (31.6-35.5); Mean Corpuscular Hemoglobin 26.4 pg (28.0-33.3); Mean Corpuscular Volume 85.5 fL (83.0-100.0); Platelet Count 586 K/mcL (140-400); Red Blood Count 3.94 M/mcL (3.82-4.97); Red Cell Distribution Width 14.1 % (11.5-14.5); White Blood Count 22.8 K/mcL (4.3-11.1)
[2020-12-12] MEDS: Budesonide/Formoterol 160/4.5 1 PUFF INH IH SCH (11:06)
[2020-12-12 11:19] LABS: BUN/Creatinine Ratio 23 (6-26); Blood Urea Nitrogen 21 mg/dL (6-20); Calcium 9.4 mg/dL (8.6-10.3); Carbon Dioxide 23 mEq/L (23-29); Chloride 102 mEq/L (98-107); Glucose 191 mg/dL (70-105); Osmolality,Calculated 288 (280-300); Potassium 3.9 mEq/L (3.5-5.1); Sodium 135 mEq/L (136-145); eGFR For African Americans > 60 (> 60); eGFR For Non-African Americans > 60 (> 60)
[2020-12-12 11:29] LABS: Eosinophils # 0.7 K/mcL (0.0-0.6); Lymphocytes # 4.1 K/mcL (0.6-4.6); Monocytes # 0.7 K/mcL (0.0-1.3); Neutrophils # 17.3 K/mcL (1.6-8.9); Platelet Estimate Increased (Normal); Reactive Lymphocytes Present (Not Present)
[2020-12-12] MEDS ORDERED: Furosemide 40 MG/4 ML VIAL IVP ONE (17:19)
[2020-12-12] MEDS: Sulfamethoxazole/Trimeth SS 1 TAB PO SCH (17:22)
[2020-12-12] MEDS: QUEtiapine Fumarate 25 MG TABLET PO SCH (20:44)
[2020-12-12] MEDS: Famotidine 20 MG TABLET PO SCH (20:44)
[2020-12-12] MEDS: *HR* LORazepam 0.5 MG TABLET PO PRN (20:59)
[2020-12-13] MEDS: Budesonide/Formoterol 160/4.5 1 PUFF INH IH SCH ×3 (00:19→22:38)
[2020-12-13] MEDS: Ipratropium/Albuterol Neb 3 ML IH SCH ×5 (00:19→22:38)
[2020-12-13 02:41] LABS: Hemoglobin 9.9 g/dL (11.5-15.4); Mean Corpuscular Hemoglobin 25.8 pg (28.0-33.3); Mean Corpuscular Volume 86.2 fL (83.0-100.0); Mean Platelet Volume 11.5 fL (9.4-12.4); Platelet Count 312 K/mcL (140-400); Red Blood Count 3.83 M/mcL (3.82-4.97); Red Cell Distribution Width 14.2 % (11.5-14.5); White Blood Count 17.4 K/mcL (4.3-11.1)
[2020-12-13 03:01] LABS: BUN/Creatinine Ratio 26 (6-26); Blood Urea Nitrogen 20 mg/dL (6-20); Calcium 8.9 mg/dL (8.6-10.3); Carbon Dioxide 23 mEq/L (23-29); Chloride 102 mEq/L (98-107); Glucose 147 mg/dL (70-105); Osmolality,Calculated 287 (280-300); Potassium 3.3 mEq/L (3.5-5.1); Sodium 136 mEq/L (136-145); eGFR For African Americans > 60 (> 60); eGFR For Non-African Americans > 60 (> 60)
[2020-12-13] MEDS: modafiniL 100 MG TABLET PO SCH (08:33)
[2020-12-13] MEDS: Sulfamethoxazole/Trimeth SS 1 TAB PO SCH (08:34)
[2020-12-13] MEDS: Pregabalin 50 MG CAPSULE PO SCH ×2 (08:34→22:18)
[2020-12-13] MEDS: ARIPiprazole 5 MG TABLET PO SCH (08:34)
[2020-12-13] MEDS: BuPROPion XL (24 HR) 150 MG TABLET PO SCH (08:35)
[2020-12-13] MEDS: amLODIPine 5 MG TABLET PO SCH (08:36)
[2020-12-13] MEDS: predniSONE 20 MG TABLET PO SCH (08:36)
[2020-12-13] MEDS: Lactobacillus 1 EACH CAP.SPRINK PO SCH (08:36)
[2020-12-13] MEDS: Insulin LISPRO 300 UNITS/3 ML VIAL SUBQ SCH ×4 (08:37→22:22)
[2020-12-13] MEDS: Sucralfate 1 GM TABLET PO SCH ×2 (08:37→22:17)
[2020-12-13] MEDS: Apixaban 5 MG TABLET PO SCH ×2 (08:37→22:17)
[2020-12-13] MEDS ORDERED: Isovue-370 500 ML BOTTLE IVP ONE (10:23)
[2020-12-13] MEDS: Insulin DETEMIR 100 UNIT/ML X5UNITS SUBQ SCH ×2 (10:23→22:23)
[2020-12-13] MEDS: Topiramate 100 MG TABLET PO SCH ×2 (10:25→22:18)
[2020-12-13] MEDS: *HR* LORazepam 0.5 MG TABLET PO PRN (15:00)
[2020-12-13] MEDS: QUEtiapine Fumarate 25 MG TABLET PO SCH (22:17)
[2020-12-13] MEDS: Famotidine 20 MG TABLET PO SCH (22:18)
[2020-12-14] MEDS: Ipratropium/Albuterol Neb 3 ML IH SCH (04:57)
[2020-12-14] MEDS: Acetaminophen/Butalbital/CaffeineTABLET PO PRN (05:51)
[2020-12-14] MEDS: *HR* LORazepam 0.5 MG TABLET PO PRN (05:51)
[2020-12-14 07:35] VITALS: BP 135/82; PULSE 95; TEMP 98.6; O2SAT 99
[2020-12-14] MEDS: Insulin LISPRO 300 UNITS/3 ML VIAL SUBQ SCH (07:38)
[2020-12-14] MEDS: Lactobacillus 1 EACH CAP.SPRINK PO SCH (07:50)
[2020-12-14] MEDS: modafiniL 100 MG TABLET PO SCH (07:50)
[2020-12-14] MEDS: BuPROPion XL (24 HR) 150 MG TABLET PO SCH (07:51)
[2020-12-14] MEDS: Sulfamethoxazole/Trimeth SS 1 TAB PO SCH (07:51)
[2020-12-14] MEDS: Pregabalin 50 MG CAPSULE PO SCH (07:51)
[2020-12-14] MEDS: predniSONE 20 MG TABLET PO SCH (07:52)
[2020-12-14] MEDS: amLODIPine 5 MG TABLET PO SCH (07:52)
[2020-12-14] MEDS: Apixaban 5 MG TABLET PO SCH (07:52)
[2020-12-14] MEDS: ARIPiprazole 5 MG TABLET PO SCH (07:52)
[2020-12-14] MEDS: Sucralfate 1 GM TABLET PO SCH (07:52)
[2020-12-14] MEDS: Topiramate 100 MG TABLET PO SCH (08:06)
[2020-12-14] MEDS: Insulin DETEMIR 100 UNIT/ML X5UNITS SUBQ SCH (08:06)
== END 2020-12-14 09:32 | disposition home or self-care (01) | DRG 871 ==
LOC: EMEROOARM 10:30 → 2ANU 10:30 → SUATTDRO 13:46 → ICNU 17:11 → 2ANU 12-05 11:53
PROVIDERS: ADMIT Internal Medicine; ATTEND Internal Medicine

== ENCOUNTER 2021-01-28 14:30 | Inpatient (IN) ==
[2021-01-28] MEDS ORDERED: cefTRIAXone 1,000 MG in Water for inj. (sterile) 10 ML IVP ONE (14:38)
[2021-01-28] MEDS ORDERED: Azithromycin 250 MG TABLET PO ONE (14:38)
[2021-01-28] MEDS ORDERED: methylPREDNISolone 125 MG/2 ML VIAL IVP ONE (14:38)
[2021-01-28] MEDS ORDERED: Ipratropium/Albuterol Neb 3 ML IH ONE ×2 (14:38→18:45)
[2021-01-28] MEDS ORDERED: Ketorolac 15 MG/ML VIAL IVP ONE (14:39)
[2021-01-28] MEDS ORDERED: 0.9 % Sodium Chloride 500 ML IVC ONE (14:55)
[2021-01-28 15:10] LABS: VBG HCO3 19 mEq/L (21-27); VBG PCO2 34 mmHg (41-51); VBG PH 7.36 pH Units (7.32-7.42); VBG PO2 49 mmHg (25-50)
[2021-01-28 15:16] LABS: Basophils # 0.1 K/mcL (0.0-0.2); Basophils % 0.3 %; Hematocrit 27.7 % (35.3-44.9); Hemoglobin 8.1 g/dL (11.5-15.4); Immature Granulocytes % 0.8 % (0-4); Lymphocytes # 1.8 K/mcL (0.6-4.6); Lymphocytes % 9.2 %; Mean Corpuscular HGB Conc 29.2 g/dL (31.6-35.5); Mean Corpuscular Volume 82.2 fL (83.0-100.0); Mean Platelet Volume 9.4 fL (9.4-12.4); Monocytes % 5.2 %; Neutrophils # 16.8 K/mcL (1.6-8.9); Platelet Count 475 K/mcL (140-400); Red Blood Count 3.37 M/mcL (3.82-4.97); Red Cell Distribution Width 15.5 % (11.5-14.5); Segmented Neutrophils % 84.5 %; White Blood Count 19.9 K/mcL (4.3-11.1)
[2021-01-28 15:44] LABS: Troponin I 0.08 ng/mL (< 0.04)
[2021-01-28 15:45] LABS: Alanine Aminotransferase 31 Units/L (7-52); Albumin 3.8 g/dL (3.5-5.7); Albumin/Globulin Ratio 1.2 (1.1-2.2); Alkaline Phosphatase 82 Units/L (34-104); Aspartate Amino Transferase 21 Units/L (13-39); BUN/Creatinine Ratio 13 (6-26); Bilirubin,Indirect 0.3 mg/dL (0.0-1.0); Bilirubin,Total 0.3 mg/dL (0.3-1.0); Blood Urea Nitrogen 10 mg/dL (6-20); Calcium 9.1 mg/dL (8.6-10.3); Carbon Dioxide 19 mEq/L (23-29); Chloride 101 mEq/L (98-107); Globulin 3.2 g/dL (2.4-3.5); Glucose 363 mg/dL (70-105); Magnesium 1.3 mg/dL (1.6-2.6); Osmolality,Calculated 294 (280-300); Potassium 3.6 mEq/L (3.5-5.1); Sodium 135 mEq/L (136-145); eGFR For African Americans > 60 (> 60); eGFR For Non-African Americans > 60 (> 60)
[2021-01-28] MEDS ORDERED: 0.9 % Sodium Chloride 1,000 ML IVC ONE (15:51)
[2021-01-28] MEDS ORDERED: Azithromycin 500 MG in 0.9 % Sodium Chloride 250 ML IVPB ONE (15:58)
[2021-01-28] MEDS ORDERED: Isovue-370 500 ML BOTTLE IVP ONE (16:20)
[2021-01-28 16:44] LABS: Influenza A PCR Negative (Negative); Influenza B PCR Negative (Negative); Resp. Syncytial Virus PCR Negative (Negative); SARS-CoV-2 by PCR (In House) Negative (Negative)
[2021-01-28] MEDS: Furosemide 40 MG/4 ML VIAL IVP ONE (18:48)
[2021-01-28 19:32] LABS: Thyroid Stimulating Hormone 2.192 mcIU/mL (0.340-5.600)
[2021-01-28] MEDS ORDERED: Melatonin 3 MG TABLET PO PRN (19:41)
[2021-01-28] MEDS ORDERED: Naloxone 0.4 MG/ML INJ IVP PRN (19:41)
[2021-01-28] MEDS ORDERED: Dextrose Gel 15 GM/37.5 ML TUBE PO PRN ×2 (19:59)
[2021-01-28] MEDS ORDERED: *HR* Dextrose 50 % in Water (Syg) 50 ML SYRINGE IVP PRN (19:59)
[2021-01-28] MEDS ORDERED: D5% in Water 1,000 ML IVC PRN (19:59)
[2021-01-28] MEDS ORDERED: Insulin LISPRO 300 UNITS/3 ML VIAL SUBQ SCH (21:00)
[2021-01-28] MEDS ORDERED: Iron Sucrose Complex 200 MG in 0.9 % Sodium Chloride 100 ML IVPB ONE (21:28)
[2021-01-28] MEDS ORDERED: Vancomycin 1,750 MG/517.5 ML IV.SOLN IVPB ONE (22:00)
[2021-01-28] MEDS ORDERED: Morphine Sulfate 2 MG/ML SYRINGE IVP ONE (23:52)
[2021-01-28] MEDS ORDERED: *HR* Labetalol 20 MG/4 ML SYRINGE IVP ONE ×2 (23:54→23:59)
[2021-01-28] MEDS ORDERED: *HR* Metoprolol 5 MG/5 ML VIAL IVP PRN (23:55)
[2021-01-28] MEDS ORDERED: *HR* Adenosine 6 MG/2 ML VIAL IVP ONE (23:56)
[2021-01-28] MEDS ORDERED: *HR* Metoprolol 5 MG/5 ML VIAL IVP ONE (23:58)
[2021-01-28] MEDS: Insulin DETEMIR 100 UNIT/ML X5UNITS SUBQ SCH (23:58)
[2021-01-29 00:02] LABS: ABG Base Excess -4 mEq/L (-2 to 3); ABG HCO3 22 mEq/L (21-27); ABG Oxygen Saturation 96 % (95-98); ABG PCO2 41 mmHg (35-45); ABG PH 7.34 pH Units (7.32-7.45); ABG PO2 84 mmHg (85-104); ABG TCO2 23 mEq/L (20-26); Blood Gas VT 400 cc
[2021-01-29] MEDS ORDERED: *HR* LORazepam 2 MG/ML VIAL IVP ONE (00:08)
[2021-01-29] MEDS ORDERED: *HR* LORazepam 2 MG/ML VIAL ONE (00:10)
[2021-01-29] MEDS ORDERED: Furosemide 20 MG/2 ML VIAL IVP ONE (00:14)
[2021-01-29] MEDS: Pantoprazole 40 MG VIAL IVP SCH ×3 (00:16→20:39)
[2021-01-29] MEDS: Furosemide 20 MG/2 ML VIAL IVP ONE (00:19)
[2021-01-29] MEDS ORDERED: Furosemide 40 MG/4 ML VIAL ONE (00:31)
[2021-01-29] MEDS: Furosemide 40 MG/4 ML VIAL IVP ONE (00:33)
[2021-01-29 00:50] LABS: Basophils % 0.1 %; Hematocrit 28.7 % (35.3-44.9); Hemoglobin 8.6 g/dL (11.5-15.4); Immature Granulocytes % 0.9 % (0-4); Lymphocytes # 0.5 K/mcL (0.6-4.6); Lymphocytes % 1.9 %; Mean Corpuscular Hemoglobin 24.9 pg (28.0-33.3); Mean Corpuscular Volume 82.9 fL (83.0-100.0); Mean Platelet Volume 9.6 fL (9.4-12.4); Monocytes # 0.7 K/mcL (0.0-1.3); Monocytes % 2.6 %; Platelet Count 543 K/mcL (140-400); Red Blood Count 3.46 M/mcL (3.82-4.97); Red Cell Distribution Width 15.9 % (11.5-14.5); Segmented Neutrophils % 94.5 %; White Blood Count 26.7 K/mcL (4.3-11.1)
[2021-01-29 00:51] LABS: Neutrophils # 25.2 K/mcL (1.6-8.9)
[2021-01-29] MEDS ORDERED: Acetaminophen IV 500 MG/50 ML BAG IVPB ONE (01:00)
[2021-01-29] MEDS ORDERED: Dexmedetomidine HCl 400 MCG/100 ML MLS IVC ONE (01:01)
[2021-01-29 01:04] LABS: BUN/Creatinine Ratio 13 (6-26); Blood Urea Nitrogen 12 mg/dL (6-20); Calcium 8.7 mg/dL (8.6-10.3); Carbon Dioxide 22 mEq/L (23-29); Chloride 102 mEq/L (98-107); Glucose 486 mg/dL (70-105); Magnesium 1.8 mg/dL (1.6-2.6); Osmolality,Calculated 307 (280-300); Potassium 4.4 mEq/L (3.5-5.1); Sodium 138 mEq/L (136-145); eGFR For African Americans > 60 (> 60); eGFR For Non-African Americans > 60 (> 60)
[2021-01-29] MEDS: Piperacillin/Tazobactam 3.375 GM in 0.9 % Sodium Chloride Mini Bag 100 ML IVPB SCH ×4 (01:07→23:51)
[2021-01-29] MEDS: Dexmedetomidine HCl 400 MCG/100 ML MLS IVC SCH ×6 (01:08→23:40)
[2021-01-29 01:14] LABS: Troponin I 0.11 ng/mL (< 0.04)
[2021-01-29] MEDS: MethylPREDNISolone 40 MG/ML VIAL IVP SCH ×4 (01:26→23:51)
[2021-01-29 01:28] LABS: Anisocytosis 1+ (Not Present); Folate 13.2 ng/mL (3.0-16.0); Platelet Estimate Normal (Normal)
[2021-01-29] MEDS ORDERED: Insulin LISPRO 300 UNITS/3 ML VIAL SUBQ SCH ×3 (01:51→07:30)
[2021-01-29 04:19] LABS: ABG Base Excess 1 mEq/L (-2 to 3); ABG HCO3 25 mEq/L (21-27); ABG Oxygen Saturation 94 % (95-98); ABG PCO2 38 mmHg (35-45); ABG PH 7.43 pH Units (7.32-7.45); ABG PO2 70 mmHg (85-104); ABG TCO2 27 mEq/L (20-26)
[2021-01-29] MEDS: Furosemide 40 MG/4 ML VIAL IVP SCH ×2 (08:32→20:39)
[2021-01-29 09:18] LABS: BUN/Creatinine Ratio 20 (6-26); Blood Urea Nitrogen 20 mg/dL (6-20); Calcium 9.3 mg/dL (8.6-10.3); Carbon Dioxide 26 mEq/L (23-29); Chloride 102 mEq/L (98-107); Glucose 435 mg/dL (70-105); Osmolality,Calculated 309 (280-300); Potassium 4.1 mEq/L (3.5-5.1); Sodium 139 mEq/L (136-145); Troponin I 0.11 ng/mL (< 0.04); eGFR For African Americans > 60 (> 60); eGFR For Non-African Americans 57 (> 60)
[2021-01-29] MEDS: Insulin DETEMIR 100 UNIT/ML X5UNITS SUBQ SCH (11:14)
[2021-01-29] MEDS ORDERED: *HR* Dextrose 50 % in Water (Syg) 50 ML SYRINGE IVP PRN (11:31)
[2021-01-29 20:46] LABS: BUN/Creatinine Ratio 30 (6-26); Blood Urea Nitrogen 27 mg/dL (6-20); Calcium 9.6 mg/dL (8.6-10.3); Carbon Dioxide 29 mEq/L (23-29); Chloride 107 mEq/L (98-107); Glucose 151 mg/dL (70-105); Osmolality,Calculated 306 (280-300); Potassium 3.5 mEq/L (3.5-5.1); Sodium 144 mEq/L (136-145); eGFR For African Americans > 60 (> 60); eGFR For Non-African Americans > 60 (> 60)
[2021-01-29 20:54] LABS: Troponin I 0.06 ng/mL (< 0.04)
[2021-01-29] MEDS ORDERED: Vancomycin 1,250 MG/262.5 ML IV.SOLN IVPB SCH (21:00)
[2021-01-29] MEDS: Doxycycline 100 MG in 0.9 % Sodium Chloride Mini Bag 100 ML IVPB SCH (23:52)
[2021-01-30] MEDS: Dexmedetomidine HCl 400 MCG/100 ML MLS IVC SCH ×5 (04:15→20:56)
[2021-01-30 04:54] LABS: ABG Base Excess 4 mEq/L (-2 to 3); ABG HCO3 29 mEq/L (21-27); ABG Oxygen Saturation 97 % (95-98); ABG PCO2 45 mmHg (35-45); ABG PH 7.42 pH Units (7.32-7.45); ABG PO2 89 mmHg (85-104); ABG TCO2 31 mEq/L (20-26)
[2021-01-30] MEDS: Acetaminophen 325 MG TABLET PO PRN ×2 (05:08→11:08)
[2021-01-30] MEDS: Piperacillin/Tazobactam 3.375 GM in 0.9 % Sodium Chloride Mini Bag 100 ML IVPB SCH ×3 (07:37→23:37)
[2021-01-30] MEDS: MethylPREDNISolone 40 MG/ML VIAL IVP SCH (07:37)
[2021-01-30 08:02] LABS: Hematocrit 26.1 % (35.3-44.9); Red Cell Distribution Width 16.1 % (11.5-14.5)
[2021-01-30 08:05] LABS: Hemoglobin 7.5 g/dL (11.5-15.4); Mean Corpuscular HGB Conc 28.7 g/dL (31.6-35.5); Mean Corpuscular Hemoglobin 24.3 pg (28.0-33.3); Mean Corpuscular Volume 84.5 fL (83.0-100.0); Platelet Count 404 K/mcL (140-400); Red Blood Count 3.09 M/mcL (3.82-4.97); White Blood Count 12.7 K/mcL (4.3-11.1)
[2021-01-30] MEDS: Furosemide 40 MG/4 ML VIAL IVP SCH ×2 (08:17→20:23)
[2021-01-30] MEDS: Pantoprazole 40 MG VIAL IVP SCH ×2 (08:17→20:23)
[2021-01-30 08:21] LABS: Potassium 3.1 mEq/L (3.5-5.1)
[2021-01-30 08:22] LABS: Calcium 9.7 mg/dL (8.6-10.3)
[2021-01-30] MEDS: Doxycycline 100 MG in 0.9 % Sodium Chloride Mini Bag 100 ML IVPB SCH (10:50)
[2021-01-30] MEDS ORDERED: Doxycycline 100 MG CAPSULE PO ONE (11:12)
[2021-01-30] MEDS: Insulin DETEMIR 100 UNIT/ML X5UNITS SUBQ SCH ×2 (13:03→20:38)
[2021-01-30] MEDS ORDERED: *HR* LORazepam 0.5 MG TABLET PO PRN (13:49)
[2021-01-30] MEDS: Topiramate 100 MG TABLET PO SCH ×2 (15:04→20:23)
[2021-01-30] MEDS: BuPROPion XL (24 HR) 150 MG TABLET PO SCH (15:04)
[2021-01-30] MEDS: Sulfamethoxazole/Trimeth DS 1 EACH TABLET PO SCH (15:04)
[2021-01-30] MEDS ORDERED: *HR* LORazepam 2 MG/ML VIAL ONE (15:35)
[2021-01-30] MEDS ORDERED: *HR* LORazepam 2 MG/ML VIAL IVP ONE ×2 (15:44→16:30)
[2021-01-30] MEDS ORDERED: Morphine Sulfate 2 MG/ML SYRINGE IVP ONE (16:13)
[2021-01-30] MEDS: Insulin LISPRO 300 UNITS/3 ML VIAL SUBQ SCH ×3 (16:31→20:24)
[2021-01-30] MEDS: Doxycycline 100 MG CAPSULE PO SCH (20:23)
[2021-01-30] MEDS: QUEtiapine Fumarate 100 MG TABLET PO SCH (20:23)
[2021-01-31] MEDS: Dexmedetomidine HCl 400 MCG/100 ML MLS IVC SCH ×7 (00:40→20:31)
[2021-01-31 05:06] LABS: Hematocrit 26.9 % (35.3-44.9); Hemoglobin 7.8 g/dL (11.5-15.4); Mean Corpuscular Hemoglobin 23.8 pg (28.0-33.3); Mean Platelet Volume 9.7 fL (9.4-12.4); Platelet Count 389 K/mcL (140-400); Red Blood Count 3.28 M/mcL (3.82-4.97); Red Cell Distribution Width 15.9 % (11.5-14.5); White Blood Count 12.5 K/mcL (4.3-11.1)
[2021-01-31 05:28] LABS: BUN/Creatinine Ratio 34 (6-26); Blood Urea Nitrogen 34 mg/dL (6-20); Calcium 9.4 mg/dL (8.6-10.3); Carbon Dioxide 29 mEq/L (23-29); Chloride 98 mEq/L (98-107); Glucose 128 mg/dL (70-105); Osmolality,Calculated 295 (280-300); Potassium 2.9 mEq/L (3.5-5.1); Sodium 138 mEq/L (136-145); eGFR For African Americans > 60 (> 60); eGFR For Non-African Americans 57 (> 60)
[2021-01-31] MEDS ORDERED: Potassium Chloride Elixir 20 MEQ/15 ML UDC PO ONE ×2 (06:15→13:45)
[2021-01-31] MEDS: Topiramate 100 MG TABLET PO SCH ×2 (08:04→20:39)
[2021-01-31] MEDS: Doxycycline 100 MG CAPSULE PO SCH ×2 (08:04→20:35)
[2021-01-31] MEDS: BuPROPion XL (24 HR) 150 MG TABLET PO SCH (08:04)
[2021-01-31] MEDS: Pantoprazole 40 MG VIAL IVP SCH ×2 (08:05→20:39)
[2021-01-31] MEDS: MethylPREDNISolone 40 MG/ML VIAL IVP SCH (08:05)
[2021-01-31] MEDS: Furosemide 40 MG/4 ML VIAL IVP SCH ×2 (08:05→20:38)
[2021-01-31] MEDS: Piperacillin/Tazobactam 3.375 GM in 0.9 % Sodium Chloride Mini Bag 100 ML IVPB SCH ×2 (08:05→17:41)
[2021-01-31] MEDS: Insulin LISPRO 300 UNITS/3 ML VIAL SUBQ SCH ×4 (08:15→20:36)
[2021-01-31] MEDS: Insulin DETEMIR 100 UNIT/ML X5UNITS SUBQ SCH ×2 (08:18→20:41)
[2021-01-31] MEDS: *HR* HYDROcodone/Acet 5/325 mg TABLET PO PRN ×2 (10:38→17:41)
[2021-01-31] MEDS: *HR* LORazepam 1 MG TABLET PO SCH ×2 (14:45→20:34)
[2021-01-31] MEDS: Famotidine 20 MG TABLET PO SCH ×2 (15:13→20:38)
[2021-01-31] MEDS: QUEtiapine Fumarate 100 MG TABLET PO SCH (20:39)
[2021-02-01] MEDS: Piperacillin/Tazobactam 3.375 GM in 0.9 % Sodium Chloride Mini Bag 100 ML IVPB SCH ×3 (02:36→14:55)
[2021-02-01] MEDS: Dexmedetomidine HCl 400 MCG/100 ML MLS IVC SCH ×6 (03:34→19:30)
[2021-02-01] MEDS: *HR* Heparin 5,000 UNIT/ML VIAL SQ SCH ×2 (05:09→17:32)
[2021-02-01 07:21] LABS: BUN/Creatinine Ratio 30 (6-26); Blood Urea Nitrogen 29 mg/dL (6-20); Calcium 9.5 mg/dL (8.6-10.3); Carbon Dioxide 26 mEq/L (23-29); Chloride 100 mEq/L (98-107); Glucose 87 mg/dL (70-105); Osmolality,Calculated 289 (280-300); Potassium 3.2 mEq/L (3.5-5.1); Sodium 137 mEq/L (136-145); eGFR For African Americans > 60 (> 60); eGFR For Non-African Americans 59 (> 60)
[2021-02-01] MEDS: MethylPREDNISolone 40 MG/ML VIAL IVP SCH ×3 (07:48→20:25)
[2021-02-01] MEDS: Furosemide 40 MG/4 ML VIAL IVP SCH ×2 (07:48→20:25)
[2021-02-01] MEDS: BuPROPion XL (24 HR) 150 MG TABLET PO SCH (07:48)
[2021-02-01] MEDS: Pantoprazole 40 MG VIAL IVP SCH ×2 (07:48→20:26)
[2021-02-01] MEDS: Topiramate 100 MG TABLET PO SCH ×2 (07:49→20:26)
[2021-02-01] MEDS: Doxycycline 100 MG CAPSULE PO SCH ×2 (07:49→20:26)
[2021-02-01] MEDS: *HR* LORazepam 1 MG TABLET PO SCH ×3 (07:49→20:25)
[2021-02-01] MEDS: Famotidine 20 MG TABLET PO SCH ×2 (07:49→20:26)
[2021-02-01] MEDS ORDERED: Potassium Chloride Elixir 20 MEQ/15 ML UDC PO ONE (08:37)
[2021-02-01 08:56] LABS: Hematocrit 29.1 % (35.3-44.9); Hemoglobin 8.6 g/dL (11.5-15.4); Mean Corpuscular HGB Conc 29.6 g/dL (31.6-35.5); Mean Corpuscular Hemoglobin 24.6 pg (28.0-33.3); Mean Corpuscular Volume 83.4 fL (83.0-100.0); Mean Platelet Volume 10.2 fL (9.4-12.4); Platelet Count 403 K/mcL (140-400); Red Blood Count 3.49 M/mcL (3.82-4.97); Red Cell Distribution Width 16.4 % (11.5-14.5); White Blood Count 10.8 K/mcL (4.3-11.1)
[2021-02-01] MEDS: Insulin LISPRO 300 UNITS/3 ML VIAL SUBQ SCH ×4 (09:18→20:29)
[2021-02-01] MEDS: Insulin DETEMIR 100 UNIT/ML X5UNITS SUBQ SCH ×2 (10:00→20:30)
[2021-02-01] MEDS ORDERED: Perflutren Lipid Microsphere 1.3 ML in 0.9 % Sodium Chloride 8.7 ML IVP PRN (10:19)
[2021-02-01] MEDS: Sulfamethoxazole/Trimeth DS 1 EACH TABLET PO SCH (13:50)
[2021-02-01] MEDS: QUEtiapine Fumarate 100 MG TABLET PO SCH (20:25)
[2021-02-02] MEDS: Insulin DETEMIR 100 UNIT/ML X5UNITS SUBQ SCH ×2 (00:21→21:24)
[2021-02-02] MEDS: Dexmedetomidine HCl 400 MCG/100 ML MLS IVC SCH ×5 (00:24→21:16)
[2021-02-02] MEDS: Piperacillin/Tazobactam 3.375 GM in 0.9 % Sodium Chloride Mini Bag 100 ML IVPB SCH ×4 (00:27→23:42)
[2021-02-02] MEDS: *HR* Heparin 5,000 UNIT/ML VIAL SQ SCH ×2 (05:15→17:01)
[2021-02-02 07:12] LABS: Hematocrit 29.1 % (35.3-44.9); Hemoglobin 8.7 g/dL (11.5-15.4); Mean Corpuscular HGB Conc 29.9 g/dL (31.6-35.5); Mean Corpuscular Hemoglobin 24.6 pg (28.0-33.3); Mean Corpuscular Volume 82.4 fL (83.0-100.0); Mean Platelet Volume 10.2 fL (9.4-12.4); Platelet Count 422 K/mcL (140-400); Red Blood Count 3.53 M/mcL (3.82-4.97); Red Cell Distribution Width 16.6 % (11.5-14.5); White Blood Count 11.4 K/mcL (4.3-11.1)
[2021-02-02 07:30] LABS: BUN/Creatinine Ratio 34 (6-26); Blood Urea Nitrogen 35 mg/dL (6-20); Calcium 9.7 mg/dL (8.6-10.3); Carbon Dioxide 25 mEq/L (23-29); Chloride 98 mEq/L (98-107); Glucose 242 mg/dL (70-105); Osmolality,Calculated 294 (280-300); Potassium 3.7 mEq/L (3.5-5.1); Sodium 134 mEq/L (136-145); eGFR For African Americans > 60 (> 60); eGFR For Non-African Americans 55 (> 60)
[2021-02-02] MEDS: *HR* LORazepam 1 MG TABLET PO SCH ×3 (08:42→21:15)
[2021-02-02] MEDS: Doxycycline 100 MG CAPSULE PO SCH ×2 (08:42→21:14)
[2021-02-02] MEDS: *HR* HYDROcodone/Acet 5/325 mg TABLET PO PRN ×3 (08:42→21:14)
[2021-02-02] MEDS: Famotidine 20 MG TABLET PO SCH (08:42)
[2021-02-02] MEDS: Topiramate 100 MG TABLET PO SCH ×2 (08:42→21:14)
[2021-02-02] MEDS: MethylPREDNISolone 40 MG/ML VIAL IVP SCH ×2 (08:43→21:13)
[2021-02-02] MEDS: Pantoprazole 40 MG VIAL IVP SCH ×2 (08:43→21:13)
[2021-02-02] MEDS: Furosemide 40 MG/4 ML VIAL IVP SCH ×2 (08:43→17:01)
[2021-02-02] MEDS: Insulin LISPRO 300 UNITS/3 ML VIAL SUBQ SCH ×4 (08:43→21:29)
[2021-02-02] MEDS: BuPROPion XL (24 HR) 150 MG TABLET PO SCH (09:25)
[2021-02-02] MEDS ORDERED: Naloxone 0.4 MG/ML INJ IVP PRN (09:55)
[2021-02-02] MEDS ORDERED: *HR* Dextrose 50 % in Water (Syg) 50 ML SYRINGE IVP PRN (09:55)
[2021-02-02] MEDS ORDERED: *HR* Metoprolol 5 MG/5 ML VIAL IVP PRN (09:55)
[2021-02-02] MEDS: Sulfamethoxazole/Trimeth DS 1 EACH TABLET PO SCH (10:51)
[2021-02-02 12:14] LABS: Adenovirus Not Detected (Not Detect); Bordetella Pertussis Not Detected (Not Detect); Chlamydophila pneumoniae Not Detected (Not Detect); Coronavirus 229E Not Detected (Not Detect); Coronavirus HKU1 Not Detected (Not Detect); Coronavirus NL63 Not Detected (Not Detect); Coronavirus OC43 Not Detected (Not Detect); Human Metapneumovirus Not Detected (Not Detect); Human Rhinovirus/Enterovirus Not Detected (Not Detect); Influenza A Subtype 2009 H1 Not Detected (Not Detect); Influenza B Not Detected (Not Detect); Mycoplasma pneumoniae Not Detected (Not Detect); Parainfluenza Virus 1 Not Detected (Not Detect); Parainfluenza Virus 2 Not Detected (Not Detect); Parainfluenza Virus 3 Not Detected (Not Detect); Parainfluenza Virus 4 Not Detected (Not Detect); Respiratory Syncytial Virus Not Detected (Not Detect); SARS-CoV-2 Not Detected (Not Detect)
[2021-02-02] MEDS: Acetaminophen 325 MG TABLET PO PRN (12:44)
[2021-02-02] MEDS: QUEtiapine Fumarate 100 MG TABLET PO SCH (21:14)
[2021-02-03 02:00] LABS: Hematocrit 29.5 % (35.3-44.9); Mean Corpuscular HGB Conc 30.5 g/dL (31.6-35.5); Mean Corpuscular Hemoglobin 24.9 pg (28.0-33.3); Mean Corpuscular Volume 81.7 fL (83.0-100.0); Mean Platelet Volume 10.3 fL (9.4-12.4); Platelet Count 428 K/mcL (140-400); Red Blood Count 3.61 M/mcL (3.82-4.97); Red Cell Distribution Width 16.1 % (11.5-14.5); White Blood Count 13.5 K/mcL (4.3-11.1)
[2021-02-03 02:13] LABS: BUN/Creatinine Ratio 36 (6-26); Blood Urea Nitrogen 33 mg/dL (6-20); Calcium 9.6 mg/dL (8.6-10.3); Carbon Dioxide 28 mEq/L (23-29); Chloride 96 mEq/L (98-107); Glucose 163 mg/dL (70-105); Osmolality,Calculated 287 (280-300); Potassium 3.5 mEq/L (3.5-5.1); Sodium 133 mEq/L (136-145); eGFR For African Americans > 60 (> 60); eGFR For Non-African Americans > 60 (> 60)
[2021-02-03] MEDS: Dexmedetomidine HCl 400 MCG/100 ML MLS IVC SCH ×2 (03:16→08:37)
[2021-02-03] MEDS: *HR* HYDROcodone/Acet 5/325 mg TABLET PO PRN ×3 (03:19→21:19)
[2021-02-03] MEDS: *HR* Heparin 5,000 UNIT/ML VIAL SQ SCH ×2 (06:50→17:07)
[2021-02-03] MEDS: Piperacillin/Tazobactam 3.375 GM in 0.9 % Sodium Chloride Mini Bag 100 ML IVPB SCH ×2 (08:14→15:48)
[2021-02-03] MEDS: MethylPREDNISolone 40 MG/ML VIAL IVP SCH ×2 (08:16→21:25)
[2021-02-03] MEDS: Pantoprazole 40 MG VIAL IVP SCH ×2 (08:16→21:26)
[2021-02-03] MEDS: Famotidine 20 MG TABLET PO SCH (08:17)
[2021-02-03] MEDS: Doxycycline 100 MG CAPSULE PO SCH ×2 (08:17→21:19)
[2021-02-03] MEDS: Topiramate 100 MG TABLET PO SCH ×2 (08:18→21:18)
[2021-02-03] MEDS: BuPROPion XL (24 HR) 150 MG TABLET PO SCH (08:18)
[2021-02-03] MEDS: Insulin LISPRO 300 UNITS/3 ML VIAL SUBQ SCH ×4 (08:19→20:50)
[2021-02-03] MEDS: Insulin DETEMIR 100 UNIT/ML X5UNITS SUBQ SCH ×2 (08:27→21:19)
[2021-02-03] MEDS: *HR* LORazepam 1 MG TABLET PO SCH ×3 (08:31→21:19)
[2021-02-03] MEDS: modafiniL 100 MG TABLET PO SCH ×2 (09:50→11:35)
[2021-02-03] MEDS: Furosemide 40 MG/4 ML VIAL IVP SCH ×2 (09:51→17:08)
[2021-02-03] MEDS: Acetaminophen 325 MG TABLET PO PRN (17:07)
[2021-02-03] MEDS ORDERED: Ondansetron 4 MG/2 ML VIAL IVP PRN (18:41)
[2021-02-03] MEDS: *HR* Metoprolol 5 MG/5 ML VIAL IVP PRN (19:23)
[2021-02-03] MEDS ORDERED: Levalbuterol Neb 0.63 MG/3 ML IH PRN (19:56)
[2021-02-03] MEDS: QUEtiapine Fumarate 100 MG TABLET PO SCH (21:19)
[2021-02-04] MEDS: Piperacillin/Tazobactam 3.375 GM in 0.9 % Sodium Chloride Mini Bag 100 ML IVPB SCH ×3 (00:23→15:20)
[2021-02-04] MEDS ORDERED: Ipratropium/Albuterol Neb 3 ML IH PRN (00:46)
[2021-02-04 01:34] LABS: Hematocrit 37.6 % (35.3-44.9); Immature Platelets 8.2 % (1.1-6.1); Mean Corpuscular HGB Conc 29.3 g/dL (31.6-35.5); Mean Corpuscular Hemoglobin 23.8 pg (28.0-33.3); Mean Corpuscular Volume 81.4 fL (83.0-100.0); Mean Platelet Volume 10.7 fL (9.4-12.4); Platelet Count 571 K/mcL (140-400); Red Blood Count 4.62 M/mcL (3.82-4.97); Red Cell Distribution Width 16.6 % (11.5-14.5)
[2021-02-04 01:50] LABS: BUN/Creatinine Ratio 33 (6-26); Blood Urea Nitrogen 30 mg/dL (6-20); Calcium 10.1 mg/dL (8.6-10.3); Carbon Dioxide 27 mEq/L (23-29); Chloride 96 mEq/L (98-107); Glucose 89 mg/dL (70-105); Osmolality,Calculated 286 (280-300); Potassium 3.1 mEq/L (3.5-5.1); Sodium 135 mEq/L (136-145); eGFR For African Americans > 60 (> 60); eGFR For Non-African Americans > 60 (> 60)
[2021-02-04 01:57] LABS: Eosinophils # 0.4 K/mcL (0.0-0.6); Hypochromasia Present (Not Present); Large Platelets Present (Not Present); Lymphocytes # 7.2 K/mcL (0.6-4.6); Monocytes # 0.4 K/mcL (0.0-1.3); Neutrophils # 11.6 K/mcL (1.6-8.9); Platelet Estimate Marked Increase (Normal); Reactive Lymphocytes Present (Not Present)
[2021-02-04 01:58] LABS: Anisocytosis 1+ (Not Present)
[2021-02-04] MEDS: Budesonide/Formoterol 160/4.5 1 PUFF INH IH SCH ×3 (03:28→22:26)
[2021-02-04] MEDS: Levalbuterol Neb 1.25 MG/3 ML IH SCH ×4 (03:45→22:26)
[2021-02-04] MEDS: *HR* HYDROcodone/Acet 5/325 mg TABLET PO PRN ×2 (04:11→19:37)
[2021-02-04] MEDS: *HR* Heparin 5,000 UNIT/ML VIAL SQ SCH ×2 (05:18→16:38)
[2021-02-04] MEDS: *HR* Metoprolol 5 MG/5 ML VIAL IVP PRN (05:50)
[2021-02-04] MEDS: *HR* LORazepam 1 MG TABLET PO SCH ×3 (08:02→19:36)
[2021-02-04] MEDS: BuPROPion XL (24 HR) 150 MG TABLET PO SCH (08:02)
[2021-02-04] MEDS: Topiramate 100 MG TABLET PO SCH ×2 (08:02→19:36)
[2021-02-04] MEDS: Doxycycline 100 MG CAPSULE PO SCH ×2 (08:02→19:36)
[2021-02-04] MEDS: modafiniL 100 MG TABLET PO SCH (08:03)
[2021-02-04] MEDS: MethylPREDNISolone 40 MG/ML VIAL IVP SCH ×2 (08:03→19:37)
[2021-02-04] MEDS: Furosemide 40 MG/4 ML VIAL IVP SCH ×2 (08:04→15:21)
[2021-02-04] MEDS: Pantoprazole 40 MG VIAL IVP SCH ×3 (08:05→19:37)
[2021-02-04] MEDS: Insulin DETEMIR 100 UNIT/ML X5UNITS SUBQ SCH ×2 (08:05→20:38)
[2021-02-04] MEDS: Insulin LISPRO 300 UNITS/3 ML VIAL SUBQ SCH ×4 (08:05→20:38)
[2021-02-04] MEDS: Famotidine 20 MG TABLET PO SCH (08:20)
[2021-02-04] MEDS: Sulfamethoxazole/Trimeth DS 1 EACH TABLET PO SCH (08:22)
[2021-02-04] MEDS: QUEtiapine Fumarate 100 MG TABLET PO SCH (19:37)
[2021-02-04] MEDS: Melatonin 3 MG TABLET PO PRN (21:15)
[2021-02-05 01:07] LABS: Basophils # 0.2 K/mcL (0.0-0.2); Hematocrit 33.9 % (35.3-44.9); Immature Granulocytes % 5.8 % (0-4); Lymphocytes % 13.6 %; Mean Corpuscular HGB Conc 29.5 g/dL (31.6-35.5); Mean Corpuscular Hemoglobin 24.2 pg (28.0-33.3); Mean Corpuscular Volume 81.9 fL (83.0-100.0); Mean Platelet Volume 10.3 fL (9.4-12.4); Monocytes # 0.5 K/mcL (0.0-1.3); Monocytes % 2.8 %; Neutrophils # 13.2 K/mcL (1.6-8.9); Platelet Count 610 K/mcL (140-400); Red Blood Count 4.14 M/mcL (3.82-4.97); Red Cell Distribution Width 16.8 % (11.5-14.5); Segmented Neutrophils % 76.8 %; White Blood Count 17.2 K/mcL (4.3-11.1)
[2021-02-05 01:10] LABS: Lymphocytes # 2.3 K/mcL (0.6-4.6)
[2021-02-05 01:26] LABS: Anisocytosis 1+ (Not Present); Platelet Estimate Marked Increase (Normal)
[2021-02-05 01:27] LABS: Hypochromasia Present (Not Present); Polychromasia 1+ (Not Present)
[2021-02-05 02:02] LABS: BUN/Creatinine Ratio 28 (6-26); Blood Urea Nitrogen 29 mg/dL (6-20); Calcium 9.8 mg/dL (8.6-10.3); Carbon Dioxide 25 mEq/L (23-29); Chloride 95 mEq/L (98-107); Glucose 285 mg/dL (70-105); Osmolality,Calculated 290 (280-300); Potassium 3.7 mEq/L (3.5-5.1); Sodium 132 mEq/L (136-145); eGFR For African Americans > 60 (> 60); eGFR For Non-African Americans 55 (> 60)
[2021-02-05] MEDS: Piperacillin/Tazobactam 3.375 GM in 0.9 % Sodium Chloride Mini Bag 100 ML IVPB SCH ×3 (04:12→20:38)
[2021-02-05] MEDS: *HR* Heparin 5,000 UNIT/ML VIAL SQ SCH (04:12)
[2021-02-05] MEDS: Levalbuterol Neb 1.25 MG/3 ML IH SCH ×4 (04:16→21:46)
[2021-02-05] MEDS: *HR* HYDROcodone/Acet 5/325 mg TABLET PO PRN ×3 (05:07→20:34)
[2021-02-05] MEDS: Famotidine 20 MG TABLET PO SCH (07:15)
[2021-02-05] MEDS: BuPROPion XL (24 HR) 150 MG TABLET PO SCH (07:15)
[2021-02-05] MEDS: Topiramate 100 MG TABLET PO SCH ×2 (07:47→20:34)
[2021-02-05] MEDS: *HR* LORazepam 1 MG TABLET PO SCH ×3 (07:47→20:34)
[2021-02-05] MEDS: Doxycycline 100 MG CAPSULE PO SCH ×2 (07:47→20:33)
[2021-02-05] MEDS: modafiniL 100 MG TABLET PO SCH (07:48)
[2021-02-05] MEDS: MethylPREDNISolone 40 MG/ML VIAL IVP SCH ×2 (07:48→20:38)
[2021-02-05] MEDS: Pantoprazole 40 MG VIAL IVP SCH ×2 (07:49→20:38)
[2021-02-05] MEDS: Furosemide 40 MG/4 ML VIAL IVP SCH ×2 (07:49→16:44)
[2021-02-05] MEDS: Insulin LISPRO 300 UNITS/3 ML VIAL SUBQ SCH ×4 (07:50→20:46)
[2021-02-05] MEDS: Insulin DETEMIR 100 UNIT/ML X5UNITS SUBQ SCH ×2 (08:01→20:47)
[2021-02-05] MEDS: Budesonide/Formoterol 160/4.5 1 PUFF INH IH SCH ×2 (10:27→21:46)
[2021-02-05] MEDS: Apixaban 5 MG TABLET PO SCH ×2 (12:14→20:33)
[2021-02-05] MEDS: Acetaminophen 325 MG TABLET PO SCH ×3 (17:00→23:47)
[2021-02-05] MEDS: Melatonin 3 MG TABLET PO PRN (20:33)
[2021-02-05] MEDS: QUEtiapine Fumarate 100 MG TABLET PO SCH (20:34)
[2021-02-06] MEDS: Levalbuterol Neb 1.25 MG/3 ML IH SCH ×4 (04:15→21:54)
[2021-02-06] MEDS: Piperacillin/Tazobactam 3.375 GM in 0.9 % Sodium Chloride Mini Bag 100 ML IVPB SCH ×2 (04:23→13:04)
[2021-02-06] MEDS: Acetaminophen 325 MG TABLET PO SCH ×3 (05:21→18:52)
[2021-02-06] MEDS: Budesonide/Formoterol 160/4.5 1 PUFF INH IH SCH ×2 (08:12→21:54)
[2021-02-06] MEDS: modafiniL 100 MG TABLET PO SCH (08:25)
[2021-02-06] MEDS: Doxycycline 100 MG CAPSULE PO SCH (08:26)
[2021-02-06] MEDS: Famotidine 20 MG TABLET PO SCH (08:26)
[2021-02-06] MEDS: Insulin DETEMIR 100 UNIT/ML X5UNITS SUBQ SCH ×2 (08:26→20:09)
[2021-02-06] MEDS: Topiramate 100 MG TABLET PO SCH ×2 (08:26→20:08)
[2021-02-06] MEDS: Apixaban 5 MG TABLET PO SCH ×2 (08:26→20:08)
[2021-02-06] MEDS: BuPROPion XL (24 HR) 150 MG TABLET PO SCH (08:26)
[2021-02-06] MEDS: *HR* LORazepam 1 MG TABLET PO SCH ×3 (08:26→20:08)
[2021-02-06] MEDS: Furosemide 40 MG/4 ML VIAL IVP SCH ×2 (08:27→16:51)
[2021-02-06] MEDS: Pantoprazole 40 MG VIAL IVP SCH ×2 (08:27→20:06)
[2021-02-06] MEDS: MethylPREDNISolone 40 MG/ML VIAL IVP SCH ×2 (08:27→20:06)
[2021-02-06] MEDS: Insulin LISPRO 300 UNITS/3 ML VIAL SUBQ SCH ×4 (08:28→20:10)
[2021-02-06] MEDS: *HR* HYDROcodone/Acet 5/325 mg TABLET PO PRN ×2 (09:21→20:08)
[2021-02-06] MEDS: Sulfamethoxazole/Trimeth DS 1 EACH TABLET PO SCH (10:59)
[2021-02-06] MEDS: Melatonin 3 MG TABLET PO PRN (20:08)
[2021-02-06] MEDS: QUEtiapine Fumarate 100 MG TABLET PO SCH (20:08)
[2021-02-07] MEDS: Acetaminophen 325 MG TABLET PO SCH ×4 (00:18→17:36)
[2021-02-07] MEDS: Levalbuterol Neb 1.25 MG/3 ML IH SCH ×4 (03:55→20:54)
[2021-02-07 06:14] LABS: Basophils # 0.1 K/mcL (0.0-0.2); Basophils % 0.4 %; Hematocrit 30.6 % (35.3-44.9); Hemoglobin 9.2 g/dL (11.5-15.4); Immature Granulocytes % 4.4 % (0-4); Lymphocytes # 3.5 K/mcL (0.6-4.6); Lymphocytes % 23.9 %; Mean Corpuscular HGB Conc 30.1 g/dL (31.6-35.5); Mean Corpuscular Hemoglobin 24.7 pg (28.0-33.3); Mean Platelet Volume 10.3 fL (9.4-12.4); Monocytes # 0.7 K/mcL (0.0-1.3); Monocytes % 4.6 %; Neutrophils # 9.6 K/mcL (1.6-8.9); Platelet Count 556 K/mcL (140-400); Red Blood Count 3.73 M/mcL (3.82-4.97); Segmented Neutrophils % 66.7 %; White Blood Count 14.4 K/mcL (4.3-11.1)
[2021-02-07] MEDS: Apixaban 5 MG TABLET PO SCH ×2 (09:02→20:09)
[2021-02-07] MEDS: Topiramate 100 MG TABLET PO SCH ×2 (09:02→20:09)
[2021-02-07] MEDS: BuPROPion XL (24 HR) 150 MG TABLET PO SCH (09:02)
[2021-02-07] MEDS: *HR* LORazepam 1 MG TABLET PO SCH ×3 (09:02→20:09)
[2021-02-07] MEDS: modafiniL 100 MG TABLET PO SCH (09:02)
[2021-02-07] MEDS: MethylPREDNISolone 40 MG/ML VIAL IVP SCH ×2 (09:03→20:11)
[2021-02-07] MEDS: Famotidine 20 MG TABLET PO SCH (09:03)
[2021-02-07] MEDS: Furosemide 40 MG/4 ML VIAL IVP SCH ×2 (09:03→17:35)
[2021-02-07] MEDS: Insulin LISPRO 300 UNITS/3 ML VIAL SUBQ SCH ×4 (09:04→20:12)
[2021-02-07] MEDS: Pantoprazole 40 MG VIAL IVP SCH ×2 (09:04→20:11)
[2021-02-07] MEDS: Insulin DETEMIR 100 UNIT/ML X5UNITS SUBQ SCH ×2 (09:04→20:15)
[2021-02-07] MEDS: Budesonide/Formoterol 160/4.5 1 PUFF INH IH SCH ×2 (10:53→20:54)
[2021-02-07] MEDS: *HR* HYDROcodone/Acet 5/325 mg TABLET PO PRN ×2 (13:15→19:42)
[2021-02-07 14:19] LABS: C-Reactive Protein 8 mg/L (Less than 10)
[2021-02-07] MEDS: QUEtiapine Fumarate 100 MG TABLET PO SCH (20:09)
[2021-02-08] MEDS: Acetaminophen 325 MG TABLET PO SCH ×4 (00:30→18:00)
[2021-02-08] MEDS: Levalbuterol Neb 1.25 MG/3 ML IH SCH ×4 (04:38→22:41)
[2021-02-08 04:47] LABS: Basophils # 0.1 K/mcL (0.0-0.2); Basophils % 0.5 %; Hemoglobin 9.4 g/dL (11.5-15.4); Immature Granulocytes % 3.7 % (0-4); Lymphocytes # 3.4 K/mcL (0.6-4.6); Lymphocytes % 21.8 %; Mean Corpuscular HGB Conc 29.4 g/dL (31.6-35.5); Mean Corpuscular Hemoglobin 24.7 pg (28.0-33.3); Mean Platelet Volume 10.1 fL (9.4-12.4); Monocytes # 0.6 K/mcL (0.0-1.3); Monocytes % 3.8 %; Neutrophils # 10.9 K/mcL (1.6-8.9); Platelet Count 529 K/mcL (140-400); Red Blood Count 3.81 M/mcL (3.82-4.97); Red Cell Distribution Width 17.5 % (11.5-14.5); Segmented Neutrophils % 70.2 %; White Blood Count 15.4 K/mcL (4.3-11.1)
[2021-02-08 04:59] LABS: BUN/Creatinine Ratio 23 (6-26); Blood Urea Nitrogen 18 mg/dL (6-20); C-Reactive Protein < 5 mg/L (Less than 10); Calcium 9.3 mg/dL (8.6-10.3); Carbon Dioxide 24 mEq/L (23-29); Chloride 99 mEq/L (98-107); Glucose 287 mg/dL (70-105); Osmolality,Calculated 286 (280-300); Potassium 4.1 mEq/L (3.5-5.1); Sodium 132 mEq/L (136-145); eGFR For African Americans > 60 (> 60); eGFR For Non-African Americans > 60 (> 60)
[2021-02-08] MEDS: *HR* HYDROcodone/Acet 5/325 mg TABLET PO PRN ×3 (05:31→20:33)
[2021-02-08] MEDS: BuPROPion XL (24 HR) 150 MG TABLET PO SCH (10:06)
[2021-02-08] MEDS: *HR* LORazepam 1 MG TABLET PO SCH ×3 (10:07→20:34)
[2021-02-08] MEDS: modafiniL 100 MG TABLET PO SCH (10:07)
[2021-02-08] MEDS: Topiramate 100 MG TABLET PO SCH ×2 (10:07→20:34)
[2021-02-08] MEDS: Furosemide 40 MG/4 ML VIAL IVP SCH ×2 (10:08→18:00)
[2021-02-08] MEDS: Famotidine 20 MG TABLET PO SCH (10:08)
[2021-02-08] MEDS: Apixaban 5 MG TABLET PO SCH ×2 (10:08→20:34)
[2021-02-08] MEDS: Pantoprazole 40 MG VIAL IVP SCH ×2 (10:09→20:34)
[2021-02-08] MEDS: Insulin LISPRO 300 UNITS/3 ML VIAL SUBQ SCH ×4 (10:09→20:35)
[2021-02-08] MEDS: MethylPREDNISolone 40 MG/ML VIAL IVP SCH ×2 (10:09→20:34)
[2021-02-08] MEDS: Budesonide/Formoterol 160/4.5 1 PUFF INH IH SCH ×2 (10:27→22:40)
[2021-02-08] MEDS: Insulin DETEMIR 100 UNIT/ML X5UNITS SUBQ SCH ×2 (11:11→20:35)
[2021-02-08] MEDS: Melatonin 3 MG TABLET PO PRN (20:33)
[2021-02-08] MEDS: QUEtiapine Fumarate 100 MG TABLET PO SCH (20:33)
[2021-02-09] MEDS: Acetaminophen 325 MG TABLET PO SCH ×3 (00:55→12:48)
[2021-02-09] MEDS: Levalbuterol Neb 1.25 MG/3 ML IH SCH ×3 (03:48→15:03)
[2021-02-09] MEDS: Budesonide/Formoterol 160/4.5 1 PUFF INH IH SCH (07:21)
[2021-02-09] MEDS: Furosemide 40 MG/4 ML VIAL IVP SCH (09:10)
[2021-02-09] MEDS: MethylPREDNISolone 40 MG/ML VIAL IVP SCH (09:10)
[2021-02-09] MEDS: Pantoprazole 40 MG VIAL IVP SCH (09:10)
[2021-02-09] MEDS: *HR* LORazepam 1 MG TABLET PO SCH (09:11)
[2021-02-09] MEDS: modafiniL 100 MG TABLET PO SCH (09:11)
[2021-02-09] MEDS: Topiramate 100 MG TABLET PO SCH (09:12)
[2021-02-09] MEDS: BuPROPion XL (24 HR) 150 MG TABLET PO SCH (09:12)
[2021-02-09] MEDS: Famotidine 20 MG TABLET PO SCH (09:12)
[2021-02-09] MEDS: Apixaban 5 MG TABLET PO SCH (09:12)
[2021-02-09] MEDS: Insulin LISPRO 300 UNITS/3 ML VIAL SUBQ SCH ×2 (09:13→12:48)
[2021-02-09] MEDS: Insulin DETEMIR 100 UNIT/ML X5UNITS SUBQ SCH (09:23)
[2021-02-09 10:23] VITALS: BP 152/91; PULSE 111; TEMP 98.7
[2021-02-09 10:48] LABS: Hematocrit 34.8 % (35.3-44.9); Hemoglobin 10.2 g/dL (11.5-15.4); Mean Corpuscular HGB Conc 29.3 g/dL (31.6-35.5); Mean Corpuscular Hemoglobin 24.4 pg (28.0-33.3); Mean Corpuscular Volume 83.3 fL (83.0-100.0); Mean Platelet Volume 9.9 fL (9.4-12.4); Platelet Count 731 K/mcL (140-400); Red Blood Count 4.18 M/mcL (3.82-4.97); Red Cell Distribution Width 17.6 % (11.5-14.5); White Blood Count 20.9 K/mcL (4.3-11.1)
[2021-02-09 11:08] LABS: Eosinophils # 0.4 K/mcL (0.0-0.6); Lymphocytes # 5.9 K/mcL (0.6-4.6); Monocytes # 0.4 K/mcL (0.0-1.3); Neutrophils # 14.2 K/mcL (1.6-8.9)
[2021-02-09 11:10] LABS: BUN/Creatinine Ratio 25 (6-26); Blood Urea Nitrogen 19 mg/dL (6-20); Carbon Dioxide 24 mEq/L (23-29); Chloride 98 mEq/L (98-107); Glucose 213 mg/dL (70-105); Osmolality,Calculated 285 (280-300); Potassium 3.2 mEq/L (3.5-5.1); Sodium 133 mEq/L (136-145); eGFR For African Americans > 60 (> 60); eGFR For Non-African Americans > 60 (> 60)
[2021-02-09] MEDS ORDERED: predniSONE 20 MG TABLET PO ONE (11:32)
[2021-02-09] MEDS: *HR* HYDROcodone/Acet 5/325 mg TABLET PO PRN (12:47)
[2021-02-09 15:05] VITALS: O2SAT 95
== END 2021-02-09 16:39 | disposition home or self-care (01) | DRG 871 ==
LOC: EMEROOARM 14:30 → SUATTDRO 22:20 → 2NNU 22:20 → ICNU 01-29 00:44 → 2NNU 02-01 17:05 → 3NENU 02-05 14:35 → 3BNU 02-08 14:54
PROVIDERS: ADMIT Internal Medicine; ATTEND Internal Medicine

== ENCOUNTER 2021-03-29 18:30 | Inpatient (IN) ==
[2021-03-29 19:17] LABS: Basophils # 0.1 K/mcL (0.0-0.2); Basophils % 0.4 %; Eosinophils % 0.1 %; Hematocrit 31.6 % (35.3-44.9); Hemoglobin 9.5 g/dL (11.5-15.4); Immature Granulocytes % 1.3 % (0-4); Lymphocytes # 3.1 K/mcL (0.6-4.6); Lymphocytes % 18.9 %; Mean Corpuscular HGB Conc 30.1 g/dL (31.6-35.5); Mean Corpuscular Hemoglobin 25.1 pg (28.0-33.3); Mean Corpuscular Volume 83.4 fL (83.0-100.0); Mean Platelet Volume 10.1 fL (9.4-12.4); Monocytes # 1.1 K/mcL (0.0-1.3); Monocytes % 6.4 %; Platelet Count 525 K/mcL (140-400); Red Blood Count 3.79 M/mcL (3.82-4.97); Red Cell Distribution Width 16.3 % (11.5-14.5); Segmented Neutrophils % 72.9 %; White Blood Count 16.5 K/mcL (4.3-11.1)
[2021-03-29 19:25] LABS: INR 1.1; Prothrombin Time 11.8 Seconds (9.4-12.1)
[2021-03-29 19:25] LABS: VBG HCO3 26 mEq/L (21-27); VBG PCO2 31 mmHg (41-51); VBG PH 7.53 pH Units (7.32-7.42); VBG PO2 134 mmHg (25-50)
[2021-03-29 19:28] LABS: Activated Partial Thrombo Time 28.3 Seconds (26.0-36.0)
[2021-03-29 19:39] LABS: Influenza A PCR Negative (Negative); Influenza B PCR Negative (Negative); Resp. Syncytial Virus PCR Negative (Negative)
[2021-03-29 19:52] LABS: Bilirubin,Urine Negative (Negative); Blood,Urine Negative (Negative); Clarity,Urine Clear (Clear); Color,Urine Colorless (Yellow); Glucose,Urine (UA) >=1000 mg/dL (Normal); Ketones,Urine Negative (Negative); Leukocyte Esterase,Urine Negative (Negative); Nitrite,Urine Negative (Negative); PH,Urine 5.5 pH Units (5.0-8.0); Protein,Urine Trace mg/dL (Neg-Trace); RBC,Urine 0-3 per hpf (0-3); Urobilinogen,Urine Normal (Normal); WBC,Urine 0-3 per hpf (0-3)
[2021-03-29 19:53] LABS: Alanine Aminotransferase 23 Units/L (7-52); Albumin 4.5 g/dL (3.5-5.7); Albumin/Globulin Ratio 1.2 (1.1-2.2); Alkaline Phosphatase 128 Units/L (34-104); Aspartate Amino Transferase 19 Units/L (13-39); BUN/Creatinine Ratio 25 (6-26); Bilirubin,Total 0.3 mg/dL (0.3-1.0); Blood Urea Nitrogen 28 mg/dL (8-23); Calcium 11.1 mg/dL (8.6-10.3); Carbon Dioxide 22 mEq/L (23-29); Chloride 88 mEq/L (98-107); Globulin 3.8 g/dL (2.4-3.5); Glucose 672 mg/dL (70-105); Lipase 64 Units/L (11-82); Osmolality,Calculated 309 (280-300); Potassium 4.6 mEq/L (3.5-5.1); Sodium 131 mEq/L (136-145); Total Protein 8.3 g/dL (6.4-8.9); Troponin I 0.03 ng/mL (< 0.04); eGFR For African Americans > 60 (> 60); eGFR For Non-African Americans 51 (> 60)
[2021-03-29] MEDS ORDERED: 0.9 % Sodium Chloride 1,000 ML IVC ONE ×2 (20:03→21:16)
[2021-03-29 20:16] LABS: SARS-CoV-2 by PCR (In House) Negative (Negative)
[2021-03-29] MEDS ORDERED: Vancomycin 2,000 MG/520 ML IV.SOLN IVPB ONE (20:21)
[2021-03-29 20:30] LABS: Ethanol < 10 mg/dL (Less than 10)
[2021-03-29] MEDS ORDERED: Insulin Human Regular 7 UNIT in 0.9 % Sodium Chloride 10 ML IV ONE ×2 (20:34→22:34)
[2021-03-29] MEDS ORDERED: Isovue-370 500 ML BOTTLE IVP ONE (20:38)
[2021-03-29] MEDS ORDERED: Vancomycin 1,500 MG/265 ML IV.SOLN IVPB ONE (21:00)
[2021-03-29] MEDS ORDERED: Piperacillin/Tazobactam 3.375 GM in 0.9 % Sodium Chloride Mini Bag 100 ML IVPB ONE (21:00)
[2021-03-29] MEDS ORDERED: Ipratropium/Albuterol Neb 3 ML IH ONE (22:37)
[2021-03-29] MEDS ORDERED: cefTRIAXone 2,000 MG in 0.9 % Sodium Chloride Mini Bag 100 ML IVPB ONE (23:00)
[2021-03-29] MEDS ORDERED: Naloxone 0.4 MG/ML INJ IVP PRN (23:09)
[2021-03-29] MEDS ORDERED: *HR* Dextrose 50 % in Water (Syg) 50 ML SYRINGE IVP PRN (23:12)
[2021-03-29] MEDS ORDERED: D5% in 0.45% NACL 1,000 ML IVC PRN (23:12)
[2021-03-30] MEDS: 0.45 % Sodium Chloride w/KCl 20 MEQ/1,000 ML MLS IVC SCH ×5 (00:13→11:12)
[2021-03-30] MEDS ORDERED: Gadolinium Contrast Agent (WT Based) IV PRN (01:41)
[2021-03-30 01:44] LABS: Basophils # 0.1 K/mcL (0.0-0.2); Basophils % 0.5 %; Hematocrit 28.5 % (35.3-44.9); Hemoglobin 8.4 g/dL (11.5-15.4); Immature Granulocytes % 1.6 % (0-4); Lymphocytes # 2.7 K/mcL (0.6-4.6); Lymphocytes % 25.3 %; Mean Corpuscular HGB Conc 29.5 g/dL (31.6-35.5); Mean Corpuscular Hemoglobin 24.5 pg (28.0-33.3); Mean Corpuscular Volume 83.1 fL (83.0-100.0); Mean Platelet Volume 9.6 fL (9.4-12.4); Monocytes # 0.4 K/mcL (0.0-1.3); Monocytes % 3.4 %; Neutrophils # 7.4 K/mcL (1.6-8.9); Nucleated Red Blood Cells 0.2 /100 WBC (0); Platelet Count 444 K/mcL (140-400); Red Blood Count 3.43 M/mcL (3.82-4.97); Red Cell Distribution Width 16.2 % (11.5-14.5); Segmented Neutrophils % 69.2 %; White Blood Count 10.6 K/mcL (4.3-11.1)
[2021-03-30 01:46] LABS: VBG HCO3 27 mEq/L (21-27); VBG PCO2 42 mmHg (41-51); VBG PH 7.43 pH Units (7.32-7.42); VBG PO2 112 mmHg (25-50)
[2021-03-30 02:06] LABS: Magnesium 1.7 mg/dL (1.6-2.6); Phosphorous 3.6 mg/dL (2.7-4.5)
[2021-03-30 02:13] LABS: Alanine Aminotransferase 19 Units/L (7-52); Albumin 3.8 g/dL (3.5-5.7); Albumin/Globulin Ratio 1.2 (1.1-2.2); Alkaline Phosphatase 97 Units/L (34-104); Aspartate Amino Transferase 10 Units/L (13-39); BUN/Creatinine Ratio 25 (6-26); Bilirubin,Total 0.4 mg/dL (0.3-1.0); Blood Urea Nitrogen 20 mg/dL (8-23); Calcium 9.3 mg/dL (8.6-10.3); Carbon Dioxide 26 mEq/L (23-29); Chloride 104 mEq/L (98-107); Globulin 3.2 g/dL (2.4-3.5); Glucose 328 mg/dL (70-105); Osmolality,Calculated 307 (280-300); Potassium 3.3 mEq/L (3.5-5.1); Sodium 141 mEq/L (136-145); eGFR For African Americans > 60 (> 60); eGFR For Non-African Americans > 60 (> 60)
[2021-03-30] MEDS ORDERED: *HR* Metoprolol 5 MG/5 ML VIAL IVP ONE ×2 (02:41→02:43)
[2021-03-30] MEDS: D5% in 0.45% NACL w KCl 20 MEQ/1,000 ML MLS IVC PRN ×3 (02:49→11:20)
[2021-03-30] MEDS: Acyclovir 500 MG in D5% in Water 250 ML IVPB SCH ×3 (03:45→19:34)
[2021-03-30] MEDS: Ampicillin 2,000 MG in 0.9 % Sodium Chloride Mini Bag 100 ML IVPB SCH ×5 (07:54→23:28)
[2021-03-30 08:28] LABS: VBG HCO3 20 mEq/L (21-27); VBG PCO2 28 mmHg (41-51); VBG PH 7.47 pH Units (7.32-7.42); VBG PO2 105 mmHg (25-50)
[2021-03-30] MEDS: Vancomycin 1,500 MG/265 ML IV.SOLN IVPB SCH (09:17)
[2021-03-30 09:29] LABS: BUN/Creatinine Ratio 18 (6-26); Blood Urea Nitrogen 13 mg/dL (8-23); Calcium 8.7 mg/dL (8.6-10.3); Carbon Dioxide 24 mEq/L (23-29); Chloride 106 mEq/L (98-107); Glucose 153 mg/dL (70-105); Osmolality,Calculated 291 (280-300); Potassium 3.8 mEq/L (3.5-5.1); Sodium 139 mEq/L (136-145); eGFR For African Americans > 60 (> 60); eGFR For Non-African Americans > 60 (> 60)
[2021-03-30] MEDS: Acetaminophen 325 MG TABLET PO PRN ×2 (09:38→20:09)
[2021-03-30] MEDS ORDERED: D5% in Water 1,000 ML IVC PRN (10:36)
[2021-03-30] MEDS ORDERED: Dextrose Gel 15 GM/37.5 ML TUBE PO PRN ×2 (10:36)
[2021-03-30] MEDS ORDERED: *HR* Dextrose 50 % in Water (Syg) 50 ML SYRINGE IVP PRN (10:36)
[2021-03-30] MEDS: cefTRIAXone 2,000 MG in 0.9 % Sodium Chloride Mini Bag 100 ML IVPB SCH ×2 (11:03→21:04)
[2021-03-30] MEDS: Insulin LISPRO 300 UNITS/3 ML VIAL SUBQ SCH ×3 (11:13→20:06)
[2021-03-30] MEDS: Insulin DETEMIR 100 UNIT/ML X5UNITS SUBQ SCH ×2 (11:20→21:04)
[2021-03-30 12:19] LABS: BUN/Creatinine Ratio 17 (6-26); Blood Urea Nitrogen 11 mg/dL (8-23); Calcium 8.4 mg/dL (8.6-10.3); Carbon Dioxide 24 mEq/L (23-29); Chloride 106 mEq/L (98-107); Glucose 153 mg/dL (70-105); Osmolality,Calculated 288 (280-300); Potassium 3.1 mEq/L (3.5-5.1); Sodium 138 mEq/L (136-145); eGFR For African Americans > 60 (> 60); eGFR For Non-African Americans > 60 (> 60)
[2021-03-30] MEDS ORDERED: GADOBUTROL 30 MMOL/30 ML VIAL IVP ONE (12:23)
[2021-03-31] MEDS: Acyclovir 500 MG in D5% in Water 250 ML IVPB SCH ×3 (03:27→21:02)
[2021-03-31 04:34] LABS: Basophils % 0.5 %; Hematocrit 29.4 % (35.3-44.9); Hemoglobin 8.6 g/dL (11.5-15.4); Immature Granulocytes % 0.8 % (0-4); Lymphocytes # 0.9 K/mcL (0.6-4.6); Lymphocytes % 14.5 %; Mean Corpuscular HGB Conc 29.3 g/dL (31.6-35.5); Mean Corpuscular Hemoglobin 25.1 pg (28.0-33.3); Mean Platelet Volume 9.9 fL (9.4-12.4); Monocytes # 0.3 K/mcL (0.0-1.3); Monocytes % 4.5 %; Neutrophils # 5.1 K/mcL (1.6-8.9); Platelet Count 305 K/mcL (140-400); Red Blood Count 3.42 M/mcL (3.82-4.97); Red Cell Distribution Width 17.4 % (11.5-14.5); Segmented Neutrophils % 79.7 %; White Blood Count 6.4 K/mcL (4.3-11.1)
[2021-03-31] MEDS: Ampicillin 2,000 MG in 0.9 % Sodium Chloride Mini Bag 100 ML IVPB SCH ×6 (04:46→22:56)
[2021-03-31 05:14] LABS: Alanine Aminotransferase 17 Units/L (7-52); Albumin 3.4 g/dL (3.5-5.7); Albumin/Globulin Ratio 1.1 (1.1-2.2); Alkaline Phosphatase 68 Units/L (34-104); Aspartate Amino Transferase 31 Units/L (13-39); BUN/Creatinine Ratio 12 (6-26); Bilirubin,Total 0.2 mg/dL (0.3-1.0); Blood Urea Nitrogen 8 mg/dL (8-23); Calcium 8.3 mg/dL (8.6-10.3); Carbon Dioxide 17 mEq/L (23-29); Chloride 106 mEq/L (98-107); Globulin 3.1 g/dL (2.4-3.5); Glucose 204 mg/dL (70-105); Osmolality,Calculated 286 (280-300); Potassium 3.8 mEq/L (3.5-5.1); Sodium 136 mEq/L (136-145); Total Protein 6.5 g/dL (6.4-8.9); eGFR For African Americans > 60 (> 60); eGFR For Non-African Americans > 60 (> 60)
[2021-03-31] MEDS: Insulin LISPRO 300 UNITS/3 ML VIAL SUBQ SCH ×4 (07:52→20:32)
[2021-03-31] MEDS: QUEtiapine Fumarate 25 MG TABLET PO SCH (10:19)
[2021-03-31] MEDS: Vancomycin 1,500 MG/265 ML IV.SOLN IVPB SCH (10:20)
[2021-03-31] MEDS: cefTRIAXone 2,000 MG in 0.9 % Sodium Chloride Mini Bag 100 ML IVPB SCH ×2 (12:06→22:18)
[2021-03-31] MEDS ORDERED: Baclofen 10 MG TABLET PO PRN (12:08)
[2021-03-31] MEDS ORDERED: Acetaminophen/Butalbital/CaffeineTABLET PO PRN (12:08)
[2021-03-31] MEDS: Acetaminophen 325 MG TABLET PO PRN (16:39)
[2021-03-31] MEDS: Apixaban 5 MG TABLET PO SCH (20:27)
[2021-03-31] MEDS: Insulin DETEMIR 100 UNIT/ML X5UNITS SUBQ SCH (20:32)
[2021-03-31] MEDS: Budesonide/Formoterol 160/4.5 1 PUFF INH IH SCH (20:40)
[2021-03-31] MEDS ORDERED: Vancomycin 1,500 MG/265 ML IV.SOLN IVPB SCH (21:00)
[2021-04-01] MEDS: Acyclovir 500 MG in D5% in Water 250 ML IVPB SCH (03:16)
[2021-04-01] MEDS: Ampicillin 2,000 MG in 0.9 % Sodium Chloride Mini Bag 100 ML IVPB SCH ×2 (04:46→07:57)
[2021-04-01] MEDS: Budesonide/Formoterol 160/4.5 1 PUFF INH IH SCH (07:34)
[2021-04-01] MEDS: Apixaban 5 MG TABLET PO SCH (07:57)
[2021-04-01] MEDS: QUEtiapine Fumarate 25 MG TABLET PO SCH (07:57)
[2021-04-01 08:08] VITALS: BP 151/65; PULSE 104; TEMP 98.5
[2021-04-01] MEDS: Insulin LISPRO 300 UNITS/3 ML VIAL SUBQ SCH (08:08)
[2021-04-01 08:29] LABS: Basophils % 0.5 %; Hematocrit 28.1 % (35.3-44.9); Hemoglobin 8.2 g/dL (11.5-15.4); Lymphocytes # 0.7 K/mcL (0.6-4.6); Lymphocytes % 11.2 %; Mean Corpuscular HGB Conc 29.2 g/dL (31.6-35.5); Mean Corpuscular Hemoglobin 24.8 pg (28.0-33.3); Mean Corpuscular Volume 84.9 fL (83.0-100.0); Mean Platelet Volume 9.2 fL (9.4-12.4); Monocytes # 0.3 K/mcL (0.0-1.3); Monocytes % 5.4 %; Neutrophils # 5.1 K/mcL (1.6-8.9); Platelet Count 302 K/mcL (140-400); Red Blood Count 3.31 M/mcL (3.82-4.97); Red Cell Distribution Width 16.9 % (11.5-14.5); Segmented Neutrophils % 81.9 %; White Blood Count 6.2 K/mcL (4.3-11.1)
[2021-04-01 08:49] LABS: Alanine Aminotransferase 25 Units/L (7-52); Albumin 3.5 g/dL (3.5-5.7); Albumin/Globulin Ratio 1.2 (1.1-2.2); Alkaline Phosphatase 71 Units/L (34-104); Aspartate Amino Transferase 23 Units/L (13-39); BUN/Creatinine Ratio 13 (6-26); Bilirubin,Total 0.3 mg/dL (0.3-1.0); Blood Urea Nitrogen 8 mg/dL (8-23); Calcium 8.7 mg/dL (8.6-10.3); Carbon Dioxide 25 mEq/L (23-29); Chloride 103 mEq/L (98-107); Globulin 2.9 g/dL (2.4-3.5); Glucose 215 mg/dL (70-105); Osmolality,Calculated 285 (280-300); Potassium 3.6 mEq/L (3.5-5.1); Sodium 135 mEq/L (136-145); Total Protein 6.4 g/dL (6.4-8.9); eGFR For African Americans > 60 (> 60); eGFR For Non-African Americans > 60 (> 60)
[2021-04-01] MEDS ORDERED: BuPROPion XL (24 HR) 150 MG TABLET PO SCH (09:00)
[2021-04-01] MEDS ORDERED: amLODIPine 5 MG TABLET PO SCH (09:00)
[2021-04-01] MEDS ORDERED: Vancomycin 1,500 MG/265 ML IV.SOLN IVPB SCH ×2 (09:00→11:00)
[2021-04-01 10:37] VITALS: O2SAT 98
== END 2021-04-01 11:05 | disposition home or self-care (01) | DRG 871 ==
LOC: EMEROOARM 18:30 → 2NNU 18:30
PROVIDERS: ADMIT Family Medicine; ATTEND Family Medicine

== ENCOUNTER 2021-06-02 22:13 | Inpatient (IN) ==
[2021-06-02] MEDS ORDERED: Ipratropium/Albuterol Neb 3 ML IH ONE (22:23)
[2021-06-02] MEDS ORDERED: methylPREDNISolone 125 MG/2 ML VIAL IVP ONE (22:23)
[2021-06-02] MEDS ORDERED: Ondansetron 4 MG/2 ML VIAL IVP ONE (22:27)
[2021-06-02 22:37] LABS: VBG HCO3 27 mEq/L (21-27); VBG PCO2 49 mmHg (41-51); VBG PH 7.35 pH Units (7.32-7.42); VBG PO2 56 mmHg (25-50)
[2021-06-02 22:44] LABS: Basophils # 0.1 K/mcL (0.0-0.2); Basophils % 0.2 %; Eosinophils # 0.2 K/mcL (0.0-0.6); Hemoglobin 9.6 g/dL (11.5-15.4); Immature Granulocytes % 0.7 % (0-4); Lymphocytes % 9.4 %; Mean Corpuscular Hemoglobin 26.9 pg (28.0-33.3); Mean Corpuscular Volume 86.8 fL (83.0-100.0); Mean Platelet Volume 9.8 fL (9.4-12.4); Monocytes # 0.7 K/mcL (0.0-1.3); Monocytes % 3.3 %; Neutrophils # 18.3 K/mcL (1.6-8.9); Platelet Count 429 K/mcL (140-400); Red Blood Count 3.57 M/mcL (3.82-4.97); Segmented Neutrophils % 85.4 %; White Blood Count 21.4 K/mcL (4.3-11.1)
[2021-06-02 23:00] LABS: BUN/Creatinine Ratio 31 (6-26); Blood Urea Nitrogen 27 mg/dL (8-23); Calcium 9.1 mg/dL (8.6-10.3); Carbon Dioxide 24 mEq/L (23-29); Chloride 101 mEq/L (98-107); Glucose 252 mg/dL (70-105); Osmolality,Calculated 300 (280-300); Potassium 3.5 mEq/L (3.5-5.1); Sodium 138 mEq/L (136-145); eGFR For African Americans > 60 (> 60); eGFR For Non-African Americans > 60 (> 60)
[2021-06-02 23:01] LABS: Troponin I 0.03 ng/mL (< 0.04)
[2021-06-02] MEDS ORDERED: Cefepime HCl 2,000 MG in Water for inj. (sterile) 10 ML IVP STA (23:10)
[2021-06-02] MEDS ORDERED: Azithromycin 500 MG in 0.9 % Sodium Chloride 250 ML IVPB ONE (23:10)
[2021-06-02 23:14] LABS: Influenza A PCR Negative (Negative); Influenza B PCR Negative (Negative); Resp. Syncytial Virus PCR Negative (Negative); SARS-CoV-2 by PCR (In House) Negative (Negative)
[2021-06-02] MEDS ORDERED: Vancomycin 2,000 MG/520 ML IV.SOLN IVPB ONE (23:45)
[2021-06-03] MEDS ORDERED: Isovue-370 500 ML BOTTLE IVP ONE ×2 (00:22→04:39)
[2021-06-03 00:36] LABS: Bilirubin,Urine Negative (Negative); Blood,Urine Negative (Negative); Clarity,Urine Clear (Clear); Color,Urine Light-Yellow (Yellow); Glucose,Urine (UA) >=1000 mg/dL (Normal); Ketones,Urine Negative (Negative); Leukocyte Esterase,Urine Negative (Negative); Mucus,Urine Few per lpf (None-Few); Nitrite,Urine Negative (Negative); PH,Urine 5.5 pH Units (5.0-8.0); Protein,Urine Trace mg/dL (Neg-Trace); RBC,Urine 0-3 per hpf (0-3); Specific Gravity,Urine 1.023 (1.010-1.025); Urobilinogen,Urine Normal (Normal); WBC,Urine 0-3 per hpf (0-3)
[2021-06-03 00:46] LABS: Amphetamine Screen,Urine Negative ng/mL (Cutoff=1000); Barbiturate Screen,Urine Negative ng/mL (Cutoff=200); Benzodiazepines Screen,Urine Negative ng/mL (Cutoff=200); Cannabinoid Screen,Urine Negative ng/mL (Cutoff = 50); Cocaine Screen,Urine Negative ng/mL (Cutoff= 300); Opiate Screen,Urine Negative ng/mL (Cutoff=300); Phencyclidine Screen,Urine Negative ng/mL (Cutoff=25)
[2021-06-03] MEDS ORDERED: *HR* Succinylcholine 200 MG/10 ML VIAL IVP ONE (02:05)
[2021-06-03] MEDS ORDERED: *HR* Rocuronium Bromide 50 MG/5 ML VIAL ONE (02:05)
[2021-06-03] MEDS ORDERED: *HR* Propofol 200 MG/20 ML VIAL IVP ONE (02:05)
[2021-06-03] MEDS ORDERED: Ipratropium/Albuterol Neb 3 ML IH STA (02:12)
[2021-06-03] MEDS: FentaNYL (PF) 1,000 MCG/100 ML IV.SOLN IVC SCH ×4 (02:30→19:10)
[2021-06-03 02:36] LABS: ABG Base Excess -3 mEq/L (-2 to 3); ABG HCO3 29 mEq/L (21-27); ABG Oxygen Saturation 84 % (95-98); ABG PCO2 99 mmHg (35-45); ABG PH 7.08 pH Units (7.32-7.45); ABG PO2 71 mmHg (85-104); ABG TCO2 32 mEq/L (20-26); Blood Gas Modality ASSIST CONTROL; Blood Gas VT 490 cc
[2021-06-03 03:53] LABS: ABG Base Excess -1 mEq/L (-2 to 3); ABG HCO3 27 mEq/L (21-27); ABG Oxygen Saturation 98 % (95-98); ABG PCO2 64 mmHg (35-45); ABG PH 7.23 pH Units (7.32-7.45); ABG PO2 123 mmHg (85-104); ABG TCO2 29 mEq/L (20-26); Blood Gas Modality ASSIST CONTROL
[2021-06-03] MEDS ORDERED: Naloxone 0.4 MG/ML INJ IVP PRN (03:58)
[2021-06-03] MEDS ORDERED: Melatonin 3 MG TABLET PO PRN (03:58)
[2021-06-03] MEDS ORDERED: *HR* Midazolam HCl 5 MG/ML VIAL IVP ONE (04:09)
[2021-06-03] MEDS ORDERED: Dextrose Gel 15 GM/37.5 ML TUBE PO PRN ×2 (04:11)
[2021-06-03] MEDS ORDERED: D5% in Water 1,000 ML IVC PRN (04:11)
[2021-06-03] MEDS ORDERED: *HR* Dextrose 50 % in Water (Syg) 50 ML SYRINGE IVP PRN ×2 (04:11→11:45)
[2021-06-03] MEDS ORDERED: Artificial Tears SOLN 15 ML BOTTLE BOTH EYES PRN (04:12)
[2021-06-03] MEDS ORDERED: Midazolam HCl 50 MG/100 ML IV.SOLN IVC SCH ×2 (04:15)
[2021-06-03] MEDS ORDERED: Dexmedetomidine HCl 400 MCG/100 ML MLS IVC SCH (04:15)
[2021-06-03] MEDS ORDERED: *HR* Heparin 5,000 UNIT/ML VIAL IVP PRN ×2 (05:31)
[2021-06-03] MEDS: Dexmedetomidine HCl 400 MCG/100 ML MLS IVC SCH ×3 (05:45→18:32)
[2021-06-03] MEDS ORDERED: Heparin 25,000UNIT/250ML 1/2NS 25,000 UNIT/250 ML IV.SOLN IVC SCH (05:45)
[2021-06-03] MEDS ORDERED: Insulin LISPRO 300 UNITS/3 ML VIAL SUBQ SCH (06:00)
[2021-06-03 06:04] LABS: Basophils % 0.1 %; Hematocrit 32.6 % (35.3-44.9); Hemoglobin 9.5 g/dL (11.5-15.4); Immature Granulocytes % 0.9 % (0-4); Lymphocytes # 0.4 K/mcL (0.6-4.6); Lymphocytes % 1.8 %; Mean Corpuscular HGB Conc 29.1 g/dL (31.6-35.5); Mean Corpuscular Hemoglobin 26.4 pg (28.0-33.3); Mean Corpuscular Volume 90.6 fL (83.0-100.0); Mean Platelet Volume 9.7 fL (9.4-12.4); Monocytes # 0.3 K/mcL (0.0-1.3); Monocytes % 1.1 %; Neutrophils # 21.9 K/mcL (1.6-8.9); Platelet Count 417 K/mcL (140-400); Red Cell Distribution Width 17.2 % (11.5-14.5); Segmented Neutrophils % 96.1 %; White Blood Count 22.8 K/mcL (4.3-11.1)
[2021-06-03 06:10] LABS: VBG HCO3 27 mEq/L (21-27); VBG PCO2 72 mmHg (41-51); VBG PH 7.18 pH Units (7.32-7.42); VBG PO2 71 mmHg (25-50)
[2021-06-03] MEDS ORDERED: Furosemide 20 MG/2 ML VIAL IVP SCH (06:12)
[2021-06-03 06:15] LABS: Heparin anti-factor XA UFH 0.1 IU/mL (0.30-0.70)
[2021-06-03 06:16] LABS: Prothrombin Time 11.6 Seconds (9.4-12.1)
[2021-06-03 07:34] LABS: Albumin 3.8 g/dL (3.5-5.7); Albumin/Globulin Ratio 1.3 (1.1-2.2); Bilirubin,Total 0.2 mg/dL (0.3-1.0); Calcium 8.5 mg/dL (8.6-10.3); Globulin 2.9 g/dL (2.4-3.5); Phosphorous 6.6 mg/dL (2.7-4.5); Potassium 6.3 mEq/L (3.5-5.1); Prolactin 73.68 ng/mL (3.80-23.20); Total Protein 6.7 g/dL (6.4-8.9); Troponin I 0.05 ng/mL (< 0.04)
[2021-06-03] MEDS ORDERED: Insulin Human Regular 15 UNIT in 0.9 % Sodium Chloride 10 ML IV ONE (07:38)
[2021-06-03] MEDS ORDERED: Calcium Gluconate 1gm/50mL 1 GM/50 ML BAG IVPB ONE (07:39)
[2021-06-03] MEDS: Pantoprazole 40 MG VIAL IVP SCH (08:39)
[2021-06-03] MEDS: Chlorhexidine Rinse 15 ML MOUTHWASH MM SCH ×2 (08:39→19:51)
[2021-06-03] MEDS: Artificial Tears SOLN 15 ML BOTTLE BOTH EYES SCH ×5 (08:40→23:30)
[2021-06-03] MEDS: Ipratropium/Albuterol Neb 3 ML IH SCH ×3 (08:47→19:56)
[2021-06-03] MEDS: Budesonide/Formoterol 160/4.5 1 PUFF INH IH SCH ×2 (08:47→19:56)
[2021-06-03] MEDS: Piperacillin/Tazobactam 3.375 GM in 0.9 % Sodium Chloride Mini Bag 100 ML IVPB SCH ×3 (08:50→19:51)
[2021-06-03] MEDS ORDERED: MethylPREDNISolone 40 MG/ML VIAL IVP SCH (10:00)
[2021-06-03] MEDS ORDERED: Vancomycin 1,500 MG/265 ML IV.SOLN IVPB SCH (11:00)
[2021-06-03] MEDS ORDERED: Perflutren Lipid Microsphere 1.3 ML in 0.9 % Sodium Chloride 8.7 ML IVP PRN (11:16)
[2021-06-03 12:42] LABS: Calcium 8.7 mg/dL (8.6-10.3); Potassium 5.8 mEq/L (3.5-5.1)
[2021-06-03 12:51] LABS: Thyroid Stimulating Hormone 0.291 mcIU/mL (0.340-5.600)
[2021-06-03] MEDS: Doxycycline 100 MG in 0.9 % Sodium Chloride Mini Bag 100 ML IVPB SCH (18:40)
[2021-06-03 19:57] LABS: Calcium 8.4 mg/dL (8.6-10.3); Potassium 4.7 mEq/L (3.5-5.1)
[2021-06-03] MEDS ORDERED: Furosemide 40 MG/4 ML VIAL IVP SCH (21:00)
[2021-06-03] MEDS: *HR* Heparin 5,000 UNIT/ML VIAL SQ SCH (21:51)
[2021-06-04] MEDS: FentaNYL (PF) 1,000 MCG/100 ML IV.SOLN IVC SCH ×5 (00:35→22:38)
[2021-06-04] MEDS: Dexmedetomidine HCl 400 MCG/100 ML MLS IVC SCH ×4 (00:36→19:22)
[2021-06-04 03:18] LABS: Calcium 8.3 mg/dL (8.6-10.3); Potassium 4.4 mEq/L (3.5-5.1)
[2021-06-04] MEDS: Ipratropium/Albuterol Neb 3 ML IH SCH ×4 (03:29→21:35)
[2021-06-04] MEDS: Artificial Tears SOLN 15 ML BOTTLE BOTH EYES SCH ×6 (03:30→23:55)
[2021-06-04 03:54] LABS: Basophils % 0.2 %; Hematocrit 27.2 % (35.3-44.9); Hemoglobin 8.1 g/dL (11.5-15.4); Immature Granulocytes % 0.9 % (0-4); Mean Corpuscular HGB Conc 29.8 g/dL (31.6-35.5); Mean Corpuscular Hemoglobin 27.1 pg (28.0-33.3); Mean Platelet Volume 10.1 fL (9.4-12.4); Monocytes % 2.4 %; Platelet Count 282 K/mcL (140-400); Red Blood Count 2.99 M/mcL (3.82-4.97); Red Cell Distribution Width 17.3 % (11.5-14.5); Segmented Neutrophils % 87.5 %; White Blood Count 13.3 K/mcL (4.3-11.1)
[2021-06-04 03:55] LABS: Lymphocytes # 1.2 K/mcL (0.6-4.6); Monocytes # 0.3 K/mcL (0.0-1.3); Neutrophils # 11.6 K/mcL (1.6-8.9)
[2021-06-04] MEDS ORDERED: Vancomycin 1,750 MG in 0.9 % Sodium Chloride 250 ML IVPB SCH (04:00)
[2021-06-04 04:12] LABS: Albumin 3.5 g/dL (3.5-5.7); Albumin/Globulin Ratio 1.2 (1.1-2.2); Bilirubin,Total 0.2 mg/dL (0.3-1.0); Calcium 8.3 mg/dL (8.6-10.3); Magnesium 2.3 mg/dL (1.6-2.6); Phosphorous 4.7 mg/dL (2.7-4.5); Potassium 4.4 mEq/L (3.5-5.1); Total Protein 6.5 g/dL (6.4-8.9)
[2021-06-04 04:14] LABS: VBG Ionized Calcium 1.16 mmol/L (1.15-1.35)
[2021-06-04 04:14] LABS: ABG Base Excess 1 mEq/L (-2 to 3); ABG HCO3 28 mEq/L (21-27); ABG Oxygen Saturation 88 % (95-98); ABG PCO2 57 mmHg (35-45); ABG PO2 63 mmHg (85-104); ABG TCO2 30 mEq/L (20-26); Blood Gas Modality ASSIST CONTROL; Blood Gas VT 490 cc
[2021-06-04] MEDS: Piperacillin/Tazobactam 3.375 GM in 0.9 % Sodium Chloride Mini Bag 100 ML IVPB SCH ×3 (05:17→19:22)
[2021-06-04] MEDS: Doxycycline 100 MG in 0.9 % Sodium Chloride Mini Bag 100 ML IVPB SCH ×2 (05:18→17:40)
[2021-06-04] MEDS: *HR* Heparin 5,000 UNIT/ML VIAL SQ SCH (05:18)
[2021-06-04] MEDS: Chlorhexidine Rinse 15 ML MOUTHWASH MM SCH ×2 (07:31→19:22)
[2021-06-04] MEDS: Pantoprazole 40 MG VIAL IVP SCH (07:31)
[2021-06-04] MEDS: Budesonide/Formoterol 160/4.5 1 PUFF INH IH SCH ×2 (08:01→21:35)
[2021-06-04] MEDS ORDERED: Vancomycin 1,500 MG/265 ML IV.SOLN IVPB SCH (11:00)
[2021-06-04] MEDS: Apixaban 5 MG TABLET GTUBE SCH ×2 (11:10→19:22)
[2021-06-04] MEDS ORDERED: Insulin DETEMIR 100 UNIT/ML X5UNITS SUBQ ONE (11:30)
[2021-06-04] MEDS ORDERED: QUEtiapine Fumarate 25 MG TABLET PO ONE (15:00)
[2021-06-04] MEDS: *HR* LORazepam 0.5 MG TABLET PO SCH ×2 (15:23→19:22)
[2021-06-04] MEDS: Pregabalin 50 MG CAPSULE GTUBE SCH ×2 (15:23→19:22)
[2021-06-04] MEDS: Insulin LISPRO 300 UNITS/3 ML VIAL SUBQ SCH ×3 (16:36→23:54)
[2021-06-04] MEDS: Insulin DETEMIR 100 UNIT/ML X5UNITS SUBQ SCH (20:21)
[2021-06-04] MEDS: QUEtiapine Fumarate 100 MG TABLET PO SCH (20:21)
[2021-06-04] MEDS ORDERED: Artificial Tears SOLN 15 ML BOTTLE BOTH EYES SCH (21:00)
[2021-06-05] MEDS: Dexmedetomidine HCl 400 MCG/100 ML MLS IVC SCH ×4 (01:20→19:31)
[2021-06-05] MEDS: Ipratropium/Albuterol Neb 3 ML IH SCH ×4 (03:29→21:31)
[2021-06-05] MEDS: Piperacillin/Tazobactam 3.375 GM in 0.9 % Sodium Chloride Mini Bag 100 ML IVPB SCH ×3 (03:47→20:13)
[2021-06-05] MEDS: FentaNYL (PF) 1,000 MCG/100 ML IV.SOLN IVC SCH ×3 (03:48→19:58)
[2021-06-05] MEDS: Insulin LISPRO 300 UNITS/3 ML VIAL SUBQ SCH ×5 (03:49→20:02)
[2021-06-05] MEDS: Artificial Tears SOLN 15 ML BOTTLE BOTH EYES SCH ×5 (04:06→19:50)
[2021-06-05 04:59] LABS: Basophils % 0.2 %; Hematocrit 26.8 % (35.3-44.9); Immature Granulocytes % 0.7 % (0-4); Mean Corpuscular HGB Conc 29.9 g/dL (31.6-35.5); Mean Corpuscular Volume 90.5 fL (83.0-100.0); Mean Platelet Volume 10.2 fL (9.4-12.4); Monocytes # 0.2 K/mcL (0.0-1.3); Monocytes % 1.4 %; Neutrophils # 13.5 K/mcL (1.6-8.9); Platelet Count 303 K/mcL (140-400); Red Blood Count 2.96 M/mcL (3.82-4.97); Red Cell Distribution Width 17.3 % (11.5-14.5); Segmented Neutrophils % 90.7 %; White Blood Count 14.9 K/mcL (4.3-11.1)
[2021-06-05 05:08] LABS: VBG Ionized Calcium 1.19 mmol/L (1.15-1.35)
[2021-06-05 06:00] LABS: Alanine Aminotransferase 24 Units/L (7-52); Albumin 3.3 g/dL (3.5-5.7); Alkaline Phosphatase 72 Units/L (34-104); Aspartate Amino Transferase 59 Units/L (13-39); BUN/Creatinine Ratio 37 (6-26); Bilirubin,Total 0.1 mg/dL (0.3-1.0); Blood Urea Nitrogen 29 mg/dL (8-23); Calcium 8.7 mg/dL (8.6-10.3); Carbon Dioxide 26 mEq/L (23-29); Chloride 102 mEq/L (98-107); Globulin 3.2 g/dL (2.4-3.5); Glucose 165 mg/dL (70-105); Magnesium 2.2 mg/dL (1.6-2.6); Osmolality,Calculated 292 (280-300); Phosphorous 2.9 mg/dL (2.7-4.5); Potassium 3.9 mEq/L (3.5-5.1); Sodium 136 mEq/L (136-145); Total Protein 6.5 g/dL (6.4-8.9); eGFR For African Americans > 60 (> 60); eGFR For Non-African Americans > 60 (> 60)
[2021-06-05] MEDS: Doxycycline 100 MG in 0.9 % Sodium Chloride Mini Bag 100 ML IVPB SCH ×2 (06:08→17:14)
[2021-06-05] MEDS: Pregabalin 50 MG CAPSULE GTUBE SCH ×2 (07:38→20:13)
[2021-06-05] MEDS: Pantoprazole 40 MG VIAL IVP SCH (07:38)
[2021-06-05] MEDS: Apixaban 5 MG TABLET GTUBE SCH ×2 (07:38→20:13)
[2021-06-05] MEDS: Chlorhexidine Rinse 15 ML MOUTHWASH MM SCH ×2 (07:38→20:13)
[2021-06-05] MEDS: Insulin DETEMIR 100 UNIT/ML X5UNITS SUBQ SCH ×2 (07:39→20:13)
[2021-06-05] MEDS: *HR* LORazepam 0.5 MG TABLET PO SCH ×2 (07:39→20:13)
[2021-06-05] MEDS: Budesonide/Formoterol 160/4.5 1 PUFF INH IH SCH ×2 (07:46→21:31)
[2021-06-05 09:44] LABS: ABG Base Excess 0 mEq/L (-2 to 3); ABG HCO3 26 mEq/L (21-27); ABG Oxygen Saturation 97 % (95-98); ABG PCO2 50 mmHg (35-45); ABG PH 7.33 pH Units (7.32-7.45); ABG PO2 100 mmHg (85-104); ABG TCO2 28 mEq/L (20-26); Blood Gas VT 490 cc
[2021-06-05 10:38] LABS: Triiodothyronine (T3) Free 2.46 pg/mL (2.50-3.90)
[2021-06-05] MEDS: Metoclopramide 10 MG/2 ML VIAL IVP SCH ×2 (13:28→17:14)
[2021-06-05] MEDS ORDERED: MethylPREDNISolone 40 MG/ML VIAL IVP ONE (13:30)
[2021-06-05] MEDS: *HR* Metoprolol 5 MG/5 ML VIAL IVP PRN (14:15)
[2021-06-05] MEDS: QUEtiapine Fumarate 100 MG TABLET PO SCH (20:13)
[2021-06-06] MEDS: Insulin LISPRO 300 UNITS/3 ML VIAL SUBQ SCH ×7 (00:04→23:24)
[2021-06-06] MEDS: Artificial Tears SOLN 15 ML BOTTLE BOTH EYES SCH ×7 (00:04→23:17)
[2021-06-06] MEDS: Metoclopramide 10 MG/2 ML VIAL IVP SCH ×5 (00:05→23:18)
[2021-06-06] MEDS: Dexmedetomidine HCl 400 MCG/100 ML MLS IVC SCH ×4 (01:40→21:45)
[2021-06-06] MEDS: Ipratropium/Albuterol Neb 3 ML IH SCH ×4 (03:20→21:39)
[2021-06-06 03:56] LABS: Alanine Aminotransferase 23 Units/L (7-52); Albumin 3.1 g/dL (3.5-5.7); Albumin/Globulin Ratio 0.9 (1.1-2.2); Alkaline Phosphatase 72 Units/L (34-104); Aspartate Amino Transferase 40 Units/L (13-39); BUN/Creatinine Ratio 33 (6-26); Bilirubin,Total 0.3 mg/dL (0.3-1.0); Blood Urea Nitrogen 21 mg/dL (8-23); Calcium 8.9 mg/dL (8.6-10.3); Carbon Dioxide 26 mEq/L (23-29); Chloride 107 mEq/L (98-107); Globulin 3.3 g/dL (2.4-3.5); Glucose 161 mg/dL (70-105); Osmolality,Calculated 302 (280-300); Potassium 4.1 mEq/L (3.5-5.1); Sodium 143 mEq/L (136-145); Total Protein 6.4 g/dL (6.4-8.9); eGFR For African Americans > 60 (> 60); eGFR For Non-African Americans > 60 (> 60)
[2021-06-06 03:57] LABS: Magnesium 2.1 mg/dL (1.6-2.6); Phosphorous 2.9 mg/dL (2.7-4.5)
[2021-06-06 04:01] LABS: VBG Ionized Calcium 1.25 mmol/L (1.15-1.35)
[2021-06-06 04:01] LABS: Basophils % 0.1 %; Hematocrit 25.2 % (35.3-44.9); Hemoglobin 7.5 g/dL (11.5-15.4); Lymphocytes # 0.8 K/mcL (0.6-4.6); Lymphocytes % 7.2 %; Mean Corpuscular HGB Conc 29.8 g/dL (31.6-35.5); Mean Corpuscular Hemoglobin 26.9 pg (28.0-33.3); Mean Corpuscular Volume 90.3 fL (83.0-100.0); Mean Platelet Volume 10.1 fL (9.4-12.4); Monocytes # 0.3 K/mcL (0.0-1.3); Monocytes % 2.3 %; Neutrophils # 9.9 K/mcL (1.6-8.9); Platelet Count 299 K/mcL (140-400); Red Blood Count 2.79 M/mcL (3.82-4.97); Red Cell Distribution Width 16.9 % (11.5-14.5); Segmented Neutrophils % 89.4 %
[2021-06-06 04:33] LABS: ABG Base Excess 2 mEq/L (-2 to 3); ABG HCO3 28 mEq/L (21-27); ABG Oxygen Saturation 98 % (95-98); ABG PCO2 52 mmHg (35-45); ABG PH 7.34 pH Units (7.32-7.45); ABG PO2 108 mmHg (85-104); ABG TCO2 29 mEq/L (20-26); Blood Gas Modality ASSIST CONTROL; Blood Gas VT 490 cc
[2021-06-06] MEDS: Piperacillin/Tazobactam 3.375 GM in 0.9 % Sodium Chloride Mini Bag 100 ML IVPB SCH ×3 (04:43→21:10)
[2021-06-06] MEDS: Doxycycline 100 MG in 0.9 % Sodium Chloride Mini Bag 100 ML IVPB SCH ×2 (05:20→17:09)
[2021-06-06] MEDS: FentaNYL (PF) 1,000 MCG/100 ML IV.SOLN IVC SCH ×3 (06:05→17:52)
[2021-06-06] MEDS: Budesonide/Formoterol 160/4.5 1 PUFF INH IH SCH ×2 (07:25→21:39)
[2021-06-06] MEDS: Apixaban 5 MG TABLET GTUBE SCH ×2 (08:00→19:29)
[2021-06-06] MEDS: Chlorhexidine Rinse 15 ML MOUTHWASH MM SCH ×2 (08:00→19:29)
[2021-06-06] MEDS: MethylPREDNISolone 40 MG/ML VIAL IVP SCH (08:00)
[2021-06-06] MEDS: Pregabalin 50 MG CAPSULE GTUBE SCH ×2 (08:00→19:29)
[2021-06-06] MEDS: *HR* LORazepam 0.5 MG TABLET PO SCH ×2 (08:00→19:29)
[2021-06-06] MEDS: Pantoprazole 40 MG VIAL IVP SCH (08:01)
[2021-06-06] MEDS: Insulin DETEMIR 100 UNIT/ML X5UNITS SUBQ SCH ×2 (08:18→19:30)
[2021-06-06] MEDS ORDERED: Lactulose Oral Soln 20 GM/30 ML UDC GTUBE ONE (09:16)
[2021-06-06] MEDS: Docusate Oral Soln 100 MG/10 ML UDC GTUBE SCH ×2 (11:39→19:29)
[2021-06-06 12:43] LABS: Triglycerides > 5000 mg/dL (< 150)
[2021-06-06] MEDS: Furosemide 20 MG/2 ML VIAL IVP SCH (17:09)
[2021-06-06 17:20] LABS: Creatine Kinase 1099 Units/L (30-223); Lipase 23 Units/L (11-82)
[2021-06-06] MEDS: QUEtiapine Fumarate 100 MG TABLET PO SCH (19:29)
[2021-06-07] MEDS: FentaNYL (PF) 1,000 MCG/100 ML IV.SOLN IVC SCH ×4 (00:21→23:02)
[2021-06-07] MEDS: Ipratropium/Albuterol Neb 3 ML IH SCH ×4 (03:31→21:03)
[2021-06-07] MEDS: Insulin LISPRO 300 UNITS/3 ML VIAL SUBQ SCH ×5 (03:37→19:49)
[2021-06-07] MEDS: Artificial Tears SOLN 15 ML BOTTLE BOTH EYES SCH ×6 (03:37→23:18)
[2021-06-07] MEDS: Dexmedetomidine HCl 400 MCG/100 ML MLS IVC SCH ×3 (03:56→22:10)
[2021-06-07 04:14] LABS: VBG Ionized Calcium 1.27 mmol/L (1.15-1.35)
[2021-06-07 04:51] LABS: Mean Corpuscular Volume 89.1 fL (83.0-100.0)
[2021-06-07 04:52] LABS: Basophils % 0.2 %; Hematocrit 26.2 % (35.3-44.9); Hemoglobin 7.9 g/dL (11.5-15.4); Immature Granulocytes % 1.1 % (0-4); Lymphocytes # 1.3 K/mcL (0.6-4.6); Lymphocytes % 10.6 %; Mean Corpuscular HGB Conc 30.2 g/dL (31.6-35.5); Mean Corpuscular Hemoglobin 26.9 pg (28.0-33.3); Mean Platelet Volume 10.3 fL (9.4-12.4); Monocytes # 0.4 K/mcL (0.0-1.3); Monocytes % 3.6 %; Nucleated Red Blood Cells 0.2 /100 WBC (0); Platelet Count 363 K/mcL (140-400); Red Blood Count 2.94 M/mcL (3.82-4.97); Red Cell Distribution Width 17.1 % (11.5-14.5); Segmented Neutrophils % 84.5 %
[2021-06-07 05:09] LABS: ABG Base Excess 4 mEq/L (-2 to 3); ABG HCO3 30 mEq/L (21-27); ABG Oxygen Saturation 98 % (95-98); ABG PCO2 49 mmHg (35-45); ABG PO2 111 mmHg (85-104); ABG TCO2 32 mEq/L (20-26); Blood Gas VT 490 cc
[2021-06-07] MEDS: Metoclopramide 10 MG/2 ML VIAL IVP SCH ×4 (05:17→23:18)
[2021-06-07] MEDS: Doxycycline 100 MG in 0.9 % Sodium Chloride Mini Bag 100 ML IVPB SCH ×2 (05:18→17:25)
[2021-06-07] MEDS: Piperacillin/Tazobactam 3.375 GM in 0.9 % Sodium Chloride Mini Bag 100 ML IVPB SCH ×3 (05:18→21:38)
[2021-06-07 05:35] LABS: Neutrophils # 10.1 K/mcL (1.6-8.9)
[2021-06-07 05:54] LABS: Alanine Aminotransferase 22 Units/L (7-52); Albumin 3.1 g/dL (3.5-5.7); Albumin/Globulin Ratio 0.9 (1.1-2.2); Alkaline Phosphatase 72 Units/L (34-104); Aspartate Amino Transferase 23 Units/L (13-39); BUN/Creatinine Ratio 37 (6-26); Bilirubin,Total 0.3 mg/dL (0.3-1.0); Blood Urea Nitrogen 24 mg/dL (8-23); Calcium 9.1 mg/dL (8.6-10.3); Carbon Dioxide 33 mEq/L (23-29); Chloride 105 mEq/L (98-107); Globulin 3.4 g/dL (2.4-3.5); Glucose 146 mg/dL (70-105); Magnesium 1.8 mg/dL (1.6-2.6); Osmolality,Calculated 301 (280-300); Phosphorous 2.5 mg/dL (2.7-4.5); Potassium 3.5 mEq/L (3.5-5.1); Sodium 142 mEq/L (136-145); Total Protein 6.5 g/dL (6.4-8.9); Triglycerides 1104 mg/dL (< 150); eGFR For African Americans > 60 (> 60); eGFR For Non-African Americans > 60 (> 60)
[2021-06-07] MEDS: Insulin DETEMIR 100 UNIT/ML X5UNITS SUBQ SCH ×2 (07:40→19:50)
[2021-06-07] MEDS: MethylPREDNISolone 40 MG/ML VIAL IVP SCH (07:40)
[2021-06-07] MEDS: Furosemide 20 MG/2 ML VIAL IVP SCH ×3 (07:40→19:37)
[2021-06-07] MEDS: *HR* Metoprolol 5 MG/5 ML VIAL IVP PRN ×2 (07:40→13:42)
[2021-06-07] MEDS: Pantoprazole 40 MG VIAL IVP SCH (07:40)
[2021-06-07] MEDS: Docusate Oral Soln 100 MG/10 ML UDC GTUBE SCH ×2 (07:41→19:36)
[2021-06-07] MEDS: *HR* LORazepam 0.5 MG TABLET PO SCH ×2 (07:41→19:37)
[2021-06-07] MEDS: Apixaban 5 MG TABLET GTUBE SCH ×2 (07:41→19:37)
[2021-06-07] MEDS: Pregabalin 50 MG CAPSULE GTUBE SCH ×2 (07:41→19:36)
[2021-06-07] MEDS: Chlorhexidine Rinse 15 ML MOUTHWASH MM SCH ×2 (07:41→19:36)
[2021-06-07] MEDS: Budesonide/Formoterol 160/4.5 1 PUFF INH IH SCH ×2 (07:51→21:03)
[2021-06-07] MEDS ORDERED: *HR* FentaNYL (PF) 100 MCG/2 ML VIAL IVP PRN (11:41)
[2021-06-07] MEDS: QUEtiapine Fumarate 100 MG TABLET PO SCH (19:36)
[2021-06-08] MEDS: Insulin LISPRO 300 UNITS/3 ML VIAL SUBQ SCH ×7 (00:40→23:32)
[2021-06-08] MEDS: Artificial Tears SOLN 15 ML BOTTLE BOTH EYES SCH ×6 (03:19→23:19)
[2021-06-08] MEDS: Dexmedetomidine HCl 400 MCG/100 ML MLS IVC SCH ×4 (04:00→23:47)
[2021-06-08 04:33] LABS: VBG Ionized Calcium 1.19 mmol/L (1.15-1.35)
[2021-06-08] MEDS: Ipratropium/Albuterol Neb 3 ML IH SCH ×4 (04:56→19:51)
[2021-06-08 05:09] LABS: Alanine Aminotransferase 23 Units/L (7-52); Albumin 3.2 g/dL (3.5-5.7); Albumin/Globulin Ratio 0.9 (1.1-2.2); Alkaline Phosphatase 85 Units/L (34-104); Aspartate Amino Transferase 17 Units/L (13-39); BUN/Creatinine Ratio 48 (6-26); Bilirubin,Total 0.4 mg/dL (0.3-1.0); Blood Urea Nitrogen 29 mg/dL (8-23); Calcium 9.4 mg/dL (8.6-10.3); Carbon Dioxide 34 mEq/L (23-29); Chloride 99 mEq/L (98-107); Globulin 3.6 g/dL (2.4-3.5); Glucose 260 mg/dL (70-105); Magnesium 1.7 mg/dL (1.6-2.6); Osmolality,Calculated 307 (280-300); Phosphorous 3.2 mg/dL (2.7-4.5); Potassium 2.9 mEq/L (3.5-5.1); Sodium 141 mEq/L (136-145); Total Protein 6.8 g/dL (6.4-8.9); eGFR For African Americans > 60 (> 60); eGFR For Non-African Americans > 60 (> 60)
[2021-06-08 05:16] LABS: ABG Base Excess 10 mEq/L (-2 to 3); ABG HCO3 35 mEq/L (21-27); ABG Oxygen Saturation 94 % (95-98); ABG PCO2 49 mmHg (35-45); ABG PH 7.47 pH Units (7.32-7.45); ABG PO2 70 mmHg (85-104); ABG TCO2 37 mEq/L (20-26); Blood Gas Modality ASSIST CONTROL; Blood Gas VT 490 cc
[2021-06-08] MEDS: Piperacillin/Tazobactam 3.375 GM in 0.9 % Sodium Chloride Mini Bag 100 ML IVPB SCH ×3 (05:17→21:44)
[2021-06-08] MEDS: Doxycycline 100 MG in 0.9 % Sodium Chloride Mini Bag 100 ML IVPB SCH ×2 (05:17→17:38)
[2021-06-08] MEDS: Metoclopramide 10 MG/2 ML VIAL IVP SCH ×4 (05:17→23:21)
[2021-06-08 05:48] LABS: Hematocrit 28.9 % (35.3-44.9); Hemoglobin 8.7 g/dL (11.5-15.4); Mean Corpuscular HGB Conc 30.1 g/dL (31.6-35.5); Mean Corpuscular Hemoglobin 26.3 pg (28.0-33.3); Mean Corpuscular Volume 87.3 fL (83.0-100.0); Mean Platelet Volume 10.2 fL (9.4-12.4); Neutrophils # 12.5 K/mcL (1.6-8.9); Platelet Count 444 K/mcL (140-400); Red Blood Count 3.31 M/mcL (3.82-4.97); Red Cell Distribution Width 17.3 % (11.5-14.5); Segmented Neutrophils % 79.1 %; White Blood Count 15.8 K/mcL (4.3-11.1)
[2021-06-08 05:49] LABS: Basophils # 0.1 K/mcL (0.0-0.2); Basophils % 0.5 %; Immature Granulocytes % 2.9 % (0-4); Lymphocytes # 2.2 K/mcL (0.6-4.6); Lymphocytes % 13.9 %; Monocytes # 0.6 K/mcL (0.0-1.3); Monocytes % 3.6 %
[2021-06-08 05:59] LABS: Anisocytosis 1+ (Not Present); Polychromasia 1+ (Not Present)
[2021-06-08] MEDS: FentaNYL (PF) 1,000 MCG/100 ML IV.SOLN IVC SCH ×3 (06:28→18:03)
[2021-06-08] MEDS ORDERED: Potassium Chloride Elixir 20 MEQ/15 ML UDC GTUBE ONE (06:35)
[2021-06-08] MEDS: *HR* Metoprolol 5 MG/5 ML VIAL IVP PRN (07:38)
[2021-06-08] MEDS: Furosemide 20 MG/2 ML VIAL IVP SCH (07:38)
[2021-06-08] MEDS: MethylPREDNISolone 40 MG/ML VIAL IVP SCH (07:38)
[2021-06-08] MEDS: Pantoprazole 40 MG VIAL IVP SCH (07:38)
[2021-06-08] MEDS: Chlorhexidine Rinse 15 ML MOUTHWASH MM SCH ×2 (07:39→19:26)
[2021-06-08] MEDS: Docusate Oral Soln 100 MG/10 ML UDC GTUBE SCH ×2 (07:39→19:26)
[2021-06-08] MEDS: *HR* LORazepam 0.5 MG TABLET PO SCH ×2 (07:39→19:26)
[2021-06-08] MEDS: Pregabalin 50 MG CAPSULE GTUBE SCH ×2 (07:39→19:25)
[2021-06-08] MEDS: Apixaban 5 MG TABLET GTUBE SCH ×2 (07:39→19:25)
[2021-06-08] MEDS: Insulin DETEMIR 100 UNIT/ML X5UNITS SUBQ SCH ×2 (07:57→19:29)
[2021-06-08] MEDS: Budesonide/Formoterol 160/4.5 1 PUFF INH IH SCH ×2 (08:18→19:51)
[2021-06-08] MEDS: Vancomycin 1,250 MG/262.5 ML IV.SOLN IVPB SCH (16:06)
[2021-06-08 16:11] LABS: Bacteria,Urine Few per hpf (None-Few); Bilirubin,Urine Negative (Negative); Blood,Urine Trace (Negative); Clarity,Urine Turbid (Clear); Color,Urine Light-Yellow (Yellow); Glucose,Urine (UA) >=1000 mg/dL (Normal); Ketones,Urine Negative (Negative); Leukocyte Esterase,Urine Negative (Negative); Nitrite,Urine Negative (Negative); Protein,Urine 70 mg/dL (Neg-Trace); RBC,Urine 15-30 per hpf (0-3); Squamous Epithelial Cell,Urine Few per hpf (None-Few); Urobilinogen,Urine Normal (Normal)
[2021-06-08] MEDS: QUEtiapine Fumarate 100 MG TABLET PO SCH (19:25)
[2021-06-09] MEDS: FentaNYL (PF) 1,000 MCG/100 ML IV.SOLN IVC SCH ×4 (00:10→23:59)
[2021-06-09] MEDS: *HR* Midazolam HCl 2 MG/2 ML VIAL IVP PRN ×2 (01:29→04:24)
[2021-06-09] MEDS: Artificial Tears SOLN 15 ML BOTTLE BOTH EYES SCH ×5 (03:21→19:48)
[2021-06-09] MEDS: Insulin LISPRO 300 UNITS/3 ML VIAL SUBQ SCH ×5 (03:21→19:49)
[2021-06-09] MEDS: Vancomycin 1,250 MG/262.5 ML IV.SOLN IVPB SCH ×2 (03:22→16:06)
[2021-06-09] MEDS: Dexmedetomidine HCl 400 MCG/100 ML MLS IVC SCH ×4 (03:26→18:57)
[2021-06-09 04:37] LABS: Basophils # 0.1 K/mcL (0.0-0.2); Basophils % 0.6 %; Hematocrit 28.4 % (35.3-44.9); Hemoglobin 8.3 g/dL (11.5-15.4); Immature Granulocytes % 4.9 % (0-4); Lymphocytes # 3.8 K/mcL (0.6-4.6); Lymphocytes % 22.2 %; Mean Corpuscular HGB Conc 29.2 g/dL (31.6-35.5); Mean Platelet Volume 9.9 fL (9.4-12.4); Monocytes # 0.6 K/mcL (0.0-1.3); Monocytes % 3.7 %; Neutrophils # 11.7 K/mcL (1.6-8.9); Nucleated Red Blood Cells 0.2 /100 WBC (0); Platelet Count 422 K/mcL (140-400); Red Blood Count 3.19 M/mcL (3.82-4.97); Red Cell Distribution Width 17.9 % (11.5-14.5); Segmented Neutrophils % 68.6 %; White Blood Count 17.1 K/mcL (4.3-11.1)
[2021-06-09 04:47] LABS: VBG Ionized Calcium 1.25 mmol/L (1.15-1.35)
[2021-06-09] MEDS: Ipratropium/Albuterol Neb 3 ML IH SCH ×4 (04:49→21:29)
[2021-06-09 04:52] LABS: Alanine Aminotransferase 23 Units/L (7-52); Albumin 3.1 g/dL (3.5-5.7); Albumin/Globulin Ratio 0.9 (1.1-2.2); Alkaline Phosphatase 82 Units/L (34-104); Aspartate Amino Transferase 17 Units/L (13-39); BUN/Creatinine Ratio 42 (6-26); Bilirubin,Total 0.3 mg/dL (0.3-1.0); Blood Urea Nitrogen 29 mg/dL (8-23); Calcium 9.4 mg/dL (8.6-10.3); Carbon Dioxide 34 mEq/L (23-29); Chloride 103 mEq/L (98-107); Globulin 3.3 g/dL (2.4-3.5); Glucose 250 mg/dL (70-105); Magnesium 1.8 mg/dL (1.6-2.6); Osmolality,Calculated 310 (280-300); Phosphorous 3.4 mg/dL (2.7-4.5); Potassium 3.4 mEq/L (3.5-5.1); Sodium 143 mEq/L (136-145); Total Protein 6.4 g/dL (6.4-8.9); eGFR For African Americans > 60 (> 60); eGFR For Non-African Americans > 60 (> 60)
[2021-06-09 04:56] LABS: ABG Base Excess 8 mEq/L (-2 to 3); ABG HCO3 33 mEq/L (21-27); ABG Oxygen Saturation 92 % (95-98); ABG PCO2 49 mmHg (35-45); ABG PH 7.44 pH Units (7.32-7.45); ABG PO2 63 mmHg (85-104); ABG TCO2 34 mEq/L (20-26); Blood Gas VT 490 cc
[2021-06-09] MEDS: Piperacillin/Tazobactam 3.375 GM in 0.9 % Sodium Chloride Mini Bag 100 ML IVPB SCH ×3 (05:05→19:46)
[2021-06-09] MEDS: Doxycycline 100 MG in 0.9 % Sodium Chloride Mini Bag 100 ML IVPB SCH ×2 (05:29→17:53)
[2021-06-09] MEDS: Metoclopramide 10 MG/2 ML VIAL IVP SCH ×3 (05:30→17:52)
[2021-06-09] MEDS ORDERED: Potassium Chloride Elixir 20 MEQ/15 ML UDC GTUBE ONE (05:38)
[2021-06-09] MEDS: Budesonide/Formoterol 160/4.5 1 PUFF INH IH SCH ×2 (07:40→21:29)
[2021-06-09] MEDS: Chlorhexidine Rinse 15 ML MOUTHWASH MM SCH ×2 (08:08→19:45)
[2021-06-09] MEDS: Pantoprazole 40 MG VIAL IVP SCH (08:08)
[2021-06-09] MEDS: MethylPREDNISolone 40 MG/ML VIAL IVP SCH (08:08)
[2021-06-09] MEDS: Docusate Oral Soln 100 MG/10 ML UDC GTUBE SCH ×2 (08:08→19:45)
[2021-06-09] MEDS: Furosemide 20 MG/2 ML VIAL IVP SCH (08:09)
[2021-06-09] MEDS: *HR* LORazepam 0.5 MG TABLET PO SCH ×2 (08:09→19:45)
[2021-06-09] MEDS: Pregabalin 50 MG CAPSULE GTUBE SCH ×2 (08:09→19:45)
[2021-06-09] MEDS: Apixaban 5 MG TABLET GTUBE SCH ×2 (08:09→19:45)
[2021-06-09] MEDS: Insulin DETEMIR 100 UNIT/ML X5UNITS SUBQ SCH ×2 (08:18→19:46)
[2021-06-09 14:01] LABS: Triglycerides 481 mg/dL (< 150)
[2021-06-09] MEDS: QUEtiapine Fumarate 100 MG TABLET PO SCH (19:46)
[2021-06-10] MEDS: Metoclopramide 10 MG/2 ML VIAL IVP SCH ×4 (00:01→17:47)
[2021-06-10] MEDS: Artificial Tears SOLN 15 ML BOTTLE BOTH EYES SCH ×3 (00:01→07:35)
[2021-06-10] MEDS: Insulin LISPRO 300 UNITS/3 ML VIAL SUBQ SCH ×6 (00:03→20:28)
[2021-06-10] MEDS: Dexmedetomidine HCl 400 MCG/100 ML MLS IVC SCH ×3 (00:56→12:36)
[2021-06-10] MEDS: Vancomycin 1,500 MG/265 ML IV.SOLN IVPB SCH ×2 (03:45→15:33)
[2021-06-10] MEDS: Ipratropium/Albuterol Neb 3 ML IH SCH ×4 (04:28→19:59)
[2021-06-10] MEDS: Piperacillin/Tazobactam 3.375 GM in 0.9 % Sodium Chloride Mini Bag 100 ML IVPB SCH (04:42)
[2021-06-10 04:43] LABS: ABG Base Excess 5 mEq/L (-2 to 3); ABG HCO3 30 mEq/L (21-27); ABG Oxygen Saturation 96 % (95-98); ABG PCO2 44 mmHg (35-45); ABG PH 7.44 pH Units (7.32-7.45); ABG PO2 80 mmHg (85-104); ABG TCO2 31 mEq/L (20-26); Blood Gas Modality ASSIST CONTROL; Blood Gas VT 490 cc
[2021-06-10] MEDS: FentaNYL (PF) 1,000 MCG/100 ML IV.SOLN IVC SCH ×2 (04:43→10:30)
[2021-06-10] MEDS: Doxycycline 100 MG in 0.9 % Sodium Chloride Mini Bag 100 ML IVPB SCH (06:00)
[2021-06-10 06:08] LABS: Mean Platelet Volume 10.2 fL (9.4-12.4)
[2021-06-10 06:08] LABS: VBG Ionized Calcium 1.21 mmol/L (1.15-1.35)
[2021-06-10 06:10] LABS: Basophils # 0.1 K/mcL (0.0-0.2); Basophils % 0.5 %; Hematocrit 28.2 % (35.3-44.9); Hemoglobin 8.3 g/dL (11.5-15.4); Immature Granulocytes % 4.4 % (0-4); Lymphocytes # 3.4 K/mcL (0.6-4.6); Lymphocytes % 25.8 %; Mean Corpuscular HGB Conc 29.4 g/dL (31.6-35.5); Mean Corpuscular Hemoglobin 26.6 pg (28.0-33.3); Mean Corpuscular Volume 90.4 fL (83.0-100.0); Monocytes # 0.7 K/mcL (0.0-1.3); Platelet Count 387 K/mcL (140-400); Red Blood Count 3.12 M/mcL (3.82-4.97); Segmented Neutrophils % 64.3 %; White Blood Count 13.3 K/mcL (4.3-11.1)
[2021-06-10 06:11] LABS: Neutrophils # 8.6 K/mcL (1.6-8.9)
[2021-06-10 06:26] LABS: Magnesium 1.8 mg/dL (1.6-2.6); Phosphorous 4.7 mg/dL (2.7-4.5)
[2021-06-10 06:28] LABS: Alanine Aminotransferase 24 Units/L (7-52); Albumin/Globulin Ratio 0.9 (1.1-2.2); Alkaline Phosphatase 73 Units/L (34-104); Aspartate Amino Transferase 20 Units/L (13-39); BUN/Creatinine Ratio 50 (6-26); Bilirubin,Total 0.3 mg/dL (0.3-1.0); Blood Urea Nitrogen 29 mg/dL (8-23); Calcium 9.5 mg/dL (8.6-10.3); Carbon Dioxide 31 mEq/L (23-29); Chloride 105 mEq/L (98-107); Globulin 3.2 g/dL (2.4-3.5); Glucose 145 mg/dL (70-105); Osmolality,Calculated 302 (280-300); Potassium 3.8 mEq/L (3.5-5.1); Sodium 142 mEq/L (136-145); Total Protein 6.2 g/dL (6.4-8.9); eGFR For African Americans > 60 (> 60); eGFR For Non-African Americans > 60 (> 60)
[2021-06-10] MEDS: Budesonide/Formoterol 160/4.5 1 PUFF INH IH SCH ×2 (07:22→19:59)
[2021-06-10] MEDS: *HR* LORazepam 0.5 MG TABLET PO SCH ×2 (07:39→20:28)
[2021-06-10] MEDS: Apixaban 5 MG TABLET GTUBE SCH ×2 (07:39→20:28)
[2021-06-10] MEDS: Chlorhexidine Rinse 15 ML MOUTHWASH MM SCH ×2 (07:39→20:28)
[2021-06-10] MEDS: Docusate Oral Soln 100 MG/10 ML UDC GTUBE SCH ×2 (07:39→20:28)
[2021-06-10] MEDS: Furosemide 20 MG/2 ML VIAL IVP SCH (07:40)
[2021-06-10] MEDS: Pregabalin 50 MG CAPSULE GTUBE SCH ×2 (07:41→20:28)
[2021-06-10] MEDS: Pantoprazole 40 MG VIAL IVP SCH (07:41)
[2021-06-10] MEDS: MethylPREDNISolone 40 MG/ML VIAL IVP SCH (07:42)
[2021-06-10] MEDS: Insulin DETEMIR 100 UNIT/ML X5UNITS SUBQ SCH ×3 (08:07→22:07)
[2021-06-10] MEDS: Lacri-Lube 3.5 GM TUBE BOTH EYES SCH ×2 (13:51→20:28)
[2021-06-10] MEDS: *HR* Metoprolol 5 MG/5 ML VIAL IVP PRN (16:15)
[2021-06-10] MEDS: QUEtiapine Fumarate 100 MG TABLET PO SCH (20:29)
[2021-06-11] MEDS: Metoclopramide 10 MG/2 ML VIAL IVP SCH ×2 (00:16→06:12)
[2021-06-11] MEDS: Insulin LISPRO 300 UNITS/3 ML VIAL SUBQ SCH ×7 (00:17→23:49)
[2021-06-11] MEDS ORDERED: *HR* LORazepam 2 MG/ML VIAL IVP PRN (01:16)
[2021-06-11] MEDS: Ipratropium/Albuterol Neb 3 ML IH SCH ×4 (03:23→20:31)
[2021-06-11] MEDS: Vancomycin 1,500 MG/265 ML IV.SOLN IVPB SCH (04:06)
[2021-06-11] MEDS: *HR* Metoprolol 5 MG/5 ML VIAL IVP PRN (06:08)
[2021-06-11] MEDS: Dexmedetomidine HCl 400 MCG/100 ML MLS IVC SCH (06:13)
[2021-06-11] MEDS: *HR* LORazepam 0.5 MG TABLET PO SCH ×2 (08:01→19:53)
[2021-06-11] MEDS: Lacri-Lube 3.5 GM TUBE BOTH EYES SCH ×2 (08:02→19:54)
[2021-06-11] MEDS: Furosemide 20 MG/2 ML VIAL IVP SCH (08:02)
[2021-06-11] MEDS: Docusate Oral Soln 100 MG/10 ML UDC GTUBE SCH ×2 (08:02→19:52)
[2021-06-11] MEDS: Chlorhexidine Rinse 15 ML MOUTHWASH MM SCH (08:02)
[2021-06-11] MEDS: Apixaban 5 MG TABLET GTUBE SCH ×2 (08:02→19:53)
[2021-06-11] MEDS: Pregabalin 50 MG CAPSULE GTUBE SCH ×2 (08:03→19:52)
[2021-06-11] MEDS: Pantoprazole 40 MG VIAL IVP SCH (08:03)
[2021-06-11] MEDS: MethylPREDNISolone 40 MG/ML VIAL IVP SCH (08:03)
[2021-06-11] MEDS: Budesonide/Formoterol 160/4.5 1 PUFF INH IH SCH ×2 (08:10→20:31)
[2021-06-11] MEDS: Insulin DETEMIR 100 UNIT/ML X5UNITS SUBQ SCH ×3 (08:36→19:56)
[2021-06-11] MEDS ORDERED: Baclofen 10 MG TABLET PO PRN (12:44)
[2021-06-11] MEDS ORDERED: Baclofen 10 MG TABLET PO ONE (13:00)
[2021-06-11] MEDS: BuPROPion XL (24 HR) 150 MG TABLET PO SCH ×2 (13:06)
[2021-06-11 14:26] LABS: Basophils % 0.3 %; Hematocrit 32.5 % (35.3-44.9); Hemoglobin 9.8 g/dL (11.5-15.4); Immature Granulocytes % 1.8 % (0-4); Lymphocytes # 1.4 K/mcL (0.6-4.6); Lymphocytes % 9.3 %; Mean Corpuscular HGB Conc 30.2 g/dL (31.6-35.5); Mean Corpuscular Hemoglobin 26.3 pg (28.0-33.3); Mean Corpuscular Volume 87.4 fL (83.0-100.0); Mean Platelet Volume 10.3 fL (9.4-12.4); Monocytes # 0.3 K/mcL (0.0-1.3); Monocytes % 1.9 %; Neutrophils # 12.8 K/mcL (1.6-8.9); Platelet Count 590 K/mcL (140-400); Red Blood Count 3.72 M/mcL (3.82-4.97); Red Cell Distribution Width 18.2 % (11.5-14.5); Segmented Neutrophils % 86.7 %; White Blood Count 14.8 K/mcL (4.3-11.1)
[2021-06-11 15:05] LABS: BUN/Creatinine Ratio 34 (6-26); Blood Urea Nitrogen 21 mg/dL (8-23); Calcium 9.7 mg/dL (8.6-10.3); Carbon Dioxide 27 mEq/L (23-29); Chloride 99 mEq/L (98-107); Glucose 266 mg/dL (70-105); Magnesium 1.6 mg/dL (1.6-2.6); Osmolality,Calculated 296 (280-300); Potassium 3.8 mEq/L (3.5-5.1); Sodium 137 mEq/L (136-145); eGFR For African Americans > 60 (> 60); eGFR For Non-African Americans > 60 (> 60)
[2021-06-11] MEDS: QUEtiapine Fumarate 100 MG TABLET PO SCH (19:53)
[2021-06-12] MEDS: Ipratropium/Albuterol Neb 3 ML IH SCH ×5 (04:05→20:16)
[2021-06-12] MEDS: Insulin LISPRO 300 UNITS/3 ML VIAL SUBQ SCH ×5 (04:45→20:53)
[2021-06-12 07:05] LABS: Basophils # 0.1 K/mcL (0.0-0.2); Basophils % 0.6 %; Hematocrit 31.7 % (35.3-44.9); Hemoglobin 9.3 g/dL (11.5-15.4); Immature Granulocytes % 1.7 % (0-4); Lymphocytes # 4.3 K/mcL (0.6-4.6); Lymphocytes % 30.5 %; Mean Corpuscular HGB Conc 29.3 g/dL (31.6-35.5); Mean Corpuscular Hemoglobin 25.8 pg (28.0-33.3); Mean Corpuscular Volume 88.1 fL (83.0-100.0); Mean Platelet Volume 10.3 fL (9.4-12.4); Monocytes # 0.8 K/mcL (0.0-1.3); Monocytes % 5.8 %; Neutrophils # 8.7 K/mcL (1.6-8.9); Platelet Count 529 K/mcL (140-400); Red Cell Distribution Width 18.3 % (11.5-14.5); Segmented Neutrophils % 61.4 %; White Blood Count 14.1 K/mcL (4.3-11.1)
[2021-06-12 07:25] LABS: BUN/Creatinine Ratio 33 (6-26); Blood Urea Nitrogen 22 mg/dL (8-23); Calcium 9.6 mg/dL (8.6-10.3); Carbon Dioxide 31 mEq/L (23-29); Chloride 99 mEq/L (98-107); Glucose 129 mg/dL (70-105); Osmolality,Calculated 291 (280-300); Potassium 3.1 mEq/L (3.5-5.1); Sodium 138 mEq/L (136-145); eGFR For African Americans > 60 (> 60); eGFR For Non-African Americans > 60 (> 60)
[2021-06-12] MEDS: Budesonide/Formoterol 160/4.5 1 PUFF INH IH SCH ×3 (07:33→20:17)
[2021-06-12] MEDS: Pantoprazole 40 MG VIAL IVP SCH (07:59)
[2021-06-12] MEDS: Furosemide 20 MG/2 ML VIAL IVP SCH (07:59)
[2021-06-12] MEDS: Pregabalin 50 MG CAPSULE GTUBE SCH (07:59)
[2021-06-12] MEDS: Apixaban 5 MG TABLET GTUBE SCH (08:00)
[2021-06-12] MEDS: BuPROPion XL (24 HR) 150 MG TABLET PO SCH ×2 (08:00)
[2021-06-12] MEDS: *HR* LORazepam 0.5 MG TABLET PO SCH ×2 (08:00→20:43)
[2021-06-12] MEDS: Lacri-Lube 3.5 GM TUBE BOTH EYES SCH ×2 (08:01→21:42)
[2021-06-12] MEDS: Docusate Oral Soln 100 MG/10 ML UDC GTUBE SCH (08:02)
[2021-06-12] MEDS ORDERED: Acetaminophen 325 MG TABLET PO PRN (08:15)
[2021-06-12] MEDS: Insulin DETEMIR 100 UNIT/ML X5UNITS SUBQ SCH ×2 (08:22→20:44)
[2021-06-12] MEDS ORDERED: predniSONE 20 MG TABLET PO SCH (09:00)
[2021-06-12] MEDS ORDERED: D5% in Water 1,000 ML IVC PRN (09:33)
[2021-06-12] MEDS ORDERED: Naloxone 0.4 MG/ML INJ IVP PRN (09:33)
[2021-06-12] MEDS ORDERED: *HR* LORazepam 2 MG/ML VIAL IVP PRN (09:33)
[2021-06-12] MEDS ORDERED: Baclofen 10 MG TABLET PO PRN (09:33)
[2021-06-12] MEDS ORDERED: *HR* Metoprolol 5 MG/5 ML VIAL IVP PRN (09:33)
[2021-06-12] MEDS ORDERED: *HR* Dextrose 50 % in Water (Syg) 50 ML SYRINGE IVP PRN (09:33)
[2021-06-12] MEDS ORDERED: Dextrose Gel 15 GM/37.5 ML TUBE PO PRN ×2 (09:33)
[2021-06-12] MEDS: Acetaminophen 325 MG TABLET PO PRN (12:44)
[2021-06-12] MEDS: Pregabalin 50 MG CAPSULE PO SCH (20:43)
[2021-06-12] MEDS: QUEtiapine Fumarate 100 MG TABLET PO SCH (20:43)
[2021-06-12] MEDS: Apixaban 5 MG TABLET PO SCH (21:43)
[2021-06-13 01:22] LABS: Hematocrit 32.1 % (35.3-44.9); Hemoglobin 9.5 g/dL (11.5-15.4); Mean Corpuscular HGB Conc 29.6 g/dL (31.6-35.5); Mean Corpuscular Hemoglobin 25.5 pg (28.0-33.3); Mean Corpuscular Volume 86.3 fL (83.0-100.0); Mean Platelet Volume 10.3 fL (9.4-12.4); Platelet Count 564 K/mcL (140-400); Red Blood Count 3.72 M/mcL (3.82-4.97); Red Cell Distribution Width 17.7 % (11.5-14.5); White Blood Count 13.3 K/mcL (4.3-11.1)
[2021-06-13 01:43] LABS: BUN/Creatinine Ratio 30 (6-26); Blood Urea Nitrogen 19 mg/dL (8-23); Calcium 9.4 mg/dL (8.6-10.3); Carbon Dioxide 28 mEq/L (23-29); Chloride 99 mEq/L (98-107); Glucose 107 mg/dL (70-105); Osmolality,Calculated 287 (280-300); Potassium 2.9 mEq/L (3.5-5.1); Sodium 137 mEq/L (136-145); eGFR For African Americans > 60 (> 60); eGFR For Non-African Americans > 60 (> 60)
[2021-06-13 02:56] LABS: Eosinophils # 0.5 K/mcL (0.0-0.6); Lymphocytes # 5.1 K/mcL (0.6-4.6); Monocytes # 1.1 K/mcL (0.0-1.3); Neutrophils # 6.7 K/mcL (1.6-8.9)
[2021-06-13] MEDS: Ipratropium/Albuterol Neb 3 ML IH SCH ×4 (03:31→20:15)
[2021-06-13] MEDS: Budesonide/Formoterol 160/4.5 1 PUFF INH IH SCH ×2 (07:22→20:15)
[2021-06-13] MEDS ORDERED: Potassium Chloride Elixir 20 MEQ/15 ML UDC PO ONE ×2 (07:51→12:00)
[2021-06-13] MEDS: Insulin LISPRO 300 UNITS/3 ML VIAL SUBQ SCH ×4 (08:07→19:49)
[2021-06-13] MEDS: BuPROPion XL (24 HR) 150 MG TABLET PO SCH ×2 (08:59)
[2021-06-13] MEDS ORDERED: Furosemide 20 MG/2 ML VIAL IVP SCH (09:00)
[2021-06-13] MEDS: Pregabalin 50 MG CAPSULE PO SCH ×2 (09:00→19:47)
[2021-06-13] MEDS: Apixaban 5 MG TABLET PO SCH ×2 (09:00→19:47)
[2021-06-13] MEDS ORDERED: Pantoprazole 40 MG VIAL IVP SCH (09:00)
[2021-06-13] MEDS: predniSONE 20 MG TABLET PO SCH (09:00)
[2021-06-13] MEDS: Lacri-Lube 3.5 GM TUBE BOTH EYES SCH ×2 (09:01→19:48)
[2021-06-13] MEDS: *HR* LORazepam 0.5 MG TABLET PO SCH (09:01)
[2021-06-13] MEDS: Insulin DETEMIR 100 UNIT/ML X5UNITS SUBQ SCH ×2 (09:04→19:48)
[2021-06-13] MEDS ORDERED: *HR* LORazepam 0.5 MG TABLET PO PRN (11:35)
[2021-06-13] MEDS: modafiniL 100 MG TABLET PO SCH (14:14)
[2021-06-13 16:05] LABS: Magnesium 1.7 mg/dL (1.6-2.6)
[2021-06-13] MEDS: QUEtiapine Fumarate 100 MG TABLET PO SCH (19:47)
[2021-06-13] MEDS: Sucralfate 1 GM TABLET PO SCH (19:47)
[2021-06-14 02:19] LABS: Basophils # 0.1 K/mcL (0.0-0.2); Basophils % 0.6 %; Hematocrit 31.9 % (35.3-44.9); Hemoglobin 9.5 g/dL (11.5-15.4); Immature Granulocytes % 1.3 % (0-4); Lymphocytes # 3.7 K/mcL (0.6-4.6); Mean Corpuscular HGB Conc 29.8 g/dL (31.6-35.5); Mean Corpuscular Hemoglobin 25.7 pg (28.0-33.3); Mean Corpuscular Volume 86.4 fL (83.0-100.0); Mean Platelet Volume 10.3 fL (9.4-12.4); Monocytes # 0.8 K/mcL (0.0-1.3); Platelet Count 557 K/mcL (140-400); Red Blood Count 3.69 M/mcL (3.82-4.97); Red Cell Distribution Width 17.2 % (11.5-14.5); Segmented Neutrophils % 65.1 %; White Blood Count 13.8 K/mcL (4.3-11.1)
[2021-06-14 02:36] LABS: BUN/Creatinine Ratio 25 (6-26); Blood Urea Nitrogen 19 mg/dL (8-23); Calcium 9.6 mg/dL (8.6-10.3); Carbon Dioxide 27 mEq/L (23-29); Chloride 99 mEq/L (98-107); Glucose 99 mg/dL (70-105); Osmolality,Calculated 280 (280-300); Potassium 3.2 mEq/L (3.5-5.1); Sodium 134 mEq/L (136-145); eGFR For African Americans > 60 (> 60); eGFR For Non-African Americans > 60 (> 60)
[2021-06-14] MEDS: Ipratropium/Albuterol Neb 3 ML IH SCH ×4 (04:01→19:41)
[2021-06-14] MEDS ORDERED: Potassium Chloride Elixir 20 MEQ/15 ML UDC PO ONE (07:07)
[2021-06-14] MEDS: Budesonide/Formoterol 160/4.5 1 PUFF INH IH SCH ×2 (07:23→19:41)
[2021-06-14] MEDS: Insulin LISPRO 300 UNITS/3 ML VIAL SUBQ SCH ×4 (08:17→19:26)
[2021-06-14] MEDS: BuPROPion XL (24 HR) 150 MG TABLET PO SCH ×2 (08:17→08:18)
[2021-06-14] MEDS: Pregabalin 50 MG CAPSULE PO SCH ×2 (08:17→19:24)
[2021-06-14] MEDS: predniSONE 20 MG TABLET PO SCH (08:18)
[2021-06-14] MEDS: Furosemide 40 MG TABLET PO SCH (08:18)
[2021-06-14] MEDS: Sucralfate 1 GM TABLET PO SCH ×2 (08:18→19:25)
[2021-06-14] MEDS: Apixaban 5 MG TABLET PO SCH ×2 (08:19→19:25)
[2021-06-14] MEDS: modafiniL 100 MG TABLET PO SCH (08:20)
[2021-06-14] MEDS: Lacri-Lube 3.5 GM TUBE BOTH EYES SCH ×2 (08:20→19:25)
[2021-06-14] MEDS: Insulin DETEMIR 100 UNIT/ML X5UNITS SUBQ SCH ×2 (08:31→20:50)
[2021-06-14] MEDS ORDERED: Sulfamethoxazole/Trimeth DS 1 EACH TABLET PO SCH (09:00)
[2021-06-14] MEDS: Acetaminophen 325 MG TABLET PO PRN (16:39)
[2021-06-14] MEDS: QUEtiapine Fumarate 100 MG TABLET PO SCH (19:25)
[2021-06-15] MEDS: Ipratropium/Albuterol Neb 3 ML IH SCH ×2 (03:34→07:49)
[2021-06-15 05:37] LABS: Hematocrit 30.7 % (35.3-44.9); Hemoglobin 9.1 g/dL (11.5-15.4); Mean Corpuscular HGB Conc 29.6 g/dL (31.6-35.5); Mean Corpuscular Hemoglobin 25.5 pg (28.0-33.3); Neutrophils # 7.7 K/mcL (1.6-8.9); Platelet Count 552 K/mcL (140-400); Red Blood Count 3.57 M/mcL (3.82-4.97); Red Cell Distribution Width 16.9 % (11.5-14.5); White Blood Count 12.1 K/mcL (4.3-11.1)
[2021-06-15 05:58] LABS: BUN/Creatinine Ratio 21 (6-26); Blood Urea Nitrogen 15 mg/dL (8-23); Calcium 9.6 mg/dL (8.6-10.3); Carbon Dioxide 26 mEq/L (23-29); Chloride 99 mEq/L (98-107); Glucose 138 mg/dL (70-105); Osmolality,Calculated 281 (280-300); Sodium 134 mEq/L (136-145); eGFR For African Americans > 60 (> 60); eGFR For Non-African Americans > 60 (> 60)
[2021-06-15 07:16] LABS: Eosinophils # 0.2 K/mcL (0.0-0.6); Lymphocytes # 3.4 K/mcL (0.6-4.6); Monocytes # 0.7 K/mcL (0.0-1.3); Platelet Estimate Increased (Normal); Reactive Lymphocytes Present (Not Present)
[2021-06-15] MEDS: Budesonide/Formoterol 160/4.5 1 PUFF INH IH SCH (07:49)
[2021-06-15] MEDS: BuPROPion XL (24 HR) 150 MG TABLET PO SCH ×2 (09:18→09:19)
[2021-06-15] MEDS: Furosemide 40 MG TABLET PO SCH (09:18)
[2021-06-15] MEDS: modafiniL 100 MG TABLET PO SCH (09:19)
[2021-06-15] MEDS: predniSONE 20 MG TABLET PO SCH (09:19)
[2021-06-15] MEDS: Sucralfate 1 GM TABLET PO SCH (09:19)
[2021-06-15] MEDS: Apixaban 5 MG TABLET PO SCH (09:19)
[2021-06-15] MEDS: Pregabalin 50 MG CAPSULE PO SCH (09:20)
[2021-06-15] MEDS: Insulin DETEMIR 100 UNIT/ML X5UNITS SUBQ SCH (09:29)
[2021-06-15] MEDS: Insulin LISPRO 300 UNITS/3 ML VIAL SUBQ SCH (09:30)
[2021-06-15] MEDS: Lacri-Lube 3.5 GM TUBE BOTH EYES SCH (09:30)
[2021-06-15 11:00] VITALS: BP 152/87; PULSE 111; TEMP 97.8; O2SAT 97
== END 2021-06-15 11:36 | disposition home or self-care (01) | DRG 870 ==
LOC: CDU 22:13 → EMEROOARM 22:13 → SUATTDRO 06-03 03:58 → CDU 06-03 04:16 → ICNU 06-03 08:10 → 2NENU 06-12 11:24
PROVIDERS: ADMIT Internal Medicine; ATTEND Internal Medicine

== ENCOUNTER 2021-07-04 03:20 | Inpatient (IN) ==
[2021-07-04] MEDS ORDERED: methylPREDNISolone 125 MG/2 ML VIAL IVP ONE (03:22)
[2021-07-04] MEDS ORDERED: Ipratropium/Albuterol Neb 3 ML IH ONE (03:22)
[2021-07-04] MEDS ORDERED: 0.9 % Sodium Chloride 1,000 ML IVC ONE ×2 (03:22→07:58)
[2021-07-04 03:32] LABS: ABG Base Excess 2 mEq/L (-2 to 3); ABG HCO3 28 mEq/L (21-27); ABG Oxygen Saturation 100 % (95-98); ABG PCO2 49 mmHg (35-45); ABG PH 7.37 pH Units (7.32-7.45); ABG PO2 600 mmHg (85-104); ABG TCO2 30 mEq/L (20-26)
[2021-07-04 03:41] LABS: Hemoglobin 9.6 g/dL (11.5-15.4)
[2021-07-04 03:42] LABS: Basophils # 0.1 K/mcL (0.0-0.2); Basophils % 0.5 %; Hematocrit 32.4 % (35.3-44.9); Immature Granulocytes % 2.2 % (0-4); Lymphocytes # 4.8 K/mcL (0.6-4.6); Lymphocytes % 32.2 %; Mean Corpuscular HGB Conc 29.6 g/dL (31.6-35.5); Mean Corpuscular Hemoglobin 26.7 pg (28.0-33.3); Mean Platelet Volume 9.3 fL (9.4-12.4); Monocytes # 0.8 K/mcL (0.0-1.3); Monocytes % 5.7 %; Neutrophils # 8.8 K/mcL (1.6-8.9); Platelet Count 500 K/mcL (140-400); Red Cell Distribution Width 17.1 % (11.5-14.5); Segmented Neutrophils % 59.4 %; White Blood Count 14.8 K/mcL (4.3-11.1)
[2021-07-04 03:56] LABS: Platelet Estimate Increased (Normal)
[2021-07-04 04:02] LABS: Alanine Aminotransferase 21 Units/L (7-52); Albumin 3.9 g/dL (3.5-5.7); Albumin/Globulin Ratio 1.2 (1.1-2.2); Alkaline Phosphatase 68 Units/L (34-104); Aspartate Amino Transferase 17 Units/L (13-39); BUN/Creatinine Ratio 14 (6-26); Bilirubin,Indirect 0.3 mg/dL (0.0-1.0); Bilirubin,Total 0.3 mg/dL (0.3-1.0); Blood Urea Nitrogen 11 mg/dL (8-23); Calcium 9.7 mg/dL (8.6-10.3); Carbon Dioxide 26 mEq/L (23-29); Chloride 105 mEq/L (98-107); Globulin 3.2 g/dL (2.4-3.5); Glucose 146 mg/dL (70-105); Osmolality,Calculated 294 (280-300); Potassium 5.3 mEq/L (3.5-5.1); Sodium 141 mEq/L (136-145); Total Protein 7.1 g/dL (6.4-8.9); Troponin I 0.03 ng/mL (< 0.04); eGFR For African Americans > 60 (> 60); eGFR For Non-African Americans > 60 (> 60)
[2021-07-04 04:30] LABS: Bilirubin,Urine Negative (Negative); Blood,Urine Negative (Negative); Clarity,Urine Clear (Clear); Color,Urine Colorless (Yellow); Glucose,Urine (UA) Normal (Normal); Ketones,Urine Negative (Negative); Leukocyte Esterase,Urine Negative (Negative); Nitrite,Urine Negative (Negative); PH,Urine 6.5 pH Units (5.0-8.0); Protein,Urine Negative (Neg-Trace); Specific Gravity,Urine 1.013 (1.010-1.025); Urobilinogen,Urine Normal (Normal)
[2021-07-04] MEDS ORDERED: Calcium Gluconate 1gm/50mL 1 GM/50 ML BAG IVPB ONE (04:37)
[2021-07-04] MEDS ORDERED: Furosemide 20 MG/2 ML VIAL IVP ONE (04:38)
[2021-07-04] MEDS ORDERED: *HR* Dextrose 50 % in Water (Syg) 50 ML SYRINGE IVP ONE (04:38)
[2021-07-04] MEDS ORDERED: Insulin Human Regular 5 UNIT in 0.9 % Sodium Chloride 10 ML IV ONE (04:38)
[2021-07-04] MEDS ORDERED: Isovue-370 500 ML BOTTLE IVP ONE ×3 (04:40→15:29)
[2021-07-04 05:00] LABS: Amphetamine Screen,Urine Negative ng/mL (Cutoff=1000); Barbiturate Screen,Urine Negative ng/mL (Cutoff=200); Benzodiazepines Screen,Urine Negative ng/mL (Cutoff=200); Cannabinoid Screen,Urine Negative ng/mL (Cutoff = 50); Cocaine Screen,Urine Negative ng/mL (Cutoff= 300); Opiate Screen,Urine Negative ng/mL (Cutoff=300); Phencyclidine Screen,Urine Negative ng/mL (Cutoff=25)
[2021-07-04 05:27] LABS: Influenza A PCR Negative (Negative); Influenza B PCR Negative (Negative); Resp. Syncytial Virus PCR Negative (Negative); SARS-CoV-2 by PCR (In House) Negative (Negative)
[2021-07-04] MEDS ORDERED: *HR* LORazepam 2 MG/ML VIAL IVP ONE ×3 (05:31→13:00)
[2021-07-04 05:37] LABS: ABG Base Excess 2 mEq/L (-2 to 3); ABG HCO3 26 mEq/L (21-27); ABG Oxygen Saturation 99 % (95-98); ABG PCO2 42 mmHg (35-45); ABG PH 7.41 pH Units (7.32-7.45); ABG PO2 123 mmHg (85-104); ABG TCO2 28 mEq/L (20-26)
[2021-07-04 06:45] LABS: Prothrombin Time 10.9 Seconds (9.4-12.1)
[2021-07-04 06:47] LABS: Activated Partial Thrombo Time 20.3 Seconds (26.0-36.0)
[2021-07-04] MEDS ORDERED: Acetaminophen 325 MG TABLET PO PRN (06:53)
[2021-07-04] MEDS ORDERED: Naloxone 0.4 MG/ML INJ IVP PRN (06:53)
[2021-07-04] MEDS ORDERED: Saline Nasal Spray 44 ML BOTTLE NS PRN (07:00)
[2021-07-04] MEDS ORDERED: Thiamine (B-1) 100 MG in 0.9 % Sodium Chloride 50 ML IVPB STA (07:07)
[2021-07-04] MEDS: Ipratropium/Albuterol Neb 3 ML IH SCH ×6 (07:08→23:50)
[2021-07-04 07:12] LABS: Acetaminophen < 10 mcg/mL (10-20); Creatine Kinase 115 Units/L (30-223); Ethanol < 10 mg/dL (Less than 10); Salicylate < 2.5 mg/dL (15.0-30.0)
[2021-07-04] MEDS ORDERED: *HR* Heparin 5,000 UNIT/ML VIAL SQ SCH (08:00)
[2021-07-04] MEDS ORDERED: *HR* Heparin 5,000 UNIT/ML VIAL IVP PRN ×2 (08:14)
[2021-07-04 08:24] LABS: Thyroid Stimulating Hormone 1.826 mcIU/mL (0.340-5.600)
[2021-07-04 08:25] LABS: Basophils % 0.3 %; Hematocrit 30.6 % (35.3-44.9); Hemoglobin 9.1 g/dL (11.5-15.4); Immature Granulocytes % 1.7 % (0-4); Lymphocytes # 0.4 K/mcL (0.6-4.6); Mean Corpuscular HGB Conc 29.7 g/dL (31.6-35.5); Mean Corpuscular Hemoglobin 25.7 pg (28.0-33.3); Mean Corpuscular Volume 86.4 fL (83.0-100.0); Mean Platelet Volume 9.3 fL (9.4-12.4); Monocytes # 0.1 K/mcL (0.0-1.3); Monocytes % 0.8 %; Neutrophils # 13.7 K/mcL (1.6-8.9); Platelet Count 415 K/mcL (140-400); Red Blood Count 3.54 M/mcL (3.82-4.97); Red Cell Distribution Width 16.9 % (11.5-14.5); Segmented Neutrophils % 94.2 %; White Blood Count 14.5 K/mcL (4.3-11.1)
[2021-07-04 08:31] LABS: Prolactin 30.93 ng/mL (3.80-23.20)
[2021-07-04 08:44] LABS: Alanine Aminotransferase 20 Units/L (7-52); Albumin 3.9 g/dL (3.5-5.7); Albumin/Globulin Ratio 1.3 (1.1-2.2); Alkaline Phosphatase 65 Units/L (34-104); Aspartate Amino Transferase 14 Units/L (13-39); BUN/Creatinine Ratio 15 (6-26); Bilirubin,Total 0.2 mg/dL (0.3-1.0); Blood Urea Nitrogen 11 mg/dL (8-23); Calcium 9.3 mg/dL (8.6-10.3); Carbon Dioxide 26 mEq/L (23-29); Chloride 103 mEq/L (98-107); Glucose 293 mg/dL (70-105); Magnesium 1.6 mg/dL (1.6-2.6); Osmolality,Calculated 298 (280-300); Potassium 4.5 mEq/L (3.5-5.1); Sodium 139 mEq/L (136-145); Total Protein 6.9 g/dL (6.4-8.9); eGFR For African Americans > 60 (> 60); eGFR For Non-African Americans > 60 (> 60)
[2021-07-04 08:45] LABS: Folate 9.9 ng/mL (3.0-16.0)
[2021-07-04] MEDS: Piperacillin/Tazobactam 3.375 GM in 0.9 % Sodium Chloride Mini Bag 100 ML IVPB SCH ×3 (08:55→23:26)
[2021-07-04] MEDS: Pantoprazole 40 MG VIAL IVP SCH (08:55)
[2021-07-04] MEDS: Chlorhexidine Rinse 15 ML MOUTHWASH MM SCH ×2 (08:56→20:32)
[2021-07-04] MEDS: Saliva Stimulant 44.3ml BOTTLE PO SCH ×4 (08:56→19:13)
[2021-07-04] MEDS: Lactobacillus 1 EACH CAP.SPRINK PO SCH ×2 (08:56→20:35)
[2021-07-04] MEDS: Budesonide/Formoterol 160/4.5 1 PUFF INH IH SCH ×2 (09:39→19:59)
[2021-07-04] MEDS: 0.9 % Sodium Chloride 1,000 ML IVC SCH ×2 (10:35→17:11)
[2021-07-04] MEDS: Vancomycin 1,500 MG/265 ML IV.SOLN IVPB SCH ×2 (10:48→21:08)
[2021-07-04] MEDS: Heparin 25,000UNIT/250ML 1/2NS 25,000 UNIT/250 ML IV.SOLN IVC SCH (12:05)
[2021-07-04] MEDS: methylPREDNISolone 125 MG/2 ML VIAL IVP SCH ×2 (12:16→20:33)
[2021-07-04] MEDS ORDERED: levETIRAcetam 1,000 MG in 0.9 % Sodium Chloride 100 ML IVPB ONE (12:23)
[2021-07-04] MEDS ORDERED: *HR* Metoprolol 5 MG/5 ML VIAL IVP ONE (12:37)
[2021-07-04] MEDS: Artificial Tears SOLN 15 ML BOTTLE BOTH EYES SCH ×3 (13:04→19:13)
[2021-07-04] MEDS ORDERED: Dextrose 4 GM Chewable Tablets PO PRN ×2 (13:34)
[2021-07-04] MEDS ORDERED: D5% in Water 1,000 ML IVC PRN (13:34)
[2021-07-04] MEDS ORDERED: *HR* Dextrose 50 % in Water (Syg) 50 ML SYRINGE IVP PRN (13:34)
[2021-07-04] MEDS ORDERED: Insulin LISPRO 300 UNITS/3 ML VIAL SUBQ SCH ×2 (16:30→21:00)
[2021-07-04] MEDS: *HR* Metoprolol 5 MG/5 ML VIAL IVP PRN (17:07)
[2021-07-04] MEDS: *HR* LORazepam 2 MG/ML VIAL IVP SCH ×2 (17:18→20:34)
[2021-07-04] MEDS: ACYCLOVIR IVPB SCH (18:48)
[2021-07-04] MEDS: WATER IVPB SCH (18:48)
[2021-07-04] MEDS: D5 IVPB SCH (18:48)
[2021-07-04] MEDS: Insulin LISPRO 300 UNITS/3 ML VIAL SUBQ SCH (23:39)
[2021-07-05] MEDS: Heparin 25,000UNIT/250ML 1/2NS 25,000 UNIT/250 ML IV.SOLN IVC SCH (01:11)
[2021-07-05] MEDS: WATER IVPB SCH ×2 (02:14→11:45)
[2021-07-05] MEDS: D5 IVPB SCH ×2 (02:14→11:45)
[2021-07-05] MEDS: ACYCLOVIR IVPB SCH ×2 (02:14→11:45)
[2021-07-05] MEDS: Insulin LISPRO 300 UNITS/3 ML VIAL SUBQ SCH ×5 (03:26→20:28)
[2021-07-05] MEDS: methylPREDNISolone 125 MG/2 ML VIAL IVP SCH ×2 (03:29→12:41)
[2021-07-05 03:46] LABS: Basophils % 0.1 %; Hematocrit 29.4 % (35.3-44.9); Hemoglobin 8.7 g/dL (11.5-15.4); Lymphocytes # 0.8 K/mcL (0.6-4.6); Lymphocytes % 7.8 %; Mean Corpuscular HGB Conc 29.6 g/dL (31.6-35.5); Mean Corpuscular Hemoglobin 25.6 pg (28.0-33.3); Mean Corpuscular Volume 86.5 fL (83.0-100.0); Mean Platelet Volume 9.1 fL (9.4-12.4); Monocytes # 0.4 K/mcL (0.0-1.3); Monocytes % 3.4 %; Neutrophils # 9.2 K/mcL (1.6-8.9); Platelet Count 456 K/mcL (140-400); Red Cell Distribution Width 17.2 % (11.5-14.5); Segmented Neutrophils % 87.7 %; White Blood Count 10.5 K/mcL (4.3-11.1)
[2021-07-05] MEDS: Ipratropium/Albuterol Neb 3 ML IH SCH ×6 (04:01→23:36)
[2021-07-05 04:04] LABS: Alanine Aminotransferase 18 Units/L (7-52); Albumin 3.8 g/dL (3.5-5.7); Albumin/Globulin Ratio 1.2 (1.1-2.2); Alkaline Phosphatase 60 Units/L (34-104); Aspartate Amino Transferase 12 Units/L (13-39); BUN/Creatinine Ratio 18 (6-26); Bilirubin,Total 0.3 mg/dL (0.3-1.0); Blood Urea Nitrogen 11 mg/dL (8-23); Calcium 9.1 mg/dL (8.6-10.3); Carbon Dioxide 27 mEq/L (23-29); Chloride 102 mEq/L (98-107); Globulin 3.1 g/dL (2.4-3.5); Glucose 255 mg/dL (70-105); Osmolality,Calculated 292 (280-300); Potassium 3.5 mEq/L (3.5-5.1); Sodium 137 mEq/L (136-145); Total Protein 6.9 g/dL (6.4-8.9); eGFR For African Americans > 60 (> 60); eGFR For Non-African Americans > 60 (> 60)
[2021-07-05 04:38] LABS: ABG Base Excess 2 mEq/L (-2 to 3); ABG HCO3 26 mEq/L (21-27); ABG Oxygen Saturation 98 % (95-98); ABG PCO2 39 mmHg (35-45); ABG PH 7.43 pH Units (7.32-7.45); ABG PO2 95 mmHg (85-104); ABG TCO2 27 mEq/L (20-26)
[2021-07-05] MEDS: Artificial Tears SOLN 15 ML BOTTLE BOTH EYES SCH ×4 (07:24→19:57)
[2021-07-05] MEDS: Saliva Stimulant 44.3ml BOTTLE PO SCH ×4 (07:24→19:58)
[2021-07-05] MEDS: Lactobacillus 1 EACH CAP.SPRINK PO SCH ×2 (07:24→19:59)
[2021-07-05] MEDS: Piperacillin/Tazobactam 3.375 GM in 0.9 % Sodium Chloride Mini Bag 100 ML IVPB SCH (07:25)
[2021-07-05] MEDS: Pantoprazole 40 MG VIAL IVP SCH (07:25)
[2021-07-05] MEDS: Chlorhexidine Rinse 15 ML MOUTHWASH MM SCH ×2 (07:25→19:59)
[2021-07-05] MEDS: *HR* Metoprolol 5 MG/5 ML VIAL IVP PRN (08:13)
[2021-07-05] MEDS: Budesonide/Formoterol 160/4.5 1 PUFF INH IH SCH ×2 (08:20→19:53)
[2021-07-05] MEDS: Vancomycin 1,500 MG/265 ML IV.SOLN IVPB SCH (08:57)
[2021-07-05] MEDS ORDERED: *HR* LORazepam 2 MG/ML VIAL IVP SCH (09:00)
[2021-07-05] MEDS ORDERED: Saline Nasal Spray 44 ML BOTTLE NS PRN (15:00)
[2021-07-05] MEDS ORDERED: Dextrose 4 GM Chewable Tablets PO PRN ×2 (15:00)
[2021-07-05] MEDS ORDERED: Naloxone 0.4 MG/ML INJ IVP PRN (15:00)
[2021-07-05] MEDS ORDERED: *HR* Metoprolol 5 MG/5 ML VIAL IVP PRN (15:00)
[2021-07-05] MEDS ORDERED: *HR* Dextrose 50 % in Water (Syg) 50 ML SYRINGE IVP PRN (15:00)
[2021-07-05] MEDS ORDERED: Heparin 25,000UNIT/250ML 1/2NS 25,000 UNIT/250 ML IV.SOLN IVC SCH (15:00)
[2021-07-05] MEDS ORDERED: D5% in Water 1,000 ML IVC PRN (15:00)
[2021-07-05] MEDS: *HR* LORazepam 2 MG/ML VIAL IVP SCH ×2 (16:42→19:58)
[2021-07-05] MEDS: *HR* Enoxaparin 100 MG/ML SYRINGE SQ SCH (16:43)
[2021-07-05] MEDS ORDERED: Ondansetron 4 MG/2 ML VIAL ONE (16:54)
[2021-07-05] MEDS ORDERED: Ondansetron 4 MG/2 ML VIAL IVP ONE (17:01)
[2021-07-05] MEDS ORDERED: ACYCLOVIR IVPB SCH (18:00)
[2021-07-05] MEDS ORDERED: WATER IVPB SCH (18:00)
[2021-07-05] MEDS ORDERED: D5 IVPB SCH (18:00)
[2021-07-05] MEDS ORDERED: *HR* Enoxaparin 100 MG/ML SYRINGE SQ SCH (18:00)
[2021-07-05] MEDS: Acetaminophen 325 MG TABLET PO PRN (20:01)
[2021-07-06] MEDS: Insulin LISPRO 300 UNITS/3 ML VIAL SUBQ SCH ×6 (01:00→20:57)
[2021-07-06 02:41] LABS: Hematocrit 27.8 % (35.3-44.9); Hemoglobin 8.3 g/dL (11.5-15.4); Mean Corpuscular HGB Conc 29.9 g/dL (31.6-35.5); Mean Corpuscular Hemoglobin 25.9 pg (28.0-33.3); Mean Corpuscular Volume 86.9 fL (83.0-100.0); Mean Platelet Volume 9.2 fL (9.4-12.4); Platelet Count 443 K/mcL (140-400); White Blood Count 9.8 K/mcL (4.3-11.1)
[2021-07-06 02:44] LABS: BUN/Creatinine Ratio 28 (6-26); Blood Urea Nitrogen 16 mg/dL (8-23); Calcium 9.2 mg/dL (8.6-10.3); Carbon Dioxide 28 mEq/L (23-29); Chloride 101 mEq/L (98-107); Glucose 117 mg/dL (70-105); Osmolality,Calculated 282 (280-300); Potassium 3.6 mEq/L (3.5-5.1); Sodium 135 mEq/L (136-145); eGFR For African Americans > 60 (> 60); eGFR For Non-African Americans > 60 (> 60)
[2021-07-06] MEDS: Ipratropium/Albuterol Neb 3 ML IH SCH ×6 (03:22→23:56)
[2021-07-06] MEDS: *HR* Enoxaparin 100 MG/ML SYRINGE SQ SCH (05:07)
[2021-07-06] MEDS: Budesonide/Formoterol 160/4.5 1 PUFF INH IH SCH ×2 (07:59→19:31)
[2021-07-06] MEDS ORDERED: predniSONE 20 MG TABLET PO SCH (09:00)
[2021-07-06] MEDS: Lactobacillus 1 EACH CAP.SPRINK PO SCH ×2 (09:14→20:03)
[2021-07-06] MEDS: *HR* LORazepam 2 MG/ML VIAL IVP SCH (09:15)
[2021-07-06] MEDS: predniSONE 20 MG TABLET PO SCH (09:15)
[2021-07-06] MEDS: Acetaminophen 325 MG TABLET PO PRN ×2 (09:15→18:23)
[2021-07-06] MEDS: Chlorhexidine Rinse 15 ML MOUTHWASH MM SCH ×2 (09:16→20:03)
[2021-07-06] MEDS: Artificial Tears SOLN 15 ML BOTTLE BOTH EYES SCH ×4 (09:24→20:05)
[2021-07-06] MEDS: Saliva Stimulant 44.3ml BOTTLE PO SCH ×4 (09:25→20:06)
[2021-07-06] MEDS: Furosemide 40 MG TABLET PO SCH (11:33)
[2021-07-06] MEDS: amLODIPine 5 MG TABLET PO SCH (11:33)
[2021-07-06] MEDS: levETIRAcetam 250 MG TABLET PO SCH (16:35)
[2021-07-06] MEDS: Apixaban 5 MG TABLET PO SCH (20:03)
[2021-07-06] MEDS: *HR* LORazepam 0.5 MG TABLET PO PRN (20:08)
[2021-07-07] MEDS: Insulin LISPRO 300 UNITS/3 ML VIAL SUBQ SCH ×3 (01:04→07:12)
[2021-07-07] MEDS: Ipratropium/Albuterol Neb 3 ML IH SCH ×2 (03:56→07:27)
[2021-07-07] MEDS: levETIRAcetam 250 MG TABLET PO SCH (06:00)
[2021-07-07] MEDS: Chlorhexidine Rinse 15 ML MOUTHWASH MM SCH (07:12)
[2021-07-07] MEDS: Saliva Stimulant 44.3ml BOTTLE PO SCH (07:12)
[2021-07-07] MEDS: Budesonide/Formoterol 160/4.5 1 PUFF INH IH SCH (07:27)
[2021-07-07 07:37] VITALS: BP 136/90; PULSE 92; TEMP 98.6
[2021-07-07] MEDS: amLODIPine 5 MG TABLET PO SCH (07:43)
[2021-07-07] MEDS: Apixaban 5 MG TABLET PO SCH (07:43)
[2021-07-07] MEDS: Furosemide 40 MG TABLET PO SCH (07:43)
[2021-07-07] MEDS: Artificial Tears SOLN 15 ML BOTTLE BOTH EYES SCH (07:44)
[2021-07-07] MEDS: predniSONE 20 MG TABLET PO SCH (07:44)
[2021-07-07] MEDS: Lactobacillus 1 EACH CAP.SPRINK PO SCH (07:44)
[2021-07-07] MEDS: *HR* LORazepam 0.5 MG TABLET PO PRN (07:53)
[2021-07-07] MEDS: Acetaminophen 325 MG TABLET PO PRN (07:53)
[2021-07-07 11:17] VITALS: O2SAT 96
[2021-07-07 11:45] LABS: Mycoplasma pneumoniae IgG 0.05 U/L (<=0.09)
== END 2021-07-07 11:11 | disposition home or self-care (01) | DRG 91 ==
LOC: EMEROOARM 03:20 → 2ANU 03:20 → 2NNU 07:05 → SUATTDRO 07:47 → 2NNU 09:25 → ICNU 16:20 → 2ANU 07-05 18:44
PROVIDERS: ADMIT Internal Medicine; ATTEND Internal Medicine

== ENCOUNTER 2021-07-27 08:33 | Observation (INO) ==
[2021-07-27 09:18] LABS: Basophils # 0.1 K/mcL (0.0-0.2); Basophils % 0.8 %; Hematocrit 34.3 % (35.3-44.9); Immature Granulocytes % 2.4 % (0-4); Lymphocytes # 2.3 K/mcL (0.6-4.6); Lymphocytes % 18.1 %; Mean Corpuscular HGB Conc 29.2 g/dL (31.6-35.5); Mean Corpuscular Hemoglobin 25.9 pg (28.0-33.3); Mean Corpuscular Volume 88.9 fL (83.0-100.0); Mean Platelet Volume 9.4 fL (9.4-12.4); Monocytes # 0.7 K/mcL (0.0-1.3); Monocytes % 5.7 %; Neutrophils # 9.2 K/mcL (1.6-8.9); Platelet Count 548 K/mcL (140-400); Red Blood Count 3.86 M/mcL (3.82-4.97); Red Cell Distribution Width 15.9 % (11.5-14.5); White Blood Count 12.5 K/mcL (4.3-11.1)
[2021-07-27 09:21] LABS: VBG HCO3 28 mEq/L (21-27); VBG PCO2 52 mmHg (41-51); VBG PH 7.34 pH Units (7.32-7.42); VBG PO2 50 mmHg (25-50)
[2021-07-27 09:25] LABS: Bilirubin,Urine Negative (Negative); Blood,Urine Negative (Negative); Clarity,Urine Clear (Clear); Color,Urine Light-Yellow (Yellow); Glucose,Urine (UA) 500 mg/dL (Normal); Ketones,Urine Negative (Negative); Leukocyte Esterase,Urine Negative (Negative); Nitrite,Urine Negative (Negative); PH,Urine 6.5 pH Units (5.0-8.0); Protein,Urine 50 mg/dL (Neg-Trace); Specific Gravity,Urine 1.021 (1.010-1.025); Urobilinogen,Urine Normal (Normal)
[2021-07-27] MEDS ORDERED: *HR* LORazepam 2 MG/ML VIAL IVP ONE ×2 (09:27→10:21)
[2021-07-27 09:40] LABS: RBC,Urine 0-3 per hpf (0-3); WBC,Urine 0-3 per hpf (0-3)
[2021-07-27 09:46] LABS: Alanine Aminotransferase 24 Units/L (7-52); Albumin/Globulin Ratio 1.2 (1.1-2.2); Alkaline Phosphatase 75 Units/L (34-104); Aspartate Amino Transferase 21 Units/L (13-39); BUN/Creatinine Ratio 18 (6-26); Bilirubin,Indirect 0.2 mg/dL (0.0-1.0); Bilirubin,Total 0.2 mg/dL (0.3-1.0); Blood Urea Nitrogen 10 mg/dL (8-23); Calcium 9.5 mg/dL (8.6-10.3); Carbon Dioxide 28 mEq/L (23-29); Chloride 98 mEq/L (98-107); Ethanol < 10 mg/dL (Less than 10); Globulin 3.4 g/dL (2.4-3.5); Glucose 262 mg/dL (70-105); Osmolality,Calculated 286 (280-300); Potassium 4.6 mEq/L (3.5-5.1); Sodium 134 mEq/L (136-145); Total Protein 7.4 g/dL (6.4-8.9); Troponin I 0.03 ng/mL (< 0.04); eGFR For African Americans > 60 (> 60); eGFR For Non-African Americans > 60 (> 60)
[2021-07-27 10:01] LABS: Thyroid Stimulating Hormone 3.439 mcIU/mL (0.340-5.600)
[2021-07-27 10:11] LABS: Amphetamine Screen,Urine Negative ng/mL (Cutoff=1000); Barbiturate Screen,Urine Negative ng/mL (Cutoff=200); Benzodiazepines Screen,Urine Negative ng/mL (Cutoff=300); Cannabinoid Screen,Urine Negative ng/mL (Cutoff = 50); Cocaine Screen,Urine Negative ng/mL (Cutoff= 300); Opiate Screen,Urine Negative ng/mL (Cutoff=300); Phencyclidine Screen,Urine Negative ng/mL (Cutoff=25)
[2021-07-27] MEDS ORDERED: 0.9 % Sodium Chloride 1,000 ML IVC ONE (10:39)
[2021-07-27 10:56] LABS: Creatine Kinase 155 Units/L (30-223); Magnesium 1.9 mg/dL (1.6-2.6)
[2021-07-27] MEDS ORDERED: Acetaminophen 325 MG TABLET PO PRN (12:11)
[2021-07-27] MEDS ORDERED: Naloxone 0.4 MG/ML INJ IVP PRN (12:11)
[2021-07-27 14:41] LABS: Acetaminophen < 10 mcg/mL (10-20); Ethanol < 10 mg/dL (Less than 10); Salicylate < 2.5 mg/dL (15.0-30.0)
[2021-07-27] MEDS: Budesonide/Formoterol 160/4.5 1 PUFF INH IH SCH (20:04)
[2021-07-27] MEDS: Pregabalin 50 MG CAPSULE PO SCH (20:21)
[2021-07-27] MEDS: Sucralfate 1 GM TABLET PO SCH (20:22)
[2021-07-27] MEDS: Famotidine 20 MG TABLET PO SCH (20:22)
[2021-07-27] MEDS: levETIRAcetam 250 MG TABLET PO SCH (20:22)
[2021-07-27] MEDS ORDERED: *HR* Metoprolol 5 MG/5 ML VIAL IVP ONE (20:36)
[2021-07-27] MEDS: *HR* Enoxaparin 100 MG/ML SYRINGE SQ SCH (20:55)
[2021-07-27] MEDS ORDERED: Apixaban 5 MG TABLET PO SCH (21:00)
[2021-07-27] MEDS ORDERED: levETIRAcetam 250 MG in 0.9 % Sodium Chloride 100 ML IVPB ONE (22:00)
[2021-07-28] MEDS: *HR* Enoxaparin 100 MG/ML SYRINGE SQ SCH ×2 (06:24→17:58)
[2021-07-28] MEDS: Budesonide/Formoterol 160/4.5 1 PUFF INH IH SCH ×2 (07:58→20:06)
[2021-07-28] MEDS: Pregabalin 50 MG CAPSULE PO SCH ×2 (08:41→20:36)
[2021-07-28] MEDS: Fenofibrate 54 MG TABLET PO SCH (08:41)
[2021-07-28] MEDS: levETIRAcetam 250 MG TABLET PO SCH ×2 (08:41→20:37)
[2021-07-28] MEDS: modafiniL 100 MG TABLET PO SCH (08:42)
[2021-07-28] MEDS: Furosemide 40 MG TABLET PO SCH (08:42)
[2021-07-28] MEDS: Sucralfate 1 GM TABLET PO SCH ×2 (08:42→20:37)
[2021-07-28] MEDS: predniSONE 20 MG TABLET PO SCH (08:43)
[2021-07-28] MEDS: QUEtiapine Fumarate 25 MG TABLET PO SCH (08:43)
[2021-07-28] MEDS: amLODIPine 5 MG TABLET PO SCH (08:43)
[2021-07-28] MEDS: Thiamine (B-1) 100 MG TABLET PO SCH (08:43)
[2021-07-28] MEDS: Roflumilast [Daliresp] 500 MCG Tablet PO SCH (08:44)
[2021-07-28] MEDS ORDERED: Dextrose 4 GM Chewable Tablets PO PRN ×2 (12:23)
[2021-07-28] MEDS ORDERED: *HR* Dextrose 50 % in Water (Syg) 50 ML SYRINGE IVP PRN (12:23)
[2021-07-28] MEDS ORDERED: D5% in Water 1,000 ML IVC PRN (12:23)
[2021-07-28] MEDS: Insulin LISPRO 300 UNITS/3 ML VIAL SUBQ SCH ×2 (12:52→17:58)
[2021-07-28] MEDS: Famotidine 20 MG TABLET PO SCH (20:37)
[2021-07-28] MEDS ORDERED: Insulin LISPRO 300 UNITS/3 ML VIAL SUBQ SCH (21:00)
[2021-07-29] MEDS: *HR* Enoxaparin 100 MG/ML SYRINGE SQ SCH (05:31)
[2021-07-29] MEDS: Budesonide/Formoterol 160/4.5 1 PUFF INH IH SCH (07:54)
[2021-07-29 08:34] VITALS: BP 144/85; PULSE 101; TEMP 98.2; O2SAT 99
[2021-07-29] MEDS: Furosemide 40 MG TABLET PO SCH (08:45)
[2021-07-29] MEDS: amLODIPine 5 MG TABLET PO SCH (08:45)
[2021-07-29] MEDS: Sucralfate 1 GM TABLET PO SCH (08:46)
[2021-07-29] MEDS: levETIRAcetam 250 MG TABLET PO SCH (08:47)
[2021-07-29] MEDS: Thiamine (B-1) 100 MG TABLET PO SCH (08:47)
[2021-07-29] MEDS: modafiniL 100 MG TABLET PO SCH (08:47)
[2021-07-29] MEDS: Pregabalin 50 MG CAPSULE PO SCH (08:48)
[2021-07-29] MEDS: Fenofibrate 54 MG TABLET PO SCH (08:48)
[2021-07-29] MEDS: QUEtiapine Fumarate 25 MG TABLET PO SCH (08:48)
[2021-07-29] MEDS: predniSONE 20 MG TABLET PO SCH (08:48)
[2021-07-29] MEDS: Insulin LISPRO 300 UNITS/3 ML VIAL SUBQ SCH (08:50)
[2021-07-29] MEDS: Roflumilast [Daliresp] 500 MCG Tablet PO SCH (09:01)
[2021-07-29 09:26] LABS: Mean Platelet Volume 9.7 fL (9.4-12.4)
[2021-07-29 09:28] LABS: Hematocrit 33.9 % (35.3-44.9); Hemoglobin 9.9 g/dL (11.5-15.4); Mean Corpuscular HGB Conc 29.2 g/dL (31.6-35.5); Mean Corpuscular Hemoglobin 26.1 pg (28.0-33.3); Mean Corpuscular Volume 89.4 fL (83.0-100.0); Platelet Count 560 K/mcL (140-400); Red Blood Count 3.79 M/mcL (3.82-4.97); Red Cell Distribution Width 15.8 % (11.5-14.5); White Blood Count 9.6 K/mcL (4.3-11.1)
[2021-07-29 10:07] LABS: BUN/Creatinine Ratio 23 (6-26); Blood Urea Nitrogen 18 mg/dL (8-23); Calcium 9.5 mg/dL (8.6-10.3); Carbon Dioxide 24 mEq/L (23-29); Chloride 99 mEq/L (98-107); Glucose 334 mg/dL (70-105); Osmolality,Calculated 295 (280-300); Potassium 3.8 mEq/L (3.5-5.1); Sodium 135 mEq/L (136-145); eGFR For African Americans > 60 (> 60); eGFR For Non-African Americans > 60 (> 60)
[2021-07-29 10:20] LABS: Estimated Average Glucose 154 mg/dl
[2021-07-29] MEDS ORDERED: Sulfamethoxazole/Trimeth DS 1 EACH TABLET PO SCH (15:35)
== END 2021-07-29 11:31 | disposition home or self-care (01) ==
LOC: EMEROOARM 08:33 → 3ANU 08:33 → SUATTDRO 11:36 → 3ANU 13:00
PROVIDERS: ADMIT Internal Medicine; ATTEND Family Medicine

== ENCOUNTER 2021-09-06 18:22 | Inpatient (IN) ==
[2021-09-06] MEDS ORDERED: methylPREDNISolone 125 MG/2 ML VIAL IVP ONE (18:26)
[2021-09-06] MEDS ORDERED: Ipratropium/Albuterol Neb 3 ML IH ONE (18:26)
[2021-09-06] MEDS ORDERED: Albuterol 2.5 MG/3 ML NEBULIZER IH ONE (18:26)
[2021-09-06] MEDS ORDERED: 0.9 % Sodium Chloride 500 ML IVC ONE (18:27)
[2021-09-06] MEDS ORDERED: 0.9 % Sodium Chloride 1,000 ML IVC ONE ×2 (18:30→19:14)
[2021-09-06] MEDS ORDERED: Acetaminophen 325 MG TABLET PO ONE (18:30)
[2021-09-06 18:56] LABS: VBG HCO3 25 mEq/L (21-27); VBG PCO2 43 mmHg (41-51); VBG PH 7.38 pH Units (7.32-7.42); VBG PO2 55 mmHg (25-50)
[2021-09-06 19:12] LABS: Hemoglobin 10.5 g/dL (11.5-15.4); Red Cell Distribution Width 16.6 % (11.5-14.5)
[2021-09-06 19:14] LABS: Basophils # 0.1 K/mcL (0.0-0.2); Basophils % 0.2 %; Hematocrit 33.9 % (35.3-44.9); Lymphocytes # 1.4 K/mcL (0.6-4.6); Lymphocytes % 5.3 %; Mean Corpuscular Hemoglobin 26.3 pg (28.0-33.3); Monocytes % 3.3 %; Neutrophils # 23.1 K/mcL (1.6-8.9); Platelet Count 452 K/mcL (140-400); Red Blood Count 3.99 M/mcL (3.82-4.97); Segmented Neutrophils % 90.2 %; White Blood Count 25.6 K/mcL (4.3-11.1)
[2021-09-06] MEDS ORDERED: cefTRIAXone 1,000 MG in 0.9 % Sodium Chloride 10 ML IVP ONE (19:14)
[2021-09-06] MEDS ORDERED: Azithromycin 500 MG in 0.9 % Sodium Chloride 250 ML IVPB ONE (19:14)
[2021-09-06 19:16] LABS: Monocytes # 0.8 K/mcL (0.0-1.3)
[2021-09-06 19:23] LABS: Alanine Aminotransferase 22 Units/L (7-52); Albumin 4.4 g/dL (3.5-5.7); Albumin/Globulin Ratio 1.4 (1.1-2.2); Alkaline Phosphatase 90 Units/L (34-104); Aspartate Amino Transferase 20 Units/L (13-39); BUN/Creatinine Ratio 12 (6-26); Bilirubin,Indirect 0.3 mg/dL (0.0-1.0); Bilirubin,Total 0.3 mg/dL (0.3-1.0); Blood Urea Nitrogen 10 mg/dL (8-23); Calcium 8.8 mg/dL (8.6-10.3); Carbon Dioxide 25 mEq/L (23-29); Chloride 88 mEq/L (98-107); Globulin 3.2 g/dL (2.4-3.5); Glucose 292 mg/dL (70-105); Osmolality,Calculated 274 (280-300); Potassium 3.6 mEq/L (3.5-5.1); Sodium 127 mEq/L (136-145); Total Protein 7.6 g/dL (6.4-8.9); Troponin I 0.03 ng/mL (< 0.04); eGFR For African Americans > 60 (> 60); eGFR For Non-African Americans > 60 (> 60)
[2021-09-06 19:34] LABS: Influenza A PCR Negative (Negative); Influenza B PCR Negative (Negative); Resp. Syncytial Virus PCR Negative (Negative)
[2021-09-06 19:37] LABS: SARS-CoV-2 by PCR (In House) Negative (Negative)
[2021-09-06 19:58] LABS: Anisocytosis 1+ (Not Present); Hypochromasia Present (Not Present); Platelet Estimate Increased (Normal)
[2021-09-06] MEDS ORDERED: Naloxone 0.4 MG/ML INJ IVP PRN (21:23)
[2021-09-06] MEDS ORDERED: D5% in Water 1,000 ML IVC PRN (21:35)
[2021-09-06] MEDS ORDERED: Dextrose 4 GM Chewable Tablets PO PRN ×2 (21:35)
[2021-09-06] MEDS ORDERED: *HR* Dextrose 50 % in Water (Syg) 50 ML SYRINGE IVP PRN (21:35)
[2021-09-06] MEDS: Ipratropium/Albuterol Neb 3 ML IH SCH (22:00)
[2021-09-06] MEDS: Budesonide/Formoterol 160/4.5 1 PUFF INH IH SCH (22:37)
[2021-09-06] MEDS: Insulin DETEMIR 100 UNIT/ML X5UNITS SUBQ SCH (23:00)
[2021-09-06] MEDS: Piperacillin/Tazobactam 3.375 GM in 0.9 % Sodium Chloride Mini Bag 100 ML IVPB SCH (23:52)
[2021-09-07] MEDS: Insulin LISPRO 300 UNITS/3 ML VIAL SUBQ SCH ×4 (00:08→17:03)
[2021-09-07 02:56] LABS: Basophils % 0.2 %; Hematocrit 29.9 % (35.3-44.9); Hemoglobin 9.2 g/dL (11.5-15.4); Immature Granulocytes % 1.1 % (0-4); Lymphocytes # 0.5 K/mcL (0.6-4.6); Lymphocytes % 2.3 %; Mean Corpuscular HGB Conc 30.8 g/dL (31.6-35.5); Mean Corpuscular Hemoglobin 26.7 pg (28.0-33.3); Mean Corpuscular Volume 86.7 fL (83.0-100.0); Mean Platelet Volume 9.6 fL (9.4-12.4); Monocytes # 0.4 K/mcL (0.0-1.3); Monocytes % 2.1 %; Platelet Count 311 K/mcL (140-400); Red Blood Count 3.45 M/mcL (3.82-4.97); Red Cell Distribution Width 16.9 % (11.5-14.5); Segmented Neutrophils % 94.3 %; White Blood Count 20.2 K/mcL (4.3-11.1)
[2021-09-07 03:50] LABS: Alanine Aminotransferase 18 Units/L (7-52); Albumin 3.7 g/dL (3.5-5.7); Albumin/Globulin Ratio 1.2 (1.1-2.2); Alkaline Phosphatase 71 Units/L (34-104); Aspartate Amino Transferase 17 Units/L (13-39); BUN/Creatinine Ratio 13 (6-26); Bilirubin,Total 0.3 mg/dL (0.3-1.0); Blood Urea Nitrogen 9 mg/dL (8-23); Calcium 7.8 mg/dL (8.6-10.3); Carbon Dioxide 24 mEq/L (23-29); Chloride 99 mEq/L (98-107); Glucose 302 mg/dL (70-105); Magnesium 1.2 mg/dL (1.6-2.6); Osmolality,Calculated 298 (280-300); Phosphorous 3.2 mg/dL (2.7-4.5); Potassium 3.4 mEq/L (3.5-5.1); Sodium 139 mEq/L (136-145); Total Protein 6.7 g/dL (6.4-8.9); eGFR For African Americans > 60 (> 60); eGFR For Non-African Americans > 60 (> 60)
[2021-09-07] MEDS: Ipratropium/Albuterol Neb 3 ML IH SCH ×4 (03:57→21:54)
[2021-09-07] MEDS ORDERED: 0.9 % Sodium Chloride 500 ML ONE ×2 (06:32→07:39)
[2021-09-07] MEDS: Piperacillin/Tazobactam 3.375 GM in 0.9 % Sodium Chloride Mini Bag 100 ML IVPB SCH ×2 (08:00→16:22)
[2021-09-07] MEDS: levETIRAcetam 250 MG TABLET PO SCH ×2 (08:09→21:06)
[2021-09-07] MEDS: Pregabalin 50 MG CAPSULE PO SCH ×2 (08:09→21:06)
[2021-09-07] MEDS: Apixaban 5 MG TABLET PO SCH ×3 (08:09→21:07)
[2021-09-07] MEDS: Fenofibrate 54 MG TABLET PO SCH (08:10)
[2021-09-07] MEDS: QUEtiapine Fumarate 25 MG TABLET PO SCH (08:10)
[2021-09-07] MEDS: Insulin DETEMIR 100 UNIT/ML X5UNITS SUBQ SCH ×2 (08:26→22:10)
[2021-09-07] MEDS ORDERED: Apixaban 5 MG TABLET PO SCH (09:00)
[2021-09-07] MEDS: Budesonide/Formoterol 160/4.5 1 PUFF INH IH SCH ×2 (10:35→22:00)
[2021-09-07 13:12] LABS: Bilirubin,Urine Negative (Negative); Blood,Urine Negative (Negative); Clarity,Urine Clear (Clear); Color,Urine Light-Yellow (Yellow); Glucose,Urine (UA) 100 mg/dL (Normal); Ketones,Urine Negative (Negative); Leukocyte Esterase,Urine Negative (Negative); Nitrite,Urine Negative (Negative); PH,Urine 6.5 pH Units (5.0-8.0); Protein,Urine 30 mg/dL (Neg-Trace); Specific Gravity,Urine 1.017 (1.010-1.025); Urobilinogen,Urine Normal (Normal); WBC,Urine 0-3 per hpf (0-3)
[2021-09-07] MEDS: MethylPREDNISolone 40 MG/ML VIAL IVP SCH ×2 (14:10→21:56)
[2021-09-07 15:32] LABS: ABG Base Excess 3 mEq/L (-2 to 3); ABG HCO3 28 mEq/L (21-27); ABG Oxygen Saturation 93 % (95-98); ABG PCO2 45 mmHg (35-45); ABG PO2 69 mmHg (85-104); ABG TCO2 30 mEq/L (20-26); Blood Gas Pressure Support 18 cm H2O
[2021-09-07] MEDS ORDERED: GI Cocktail 40 ML EACH PO ONE (16:23)
[2021-09-07] MEDS: Famotidine 20 MG TABLET PO SCH (21:06)
[2021-09-07] MEDS: Melatonin 3 MG TABLET PO PRN (21:06)
[2021-09-07] MEDS ORDERED: Morphine Sulfate 2 MG/ML SYRINGE IVP ONE (21:46)
[2021-09-07] MEDS ORDERED: Furosemide 20 MG/2 ML VIAL IVP ONE (21:46)
[2021-09-07] MEDS ORDERED: *HR* LORazepam 2 MG/ML VIAL IVP ONE (21:46)
[2021-09-08] MEDS: Piperacillin/Tazobactam 3.375 GM in 0.9 % Sodium Chloride Mini Bag 100 ML IVPB SCH ×3 (00:56→15:37)
[2021-09-08] MEDS: Saliva Stimulant 44.3ml BOTTLE PO PRN ×2 (00:57→15:38)
[2021-09-08] MEDS: Insulin LISPRO 300 UNITS/3 ML VIAL SUBQ SCH ×5 (01:02→22:16)
[2021-09-08 02:50] LABS: White Blood Count 14.7 K/mcL (4.3-11.1)
[2021-09-08 02:51] LABS: Basophils % 0.1 %; Hematocrit 32.5 % (35.3-44.9); Hemoglobin 9.9 g/dL (11.5-15.4); Immature Granulocytes % 0.8 % (0-4); Lymphocytes # 0.3 K/mcL (0.6-4.6); Lymphocytes % 1.9 %; Mean Corpuscular HGB Conc 30.5 g/dL (31.6-35.5); Mean Corpuscular Hemoglobin 26.3 pg (28.0-33.3); Mean Corpuscular Volume 86.2 fL (83.0-100.0); Mean Platelet Volume 9.7 fL (9.4-12.4); Monocytes # 0.2 K/mcL (0.0-1.3); Monocytes % 1.4 %; Platelet Count 364 K/mcL (140-400); Red Blood Count 3.77 M/mcL (3.82-4.97); Red Cell Distribution Width 17.2 % (11.5-14.5); Segmented Neutrophils % 95.8 %
[2021-09-08 03:14] LABS: Alanine Aminotransferase 16 Units/L (7-52); Albumin 3.7 g/dL (3.5-5.7); Alkaline Phosphatase 79 Units/L (34-104); Aspartate Amino Transferase 20 Units/L (13-39); BUN/Creatinine Ratio 24 (6-26); Bilirubin,Total 0.4 mg/dL (0.3-1.0); Blood Urea Nitrogen 15 mg/dL (8-23); Calcium 9.4 mg/dL (8.6-10.3); Carbon Dioxide 27 mEq/L (23-29); Chloride 100 mEq/L (98-107); Globulin 3.7 g/dL (2.4-3.5); Glucose 242 mg/dL (70-105); Osmolality,Calculated 291 (280-300); Potassium 4.3 mEq/L (3.5-5.1); Sodium 136 mEq/L (136-145); Total Protein 7.4 g/dL (6.4-8.9); eGFR For African Americans > 60 (> 60); eGFR For Non-African Americans > 60 (> 60)
[2021-09-08] MEDS: Ipratropium/Albuterol Neb 3 ML IH SCH ×4 (03:29→22:08)
[2021-09-08] MEDS: *HR* OxyCODONE/APAP 5/325 TABLET PO PRN ×3 (05:07→22:17)
[2021-09-08] MEDS ORDERED: *HR* Labetalol 20 MG/4 ML SYRINGE IVP ONE (06:16)
[2021-09-08] MEDS: Artificial Tears SOLN 15 ML BOTTLE BOTH EYES SCH ×5 (08:55→20:22)
[2021-09-08] MEDS: Furosemide 40 MG/4 ML VIAL IVP SCH (08:56)
[2021-09-08] MEDS: MethylPREDNISolone 40 MG/ML VIAL IVP SCH ×3 (08:56→22:17)
[2021-09-08] MEDS: QUEtiapine Fumarate 25 MG TABLET PO SCH (08:57)
[2021-09-08] MEDS: levETIRAcetam 250 MG TABLET PO SCH ×2 (08:58→20:21)
[2021-09-08] MEDS: Pregabalin 50 MG CAPSULE PO SCH ×2 (08:58→20:21)
[2021-09-08] MEDS: Apixaban 5 MG TABLET PO SCH ×2 (08:58→20:21)
[2021-09-08] MEDS: Fenofibrate 54 MG TABLET PO SCH (08:58)
[2021-09-08] MEDS: amLODIPine 5 MG TABLET PO SCH (08:58)
[2021-09-08] MEDS: Insulin DETEMIR 100 UNIT/ML X5UNITS SUBQ SCH ×2 (09:09→22:16)
[2021-09-08] MEDS: Budesonide/Formoterol 160/4.5 1 PUFF INH IH SCH ×2 (10:51→22:08)
[2021-09-08] MEDS: Melatonin 3 MG TABLET PO PRN (20:20)
[2021-09-08] MEDS: Famotidine 20 MG TABLET PO SCH (20:20)
[2021-09-08] MEDS ORDERED: *HR* Labetalol 20 MG/4 ML SYRINGE IVP PRN (21:01)
[2021-09-09] MEDS: Piperacillin/Tazobactam 3.375 GM in 0.9 % Sodium Chloride Mini Bag 100 ML IVPB SCH ×3 (00:40→15:14)
[2021-09-09] MEDS: Ipratropium/Albuterol Neb 3 ML IH SCH ×4 (03:47→21:02)
[2021-09-09] MEDS: Insulin LISPRO 300 UNITS/3 ML VIAL SUBQ SCH ×3 (05:50→18:21)
[2021-09-09 07:32] LABS: Basophils % 0.1 %; Hemoglobin 10.5 g/dL (11.5-15.4); Immature Granulocytes % 0.8 % (0-4); Lymphocytes # 0.7 K/mcL (0.6-4.6); Lymphocytes % 6.6 %; Mean Corpuscular Volume 86.6 fL (83.0-100.0); Mean Platelet Volume 10.5 fL (9.4-12.4); Monocytes # 0.5 K/mcL (0.0-1.3); Monocytes % 4.9 %; Neutrophils # 8.6 K/mcL (1.6-8.9); Platelet Count 386 K/mcL (140-400); Red Blood Count 4.04 M/mcL (3.82-4.97); Red Cell Distribution Width 16.6 % (11.5-14.5); Segmented Neutrophils % 87.6 %; White Blood Count 9.8 K/mcL (4.3-11.1)
[2021-09-09] MEDS: MethylPREDNISolone 40 MG/ML VIAL IVP SCH ×2 (07:46→15:14)
[2021-09-09] MEDS: Artificial Tears SOLN 15 ML BOTTLE BOTH EYES SCH ×4 (07:46→21:29)
[2021-09-09] MEDS: Furosemide 40 MG/4 ML VIAL IVP SCH (07:46)
[2021-09-09] MEDS: amLODIPine 5 MG TABLET PO SCH (07:47)
[2021-09-09] MEDS: Apixaban 5 MG TABLET PO SCH ×2 (07:47→21:30)
[2021-09-09] MEDS: QUEtiapine Fumarate 25 MG TABLET PO SCH (07:48)
[2021-09-09] MEDS: Fenofibrate 54 MG TABLET PO SCH (07:48)
[2021-09-09] MEDS: Pregabalin 50 MG CAPSULE PO SCH ×2 (07:53→21:31)
[2021-09-09] MEDS: Insulin DETEMIR 100 UNIT/ML X5UNITS SUBQ SCH ×2 (07:53→21:30)
[2021-09-09] MEDS: *HR* OxyCODONE/APAP 5/325 TABLET PO PRN ×2 (07:53→18:20)
[2021-09-09] MEDS: levETIRAcetam 250 MG TABLET PO SCH ×2 (07:53→21:31)
[2021-09-09 08:40] LABS: Alanine Aminotransferase 15 Units/L (7-52); Albumin 3.9 g/dL (3.5-5.7); Albumin/Globulin Ratio 1.1 (1.1-2.2); Alkaline Phosphatase 80 Units/L (34-104); Aspartate Amino Transferase 13 Units/L (13-39); BUN/Creatinine Ratio 45 (6-26); Bilirubin,Total 0.3 mg/dL (0.3-1.0); Blood Urea Nitrogen 27 mg/dL (8-23); Carbon Dioxide 29 mEq/L (23-29); Chloride 98 mEq/L (98-107); Globulin 3.6 g/dL (2.4-3.5); Glucose 236 mg/dL (70-105); Osmolality,Calculated 295 (280-300); Sodium 136 mEq/L (136-145); Total Protein 7.5 g/dL (6.4-8.9); eGFR For African Americans > 60 (> 60); eGFR For Non-African Americans > 60 (> 60)
[2021-09-09] MEDS: Budesonide/Formoterol 160/4.5 1 PUFF INH IH SCH ×2 (10:27→21:01)
[2021-09-09] MEDS: Saliva Stimulant 44.3ml BOTTLE PO PRN (12:03)
[2021-09-09] MEDS: Famotidine 20 MG TABLET PO SCH (21:30)
[2021-09-10] MEDS: Piperacillin/Tazobactam 3.375 GM in 0.9 % Sodium Chloride Mini Bag 100 ML IVPB SCH ×3 (02:45→15:53)
[2021-09-10] MEDS: MethylPREDNISolone 40 MG/ML VIAL IVP SCH ×3 (02:46→16:11)
[2021-09-10] MEDS: Insulin LISPRO 300 UNITS/3 ML VIAL SUBQ SCH ×4 (02:46→20:41)
[2021-09-10] MEDS: *HR* OxyCODONE/APAP 5/325 TABLET PO PRN ×3 (02:57→15:52)
[2021-09-10] MEDS: Ipratropium/Albuterol Neb 3 ML IH SCH ×4 (04:29→22:06)
[2021-09-10] MEDS: amLODIPine 5 MG TABLET PO SCH (08:14)
[2021-09-10] MEDS: Artificial Tears SOLN 15 ML BOTTLE BOTH EYES SCH ×4 (08:14→20:31)
[2021-09-10] MEDS: levETIRAcetam 250 MG TABLET PO SCH ×2 (08:14→20:29)
[2021-09-10] MEDS: Furosemide 40 MG/4 ML VIAL IVP SCH (08:14)
[2021-09-10] MEDS: Apixaban 5 MG TABLET PO SCH ×2 (08:15→20:30)
[2021-09-10] MEDS: Pregabalin 50 MG CAPSULE PO SCH ×2 (08:15→20:30)
[2021-09-10] MEDS: Fenofibrate 54 MG TABLET PO SCH (08:15)
[2021-09-10] MEDS: Insulin DETEMIR 100 UNIT/ML X5UNITS SUBQ SCH ×2 (09:24→20:39)
[2021-09-10] MEDS: Budesonide/Formoterol 160/4.5 1 PUFF INH IH SCH ×2 (10:06→22:06)
[2021-09-10] MEDS: Famotidine 20 MG TABLET PO SCH (20:30)
[2021-09-10] MEDS: QUEtiapine Fumarate 25 MG TABLET PO SCH (20:30)
[2021-09-11] MEDS: Piperacillin/Tazobactam 3.375 GM in 0.9 % Sodium Chloride Mini Bag 100 ML IVPB SCH ×4 (00:51→23:34)
[2021-09-11] MEDS: MethylPREDNISolone 40 MG/ML VIAL IVP SCH ×4 (00:51→23:34)
[2021-09-11 04:09] LABS: Basophils % 0.5 %; Hematocrit 35.6 % (35.3-44.9); Hemoglobin 10.9 g/dL (11.5-15.4); Lymphocytes # 1.3 K/mcL (0.6-4.6); Lymphocytes % 15.3 %; Mean Corpuscular HGB Conc 30.6 g/dL (31.6-35.5); Mean Corpuscular Hemoglobin 25.6 pg (28.0-33.3); Mean Corpuscular Volume 83.8 fL (83.0-100.0); Mean Platelet Volume 9.8 fL (9.4-12.4); Monocytes # 0.7 K/mcL (0.0-1.3); Monocytes % 7.7 %; Neutrophils # 6.4 K/mcL (1.6-8.9); Platelet Count 474 K/mcL (140-400); Red Blood Count 4.25 M/mcL (3.82-4.97); Red Cell Distribution Width 15.9 % (11.5-14.5); Segmented Neutrophils % 74.5 %; White Blood Count 8.6 K/mcL (4.3-11.1)
[2021-09-11] MEDS: Ipratropium/Albuterol Neb 3 ML IH SCH ×4 (04:13→22:15)
[2021-09-11 04:25] LABS: Alanine Aminotransferase 21 Units/L (7-52); Albumin 3.9 g/dL (3.5-5.7); Albumin/Globulin Ratio 1.1 (1.1-2.2); Alkaline Phosphatase 79 Units/L (34-104); Aspartate Amino Transferase 18 Units/L (13-39); BUN/Creatinine Ratio 40 (6-26); Bilirubin,Total 0.3 mg/dL (0.3-1.0); Blood Urea Nitrogen 27 mg/dL (8-23); Calcium 9.8 mg/dL (8.6-10.3); Carbon Dioxide 30 mEq/L (23-29); Chloride 95 mEq/L (98-107); Globulin 3.5 g/dL (2.4-3.5); Glucose 221 mg/dL (70-105); Osmolality,Calculated 290 (280-300); Potassium 3.7 mEq/L (3.5-5.1); Sodium 134 mEq/L (136-145); Total Protein 7.4 g/dL (6.4-8.9); eGFR For African Americans > 60 (> 60); eGFR For Non-African Americans > 60 (> 60)
[2021-09-11] MEDS: Furosemide 40 MG/4 ML VIAL IVP SCH (08:06)
[2021-09-11] MEDS: amLODIPine 5 MG TABLET PO SCH (08:06)
[2021-09-11] MEDS: Apixaban 5 MG TABLET PO SCH ×2 (08:07→20:09)
[2021-09-11] MEDS: levETIRAcetam 250 MG TABLET PO SCH ×2 (08:07→20:09)
[2021-09-11] MEDS: Pregabalin 50 MG CAPSULE PO SCH ×2 (08:07→20:12)
[2021-09-11] MEDS: Fenofibrate 54 MG TABLET PO SCH (08:07)
[2021-09-11] MEDS: Insulin LISPRO 300 UNITS/3 ML VIAL SUBQ SCH ×3 (08:08→18:00)
[2021-09-11] MEDS: Artificial Tears SOLN 15 ML BOTTLE BOTH EYES SCH ×4 (08:09→20:27)
[2021-09-11] MEDS: Insulin DETEMIR 100 UNIT/ML X5UNITS SUBQ SCH ×2 (08:25→20:13)
[2021-09-11] MEDS: modafiniL 100 MG TABLET PO SCH (09:27)
[2021-09-11] MEDS: *HR* OxyCODONE/APAP 5/325 TABLET PO PRN ×2 (09:27→15:16)
[2021-09-11] MEDS: Budesonide/Formoterol 160/4.5 1 PUFF INH IH SCH ×2 (09:58→22:15)
[2021-09-11] MEDS: Ondansetron ODT 4 MG TAB.RAPDIS SL PRN (15:16)
[2021-09-11] MEDS: Famotidine 20 MG TABLET PO SCH (20:08)
[2021-09-11] MEDS: QUEtiapine Fumarate 25 MG TABLET PO SCH (20:09)
[2021-09-11] MEDS: Sucralfate 1 GM TABLET PO SCH (20:14)
[2021-09-12] MEDS: Ipratropium/Albuterol Neb 3 ML IH SCH ×4 (03:15→22:46)
[2021-09-12] MEDS: MethylPREDNISolone 40 MG/ML VIAL IVP SCH (06:31)
[2021-09-12] MEDS: Insulin LISPRO 300 UNITS/3 ML VIAL SUBQ SCH ×3 (07:49→17:06)
[2021-09-12] MEDS: Insulin DETEMIR 100 UNIT/ML X5UNITS SUBQ SCH ×2 (07:50→21:56)
[2021-09-12] MEDS: Apixaban 5 MG TABLET PO SCH ×2 (07:52→21:53)
[2021-09-12] MEDS: levETIRAcetam 250 MG TABLET PO SCH ×2 (07:52→21:53)
[2021-09-12] MEDS: Sucralfate 1 GM TABLET PO SCH ×2 (07:53→21:53)
[2021-09-12] MEDS: Fenofibrate 54 MG TABLET PO SCH (07:53)
[2021-09-12] MEDS: amLODIPine 5 MG TABLET PO SCH (07:53)
[2021-09-12] MEDS: modafiniL 100 MG TABLET PO SCH (07:53)
[2021-09-12] MEDS: Pregabalin 50 MG CAPSULE PO SCH ×2 (07:54→21:52)
[2021-09-12] MEDS: Artificial Tears SOLN 15 ML BOTTLE BOTH EYES SCH ×4 (07:54→21:53)
[2021-09-12] MEDS: Piperacillin/Tazobactam 3.375 GM in 0.9 % Sodium Chloride Mini Bag 100 ML IVPB SCH ×2 (08:03→17:04)
[2021-09-12] MEDS: Furosemide 40 MG/4 ML VIAL IVP SCH (08:03)
[2021-09-12] MEDS ORDERED: Isovue-370 500 ML BOTTLE IVP ONE (08:04)
[2021-09-12] MEDS: Budesonide/Formoterol 160/4.5 1 PUFF INH IH SCH ×2 (11:16→22:46)
[2021-09-12] MEDS: *HR* OxyCODONE/APAP 5/325 TABLET PO PRN ×2 (11:43→21:56)
[2021-09-12] MEDS: Ondansetron ODT 4 MG TAB.RAPDIS SL PRN (17:31)
[2021-09-12] MEDS: QUEtiapine Fumarate 25 MG TABLET PO SCH (21:52)
[2021-09-12] MEDS: Famotidine 20 MG TABLET PO SCH (21:52)
[2021-09-13] MEDS: Piperacillin/Tazobactam 3.375 GM in 0.9 % Sodium Chloride Mini Bag 100 ML IVPB SCH ×2 (00:41→10:21)
[2021-09-13 02:00] LABS: Hematocrit 36.9 % (35.3-44.9); Hemoglobin 11.3 g/dL (11.5-15.4); Mean Corpuscular HGB Conc 30.6 g/dL (31.6-35.5); Mean Corpuscular Volume 84.8 fL (83.0-100.0); Platelet Count 435 K/mcL (140-400); Red Blood Count 4.35 M/mcL (3.82-4.97); Red Cell Distribution Width 15.5 % (11.5-14.5)
[2021-09-13 02:01] LABS: White Blood Count 13.8 K/mcL (4.3-11.1)
[2021-09-13 02:24] LABS: BUN/Creatinine Ratio 41 (6-26); Blood Urea Nitrogen 28 mg/dL (8-23); Calcium 9.6 mg/dL (8.6-10.3); Carbon Dioxide 30 mEq/L (23-29); Chloride 94 mEq/L (98-107); Glucose 233 mg/dL (70-105); Osmolality,Calculated 291 (280-300); Potassium 2.7 mEq/L (3.5-5.1); Sodium 134 mEq/L (136-145); eGFR For African Americans > 60 (> 60); eGFR For Non-African Americans > 60 (> 60)
[2021-09-13] MEDS: Ipratropium/Albuterol Neb 3 ML IH SCH ×2 (03:46→10:10)
[2021-09-13] MEDS: amLODIPine 5 MG TABLET PO SCH (08:22)
[2021-09-13] MEDS: Sucralfate 1 GM TABLET PO SCH (08:22)
[2021-09-13] MEDS: Fenofibrate 54 MG TABLET PO SCH (08:23)
[2021-09-13] MEDS: Pregabalin 50 MG CAPSULE PO SCH (08:25)
[2021-09-13] MEDS: Apixaban 5 MG TABLET PO SCH (08:25)
[2021-09-13] MEDS: modafiniL 100 MG TABLET PO SCH (08:26)
[2021-09-13] MEDS: levETIRAcetam 250 MG TABLET PO SCH (08:26)
[2021-09-13] MEDS: Insulin LISPRO 300 UNITS/3 ML VIAL SUBQ SCH ×2 (08:47→10:59)
[2021-09-13] MEDS: Insulin DETEMIR 100 UNIT/ML X5UNITS SUBQ SCH (08:50)
[2021-09-13] MEDS ORDERED: MethylPREDNISolone 40 MG/ML VIAL IVP SCH (09:00)
[2021-09-13] MEDS: Budesonide/Formoterol 160/4.5 1 PUFF INH IH SCH (10:11)
[2021-09-13] MEDS: Furosemide 40 MG/4 ML VIAL IVP SCH (10:21)
[2021-09-13] MEDS: Artificial Tears SOLN 15 ML BOTTLE BOTH EYES SCH ×2 (10:21→11:49)
[2021-09-13 10:45] VITALS: O2SAT 94
[2021-09-13 10:50] VITALS: BP 159/93; PULSE 107; TEMP 98.5
== END 2021-09-13 13:22 | disposition home health service (06) | DRG 871 ==
LOC: 2NENU 18:22 → EMEROOARM 18:22 → 2NENU 21:54
PROVIDERS: ADMIT Internal Medicine; ATTEND Internal Medicine

== ENCOUNTER 2021-10-04 18:36 | Inpatient (IN) ==
[2021-10-04] MEDS ORDERED: methylPREDNISolone 125 MG/2 ML VIAL IVP ONE (18:42)
[2021-10-04] MEDS ORDERED: 0.9 % Sodium Chloride 1,000 ML IVC ONE (18:42)
[2021-10-04] MEDS ORDERED: Ipratropium/Albuterol Neb 3 ML IH ONE (18:42)
[2021-10-04 19:02] LABS: VBG HCO3 20 mEq/L (21-27); VBG PCO2 40 mmHg (41-51); VBG PO2 82 mmHg (25-50)
[2021-10-04 19:04] LABS: Basophils # 0.1 K/mcL (0.0-0.2); Basophils % 0.4 %; Hematocrit 31.2 % (35.3-44.9); Hemoglobin 9.3 g/dL (11.5-15.4); Immature Granulocytes % 1.2 % (0-4); Lymphocytes # 1.5 K/mcL (0.6-4.6); Lymphocytes % 9.5 %; Mean Corpuscular HGB Conc 29.8 g/dL (31.6-35.5); Mean Corpuscular Hemoglobin 26.5 pg (28.0-33.3); Mean Corpuscular Volume 88.9 fL (83.0-100.0); Mean Platelet Volume 10.2 fL (9.4-12.4); Monocytes # 0.8 K/mcL (0.0-1.3); Monocytes % 5.2 %; Neutrophils # 13.5 K/mcL (1.6-8.9); Platelet Count 378 K/mcL (140-400); Red Blood Count 3.51 M/mcL (3.82-4.97); Red Cell Distribution Width 17.3 % (11.5-14.5); Segmented Neutrophils % 83.7 %; White Blood Count 16.1 K/mcL (4.3-11.1)
[2021-10-04] MEDS ORDERED: Azithromycin 500 MG in 0.9 % Sodium Chloride 250 ML IVPB ONE (19:09)
[2021-10-04] MEDS ORDERED: cefTRIAXone 1,000 MG in Water for inj. (sterile) 10 ML IVP ONE (19:09)
[2021-10-04 19:32] LABS: Alanine Aminotransferase 22 Units/L (7-52); Albumin 3.9 g/dL (3.5-5.7); Albumin/Globulin Ratio 1.3 (1.1-2.2); Alkaline Phosphatase 100 Units/L (34-104); Aspartate Amino Transferase 18 Units/L (13-39); BUN/Creatinine Ratio 16 (6-26); Bilirubin,Indirect 0.2 mg/dL (0.0-1.0); Bilirubin,Total 0.2 mg/dL (0.3-1.0); Blood Urea Nitrogen 12 mg/dL (8-23); Calcium 8.5 mg/dL (8.6-10.3); Carbon Dioxide 20 mEq/L (23-29); Chloride 100 mEq/L (98-107); Globulin 3.1 g/dL (2.4-3.5); Glucose 375 mg/dL (70-105); Osmolality,Calculated 289 (280-300); Potassium 4.2 mEq/L (3.5-5.1); Sodium 132 mEq/L (136-145); Troponin I 0.04 ng/mL (< 0.04); eGFR For African Americans > 60 (> 60); eGFR For Non-African Americans > 60 (> 60)
[2021-10-04] MEDS ORDERED: Iopamidol - 370 500 ML MLS IVP ONE (20:14)
[2021-10-04 20:15] LABS: VBG HCO3 24 mEq/L (21-27); VBG PCO2 56 mmHg (41-51); VBG PH 7.23 pH Units (7.32-7.42); VBG PO2 121 mmHg (25-50)
[2021-10-04] MEDS ORDERED: Ondansetron ODT 4 MG TAB.RAPDIS SL PRN (20:39)
[2021-10-04] MEDS ORDERED: Melatonin 3 MG TABLET PO PRN (20:39)
[2021-10-04] MEDS ORDERED: Naloxone 0.4 MG/ML INJ IVP PRN (20:39)
[2021-10-04] MEDS ORDERED: D5% in Water 1,000 ML IVC PRN (20:52)
[2021-10-04] MEDS ORDERED: Dextrose Gel 15 GM/37.5 ML TUBE PO PRN ×2 (20:52)
[2021-10-04] MEDS ORDERED: *HR* Dextrose 50 % in Water (Syg) 50 ML SYRINGE IVP PRN (20:52)
[2021-10-04 21:37] LABS: Influenza A PCR Negative (Negative); Influenza B PCR Negative (Negative); Resp. Syncytial Virus PCR Negative (Negative)
[2021-10-04 21:38] LABS: SARS-CoV-2 by PCR (In House) Negative (Negative)
[2021-10-04] MEDS: Ipratropium/Albuterol Neb 3 ML IH SCH (22:17)
[2021-10-04] MEDS: Insulin LISPRO 300 UNITS/3 ML VIAL SUBQ SCH (22:18)
[2021-10-04] MEDS: Insulin DETEMIR 100 UNIT/ML X5UNITS SUBQ SCH (22:19)
[2021-10-04] MEDS: Apixaban 5 MG TABLET PO SCH (22:35)
[2021-10-04] MEDS: levETIRAcetam 250 MG TABLET PO SCH (22:35)
[2021-10-04] MEDS: Pregabalin 50 MG CAPSULE PO SCH (22:36)
[2021-10-04] MEDS: Famotidine 20 MG TABLET PO SCH (22:36)
[2021-10-04 23:20] LABS: ABG Base Excess -4 mEq/L (-2 to 3); ABG HCO3 22 mEq/L (21-27); ABG Oxygen Saturation 100 % (95-98); ABG PCO2 44 mmHg (35-45); ABG PH 7.31 pH Units (7.32-7.45); ABG PO2 230 mmHg (85-104); ABG TCO2 23 mEq/L (20-26); Blood Gas Pressure Support 5 cm H2O
[2021-10-04 23:33] LABS: INR 1.2; Prothrombin Time 13.3 Seconds (9.4-12.1)
[2021-10-05] MEDS ORDERED: 0.9 % Sodium Chloride 500 ML IVC SCH (00:15)
[2021-10-05 00:35] LABS: Adenovirus Not Detected (Not Detect); Coronavirus 229E Not Detected (Not Detect); Coronavirus HKU1 Not Detected (Not Detect); Coronavirus NL63 Not Detected (Not Detect); Coronavirus OC43 Not Detected (Not Detect); Human Metapneumovirus Not Detected (Not Detect); Human Rhinovirus/Enterovirus Not Detected (Not Detect); SARS-CoV-2 Not Detected (Not Detect)
[2021-10-05 00:36] LABS: Bordetella Pertussis Not Detected (Not Detect); Chlamydophila pneumoniae Not Detected (Not Detect); Influenza A Subtype 2009 H1 Not Detected (Not Detect); Influenza B Not Detected (Not Detect); Mycoplasma pneumoniae Not Detected (Not Detect); Parainfluenza Virus 1 Not Detected (Not Detect); Parainfluenza Virus 2 Not Detected (Not Detect); Parainfluenza Virus 3 Not Detected (Not Detect); Parainfluenza Virus 4 Not Detected (Not Detect); Respiratory Syncytial Virus Not Detected (Not Detect)
[2021-10-05 01:50] LABS: Bilirubin,Urine Negative (Negative); Blood,Urine Negative (Negative); Clarity,Urine Clear (Clear); Color,Urine Light-Yellow (Yellow); Glucose,Urine (UA) >=1000 mg/dL (Normal); Ketones,Urine Negative (Negative); Leukocyte Esterase,Urine Negative (Negative); Mucus,Urine Few per lpf (None-Few); Nitrite,Urine Negative (Negative); Protein,Urine Trace mg/dL (Neg-Trace); RBC,Urine 0-3 per hpf (0-3); Specific Gravity,Urine > 1.030 (1.010-1.025); Squamous Epithelial Cell,Urine Few per hpf (None-Few); Urobilinogen,Urine Normal (Normal); WBC,Urine 0-3 per hpf (0-3)
[2021-10-05] MEDS: Ipratropium/Albuterol Neb 3 ML IH SCH ×4 (03:44→21:49)
[2021-10-05 04:25] LABS: Alanine Aminotransferase 20 Units/L (7-52); Albumin 3.6 g/dL (3.5-5.7); Albumin/Globulin Ratio 1.2 (1.1-2.2); Alkaline Phosphatase 74 Units/L (34-104); Aspartate Amino Transferase 14 Units/L (13-39); BUN/Creatinine Ratio 16 (6-26); Bilirubin,Total 0.2 mg/dL (0.3-1.0); Blood Urea Nitrogen 13 mg/dL (8-23); Calcium 8.4 mg/dL (8.6-10.3); Carbon Dioxide 23 mEq/L (23-29); Chloride 103 mEq/L (98-107); Globulin 2.9 g/dL (2.4-3.5); Glucose 367 mg/dL (70-105); Magnesium 1.6 mg/dL (1.6-2.6); Osmolality,Calculated 295 (280-300); Potassium 4.9 mEq/L (3.5-5.1); Sodium 135 mEq/L (136-145); Total Protein 6.5 g/dL (6.4-8.9); eGFR For African Americans > 60 (> 60); eGFR For Non-African Americans > 60 (> 60)
[2021-10-05 04:32] LABS: Basophils % 0.1 %; Hematocrit 27.6 % (35.3-44.9); Hemoglobin 8.1 g/dL (11.5-15.4); Immature Granulocytes % 1.2 % (0-4); Lymphocytes # 0.7 K/mcL (0.6-4.6); Lymphocytes % 5.2 %; Mean Corpuscular HGB Conc 29.3 g/dL (31.6-35.5); Mean Corpuscular Volume 88.5 fL (83.0-100.0); Mean Platelet Volume 10.5 fL (9.4-12.4); Monocytes # 0.5 K/mcL (0.0-1.3); Monocytes % 3.7 %; Neutrophils # 12.5 K/mcL (1.6-8.9); Platelet Count 321 K/mcL (140-400); Red Blood Count 3.12 M/mcL (3.82-4.97); Red Cell Distribution Width 17.5 % (11.5-14.5); Segmented Neutrophils % 89.8 %
[2021-10-05 04:40] LABS: INR 1.1; Prothrombin Time 12.2 Seconds (9.4-12.1)
[2021-10-05] MEDS ORDERED: MethylPREDNISolone 40 MG/ML VIAL IVP SCH ×2 (06:00)
[2021-10-05] MEDS: levETIRAcetam 250 MG TABLET PO SCH ×2 (09:15→21:02)
[2021-10-05] MEDS: Apixaban 5 MG TABLET PO SCH ×2 (09:15→21:01)
[2021-10-05] MEDS: Pregabalin 50 MG CAPSULE PO SCH ×2 (09:15→21:01)
[2021-10-05] MEDS: QUEtiapine Fumarate 100 MG TABLET PO SCH (09:15)
[2021-10-05] MEDS: amLODIPine 5 MG TABLET PO SCH (09:15)
[2021-10-05] MEDS: Insulin DETEMIR 100 UNIT/ML X5UNITS SUBQ SCH ×2 (09:18→21:01)
[2021-10-05] MEDS: Insulin LISPRO 300 UNITS/3 ML VIAL SUBQ SCH ×4 (09:19→21:08)
[2021-10-05] MEDS: *HR* OxyCODONE/APAP 5/325 TABLET PO PRN ×2 (13:26→21:01)
[2021-10-05] MEDS: modafiniL 100 MG TABLET PO SCH (13:28)
[2021-10-05] MEDS ORDERED: Acetaminophen 325 MG TABLET PO PRN (16:30)
[2021-10-05] MEDS: predniSONE 20 MG TABLET PO SCH (16:38)
[2021-10-05] MEDS: Azithromycin 500 MG in 0.9 % Sodium Chloride 250 ML IVPB SCH (20:44)
[2021-10-05] MEDS: cefTRIAXone 1,000 MG in 0.9 % Sodium Chloride 10 ML IVP SCH (20:44)
[2021-10-05] MEDS: Sucralfate 1 GM TABLET PO SCH (21:01)
[2021-10-05] MEDS: Famotidine 20 MG TABLET PO SCH (21:01)
[2021-10-06 02:20] LABS: Hematocrit 28.8 % (35.3-44.9); Hemoglobin 8.4 g/dL (11.5-15.4); Mean Corpuscular HGB Conc 29.2 g/dL (31.6-35.5); Mean Corpuscular Hemoglobin 25.7 pg (28.0-33.3); Mean Corpuscular Volume 88.1 fL (83.0-100.0); Mean Platelet Volume 9.9 fL (9.4-12.4); Platelet Count 333 K/mcL (140-400); Red Blood Count 3.27 M/mcL (3.82-4.97); Red Cell Distribution Width 17.3 % (11.5-14.5); White Blood Count 11.6 K/mcL (4.3-11.1)
[2021-10-06 02:41] LABS: BUN/Creatinine Ratio 28 (6-26); Blood Urea Nitrogen 16 mg/dL (8-23); Calcium 8.6 mg/dL (8.6-10.3); Carbon Dioxide 25 mEq/L (23-29); Chloride 106 mEq/L (98-107); Glucose 188 mg/dL (70-105); Magnesium 1.9 mg/dL (1.6-2.6); Osmolality,Calculated 290 (280-300); Sodium 137 mEq/L (136-145); eGFR For African Americans > 60 (> 60); eGFR For Non-African Americans > 60 (> 60)
[2021-10-06] MEDS: *HR* OxyCODONE/APAP 5/325 TABLET PO PRN ×3 (03:23→18:18)
[2021-10-06] MEDS: Ipratropium/Albuterol Neb 3 ML IH SCH ×4 (03:28→21:33)
[2021-10-06] MEDS ORDERED: *HR* LORazepam 2 MG/ML VIAL IVP ONE (03:34)
[2021-10-06] MEDS: Pregabalin 50 MG CAPSULE PO SCH ×2 (11:11→22:06)
[2021-10-06] MEDS: Sucralfate 1 GM TABLET PO SCH ×2 (11:11→22:05)
[2021-10-06] MEDS: modafiniL 100 MG TABLET PO SCH (11:11)
[2021-10-06] MEDS: Apixaban 5 MG TABLET PO SCH ×2 (11:11→22:05)
[2021-10-06] MEDS: Sulfamethoxazole/Trimeth DS 1 EACH TABLET PO SCH (11:12)
[2021-10-06] MEDS: predniSONE 20 MG TABLET PO SCH ×2 (11:12→18:18)
[2021-10-06] MEDS: Topiramate 25 MG TABLET PO SCH (11:12)
[2021-10-06] MEDS: amLODIPine 5 MG TABLET PO SCH (11:12)
[2021-10-06] MEDS: QUEtiapine Fumarate 100 MG TABLET PO SCH (11:12)
[2021-10-06] MEDS: levETIRAcetam 250 MG TABLET PO SCH ×2 (11:12→22:05)
[2021-10-06] MEDS: Insulin LISPRO 300 UNITS/3 ML VIAL SUBQ SCH ×4 (11:13→22:06)
[2021-10-06] MEDS: Insulin DETEMIR 100 UNIT/ML X5UNITS SUBQ SCH ×2 (11:15→22:06)
[2021-10-06] MEDS: *HR* LORazepam 0.5 MG TABLET PO PRN ×2 (13:07→22:05)
[2021-10-06] MEDS: Azithromycin 500 MG in 0.9 % Sodium Chloride 250 ML IVPB SCH (18:15)
[2021-10-06] MEDS: cefTRIAXone 1,000 MG in 0.9 % Sodium Chloride 10 ML IVP SCH (18:15)
[2021-10-06] MEDS: Famotidine 20 MG TABLET PO SCH (22:05)
[2021-10-07] MEDS: Ipratropium/Albuterol Neb 3 ML IH SCH ×2 (03:43→09:36)
[2021-10-07 06:49] LABS: Hematocrit 30.4 % (35.3-44.9); Mean Corpuscular HGB Conc 29.6 g/dL (31.6-35.5); Mean Corpuscular Hemoglobin 26.2 pg (28.0-33.3); Mean Corpuscular Volume 88.6 fL (83.0-100.0); Platelet Count 354 K/mcL (140-400); Red Blood Count 3.43 M/mcL (3.82-4.97); Red Cell Distribution Width 17.4 % (11.5-14.5); White Blood Count 7.3 K/mcL (4.3-11.1)
[2021-10-07] MEDS: Insulin LISPRO 300 UNITS/3 ML VIAL SUBQ SCH ×2 (07:25→11:21)
[2021-10-07 07:29] LABS: BUN/Creatinine Ratio 22 (6-26); Blood Urea Nitrogen 14 mg/dL (8-23); Calcium 9.3 mg/dL (8.6-10.3); Carbon Dioxide 28 mEq/L (23-29); Chloride 103 mEq/L (98-107); Glucose 134 mg/dL (70-105); Magnesium 1.9 mg/dL (1.6-2.6); Osmolality,Calculated 282 (280-300); Sodium 135 mEq/L (136-145); eGFR For African Americans > 60 (> 60); eGFR For Non-African Americans > 60 (> 60)
[2021-10-07] MEDS: Pregabalin 50 MG CAPSULE PO SCH (09:05)
[2021-10-07] MEDS: Sulfamethoxazole/Trimeth DS 1 EACH TABLET PO SCH (09:05)
[2021-10-07] MEDS: levETIRAcetam 250 MG TABLET PO SCH (09:06)
[2021-10-07] MEDS: Apixaban 5 MG TABLET PO SCH (09:06)
[2021-10-07] MEDS: amLODIPine 5 MG TABLET PO SCH (09:06)
[2021-10-07] MEDS: Sucralfate 1 GM TABLET PO SCH (09:06)
[2021-10-07] MEDS: predniSONE 20 MG TABLET PO SCH (09:06)
[2021-10-07] MEDS: Topiramate 25 MG TABLET PO SCH (09:06)
[2021-10-07] MEDS: modafiniL 100 MG TABLET PO SCH (09:06)
[2021-10-07] MEDS: QUEtiapine Fumarate 100 MG TABLET PO SCH (09:07)
[2021-10-07] MEDS: *HR* OxyCODONE/APAP 5/325 TABLET PO PRN (09:10)
[2021-10-07] MEDS: Insulin DETEMIR 100 UNIT/ML X5UNITS SUBQ SCH (09:11)
[2021-10-07 11:21] VITALS: BP 171/82; PULSE 114; TEMP 97.9; O2SAT 91
== END 2021-10-07 12:11 | disposition home or self-care (01) | DRG 871 ==
LOC: EMEROOARM 18:36 → 2NENU 18:36 → SUATTDRO 20:26 → 2NENU 20:29
PROVIDERS: ADMIT Student in an Organized Health Care Education/Training Program; ATTEND Internal Medicine

== ENCOUNTER 2021-11-30 00:37 | Inpatient (IN) ==
[2021-11-30 01:11] LABS: VBG HCO3 25 mEq/L (21-27); VBG PCO2 53 mmHg (41-51); VBG PH 7.28 pH Units (7.32-7.42); VBG PO2 39 mmHg (25-50)
[2021-11-30] MEDS ORDERED: Azithromycin 500 MG in 0.9 % Sodium Chloride 250 ML IVPB ONE (01:12)
[2021-11-30] MEDS ORDERED: cefTRIAXone 1,000 MG in Water for inj. (sterile) 10 ML IVP ONE (01:12)
[2021-11-30 01:26] LABS: Hematocrit 35.5 % (35.3-44.9); Hemoglobin 10.8 g/dL (11.5-15.4); Mean Corpuscular HGB Conc 30.4 g/dL (31.6-35.5); Mean Corpuscular Hemoglobin 26.5 pg (28.0-33.3); Mean Corpuscular Volume 87.2 fL (83.0-100.0); Mean Platelet Volume 10.1 fL (9.4-12.4); Platelet Count 474 K/mcL (140-400); Red Blood Count 4.07 M/mcL (3.82-4.97); White Blood Count 24.7 K/mcL (4.3-11.1)
[2021-11-30 01:30] LABS: Albumin 4.4 g/dL (3.5-5.7); Albumin/Globulin Ratio 1.2 (1.1-2.2); Bilirubin,Direct 0.1 mg/dL (0.0-0.2); Bilirubin,Indirect 0.2 mg/dL (0.0-1.0); Bilirubin,Total 0.3 mg/dL (0.3-1.0); Calcium 9.2 mg/dL (8.6-10.3); Globulin 3.6 g/dL (2.4-3.5); Magnesium 1.4 mg/dL (1.6-2.6); Phosphorous 3.4 mg/dL (2.7-4.5); Potassium 4.2 mEq/L (3.5-5.1); Troponin I 0.03 ng/mL (< 0.04)
[2021-11-30 01:34] LABS: INR 1.3; Prothrombin Time 14.4 Seconds (9.4-12.1)
[2021-11-30 01:36] LABS: Activated Partial Thrombo Time 31.5 Seconds (26.0-36.0)
[2021-11-30] MEDS: 0.9 % Sodium Chloride 1,000 ML IVC SCH ×3 (01:39→03:09)
[2021-11-30 01:48] LABS: Influenza A PCR Negative (Negative); Influenza B PCR Negative (Negative); Resp. Syncytial Virus PCR Negative (Negative)
[2021-11-30 01:49] LABS: SARS-CoV-2 by PCR (In House) Negative (Negative)
[2021-11-30] MEDS ORDERED: Ondansetron 4 MG/2 ML VIAL IVP ONE (01:53)
[2021-11-30 02:03] LABS: Monocytes # 0.5 K/mcL (0.0-1.3); Neutrophils # 22.2 K/mcL (1.6-8.9)
[2021-11-30 02:04] LABS: Anisocytosis 1+ (Not Present)
[2021-11-30] MEDS ORDERED: Vancomycin 1,750 MG/517.5 ML IV.SOLN IVPB ONE (02:49)
[2021-11-30] MEDS ORDERED: Piperacillin/Tazobactam 3.375 GM in 0.9 % Sodium Chloride Mini Bag 100 ML IVPB ONE (02:50)
[2021-11-30] MEDS ORDERED: Ondansetron ODT 4 MG TAB.RAPDIS SL PRN (03:12)
[2021-11-30] MEDS ORDERED: Melatonin 3 MG TABLET PO PRN (03:12)
[2021-11-30] MEDS ORDERED: Naloxone 0.4 MG/ML INJ IVP PRN (03:12)
[2021-11-30] MEDS ORDERED: D5% in Water 1,000 ML IVC PRN (03:19)
[2021-11-30] MEDS ORDERED: Dextrose Gel 15 GM/37.5 ML TUBE PO PRN ×2 (03:19)
[2021-11-30] MEDS ORDERED: *HR* Dextrose 50 % in Water (Syg) 50 ML SYRINGE IVP PRN (03:19)
[2021-11-30] MEDS: MethylPREDNISolone 40 MG/ML VIAL IVP SCH ×3 (05:58→19:36)
[2021-11-30] MEDS ORDERED: Sulfamethoxazole/Trimeth DS 1 EACH TABLET PO SCH (09:00)
[2021-11-30] MEDS ORDERED: Apixaban 5 MG TABLET PO SCH (09:00)
[2021-11-30] MEDS ORDERED: Furosemide 40 MG TABLET PO SCH (09:00)
[2021-11-30] MEDS: modafiniL 100 MG TABLET PO SCH (10:28)
[2021-11-30] MEDS: Pregabalin 50 MG CAPSULE PO SCH ×2 (10:28→20:17)
[2021-11-30] MEDS: Cefepime HCl 2,000 MG in 0.9 % Sodium Chloride 10 ML IVP SCH ×2 (10:29→21:13)
[2021-11-30] MEDS: Insulin DETEMIR 100 UNIT/ML X5UNITS SUBQ SCH ×2 (10:50→21:13)
[2021-11-30] MEDS: Insulin LISPRO 300 UNITS/3 ML VIAL SUBQ SCH ×3 (10:50→16:57)
[2021-11-30] MEDS ORDERED: Ipratropium/Albuterol Neb 3 ML ONE (10:58)
[2021-11-30] MEDS ORDERED: Ipratropium/Albuterol Neb 3 ML IH ONE (11:12)
[2021-11-30] MEDS ORDERED: *HR* LORazepam 0.5 MG TABLET PO PRN (11:15)
[2021-11-30] MEDS ORDERED: *HR* LORazepam 2 MG/ML VIAL ONE (11:25)
[2021-11-30] MEDS: *HR* LORazepam 2 MG/ML VIAL IVP PRN (11:44)
[2021-11-30 11:48] LABS: ABG Base Excess -4 mEq/L (-2 to 3); ABG HCO3 25 mEq/L (21-27); ABG Oxygen Saturation 81 % (95-98); ABG PCO2 61 mmHg (35-45); ABG PH 7.21 pH Units (7.32-7.45); ABG PO2 55 mmHg (85-104); ABG TCO2 27 mEq/L (20-26)
[2021-11-30] MEDS ORDERED: *HR* Etomidate 40 MG/20 ML VIAL IVP ONE (14:14)
[2021-11-30] MEDS ORDERED: *HR* Rocuronium Bromide 100 MG/10 ML VIAL IVP ONE (14:14)
[2021-11-30] MEDS ORDERED: *HR* FentaNYL (PF) 100 MCG/2 ML VIAL IVP ONE (14:31)
[2021-11-30] MEDS ORDERED: *HR* FentaNYL (PF) 100 MCG/2 ML VIAL ONE (14:32)
[2021-11-30] MEDS ORDERED: *HR* Etomidate 20 MG/10 ML AMPUL IVP ONE (14:33)
[2021-11-30] MEDS ORDERED: *HR* Rocuronium Bromide 50 MG/5 ML VIAL IVP ONE (14:34)
[2021-11-30] MEDS ORDERED: Ringers Solution, Lactated 1,000 ML ONE (14:41)
[2021-11-30] MEDS ORDERED: Artificial Tears SOLN 15 ML BOTTLE BOTH EYES PRN (14:41)
[2021-11-30] MEDS ORDERED: Ringers Solution, Lactated 1,000 ML IVC SCH (14:45)
[2021-11-30] MEDS ORDERED: 0.9 % Sodium Chloride 1,000 ML ONE (15:09)
[2021-11-30] MEDS: FentaNYL (PF) 1,000 MCG/100 ML IV.SOLN IVC SCH ×3 (15:46→23:27)
[2021-11-30 15:50] LABS: Bacteria,Urine Few per hpf (None-Few); Bilirubin,Urine Negative (Negative); Blood,Urine Negative (Negative); Clarity,Urine Clear (Clear); Color,Urine Colorless (Yellow); Glucose,Urine (UA) >=1000 mg/dL (Normal); Ketones,Urine Negative (Negative); Leukocyte Esterase,Urine Negative (Negative); Mucus,Urine Few per lpf (None-Few); Nitrite,Urine Negative (Negative); Protein,Urine Trace mg/dL (Neg-Trace); RBC,Urine 0-3 per hpf (0-3); Specific Gravity,Urine 1.013 (1.010-1.025); Squamous Epithelial Cell,Urine Few per hpf (None-Few); Urobilinogen,Urine Normal (Normal); WBC,Urine 0-3 per hpf (0-3)
[2021-11-30 16:39] LABS: ABG Base Excess -2 mEq/L (-2 to 3); ABG HCO3 32 mEq/L (21-27); ABG Oxygen Saturation 87 % (95-98); ABG PCO2 126 mmHg (35-45); ABG PH 7.02 pH Units (7.32-7.45); ABG PO2 83 mmHg (85-104); ABG TCO2 36 mEq/L (20-26); Blood Gas Modality ASSIST CONTROL; Blood Gas VT 280 cc
[2021-11-30] MEDS: Artificial Tears SOLN 15 ML BOTTLE BOTH EYES SCH ×3 (16:57→23:04)
[2021-11-30 17:17] LABS: ABG Base Excess -1 mEq/L (-2 to 3); ABG HCO3 30 mEq/L (21-27); ABG Oxygen Saturation 87 % (95-98); ABG PCO2 88 mmHg (35-45); ABG PH 7.14 pH Units (7.32-7.45); ABG PO2 71 mmHg (85-104); ABG TCO2 32 mEq/L (20-26); Blood Gas Modality ASSIST CONTROL; Blood Gas VT 340 cc
[2021-11-30] MEDS: Cisatracurium 200 MG in 0.9 % Sodium Chloride 80 ML IVC SCH (17:18)
[2021-11-30 19:48] LABS: Basophils % 0.1 %; Hematocrit 29.9 % (35.3-44.9); Lymphocytes # 0.6 K/mcL (0.6-4.6); Lymphocytes % 4.3 %; Mean Corpuscular HGB Conc 30.1 g/dL (31.6-35.5); Mean Corpuscular Volume 89.8 fL (83.0-100.0); Mean Platelet Volume 9.6 fL (9.4-12.4); Monocytes # 0.4 K/mcL (0.0-1.3); Monocytes % 2.7 %; Neutrophils # 13.6 K/mcL (1.6-8.9); Platelet Count 315 K/mcL (140-400); Red Blood Count 3.33 M/mcL (3.82-4.97); Red Cell Distribution Width 15.3 % (11.5-14.5); Segmented Neutrophils % 91.9 %; White Blood Count 14.8 K/mcL (4.3-11.1)
[2021-11-30 20:13] LABS: ABG Base Excess -2 mEq/L (-2 to 3); ABG HCO3 28 mEq/L (21-27); ABG Oxygen Saturation 96 % (95-98); ABG PCO2 75 mmHg (35-45); ABG PH 7.18 pH Units (7.32-7.45); ABG PO2 102 mmHg (85-104); ABG TCO2 30 mEq/L (20-26); Blood Gas VT 340 cc
[2021-11-30] MEDS: Chlorhexidine Rinse 15 ML MOUTHWASH MM SCH (20:17)
[2021-11-30] MEDS ORDERED: QUEtiapine Fumarate 100 MG TABLET PO SCH (21:00)
[2021-11-30] MEDS ORDERED: Famotidine 20 MG TABLET PO SCH (21:00)
[2021-11-30] MEDS ORDERED: Insulin LISPRO 300 UNITS/3 ML VIAL SUBQ SCH (21:00)
[2021-11-30 23:57] LABS: ABG Base Excess 0 mEq/L (-2 to 3); ABG HCO3 28 mEq/L (21-27); ABG Oxygen Saturation 100 % (95-98); ABG PCO2 70 mmHg (35-45); ABG PH 7.22 pH Units (7.32-7.45); ABG PO2 244 mmHg (85-104); ABG TCO2 31 mEq/L (20-26); Blood Gas Modality ASSIST CONTROL; Blood Gas VT 340 cc
[2021-12-01] MEDS: Cisatracurium 200 MG in 0.9 % Sodium Chloride 80 ML IVC SCH ×2 (01:25→14:08)
[2021-12-01 03:44] LABS: Basophils % 0.1 %; Hematocrit 27.3 % (35.3-44.9); Hemoglobin 8.1 g/dL (11.5-15.4); Immature Granulocytes % 0.9 % (0-4); Lymphocytes # 0.7 K/mcL (0.6-4.6); Lymphocytes % 7.4 %; Mean Corpuscular HGB Conc 29.7 g/dL (31.6-35.5); Mean Corpuscular Hemoglobin 26.7 pg (28.0-33.3); Mean Corpuscular Volume 90.1 fL (83.0-100.0); Monocytes # 0.4 K/mcL (0.0-1.3); Monocytes % 3.7 %; Neutrophils # 8.5 K/mcL (1.6-8.9); Platelet Count 277 K/mcL (140-400); Red Blood Count 3.03 M/mcL (3.82-4.97); Red Cell Distribution Width 15.2 % (11.5-14.5); Segmented Neutrophils % 87.9 %; White Blood Count 9.7 K/mcL (4.3-11.1)
[2021-12-01 03:57] LABS: Calcium 7.9 mg/dL (8.6-10.3); Magnesium 2.1 mg/dL (1.6-2.6); Potassium 5.1 mEq/L (3.5-5.1)
[2021-12-01] MEDS ORDERED: Vancomycin 1,500 MG/265 ML IV.SOLN IVPB SCH (04:00)
[2021-12-01] MEDS: Artificial Tears SOLN 15 ML BOTTLE BOTH EYES SCH ×6 (04:02→23:28)
[2021-12-01] MEDS: MethylPREDNISolone 40 MG/ML VIAL IVP SCH ×3 (04:02→18:47)
[2021-12-01] MEDS: FentaNYL (PF) 1,000 MCG/100 ML IV.SOLN IVC SCH ×5 (04:02→23:48)
[2021-12-01 04:33] LABS: ABG Base Excess 0 mEq/L (-2 to 3); ABG HCO3 28 mEq/L (21-27); ABG Oxygen Saturation 100 % (95-98); ABG PCO2 64 mmHg (35-45); ABG PH 7.24 pH Units (7.32-7.45); ABG PO2 194 mmHg (85-104); ABG TCO2 30 mEq/L (20-26); Blood Gas Modality ASSIST CONTROL; Blood Gas VT 340 cc
[2021-12-01] MEDS: modafiniL 100 MG TABLET PO SCH (08:39)
[2021-12-01] MEDS: Pantoprazole 40 MG VIAL IVP SCH (08:48)
[2021-12-01] MEDS: Cefepime HCl 2,000 MG in 0.9 % Sodium Chloride 10 ML IVP SCH ×2 (08:49→22:25)
[2021-12-01] MEDS: Chlorhexidine Rinse 15 ML MOUTHWASH MM SCH ×2 (08:50→19:59)
[2021-12-01] MEDS: Insulin DETEMIR 100 UNIT/ML X5UNITS SUBQ SCH ×2 (08:51→20:02)
[2021-12-01] MEDS ORDERED: *HR* Heparin 5,000 UNIT/ML VIAL IVP PRN ×2 (10:12)
[2021-12-01 10:51] LABS: Hematocrit 26.3 % (35.3-44.9); Hemoglobin 7.9 g/dL (11.5-15.4); Mean Corpuscular Hemoglobin 27.1 pg (28.0-33.3); Mean Corpuscular Volume 90.4 fL (83.0-100.0); Mean Platelet Volume 10.1 fL (9.4-12.4); Platelet Count 270 K/mcL (140-400); Red Blood Count 2.91 M/mcL (3.82-4.97); Red Cell Distribution Width 15.2 % (11.5-14.5); White Blood Count 8.2 K/mcL (4.3-11.1)
[2021-12-01 10:58] LABS: Heparin anti-factor XA UFH 0.22 IU/mL (0.30-0.70)
[2021-12-01 10:59] LABS: INR 1.2; Prothrombin Time 13.6 Seconds (9.4-12.1)
[2021-12-01] MEDS: Heparin 25,000UNIT/250ML 1/2NS 25,000 UNIT/250 ML IV.SOLN IVC SCH (11:12)
[2021-12-01] MEDS: Sulfamethoxazole/Trimeth 30 ML in D5% in Water 500 ML IVPB SCH ×2 (11:23→16:28)
[2021-12-01] MEDS: Insulin LISPRO 300 UNITS/3 ML VIAL SUBQ SCH ×3 (13:01→23:31)
[2021-12-01 20:03] LABS: ABG Base Excess 1 mEq/L (-2 to 3); ABG HCO3 28 mEq/L (21-27); ABG Oxygen Saturation 95 % (95-98); ABG PCO2 59 mmHg (35-45); ABG PH 7.28 pH Units (7.32-7.45); ABG PO2 87 mmHg (85-104); ABG TCO2 30 mEq/L (20-26); Blood Gas VT 340 cc
[2021-12-01 20:57] LABS: Adenovirus Not Detected (Not Detect); Bordetella Pertussis Not Detected (Not Detect); Chlamydophila pneumoniae Not Detected (Not Detect); Coronavirus 229E Not Detected (Not Detect); Coronavirus HKU1 Not Detected (Not Detect); Coronavirus NL63 Not Detected (Not Detect); Coronavirus OC43 Not Detected (Not Detect); Human Metapneumovirus Not Detected (Not Detect); Human Rhinovirus/Enterovirus Not Detected (Not Detect); Influenza A Subtype 2009 H1 Not Detected (Not Detect); Influenza B Not Detected (Not Detect); Mycoplasma pneumoniae Not Detected (Not Detect); Parainfluenza Virus 1 Not Detected (Not Detect); Parainfluenza Virus 2 Not Detected (Not Detect); Parainfluenza Virus 3 Not Detected (Not Detect); Parainfluenza Virus 4 Not Detected (Not Detect); Respiratory Syncytial Virus Not Detected (Not Detect); SARS-CoV-2 Not Detected (Not Detect)
[2021-12-01] MEDS: Midazolam HCl 50 MG/50 ML IV.SOLN IVC SCH (23:48)
[2021-12-02 00:24] LABS: ABG Base Excess 0 mEq/L (-2 to 3); ABG HCO3 29 mEq/L (21-27); ABG Oxygen Saturation 98 % (95-98); ABG PCO2 64 mmHg (35-45); ABG PH 7.26 pH Units (7.32-7.45); ABG PO2 127 mmHg (85-104); ABG TCO2 31 mEq/L (20-26); Blood Gas VT 340 cc
[2021-12-02] MEDS: Cisatracurium 200 MG in 0.9 % Sodium Chloride 80 ML IVC SCH (03:13)
[2021-12-02] MEDS: MethylPREDNISolone 40 MG/ML VIAL IVP SCH ×3 (03:13→18:46)
[2021-12-02] MEDS: Artificial Tears SOLN 15 ML BOTTLE BOTH EYES SCH ×6 (03:16→23:46)
[2021-12-02 03:50] LABS: ABG Base Excess 2 mEq/L (-2 to 3); ABG HCO3 30 mEq/L (21-27); ABG Oxygen Saturation 99 % (95-98); ABG PCO2 65 mmHg (35-45); ABG PH 7.27 pH Units (7.32-7.45); ABG PO2 178 mmHg (85-104); ABG TCO2 32 mEq/L (20-26); Blood Gas VT 340 cc
[2021-12-02 03:56] LABS: Basophils % 0.1 %; Eosinophils % 0.1 %; Hematocrit 26.5 % (35.3-44.9); Hemoglobin 7.8 g/dL (11.5-15.4); Lymphocytes # 1.1 K/mcL (0.6-4.6); Lymphocytes % 13.4 %; Mean Corpuscular HGB Conc 29.4 g/dL (31.6-35.5); Mean Corpuscular Hemoglobin 26.4 pg (28.0-33.3); Mean Corpuscular Volume 89.5 fL (83.0-100.0); Mean Platelet Volume 10.2 fL (9.4-12.4); Monocytes # 0.5 K/mcL (0.0-1.3); Neutrophils # 6.3 K/mcL (1.6-8.9); Nucleated Red Blood Cells 0.3 /100 WBC (0); Platelet Count 286 K/mcL (140-400); Red Blood Count 2.96 M/mcL (3.82-4.97); Red Cell Distribution Width 15.3 % (11.5-14.5); Segmented Neutrophils % 79.4 %; White Blood Count 7.9 K/mcL (4.3-11.1)
[2021-12-02 04:13] LABS: BUN/Creatinine Ratio 27 (6-26); Blood Urea Nitrogen 19 mg/dL (8-23); Calcium 8.2 mg/dL (8.6-10.3); Carbon Dioxide 27 mEq/L (23-29); Chloride 101 mEq/L (98-107); Glucose 193 mg/dL (70-105); Magnesium 2.1 mg/dL (1.6-2.6); Osmolality,Calculated 284 (280-300); Potassium 4.4 mEq/L (3.5-5.1); Sodium 133 mEq/L (136-145)
[2021-12-02] MEDS: FentaNYL (PF) 1,000 MCG/100 ML IV.SOLN IVC SCH ×3 (05:00→20:04)
[2021-12-02] MEDS: Insulin LISPRO 300 UNITS/3 ML VIAL SUBQ SCH ×4 (05:28→23:46)
[2021-12-02] MEDS: Heparin 25,000UNIT/250ML 1/2NS 25,000 UNIT/250 ML IV.SOLN IVC SCH ×2 (05:42→23:47)
[2021-12-02] MEDS: Cefepime HCl 2,000 MG in 0.9 % Sodium Chloride 10 ML IVP SCH ×2 (08:20→17:09)
[2021-12-02] MEDS: Pantoprazole 40 MG VIAL IVP SCH (08:20)
[2021-12-02] MEDS: Sulfamethoxazole/Trimeth 30 ML in D5% in Water 500 ML IVPB SCH ×4 (08:21→23:49)
[2021-12-02] MEDS: Chlorhexidine Rinse 15 ML MOUTHWASH MM SCH ×2 (08:21→20:03)
[2021-12-02] MEDS: Insulin DETEMIR 100 UNIT/ML X5UNITS SUBQ SCH ×2 (08:21→20:03)
[2021-12-02] MEDS: modafiniL 100 MG TABLET PO SCH (08:22)
[2021-12-02] MEDS: Furosemide 40 MG/4 ML VIAL IVP SCH ×2 (11:55→20:03)
[2021-12-02] MEDS: Midazolam HCl 50 MG/50 ML IV.SOLN IVC SCH ×2 (12:49→21:45)
[2021-12-02 17:11] LABS: ABG Base Excess 4 mEq/L (-2 to 3); ABG HCO3 31 mEq/L (21-27); ABG Oxygen Saturation 98 % (95-98); ABG PCO2 60 mmHg (35-45); ABG PH 7.32 pH Units (7.32-7.45); ABG PO2 117 mmHg (85-104); ABG TCO2 33 mEq/L (20-26); Blood Gas VT 340 cc
[2021-12-02] MEDS ORDERED: Calcium Gluconate 1gm/50mL 1 GM/50 ML BAG IVPB PRN (23:05)
[2021-12-02] MEDS ORDERED: Potassium Chloride 40 MEQ/200 ML BAG IVPB PRN (23:05)
[2021-12-03] MEDS: FentaNYL (PF) 1,000 MCG/100 ML IV.SOLN IVC SCH ×6 (01:04→22:36)
[2021-12-03] MEDS: MethylPREDNISolone 40 MG/ML VIAL IVP SCH ×3 (02:36→20:14)
[2021-12-03] MEDS: Cefepime HCl 2,000 MG in 0.9 % Sodium Chloride 10 ML IVP SCH ×3 (02:36→17:57)
[2021-12-03] MEDS: Artificial Tears SOLN 15 ML BOTTLE BOTH EYES SCH ×6 (03:09→23:28)
[2021-12-03 03:38] LABS: Basophils % 0.2 %; Hematocrit 25.4 % (35.3-44.9); Hemoglobin 7.7 g/dL (11.5-15.4); Immature Granulocytes % 1.1 % (0-4); Lymphocytes # 1.5 K/mcL (0.6-4.6); Lymphocytes % 16.7 %; Mean Corpuscular HGB Conc 30.3 g/dL (31.6-35.5); Mean Corpuscular Hemoglobin 26.6 pg (28.0-33.3); Mean Corpuscular Volume 87.6 fL (83.0-100.0); Monocytes # 0.6 K/mcL (0.0-1.3); Monocytes % 6.4 %; Neutrophils # 6.9 K/mcL (1.6-8.9); Nucleated Red Blood Cells 0.2 /100 WBC (0); Platelet Count 297 K/mcL (140-400); Segmented Neutrophils % 75.6 %; White Blood Count 9.1 K/mcL (4.3-11.1)
[2021-12-03 03:58] LABS: Calcium 7.9 mg/dL (8.6-10.3); Magnesium 1.7 mg/dL (1.6-2.6); Potassium 3.7 mEq/L (3.5-5.1)
[2021-12-03 04:41] LABS: ABG Base Excess 3 mEq/L (-2 to 3); ABG HCO3 30 mEq/L (21-27); ABG Oxygen Saturation 99 % (95-98); ABG PCO2 56 mmHg (35-45); ABG PH 7.33 pH Units (7.32-7.45); ABG PO2 171 mmHg (85-104); ABG TCO2 31 mEq/L (20-26); Blood Gas Modality ASSIST CONTROL; Blood Gas VT 340 cc
[2021-12-03] MEDS: Insulin LISPRO 300 UNITS/3 ML VIAL SUBQ SCH ×5 (05:24→23:29)
[2021-12-03] MEDS: Potassium Phosphate 44 MEQ in 0.9 % Sodium Chloride 250 ML IVPB PRN ×2 (05:26→17:48)
[2021-12-03] MEDS: Midazolam HCl 50 MG/50 ML IV.SOLN IVC SCH ×3 (05:36→17:52)
[2021-12-03] MEDS: Sulfamethoxazole/Trimeth 30 ML in D5% in Water 500 ML IVPB SCH ×3 (08:59→23:29)
[2021-12-03] MEDS: Pantoprazole 40 MG VIAL IVP SCH (09:01)
[2021-12-03] MEDS: Furosemide 40 MG/4 ML VIAL IVP SCH (09:01)
[2021-12-03] MEDS: Insulin DETEMIR 100 UNIT/ML X5UNITS SUBQ SCH ×2 (09:02→20:15)
[2021-12-03] MEDS: Chlorhexidine Rinse 15 ML MOUTHWASH MM SCH ×2 (09:02→20:11)
[2021-12-03] MEDS: modafiniL 100 MG TABLET PO SCH (09:20)
[2021-12-03] MEDS: Heparin 25,000UNIT/250ML 1/2NS 25,000 UNIT/250 ML IV.SOLN IVC SCH (09:54)
[2021-12-03 10:08] LABS: Source of Body Fluid Right upper lobe bal
[2021-12-03] MEDS ORDERED: Insulin DETEMIR 100 UNIT/ML X5UNITS SUBQ ONE (11:28)
[2021-12-03 11:32] LABS: Appearance of Body Fluid Slightly Hazy (Clear); Volume of Body Fluid 20 mL
[2021-12-03 13:13] LABS: Magnesium 1.8 mg/dL (1.6-2.6)
[2021-12-03] MEDS: rOPINIRole 0.25 MG TABLET PO SCH (20:12)
[2021-12-03] MEDS: Topiramate 100 MG TABLET PO SCH (20:12)
[2021-12-04] MEDS: Cefepime HCl 2,000 MG in 0.9 % Sodium Chloride 10 ML IVP SCH ×3 (02:21→16:51)
[2021-12-04] MEDS: Artificial Tears SOLN 15 ML BOTTLE BOTH EYES SCH ×6 (03:02→23:09)
[2021-12-04] MEDS: Insulin LISPRO 300 UNITS/3 ML VIAL SUBQ SCH ×7 (03:03→23:12)
[2021-12-04] MEDS: MethylPREDNISolone 40 MG/ML VIAL IVP SCH ×2 (03:04→19:45)
[2021-12-04] MEDS: FentaNYL (PF) 1,000 MCG/100 ML IV.SOLN IVC SCH ×5 (03:05→22:55)
[2021-12-04] MEDS: Midazolam HCl 50 MG/50 ML IV.SOLN IVC SCH (03:06)
[2021-12-04] MEDS: Heparin 25,000UNIT/250ML 1/2NS 25,000 UNIT/250 ML IV.SOLN IVC SCH ×2 (03:07→18:46)
[2021-12-04 04:08] LABS: ABG Base Excess 4 mEq/L (-2 to 3); ABG HCO3 31 mEq/L (21-27); ABG Oxygen Saturation 97 % (95-98); ABG PCO2 54 mmHg (35-45); ABG PH 7.36 pH Units (7.32-7.45); ABG PO2 92 mmHg (85-104); ABG TCO2 32 mEq/L (20-26); Blood Gas Modality ASSIST CONTROL; Blood Gas VT 340 cc
[2021-12-04 05:46] LABS: Basophils % 0.2 %; Hematocrit 26.1 % (35.3-44.9); Immature Granulocytes % 3.6 % (0-4); Lymphocytes # 1.1 K/mcL (0.6-4.6); Lymphocytes % 12.1 %; Mean Corpuscular HGB Conc 30.7 g/dL (31.6-35.5); Mean Corpuscular Hemoglobin 26.7 pg (28.0-33.3); Monocytes # 0.7 K/mcL (0.0-1.3); Monocytes % 8.2 %; Neutrophils # 6.7 K/mcL (1.6-8.9); Platelet Count 298 K/mcL (140-400); Red Cell Distribution Width 15.4 % (11.5-14.5); Segmented Neutrophils % 75.9 %; White Blood Count 8.8 K/mcL (4.3-11.1)
[2021-12-04 05:48] LABS: VBG Ionized Calcium 1.08 mmol/L (1.15-1.35)
[2021-12-04 06:05] LABS: BUN/Creatinine Ratio 24 (6-26); Blood Urea Nitrogen 18 mg/dL (8-23); Calcium 8.6 mg/dL (8.6-10.3); Carbon Dioxide 31 mEq/L (23-29); Chloride 94 mEq/L (98-107); Glucose 216 mg/dL (70-105); Magnesium 2.1 mg/dL (1.6-2.6); Osmolality,Calculated 280 (280-300); Phosphorous 3.2 mg/dL (2.7-4.5); Potassium 4.5 mEq/L (3.5-5.1); Sodium 131 mEq/L (136-145)
[2021-12-04] MEDS: Pantoprazole 40 MG VIAL IVP SCH (07:12)
[2021-12-04] MEDS: Chlorhexidine Rinse 15 ML MOUTHWASH MM SCH ×2 (07:12→19:45)
[2021-12-04] MEDS: Furosemide 40 MG/4 ML VIAL IVP SCH (07:12)
[2021-12-04] MEDS: rOPINIRole 0.25 MG TABLET PO SCH ×2 (07:13→19:44)
[2021-12-04] MEDS: modafiniL 100 MG TABLET PO SCH (07:13)
[2021-12-04] MEDS: Topiramate 100 MG TABLET PO SCH ×2 (07:14→19:44)
[2021-12-04] MEDS: Insulin DETEMIR 100 UNIT/ML X5UNITS SUBQ SCH ×2 (08:33→19:45)
[2021-12-04] MEDS: Sulfamethoxazole/Trimeth 30 ML in D5% in Water 500 ML IVPB SCH ×3 (09:41→23:08)
[2021-12-04] MEDS: QUEtiapine Fumarate 100 MG TABLET PO SCH (10:05)
[2021-12-04 13:30] LABS: C-Reactive Protein 22 mg/L (Less than 10)
[2021-12-04] MEDS ORDERED: Furosemide 40 MG/4 ML VIAL IVP ONE (18:00)
[2021-12-05 00:42] LABS: Influenza A PCR Body Fluid NOT DETECTED; Influenza B PCR Body Fluid NOT DETECTED; RVP Body Fluid Source BAL
[2021-12-05] MEDS: Cefepime HCl 2,000 MG in 0.9 % Sodium Chloride 10 ML IVP SCH ×3 (03:08→18:23)
[2021-12-05] MEDS: Artificial Tears SOLN 15 ML BOTTLE BOTH EYES SCH ×6 (03:09→23:06)
[2021-12-05] MEDS: Insulin LISPRO 300 UNITS/3 ML VIAL SUBQ SCH ×6 (03:11→23:06)
[2021-12-05 03:51] LABS: VBG Ionized Calcium 1.18 mmol/L (1.15-1.35)
[2021-12-05 04:00] LABS: Hematocrit 27.4 % (35.3-44.9); Hemoglobin 8.5 g/dL (11.5-15.4); Mean Corpuscular Hemoglobin 26.6 pg (28.0-33.3); Mean Corpuscular Volume 85.6 fL (83.0-100.0); Mean Platelet Volume 10.3 fL (9.4-12.4); Nucleated Red Blood Cells 0.2 /100 WBC (0); Platelet Count 356 K/mcL (140-400); Red Cell Distribution Width 15.3 % (11.5-14.5); White Blood Count 11.4 K/mcL (4.3-11.1)
[2021-12-05 04:16] LABS: Calcium 8.7 mg/dL (8.6-10.3); Magnesium 1.7 mg/dL (1.6-2.6); Phosphorous 3.2 mg/dL (2.7-4.5); Potassium 4.5 mEq/L (3.5-5.1)
[2021-12-05 04:30] LABS: ABG Base Excess 5 mEq/L (-2 to 3); ABG HCO3 31 mEq/L (21-27); ABG Oxygen Saturation 99 % (95-98); ABG PCO2 50 mmHg (35-45); ABG PH 7.39 pH Units (7.32-7.45); ABG PO2 119 mmHg (85-104); ABG TCO2 32 mEq/L (20-26); Blood Gas Modality ASSIST CONTROL; Blood Gas VT 450 cc
[2021-12-05 04:54] LABS: Eosinophils # 0.2 K/mcL (0.0-0.6); Lymphocytes # 0.9 K/mcL (0.6-4.6); Monocytes # 0.7 K/mcL (0.0-1.3); Neutrophils # 9.1 K/mcL (1.6-8.9); Platelet Estimate Normal (Normal); Polychromasia 1+ (Not Present)
[2021-12-05] MEDS: rOPINIRole 0.25 MG TABLET PO SCH ×2 (07:40→19:42)
[2021-12-05] MEDS: Pantoprazole 40 MG VIAL IVP SCH (07:40)
[2021-12-05] MEDS: MethylPREDNISolone 40 MG/ML VIAL IVP SCH (07:40)
[2021-12-05] MEDS: Furosemide 40 MG/4 ML VIAL IVP SCH (07:40)
[2021-12-05] MEDS: Chlorhexidine Rinse 15 ML MOUTHWASH MM SCH ×2 (07:40→19:41)
[2021-12-05] MEDS: modafiniL 100 MG TABLET PO SCH (07:41)
[2021-12-05] MEDS: Topiramate 100 MG TABLET PO SCH ×2 (07:42→19:42)
[2021-12-05 07:44] LABS: RSV PCR Body Fluid NOT DETECTED
[2021-12-05] MEDS: QUEtiapine Fumarate 100 MG TABLET PO SCH (07:45)
[2021-12-05] MEDS: FentaNYL (PF) 1,000 MCG/100 ML IV.SOLN IVC SCH ×2 (08:14→21:19)
[2021-12-05] MEDS: Insulin DETEMIR 100 UNIT/ML X5UNITS SUBQ SCH ×2 (08:26→19:42)
[2021-12-05] MEDS: Dexmedetomidine HCl 400 MCG/100 ML MLS IVC SCH ×2 (09:03→18:31)
[2021-12-05] MEDS: Sulfamethoxazole/Trimeth 30 ML in D5% in Water 500 ML IVPB SCH ×3 (09:58→23:06)
[2021-12-05] MEDS: Heparin 25,000UNIT/250ML 1/2NS 25,000 UNIT/250 ML IV.SOLN IVC SCH (10:46)
[2021-12-06] MEDS: Cefepime HCl 2,000 MG in 0.9 % Sodium Chloride 10 ML IVP SCH ×3 (01:38→16:16)
[2021-12-06] MEDS: Dexmedetomidine HCl 400 MCG/100 ML MLS IVC SCH (01:46)
[2021-12-06] MEDS: Heparin 25,000UNIT/250ML 1/2NS 25,000 UNIT/250 ML IV.SOLN IVC SCH ×2 (02:59→19:43)
[2021-12-06] MEDS: Insulin LISPRO 300 UNITS/3 ML VIAL SUBQ SCH ×6 (03:28→23:25)
[2021-12-06] MEDS: Artificial Tears SOLN 15 ML BOTTLE BOTH EYES SCH ×6 (03:28→23:13)
[2021-12-06 03:45] LABS: VBG Ionized Calcium 1.24 mmol/L (1.15-1.35)
[2021-12-06 03:52] LABS: Hematocrit 28.8 % (35.3-44.9); Mean Corpuscular HGB Conc 31.3 g/dL (31.6-35.5); Mean Corpuscular Hemoglobin 26.5 pg (28.0-33.3); Platelet Count 344 K/mcL (140-400); Red Blood Count 3.39 M/mcL (3.82-4.97); White Blood Count 11.8 K/mcL (4.3-11.1)
[2021-12-06 04:13] LABS: Calcium 9.4 mg/dL (8.6-10.3); Magnesium 1.7 mg/dL (1.6-2.6); Phosphorous 3.5 mg/dL (2.7-4.5)
[2021-12-06 04:53] LABS: ABG Base Excess 2 mEq/L (-2 to 3); ABG HCO3 27 mEq/L (21-27); ABG Oxygen Saturation 95 % (95-98); ABG PCO2 45 mmHg (35-45); ABG PH 7.39 pH Units (7.32-7.45); ABG PO2 77 mmHg (85-104); ABG TCO2 28 mEq/L (20-26); Blood Gas Modality ASSIST CONTROL; Blood Gas VT 450 cc
[2021-12-06] MEDS: modafiniL 100 MG TABLET PO SCH (07:08)
[2021-12-06] MEDS: QUEtiapine Fumarate 100 MG TABLET PO SCH (07:08)
[2021-12-06] MEDS: Topiramate 100 MG TABLET PO SCH ×2 (07:08→19:17)
[2021-12-06] MEDS: Furosemide 40 MG/4 ML VIAL IVP SCH (07:09)
[2021-12-06] MEDS: rOPINIRole 0.25 MG TABLET PO SCH ×2 (07:09→19:17)
[2021-12-06] MEDS: Chlorhexidine Rinse 15 ML MOUTHWASH MM SCH ×2 (07:09→19:44)
[2021-12-06] MEDS: Pantoprazole 40 MG VIAL IVP SCH (07:09)
[2021-12-06] MEDS: Insulin DETEMIR 100 UNIT/ML X5UNITS SUBQ SCH ×2 (07:10→19:51)
[2021-12-06] MEDS: Sulfamethoxazole/Trimeth 30 ML in D5% in Water 500 ML IVPB SCH ×3 (07:43→23:13)
[2021-12-06] MEDS: MethylPREDNISolone 40 MG/ML VIAL IVP SCH (09:18)
[2021-12-06] MEDS ORDERED: *HR* Metoprolol 5 MG/5 ML VIAL IVP PRN (11:22)
[2021-12-06] MEDS: *HR* Labetalol 20 MG/4 ML SYRINGE IVP PRN (15:43)
[2021-12-06] MEDS ORDERED: Racepinephrine Neb 0.5 ML VIAL IH ONE ×2 (16:14→16:19)
[2021-12-06] MEDS: Midazolam HCl 50 MG/50 ML IV.SOLN IVC SCH (21:36)
[2021-12-07] MEDS: *HR* Labetalol 20 MG/4 ML SYRINGE IVP PRN ×2 (00:52→09:27)
[2021-12-07] MEDS: Artificial Tears SOLN 15 ML BOTTLE BOTH EYES SCH ×2 (03:07→07:33)
[2021-12-07] MEDS: Insulin LISPRO 300 UNITS/3 ML VIAL SUBQ SCH ×5 (03:42→22:31)
[2021-12-07 05:03] LABS: Calcium 10.1 mg/dL (8.6-10.3); Magnesium 1.6 mg/dL (1.6-2.6); Phosphorous 3.1 mg/dL (2.7-4.5)
[2021-12-07] MEDS: Chlorhexidine Rinse 15 ML MOUTHWASH MM SCH ×2 (07:33→22:32)
[2021-12-07] MEDS: Pantoprazole 40 MG VIAL IVP SCH (07:33)
[2021-12-07] MEDS: Furosemide 40 MG/4 ML VIAL IVP SCH (07:33)
[2021-12-07] MEDS: MethylPREDNISolone 40 MG/ML VIAL IVP SCH (07:33)
[2021-12-07] MEDS: Sulfamethoxazole/Trimeth 30 ML in D5% in Water 500 ML IVPB SCH ×2 (08:30→17:00)
[2021-12-07] MEDS: Insulin DETEMIR 100 UNIT/ML X5UNITS SUBQ SCH ×2 (09:39→22:31)
[2021-12-07] MEDS: QUEtiapine Fumarate 100 MG TABLET PO SCH (11:18)
[2021-12-07] MEDS: modafiniL 100 MG TABLET PO SCH (11:18)
[2021-12-07] MEDS: Topiramate 100 MG TABLET PO SCH ×2 (11:18→22:32)
[2021-12-07] MEDS: rOPINIRole 0.25 MG TABLET PO SCH ×2 (11:18→22:32)
[2021-12-07] MEDS: Apixaban 5 MG TABLET PO SCH ×2 (11:47→22:32)
[2021-12-07] MEDS: *HR* LORazepam 2 MG/ML VIAL IVP PRN (22:32)
[2021-12-08] MEDS: Sulfamethoxazole/Trimeth 30 ML in D5% in Water 500 ML IVPB SCH ×4 (01:00→23:48)
[2021-12-08 06:03] LABS: Hematocrit 34.3 % (35.3-44.9); Mean Corpuscular HGB Conc 30.9 g/dL (31.6-35.5); Mean Corpuscular Hemoglobin 26.2 pg (28.0-33.3); Mean Corpuscular Volume 84.7 fL (83.0-100.0); Mean Platelet Volume 9.7 fL (9.4-12.4); Platelet Count 497 K/mcL (140-400); Red Blood Count 4.05 M/mcL (3.82-4.97); Red Cell Distribution Width 15.2 % (11.5-14.5); White Blood Count 16.1 K/mcL (4.3-11.1)
[2021-12-08 06:04] LABS: Hemoglobin 10.6 g/dL (11.5-15.4)
[2021-12-08 06:22] LABS: Calcium 10.4 mg/dL (8.6-10.3); Magnesium 2.1 mg/dL (1.6-2.6)
[2021-12-08 06:24] LABS: Lymphocytes # 2.9 K/mcL (0.6-4.6); Monocytes # 0.6 K/mcL (0.0-1.3); Neutrophils # 11.6 K/mcL (1.6-8.9)
[2021-12-08] MEDS: Chlorhexidine Rinse 15 ML MOUTHWASH MM SCH ×2 (07:13→20:51)
[2021-12-08] MEDS: Insulin LISPRO 300 UNITS/3 ML VIAL SUBQ SCH ×4 (07:32→21:34)
[2021-12-08] MEDS: QUEtiapine Fumarate 100 MG TABLET PO SCH (07:33)
[2021-12-08] MEDS: Pantoprazole 40 MG VIAL IVP SCH (07:33)
[2021-12-08] MEDS: modafiniL 100 MG TABLET PO SCH (07:33)
[2021-12-08] MEDS: MethylPREDNISolone 40 MG/ML VIAL IVP SCH (07:33)
[2021-12-08] MEDS: Apixaban 5 MG TABLET PO SCH ×2 (07:33→20:51)
[2021-12-08] MEDS: rOPINIRole 0.25 MG TABLET PO SCH ×2 (07:33→20:51)
[2021-12-08] MEDS: Topiramate 100 MG TABLET PO SCH ×2 (07:33→20:51)
[2021-12-08] MEDS: Insulin DETEMIR 100 UNIT/ML X5UNITS SUBQ SCH ×2 (08:09→21:34)
[2021-12-08] MEDS ORDERED: Furosemide 40 MG/4 ML VIAL IVP SCH (10:45)
[2021-12-08] MEDS: Furosemide 40 MG TABLET PO SCH (11:32)
[2021-12-08] MEDS ORDERED: Mag Hydrox/Al Hydrox/Simeth 30 ML UDC PO PRN (16:56)
[2021-12-09 06:14] LABS: Magnesium 1.7 mg/dL (1.6-2.6); Phosphorous 4.7 mg/dL (2.7-4.5); Potassium 3.8 mEq/L (3.5-5.1)
[2021-12-09] MEDS: MethylPREDNISolone 40 MG/ML VIAL IVP SCH (09:07)
[2021-12-09] MEDS: Pantoprazole 40 MG VIAL IVP SCH (09:07)
[2021-12-09] MEDS: Insulin LISPRO 300 UNITS/3 ML VIAL SUBQ SCH ×4 (09:07→19:45)
[2021-12-09] MEDS: Furosemide 40 MG TABLET PO SCH (09:08)
[2021-12-09] MEDS: Topiramate 100 MG TABLET PO SCH ×2 (09:08→19:51)
[2021-12-09] MEDS: rOPINIRole 0.25 MG TABLET PO SCH ×2 (09:08→19:51)
[2021-12-09] MEDS: Apixaban 5 MG TABLET PO SCH ×2 (09:08→19:53)
[2021-12-09] MEDS: QUEtiapine Fumarate 100 MG TABLET PO SCH (09:08)
[2021-12-09] MEDS: modafiniL 100 MG TABLET PO SCH (09:08)
[2021-12-09] MEDS: Chlorhexidine Rinse 15 ML MOUTHWASH MM SCH (09:09)
[2021-12-09] MEDS: Insulin DETEMIR 100 UNIT/ML X5UNITS SUBQ SCH ×2 (09:09→19:46)
[2021-12-09 09:24] LABS: Hematocrit 34.3 % (35.3-44.9); Hemoglobin 10.7 g/dL (11.5-15.4); Mean Corpuscular HGB Conc 31.2 g/dL (31.6-35.5); Mean Corpuscular Hemoglobin 26.2 pg (28.0-33.3); Mean Corpuscular Volume 84.1 fL (83.0-100.0); Mean Platelet Volume 9.9 fL (9.4-12.4); Platelet Count 497 K/mcL (140-400); Red Blood Count 4.08 M/mcL (3.82-4.97); Red Cell Distribution Width 15.2 % (11.5-14.5); White Blood Count 13.1 K/mcL (4.3-11.1)
[2021-12-09 09:39] LABS: Basophils # 0.1 K/mcL (0.0-0.2); Eosinophils # 0.4 K/mcL (0.0-0.6); Lymphocytes # 2.2 K/mcL (0.6-4.6); Monocytes # 0.4 K/mcL (0.0-1.3)
[2021-12-09 09:40] LABS: Platelet Estimate Increased (Normal)
[2021-12-09] MEDS: Sulfamethoxazole/Trimeth 30 ML in D5% in Water 500 ML IVPB SCH (09:57)
[2021-12-09] MEDS ORDERED: Azelastine 0.1% Nasal Spray 30 ML BOTTLE NS PRN (12:54)
[2021-12-09] MEDS: Sucralfate 1 GM TABLET PO SCH (19:51)
[2021-12-09] MEDS: Pregabalin 50 MG CAPSULE PO SCH (19:53)
[2021-12-09] MEDS ORDERED: Metoprolol XL (24 HR) Succ 50 MG TAB.ER.24H PO SCH (21:00)
[2021-12-10 03:41] LABS: Basophils # 0.2 K/mcL (0.0-0.2); Basophils % 1.5 %; Hematocrit 33.7 % (35.3-44.9); Hemoglobin 10.4 g/dL (11.5-15.4); Immature Granulocytes % 4.7 % (0-4); Lymphocytes # 3.3 K/mcL (0.6-4.6); Lymphocytes % 27.4 %; Mean Corpuscular HGB Conc 30.9 g/dL (31.6-35.5); Mean Corpuscular Hemoglobin 26.2 pg (28.0-33.3); Mean Corpuscular Volume 84.9 fL (83.0-100.0); Monocytes # 1.1 K/mcL (0.0-1.3); Monocytes % 8.6 %; Neutrophils # 7.1 K/mcL (1.6-8.9); Platelet Count 526 K/mcL (140-400); Red Blood Count 3.97 M/mcL (3.82-4.97); Red Cell Distribution Width 15.3 % (11.5-14.5); Segmented Neutrophils % 57.8 %; White Blood Count 12.2 K/mcL (4.3-11.1)
[2021-12-10 03:55] LABS: Calcium 9.9 mg/dL (8.6-10.3); Magnesium 1.8 mg/dL (1.6-2.6); Phosphorous 5.5 mg/dL (2.7-4.5); Potassium 3.8 mEq/L (3.5-5.1)
[2021-12-10] MEDS: Insulin LISPRO 300 UNITS/3 ML VIAL SUBQ SCH ×4 (07:47→20:26)
[2021-12-10] MEDS ORDERED: 0.9 % Sodium Chloride 250 ML ONE (07:52)
[2021-12-10] MEDS ORDERED: 0.9 % Sodium Chloride 250 ML IVC ONE ×2 (07:53→10:00)
[2021-12-10] MEDS: Topiramate 100 MG TABLET PO SCH ×2 (08:48→20:27)
[2021-12-10] MEDS: Pregabalin 50 MG CAPSULE PO SCH (08:48)
[2021-12-10] MEDS: QUEtiapine Fumarate 100 MG TABLET PO SCH (08:48)
[2021-12-10] MEDS: predniSONE 20 MG TABLET PO SCH (08:49)
[2021-12-10] MEDS: rOPINIRole 0.25 MG TABLET PO SCH ×2 (08:49→20:25)
[2021-12-10] MEDS: Sucralfate 1 GM TABLET PO SCH ×2 (08:49→20:24)
[2021-12-10] MEDS: Apixaban 5 MG TABLET PO SCH ×2 (08:49→20:25)
[2021-12-10] MEDS: modafiniL 100 MG TABLET PO SCH (08:49)
[2021-12-10] MEDS: Insulin DETEMIR 100 UNIT/ML X5UNITS SUBQ SCH ×2 (08:49→20:25)
[2021-12-10] MEDS ORDERED: (Roflumilast [Daliresp] 500 MCG Tablet) PO SCH (09:00)
[2021-12-10] MEDS ORDERED: amLODIPine 5 MG TABLET PO SCH (09:00)
[2021-12-10] MEDS ORDERED: 0.9 % Sodium Chloride 500 ML IVC ONE (10:45)
[2021-12-11 07:02] VITALS: O2SAT 93
[2021-12-11 07:08] LABS: Basophils # 0.1 K/mcL (0.0-0.2); Basophils % 0.6 %; Hematocrit 28.9 % (35.3-44.9); Immature Granulocytes % 2.9 % (0-4); Lymphocytes # 3.4 K/mcL (0.6-4.6); Lymphocytes % 25.9 %; Mean Corpuscular HGB Conc 31.1 g/dL (31.6-35.5); Mean Corpuscular Hemoglobin 26.2 pg (28.0-33.3); Mean Corpuscular Volume 84.3 fL (83.0-100.0); Mean Platelet Volume 10.2 fL (9.4-12.4); Monocytes # 1.1 K/mcL (0.0-1.3); Monocytes % 8.4 %; Neutrophils # 8.2 K/mcL (1.6-8.9); Platelet Count 458 K/mcL (140-400); Red Blood Count 3.43 M/mcL (3.82-4.97); Red Cell Distribution Width 15.3 % (11.5-14.5); Segmented Neutrophils % 62.2 %; White Blood Count 13.2 K/mcL (4.3-11.1)
[2021-12-11 07:13] LABS: Calcium 9.6 mg/dL (8.6-10.3); Magnesium 1.7 mg/dL (1.6-2.6); Phosphorous 3.9 mg/dL (2.7-4.5); Potassium 3.2 mEq/L (3.5-5.1)
[2021-12-11] MEDS: Insulin LISPRO 300 UNITS/3 ML VIAL SUBQ SCH ×2 (08:01→13:17)
[2021-12-11] MEDS: Sucralfate 1 GM TABLET PO SCH (08:57)
[2021-12-11] MEDS: Apixaban 5 MG TABLET PO SCH (08:57)
[2021-12-11] MEDS: Topiramate 100 MG TABLET PO SCH (08:58)
[2021-12-11] MEDS: QUEtiapine Fumarate 100 MG TABLET PO SCH (08:58)
[2021-12-11] MEDS: rOPINIRole 0.25 MG TABLET PO SCH (08:58)
[2021-12-11] MEDS: predniSONE 20 MG TABLET PO SCH (08:58)
[2021-12-11] MEDS: modafiniL 100 MG TABLET PO SCH (08:59)
[2021-12-11] MEDS ORDERED: Metoprolol XL (24 HR) Succ 25 MG TAB.ER.24H PO SCH (09:00)
[2021-12-11] MEDS ORDERED: Sulfamethoxazole/Trimeth DS 1 EACH TABLET PO SCH (09:00)
[2021-12-11] MEDS: Insulin DETEMIR 100 UNIT/ML X5UNITS SUBQ SCH (12:01)
[2021-12-11 12:35] VITALS: BP 131/63; PULSE 107; TEMP 98.7
== END 2021-12-11 15:50 | disposition home or self-care (01) | DRG 870 ==
LOC: 2NENU 00:37 → EMEROOARM 00:37 → SUATTDRO 03:39 → 2NENU 04:15 → ICNU 14:23 → 2NENU 12-07 16:36
PROVIDERS: ADMIT Internal Medicine; ATTEND Internal Medicine

== ENCOUNTER 2022-02-12 08:07 | Observation (INO) ==
[2022-02-12] MEDS ORDERED: 0.9 % Sodium Chloride 1,000 ML ONE ×2 (08:40→10:03)
[2022-02-12] MEDS ORDERED: *HR* Heparin 10,000 UNIT/10 ML VIAL ONE ×2 (10:03→10:56)
[2022-02-12] MEDS ORDERED: Iopamidol - 370 200 ML INFUS..BTL ONE ×2 (10:03→11:11)
[2022-02-12] MEDS ORDERED: Nitroglycerin 1,000 MCG/5 ML VIAL IV ONE (10:03)
[2022-02-12] MEDS ORDERED: Heparin 1,000 UNITS/500 mL 500 ML ONE (10:03)
[2022-02-12] MEDS ORDERED: *HR* Midazolam HCl 2 MG/2 ML VIAL ONE ×2 (10:06→10:50)
[2022-02-12] MEDS ORDERED: *HR* FentaNYL (PF) 100 MCG/2 ML VIAL ONE ×2 (10:06→11:06)
[2022-02-12] MEDS: 0.9 % Sodium Chloride 500 ML IVC SCH ×2 (12:46→17:07)
[2022-02-12] MEDS ORDERED: Ipratropium/Albuterol Neb 3 ML IH PRN (16:31)
[2022-02-12] MEDS ORDERED: Ondansetron ODT 4 MG TAB.RAPDIS PO PRN (16:31)
[2022-02-12] MEDS ORDERED: Famotidine 20 MG TABLET PO SCH (21:00)
[2022-02-12] MEDS ORDERED: rOPINIRole 0.25 MG TABLET PO SCH (21:00)
[2022-02-12] MEDS: Pregabalin 50 MG CAPSULE PO SCH (21:12)
[2022-02-12] MEDS: Sucralfate 1 GM TABLET PO SCH (21:13)
[2022-02-12] MEDS: Topiramate 100 MG TABLET PO SCH (21:13)
[2022-02-13 03:14] LABS: Hematocrit 34.6 % (35.3-44.9); Hemoglobin 10.3 g/dL (11.5-15.4)
[2022-02-13 03:36] LABS: BUN/Creatinine Ratio 22 (6-26); Blood Urea Nitrogen 14 mg/dL (8-23)
[2022-02-13 07:41] VITALS: O2SAT 99
[2022-02-13] MEDS ORDERED: QUEtiapine Fumarate 100 MG TABLET PO SCH (09:00)
[2022-02-13] MEDS ORDERED: Fenofibrate 54 MG TABLET PO SCH (09:00)
[2022-02-13] MEDS ORDERED: Loratadine 10 MG TABLET PO SCH (09:00)
[2022-02-13] MEDS ORDERED: (Roflumilast [Daliresp] 500 MCG Tablet) PO SCH (09:00)
[2022-02-13] MEDS ORDERED: Metoprolol XL (24 HR) Succ 50 MG TAB.ER.24H PO SCH (09:00)
[2022-02-13] MEDS ORDERED: Aspirin 81 MG TAB.CHEW PO SCH (09:00)
[2022-02-13] MEDS: Pregabalin 50 MG CAPSULE PO SCH (09:40)
[2022-02-13] MEDS: Topiramate 100 MG TABLET PO SCH (09:40)
[2022-02-13] MEDS: Sucralfate 1 GM TABLET PO SCH (09:41)
[2022-02-13 10:50] VITALS: BP 136/74; PULSE 87; TEMP 97.8
== END 2022-02-13 12:09 | disposition home or self-care (01) ==
LOC: INVDIALAB 08:07 → 3BNU 08:07
PROVIDERS: ADMIT Internal Medicine Cardiovascular Disease; ATTEND Internal Medicine Cardiovascular Disease